=== PATIENT | male | born 1940 | race Caucasian/White ===

== ENCOUNTER 2017-02-07 10:46 | Inpatient (IN) | payer MEDICARE, OTHER ==
[~2017-02-07] VITALS: Ht 177.8 cm; Wt 100.9 kg
[2017-02-07] VITALS (9 sets, daily range): BP systolic 112–153; BP diastolic 51–72; PULSE 60–80; RESP 15–24; O2SAT 91–95
[~2017-02-07 10:46] MED LIST: AMLO10TA3 PO; ASCO-294 PO; ASPI-973 PO; ATOR20TA PO; CHOL200025 PO; COLC0.6T55 PO; CYAN10008 PO; DABI150C PO; DOCU-41 PO; FEBU40TA PO; FERR325C PO; FRSM80T PO; GABA-502 PO; HYDR-3939 PO; OMEP40CA36 PO; SODI650T PO; SPIR25TA3 PO
[2017-02-07] MEDS ORDERED: 0.9% Sodium Chloride 1,000 ML IV ONE ×2 (11:34→13:07)
[2017-02-07] MEDS ORDERED: HYDROcodone-APAP 5-325 mg Tablet PO ONE (11:35)
--- NOTE | 2017-02-07 11:41 | ED.REPORT ---
HPI-Extremity Problem Lower Date of Service February 07, 2017 ED Provider: Thomas Corbin PA-C Cody is a 76-year-old male with a history of DM type II, Charcot foot, coronary artery disease, CHF, A. fib, anemia, kidney disease presents to the ED via EMS with chief complaint of right foot pain. Patient reports worsening pain in his right foot secondary to a sore initially caused by the brace he wears for Charcot foot. Admits a brief episode of lightheaded dizziness about 2 days ago. Denies fevers, chills, malaise, abdominal pain, vomiting. Nursing Notes Stated Complaint: RIGHT LEG PAIN Chief Complaint: Extremity Trauma Nursing Notes Reviewed: Yes Allergies: Coded Allergies: Penicillins (Verified Adverse Reaction, Intermediate, Hallucinations, 02/07) Scheduled Amlodipine (Amlodipine) 10 Mg Tablet 10 MG PO DAILY Ascorbate Calcium (Vitamin C) 500 Mg Tablet 500 MG PO DAILY Aspirin (Aspirin) 81 Mg Tablet 81 MG PO DAILY Atorvastatin (Lipitor) 20 Mg Tablet 20 MG PO HS Cholecalciferol (Vitamin D3) (Vitamin D3) 3,000 Unit Tablet 3,000 UNIT PO DAILY Colchicine (Colchicine) 0.6 Mg Tablet 0.6 MG PO BID Cyanocobalamin (Vitamin B-12) (Vitamin B-12) 1,000 Mcg Tablet 1,000 MCG PO DAILY Dabigatran Etexilate Mesylate (Pradaxa) 150 Mg Capsule 150 MG PO BID Febuxostat (Uloric) 40 Mg Tablet 120 MG PO DAILY Ferrous Sulfate (Iron) 325 Mg Capsule.er 325 MG PO BID Furosemide (Furosemide) 80 Mg Tab 80 MG PO BID Gabapentin (Gabapentin) 300 Mg Capsule 300 MG PO TID Hydralazine (Hydralazine) 25 Mg Tablet 25 MG PO BIDWM Sodium Bicarbonate (Sodium Bicarbonate) 650 Mg Tablet 650 MG PO BID Spironolactone (Spironolactone) 50 Mg Tablet 50 MG PO BID Scheduled PRN Docusate Sodium (Colace) 100 Mg Capsule 100 MG PO DAILY PRN PRN For Constipation General Time Seen by MD: 11:29 Chief Complaint Foot injury right Hx Obtained From: Patient Arrived By: Ambulance Onset Occurred: Yesterday Symptom Duration: Since onset Location: : Foot right Quality: Painful Severity: Current: Mild Recent Healthcare: No recent doctor visit, No recent hospitalization Similar Sx Previous: No Past Medical History Past Medical History Notes: Recent L foot cellulits - finished abx 2 weeks ago Recent Admit July 17 through July 25 sepsis and left lower extremity ileitis, suspected osteomyelitis-with multiorgan dys function and is really elevated lactic acid, the culture at that time group beta strep group G, treated with ertapenem - treated through 07/30/2015 Past Medical History Diabetes mellitus type 2 CAD w/ CABGx4 1998 Hyperlipidemia Atrial fibrillation on Pradaxa. Chronic right bundle branch block Recent Left foot cellulitis - admitted July 17-2014, recent outpatient antibiotic finished 2 weeks Sleep apnea on CPAP Sepsis Chronic diastolic heart failure Chronic anemia Chronic kidney disease Reports: Hypertension Past Surgical History 4 way CABG. Smoking History Former Smoker Social History No tobacco use for 40 years. Alcohol Use: Denies alcohol use Drug Use: Denies drug use Ambulatory Status Independent Review of Systems Review of Systems Note: systolic blood pressure typically in 140s and yesterday in 110s Constitutional: Denies: Chills, Fever Musculoskeletal: Reports: Extremity pain (right foot), Extremity swelling ( right foot) Skin: Reports Bruising, Reports Swelling Neurologic: Reports: Lightheaded Complete sys rev & neg: except as marked. GI: Denies: Abdominal pain, Nausea, Vomiting Physical Exam Physical Exam Notes: Initial Vital Signs Vital Signs (First) Date Time Temp Pulse Resp B/P Pulse Ox O2 Delivery O2 Flow Rate FiO2 02/07/17 10:52 37.2 68 15 153/72 94 Room Air Initial VS: Reviewed Respiratory: Breath sounds normal, Clear to auscultation, No respiratory distress Cardiovascular: Regular rate & rhythm, Heart sounds normal, Intact distal pulses Abdomen / GI: Soft, Non-tender Upper Extremities: Vascular intact, Neuro intact Right Leg / Calf: Positive: Swelling present... Left Leg / Calf: Positive: Swelling present... right leg swelling greater then left Right Foot: Positive: Erythema present, Swelling present... chronic venous stasis changes medial ankle deformity from charcot foot overlying deformity is a developing ulcer that is 3 by 4 cm w/ debris no obvious drainage or fluctuance surrounding erythema Heart Rate / Rhythm: Positive: Irreg irregular rhythm Heart Sounds / Murmur: Positive: Murmur quality... (Blowing), Murmur timing... (Early systolic), Systolic murmur present.. (III/) Trauma / Burn / Environmental: Positive: Hematoma bruising from anticoagulant Neurologic: Oriented X3, Speech NL, No motor deficits, No sensory deficits, Reflexes equal bilat Interpretation & Diagnostics Lab Results Interpretation Result Diagram: 02/07/17 1205 02/07/17 1205 Test 02/07/17 12:05 02/07/17 12:10 02/07/17 12:48 White Blood Count 32.4th/mm3 (3.8-10.1) Red Blood Count 3.92mil/mm3 (4.40-5.80) Hemoglobin 11.2g/dL (13.8-17.2) Hematocrit 34.5% (41.0-50.0) Mean Corpuscular Volume 88.0fL (81-100) Mean Corpuscular Hemoglobin 28.6pg (27.0-35.0) Mean Corpuscular Hemoglobin Concent 32.5% (32.0-37.0) Red Cell Distribution Width 15.4% (12.3-15.4) Platelet Count 350bil/L (150-400) Neutrophils (%) (Auto) 90.6% (40-74) Lymphocytes (%) (Auto) 1.8% (14-46) Monocytes (%) (Auto) 6.9% (4-12) Eosinophils (%) (Auto) 0% (0-5) Basophils (%) (Auto) 0.1% (0-3) Sodium Level 131mEq/L (134-144) Potassium Level 4.0mEq/L (3.5-5.2) Chloride Level 92mEq/L (97-108) Carbon Dioxide Level 17mmol/L (18-29) Blood Urea Nitrogen 82mg/dL (8-27) Creatinine 2.26mg/dL (0.76-1.27) Estimat Glomerular Filtration Rate 30mL/min (>59) Glucose Level 205mg/dL (60-99) Calcium Level 9.2mg/dL (8.5-10.1) Total Bilirubin 1.0mg/dL (0.0-1.2) Aspartate Amino Transf (AST/SGOT) 40U/L (0-50) Alanine Aminotransferase (ALT/SGPT) 29U/L (0-44) Alkaline Phosphatase 105U/L (25-160) Total Protein 7.3g/dL (6.4-8.4) Albumin 3.4g/dL (3.4-5.0) Hold Griffith Top Tube Received (Received) Lactic Acid Level 2.0mmol/L (0.4-2.0) Urine Color Straw (YELLOW) Urine Appearance Clear (CLEAR,HAZY) Urine pH 5.5 (5.0-8.0) Urine Specific [place] 1.010 (1.003-1.035) Urine Protein Tracemg/dL (NEG,TRACE) Urine Glucose (UA) Negativemg/dL (NEGATIVE) Urine Ketones Tracemg/dL (NEGATIVE) Urine Occult Blood Trace (NEGATIVE) Urine Nitrite Negative (NEGATIVE) Urine Bilirubin Negative (NEGATIVE) Urine Urobilinogen Normalmg/dL (NORMAL) Urine Leukocyte Esterase Negative (NEGATIVE) Urine RBC 0-2/hpf (0-2) Urine WBC 0-5/hpf (0-5) Urine Epithelial Cells Occasional/hpf (NONE-MOD) Urine Crystals None seen (NONE SEEN) Urine Bacteria None/hpf (NONE-FEW) Urine Hyaline Casts None/lpf (NONE) Urine Granular Casts None seen (NONE SEEN) Urine Waxy Casts None seen (NONE SEEN) Urine Red Blood Cell Casts None seen (NONE SEEN) Urine White Blood Cell Casts None seen (NONE SEEN) Urine Mucus None seen (None Seen) Urine Trichomonas None seen (NONE SEEN) Urine Yeast None (NONE SEEN) Urinalysis Comment None Urine Culture Reflexed Not indicated Urine Random Creatinine 63mg/dL (22-328) Urine Random Total Protein 24mg/dL (0-15) Urine Random Sodium 21mEq/L Hold Urine Received (Received) X-Ray Interpretation Xray Interpretation: ANKLE X-RAY IMPRESSION: 1. Prominent mid foot and hindfoot Charcot arthropathy results in difficulty evaluating for subtle fractures. 2. Apparent dislocation of the talonavicular joint. The need for better evaluation utilizing CT may be determined clinically. Dictated by: Cm Parks M.D. on 02/07/2017 at 11:00 Approved by: Cm Parks M.D. on 02/07/2017 at 11:05 Interpretation / Wet Read by: Interpret - Radiologist Re-Eval/Medical Decision Re-Evaluation/Progress : Time of Eval: 12:55 Re-Evaluation/Progress Note: Care of pt is taken over by Dr. Mcgee. His white blood cell count is elevated. Plan for fluids, antibiotics, and admission. Consultation #1: Referral / Consult Name: Mecca Lua DO Consulted With: Hospitalist Call Returned at: 13:28 Examining Officer: Agrees with nuria, Agrees with plan Note: Case discussed. Consultation #2: Referral / Consult Name: Patricia Simental MD Consulted With: Hospitalist Call Returned at: 13:45 Examining Officer: Agrees with nuria, Agrees with plan Note: Case discussed. Requests that he remain MBO and will likely need surgery. Counseled Regarding: Diagnosis, Lab results, Need for admission Discharge & Departure Impression: Primary Impression: Cellulitis Site of cellulitis: extremity Site of cellulitis of extremity: lower extremity Laterality: right Qualified Code: L03.115 - Cellulitis of right lower limb Additional Impression: Sepsis Sepsis type: sepsis due to unspecified organism Qualified Code: A41.9 - Sepsis, unspecified organism Disposition: ADMITTED TO HOSPITAL Discharge Condition All VS Reviewed: Yes Condition: Stable Referrals: Maribel Gallego DO (PCP) EDSupervising Provider for APC: Christine Mcgee MD Scribe Attestation Portion of this note were transcribed by Jocelyn Prescott. I, Dr. Christine Mcgee, personally performed the history, physical exam, and medical decision-making: I reviewed and confirmed the accuracy for the information in the transcribed note. Signed by: angelique Saldana, 02/07/17 1500 copies to: Maribel Gallego Seth PA-C February 07, 2017 11:41 Jocelyn Prescott February 07, 2017 12:54
--- NOTE | 2017-02-07 12:06 | DRSVH ---
PROCEDURE: X-RAY RIGHT ANKLE, MINIMUM THREE VIEWS ([id number]) INDICATIONS: CHARCOT FOOT TECHNIQUE: 4 views of the ankle were acquired. COMPARISON: [facility], CR, XR ANKLE MIN 3VW WT [place] RT, 12/16/2016, 9:32. FINDINGS: Bones: Severe degenerative changes of the mid foot and hindfoot joints result in difficulty evaluatin g for subtle fractures. No displaced fractures are evident. There appears to be a talonavicular swapnil nt dislocation. Offset of the tibiotalar joint is also noted. Prominent plantar and Achilles spurs are present. Soft tissues: Extensive edema about the ankle is noted. No unexpected radiopaque foreign bodies are evident. Scattered soft tissue calcifications are present. IMPRESSION: 1. Prominent mid foot and hindfoot Charcot arthropathy results in difficulty evaluating for subtle f ractures. 2. Apparent dislocation of the talonavicular joint. The need for better evaluation utilizing CT may be determined clinically. Dictated by: Cm Parks M.D. on 02/07/2017 at 11:00 Approved by: Cm Parks M.D. on 02/07/2017 at 11:05
[2017-02-07 12:15] LABS: BASOPHILS % (AUTO) 0.1 % (0-3); EOSINOPHILS % (AUTO) 0 % (0-5); MONOCYTES % (AUTO) 6.9 % (4-12); Mean Corpuscular Hemoglobin 28.6 pg (27.0-35.0); NEUTROPHILS % (AUTO) 90.6 % (40-74); Platelet Count 350 bil/L (150-400)
[2017-02-07] MEDS ORDERED: levoFLOXacin Inj 750 MG in IV Premix 1 EACH IV ONE (13:10)
[2017-02-07] MEDS ORDERED: Vancomycin Dose per Pharmacist XX ONE (13:10)
[2017-02-07] MEDS ORDERED: Piperacillin-Tazo 3.375 Gm Inj 3.375 GM in Dextrose 5% Minibag Plus 50 ML IV ONE (13:10)
--- NOTE | 2017-02-07 14:46 | PCM.CONPHA ---
Subjective Reason for Pharmacy Consult: Vancomycin Dosing Assessment/Plan Assessment/Plan Vancomycin dosing for a patient with cellulitis/sepsis (goal trough 15-20): Ht 70.5 inches Wt 101K Serum Cr=2.26 Creatinine Clearance = 30ml/min WBC= 32.4 Lactate=2 Vancomycin 2 Grams (20mg/kg) IV x 1 in the ED. Pharmacy will follow if vancomycin is reordered after the patient is admitted. Mabel Mulligan [facility] February 07, 2017 14:46
[2017-02-07 14:55] LABS: APPEARANCE,URINE CLEAR (CLEAR,HAZY); COLOR,URINE STRAW (YELLOW); OCCULT BLOOD,URINE TRACE (NEGATIVE); PH,URINE 5.5 (5.0-8.0); UROBILINOGEN,URINE NORMAL (NORMAL)
[2017-02-07] MEDS ORDERED: SPIR50TA2 PO (16:01)
[2017-02-07] MEDS ORDERED: CHOL3000 PO (16:01)
--- NOTE | 2017-02-07 16:06 | DRSVH ---
PROCEDURE: US RENAL SONOGRAM INDICATIONS: CLAIRE TECHNIQUE: Real-time scanning was performed of the kidneys and bladder, with image documentation. COMPARISON: [facility], CT, CT CHEST ABD PELVIS W CON, 07/21/2015, 12:13. FINDINGS: Kidneys: Kidneys are normal in size. Right kidney measures 11.0 cm long; left kidney measures 11.7 cm long. Right renal cortical thickness is 0.9 cm; left renal cortical thickness is 1.3 cm. Renal c ortical echotexture is normal. No hydronephrosis or nephrolithiasis. No suspicious solid mass lesio ns. Bladder: Pre-void bladder volume is 300 mL. Post-void residual is 200 mL. Pre-void images demonstr ate no intraluminal masses or stones. On pre-void images, either ureteral jets are noted with color Doppler interrogation. (Of note, ureteral jets may not be detectable in up to 25% of cases due to in sufficient differences in specific gravity between ureteral and bladder urine). Miscellaneous: No free pelvic fluid. IMPRESSION: 1. Mild right renal cortical thinning, otherwise normal kidneys. 2. Approximately 200 cc of postvoid residual. Dictated by: Dajuan Broussard [facility] Interpreted: Ricky Verdin MD on 02/07/2017 at 16:05 Transcribed by: ZULMA on 02/07/2017 at 16:06 Approved by: Ricky Verdin M.D. on 02/07/2017 at 16:33
[2017-02-07] MEDS: 0.9% Sodium Chloride 1,000 ML IV SCH (17:39)
--- NOTE | 2017-02-07 17:49 | NUR ---
Admit from ED Pt. was brought to room 3013 MPC from ED at about 1415. Pt. arrived in no apparent distress, VS stable and with ABX infusing IV. Pt. denies CP, SOB and states he gets pain in his right leg from his knee down to his right foot. Right foot dressing C/D/I, no drainage noted. Pt. is NPO as of now and his blood sugar at about 1740 is 164. No orders for insulin are in EMR at this time. Will continue to monitor.
--- NOTE | 2017-02-07 18:46 | PCM.HPMED ---
Subjective Date of Service February 07, 2017 Primary Provider: Admitting Physician: Mecca Lua DO Primary Care Physician: Maribel Gallego DO Attending Physician: Mecca Lua DO Allergies Coded Allergies: Penicillins (Verified Adverse Reaction, Intermediate, Hallucinations, 02/07) PMH Social History Hx Alcohol Use: No Hx Substance Use: No Hx Tobacco Use: Yes (smoked only for 5 years) Smoking Status: Former Smoker Exam Vital Signs Vital Sign - Last Date Time Temp Pulse Resp B/P Pulse Ox O2 Delivery O2 Flow Rate FiO2 02/07/17 16:21 36.7 60 16 119/63 93 Room Air Lab and Diagnostics Result Diagram: 02/07/17 1205 02/07/17 1205 Assessment & Plan HPI: Patient is a 76-year-old male who presents with the complaint of lethargy and dizziness. The patient states that he has been compliant with his boot on his right foot however he noticed that he was getting some ulcers and started using Neosporin and bandaging it and the patient stated that it felt like it was improving. However today the patient was noticing increased dizziness and lethargy and then decided to come to the emergency room and was found to have an infection/cellulitis in the lower extremity. He was also noted to have an increase in his creatinine more so than his usual baseline. I talked with the patient's PCP (Dr. Gallego) who is aware that the patient is admitted. Nephrology and podiatry were both consulted from the ED. Home medications: Amlodipine 10 mg daily Vitamin C 500 mg daily Aspirin 81 mg daily Lipitor 20 mg by mouth daily at bedtime Vitamin D3 3000 units by mouth daily Colchicine 0.6 mg by mouth twice a day Vitamin B12 1000 g by mouth daily Protonix 150 mg by mouth twice a day Colace 100 mg by mouth daily when necessary constipation Uloric 120 mg by mouth daily Lasix 80 mg by mouth twice a day Gabapentin 300 mg by mouth 3 times a day Hydralazine by mouth twice a day 25 mg Sodium bicarbonate 650 mg by mouth twice a day Spironolactone 50 mg by mouth twice a day Allergies: Penicillin-hallucinations PMHx: HTN DM HLD DM neuropathy CKD previous DVT Gout Charcot foot SHx: Tonsillectomy Adenoidectomy [address] way cardiac bypass in 1998 FHx: No family history of cardiac disease Unsure of what parents from but both parents in their 80s SocHx: 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 Please see HPI for pertinent positives, all other systems are negatives. Physical Exam: GEN: Patient was awake, alert, responding appropriately to questions HEENT: Pupils equal round and reactive to light, extraocular eye muscles intact , Neck soft supple, trachea midline, nomocephalic/atraumatic CV: +S1/S2, regular rate and rhythm, systolic murmur auscultated Respiratory: CTAB, no wheezes, rales, rhonchi GI: +bowel sounds x4, soft, compressible, nontender to palpation EXT: Right lower extremity ankle currently wrapped bandage is clean dry and intact, positive cyanosis secondary to venous stasis Skin: Multiple bruises secondary to port access, multiple patches of skin discoloration Neuro: Cranial nerves II-XII grossly intact Psych: mood and affect were appropriate Assessment and Plan 76-year-old male presents to the emergency room with cellulitis and Charcot foot on the right Cellulitis -Podiatry following -Blood cultures pending -Right ankle cultures gram-positive cocci in -Continue Zosyn -Continue vancomycin -Continue levofloxacin - Follow-up labs in the morning Acute kidney injury -Continue fluids -Follow up labs in the morning -Nephrology following (Dr. Chávez) Diabetes -Hemoglobin A1c -Insulin sliding scale -Accu-Cheks before meals and at bedtime Hypertension -Hydralazine 25 mg by mouth twice a day -Amlodipine 10 mg daily -Spironolactone 50 mg by mouth twice a day -Continue to monitor CHF -Spironolactone 50 mg by mouth twice a day -Lasix 80 mg by mouth twice a day -EF 65-70% from an echo done on 04/03/2016 Hyperlipidemia -Continue Lipitor 20 mg by mouth daily at bedtime Gout (currently stable) -Continue colchicine 0.6 mg twice a day Diabetic neuropathy -Continue gabapentin 300 mg by mouth 3 times a day Code Status: Full code Disposition: Due to the nature of the patient's current diagnosis anticipated stay is greater than 2 midnight Mecca Lua DO February 07, 2017 18:46
[2017-02-07] MEDS ORDERED: Alum-Mag Hydrox-Simeth 30 mL Suspension PO PRN (19:15)
[2017-02-07] MEDS ORDERED: Polyethylene Glycol (PEG) 17 Gm Powder PO PRN (19:15)
[2017-02-07] MEDS ORDERED: Ondansetron 2 mg/mL 2 mL Inj IVPUSH PRN (19:15)
[2017-02-07] MEDS ORDERED: Glucose 40% Oral Gel 15 Gm Tube PO PRN (19:45)
--- NOTE | 2017-02-07 20:13 | PCM.CHPPOD ---
Subjective Date of service February 07, 2017 History of Present Illness 76 year old male evaluated at bedside in [facility]. Patient has a history of right foot charcot and has been managed by Dr. George Nowak. Patient states that he was recently fitted for a right foot [place] walker which subsequently began to rub on the inside of his foot. Patient states that he began to notice a wound over the medial aspect of his foot last week. No recent history of ulceration of his right foot. Xrays taken today reveal complete dislocation of the talonavicular joint with lateral translation of the fooot. possible fracture of the lateral aspect of the navicular. severe degenerative arthritis of the midfoot no obvious signs of osteomyelitis. Allergy Allergies: Coded Allergies: Penicillins (Verified Adverse Reaction, Intermediate, Hallucinations, 02/07) Medications Blood Thinners: Aspirin Amlodipine (Amlodipine) 10 Mg Tablet 10 MG PO DAILY Ascorbate Calcium (Vitamin C) 500 Mg Tablet 500 MG PO DAILY Aspirin (Aspirin) 81 Mg Tablet 81 MG PO DAILY Atorvastatin (Lipitor) 20 Mg Tablet 20 MG PO HS Cholecalciferol (Vitamin D3) (Vitamin D3) 3,000 Unit Tablet 3,000 UNIT PO DAILY Colchicine (Colchicine) 0.6 Mg Tablet 0.6 MG PO BID Cyanocobalamin (Vitamin B-12) (Vitamin B-12) 1,000 Mcg Tablet 1,000 MCG PO DAILY Dabigatran Etexilate Mesylate (Pradaxa) 150 Mg Capsule 150 MG PO BID Docusate Sodium (Colace) 100 Mg Capsule 100 MG PO DAILY PRN PRN For Constipation Febuxostat (Uloric) 40 Mg Tablet 120 MG PO DAILY Ferrous Sulfate (Iron) 325 Mg Capsule.er 325 MG PO BID Furosemide (Furosemide) 80 Mg Tab 80 MG PO BID Gabapentin (Gabapentin) 300 Mg Capsule 300 MG PO TID Hydralazine (Hydralazine) 25 Mg Tablet 25 MG PO BIDWM Sodium Bicarbonate (Sodium Bicarbonate) 650 Mg Tablet 650 MG PO BID Spironolactone (Spironolactone) 50 Mg Tablet 50 MG PO BID Past Medical History Surgeries: Yes Medical History: Surgical History: Social History Hx Alcohol Use: No Hx Substance Use: No Hx Tobacco Use: Yes (smoked only for 5 years) Smoking Status: Former Smoker Podiatry Consult Exam Vital Signs Vital Sign - Last Date Time Temp Pulse Resp B/P Pulse Ox O2 Delivery O2 Flow Rate FiO2 02/07/17 16:21 36.7 60 16 119/63 93 Room Air Result Diagram: 02/07/17 1205 02/07/17 1205 Lab Test 02/07/17 12:05 02/07/17 12:10 02/07/17 12:48 White Blood Count 32.4th/mm3 (3.8-10.1) Red Blood Count 3.92mil/mm3 (4.40-5.80) Hemoglobin 11.2g/dL (13.8-17.2) Hematocrit 34.5% (41.0-50.0) Mean Corpuscular Volume 88.0fL (81-100) Mean Corpuscular Hemoglobin 28.6pg (27.0-35.0) Mean Corpuscular Hemoglobin Concent 32.5% (32.0-37.0) Red Cell Distribution Width 15.4% (12.3-15.4) Platelet Count 350bil/L (150-400) Neutrophils (%) (Auto) 90.6% (40-74) Lymphocytes (%) (Auto) 1.8% (14-46) Monocytes (%) (Auto) 6.9% (4-12) Eosinophils (%) (Auto) 0% (0-5) Basophils (%) (Auto) 0.1% (0-3) Sodium Level 131mEq/L (134-144) Potassium Level 4.0mEq/L (3.5-5.2) Chloride Level 92mEq/L (97-108) Carbon Dioxide Level 17mmol/L (18-29) Blood Urea Nitrogen 82mg/dL (8-27) Creatinine 2.26mg/dL (0.76-1.27) Estimat Glomerular Filtration Rate 30mL/min (>59) Glucose Level 205mg/dL (60-99) Calcium Level 9.2mg/dL (8.5-10.1) Total Bilirubin 1.0mg/dL (0.0-1.2) Aspartate Amino Transf (AST/SGOT) 40U/L (0-50) Alanine Aminotransferase (ALT/SGPT) 29U/L (0-44) Alkaline Phosphatase 105U/L (25-160) Total Protein 7.3g/dL (6.4-8.4) Albumin 3.4g/dL (3.4-5.0) Hold Griffith Top Tube Received (Received) Lactic Acid Level 2.0mmol/L (0.4-2.0) Urine Color Straw (YELLOW) Urine Appearance Clear (CLEAR,HAZY) Urine pH 5.5 (5.0-8.0) Urine Specific [place] 1.010 (1.003-1.035) Urine Protein Tracemg/dL (NEG,TRACE) Urine Glucose (UA) Negativemg/dL (NEGATIVE) Urine Ketones Tracemg/dL (NEGATIVE) Urine Occult Blood Trace (NEGATIVE) Urine Nitrite Negative (NEGATIVE) Urine Bilirubin Negative (NEGATIVE) Urine Urobilinogen Normalmg/dL (NORMAL) Urine Leukocyte Esterase Negative (NEGATIVE) Urine RBC 0-2/hpf (0-2) Urine WBC 0-5/hpf (0-5) Urine Epithelial Cells Occasional/hpf (NONE-MOD) Urine Crystals None seen (NONE SEEN) Urine Bacteria None/hpf (NONE-FEW) Urine Hyaline Casts None/lpf (NONE) Urine Granular Casts None seen (NONE SEEN) Urine Waxy Casts None seen (NONE SEEN) Urine Red Blood Cell Casts None seen (NONE SEEN) Urine White Blood Cell Casts None seen (NONE SEEN) Urine Mucus None seen (None Seen) Urine Trichomonas None seen (NONE SEEN) Urine Yeast None (NONE SEEN) Urinalysis Comment None Urine Culture Reflexed Not indicated Urine Random Creatinine 63mg/dL (22-328) Urine Random Total Protein 24mg/dL (0-15) Urine Random Sodium 21mEq/L Hold Urine Received (Received) Exam General: Alert, Oriented X3, Cooperative, No Acute Distress Lower Extremities: Right: Extremity warm Lower Extremity Pulses: Palpable: Left Dorsalis Pedis Left Posterior Tibal Doppler: Right Dorsalis Pedis Right Posterior Tibal Podiatry WOUND : Wound Location/Description superficial partial thickness eschar overlying the medial talar head without full thickness ulceration. local edema is present, no fluctuance noted. Chronic erythematous changes of the distal leg associated with venous stasis dermatitis. no signs of abscess formation. the talus is tenting the medial foot with severe abduction and dislocation of the foot distal to the navicular laterally. complete collapse of the medial longitudinal arch. Assessment & Plan Assessment Charcot foot vs trauma involving the right midfoot with complete dislocation of the talonavicular joint. Problems: Plan This is a complicated case of a patient with acute leukocytosis and a history of DM neuropathy and charcot of the right foot. Clinical evaluation of the right foot does not demonstrate any obvious signs of abscess or cellulitis consistent with a 32,000 white count. The right foot is currently severely lateral dislocated at the talonavicular joint with tenting of the talus on the medial skin of the midfoot causing a dry eschar. I do not find it likely that this foot is the sole cause of this patients acutely elevated white count and suggest extensive medial workup to rule out alternative source of potential infection. A CT scan of the right ankle would be helpful to fully visualize the hindfoot and likely navicular fracture/Charcot changes. This patient would likely benefit from ORIF of the right foot/ankle however will require medical stabilization and possible vascular workup prior to attempted surgical reduction. A dry sterile dressing was placed today. please keep NPO after 9 am tomorrow for possible surgery after 5pm if needed. Jeramie Quintana DPM February 07, 2017 20:13
[2017-02-07] MEDS ORDERED: SODIUM BICARBONATE 650 MG PO SCH (20:30)
[2017-02-07] MEDS: Piperacillin-Tazo 3.375 Gm Inj 3.375 GM in Dextrose 5% Minibag Plus 50 ML IV SCH (20:38)
[2017-02-07] MEDS: Dabigatran 150 mg Capsule PO SCH (20:38)
[2017-02-07] MEDS: Insulin LISPRO 300 Unit/3 mL Inj SUBQ SCH (20:42)
--- NOTE | 2017-02-07 21:04 | CONS ---
[address] [address] CONSULTATION REPORT PATIENT: JACKIE BRAVO : 1940 MR#: [id number] ADMIT: 02/07/2017 JOB ID: [id number] DATE OF SERVICE: REQUESTING PHYSICIAN: Dr. Lua REASON FOR CONSULTATION: Management of abnormal kidney function. CHIEF COMPLAINT: Right foot pain. PRESENT ILLNESS: This is a 76-year-old, male with significant past medical history of type 2 diabetes, hypertension, atrial fibrillation, stage 3 chronic kidney disease, coronary artery disease, status post CABG, dyslipidemia, who presented to the hospital with a complaint of right foot pain. The patient has been diagnosed with Charcot foot with neuropathy on the right foot. The patient has been evaluated by a squad leader, Dr. Nowak. According to the record he was evaluated by Dr. Nowak last time on December 23, 2016. He was advised to minimize ambulation and continue using the ankle brace. However, patient has not returned back for re-evaluation. The patient reported worsening pain on his right foot due to the sore on the foot. He believes that it is likely caused by the ankle brace he wears for the Charcot foot. The patient denies history of fever, chills, chest pain, shortness of breath, nausea, vomiting, or diarrhea. His initial blood work showed WBC of 32.4, hemoglobin 11.2. Sodium of 131, BUN of 82, creatinine of 2.26. The patient has been evaluated by a seasoning mixer, Dr. Peterson. The last visit with Dr. Peterson was on December 27, 2016. His BUN and creatinine on December 23 were 60 and 1.77 respectively. The patient is known to have hypertensive nephrosclerosis and diabetic nephropathy. He has history of lower extremity swelling in which he has been on Lasix 80 mg twice a day, as well as Aldactone 50 mg b.i.d. The patient denies history of NSAID use. No dysuria, no hematuria. Kidney sonogram done at bedside today showed right kidney 11 cm, left kidney 11.7 cm. Postvoid residual was 200 mL. PAST MEDICAL HISTORY: 1. 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 2. Charcot foot. 3. Stage 3 chronic kidney disease. 4. Hypertension with hypertensive nephrosclerosis. 5. Atrial fibrillation. 6. Sleep apnea. 7. Gout. 8. CAD, status post CABG. 9. Dyslipidemia. 10. Recent history of left foot cellulitis. PAST SURGICAL HISTORY: Status post CABG in 1998. SOCIAL HISTORY: Patient is a former smoker. Denies current use of alcohol, tobacco, or illicit drugs. ALLERGIES: PENICILLIN. REVIEW OF SYSTEMS: Constitutional: No fever, no chills. HEENT: No headaches. No blurred vision. Cardiovascular: No chest pain. No shortness of breath. Pulmonary: No cough. No hemoptysis. GI: No nausea, vomiting. : No dysuria. No hematuria. Skin: No rashes. No excoriation. Hematology: Positive for multiple bruises on the upper extremity. No active bleeding. Neuro: Positive for history of peripheral neuropathy. No confusion, no headaches. PHYSICAL EXAMINATION: Vitals: Temperature 36.7, pulse 60, respiratory 16, blood pressure 119/63, O2 sat 93% on room air. General appearance: Awake, alert, oriented x3. No acute distress. HEENT: No pallor. No jaundice. No JVD. No lymphadenopathy. No thyroid enlargement. Heart: Irregular rhythm. Variable S1, normal S2. Systolic murmur noted. Lungs: Clear to auscultation bilaterally. Abdomen soft, active bowel sounds. Nontender. Nondistended. No hepatosplenomegaly. Extremity: Trace edema on the lower extremity. Chronic skin changes and discoloration noted. Dressing on the right foot. LABORATORY: WBC 32.4, hemoglobin 11.2, platelets 135. Sodium 131, potassium 4.1, chloride 92, bicarb 17. BUN 82, creatinine 2.26, glucose 205. UA: pH 5.5, specific gravity 1.010, trace protein, 0-2 RBCs, 0-5 WBCs. No casts seen. Urine sodium 21, urine creatinine 36, urine protein 24. Kidney sonogram: Right kidney measures 11.0 cm. Left kidney measures 11.7 cm. Postvoid residual 200 mL. ASSESSMENT: 1. Acute kidney injury, on stage 3 chronic kidney disease. His serum creatinine in November was 1.7. His initial serum creatinine was 2.26. Of note, the patient was taking Lasix and Aldactone. There is evidence of bladder outlet obstruction. Sonogram showed postvoid residual of 200 mL. At this point, I would like to hold his diuretics and give him IV fluid hydration. Will start with normal saline at 80 cc/hour. I would like to repeat his postvoid residual. If he retains more than 200, will recommend for the Nur catheter placement. Will start patient on Flomax 0.4 mg at bedtime. 2. Leukocytosis, suspected cellulitis of the right foot. 3. History off Charcot foot. 4. Type 2 diabetes with neuropathy and nephropathy. 5. Hypertension with hypertensive nephrosclerosis. 6. Dyslipidemia. 7. Obstructive sleep apnea. 8. Chronic atrial fibrillation. PLAN: 1. Start normal saline 80 cc/hour. 2. Repeat postvoid residual. 3. Repeat BMP in the morning. 4. Start Flomax 0.4 mg at bedtime. Thank you for allowing me to participate in the care of your patient. We will monitor along with you.
[2017-02-08] VITALS (9 sets, daily range): BP systolic 117–142; BP diastolic 56–68; PULSE 59–72; RESP 18–22; O2SAT 90–93
--- NOTE | 2017-02-08 01:26 | NUR ---
PVR 85
[2017-02-08] MEDS: 0.9% Sodium Chloride 1,000 ML IV SCH ×2 (06:02→18:23)
--- NOTE | 2017-02-08 06:38 | NUR ---
Pain Pt having intermittent spasming 9/10 pain in leg. Tramadol and Tylenol given but not very effective. Pt slept pretty well through the night using urinal to urinate. Doctor note states pt to be NPO after 9am for possible surgery after 5pm-pt informed of change and states he will order breakfast.
[2017-02-08 07:02] LABS: BASOPHILS % (AUTO) 0 % (0-3); EOSINOPHILS % (AUTO) 0 % (0-5); MONOCYTES % (AUTO) 6.2 % (4-12); Mean Corpuscular Hemoglobin 28.7 pg (27.0-35.0); Mean Corpuscular Volume 89.2 fL (81-100); NEUTROPHILS % (AUTO) 91.4 % (40-74); Platelet Count 300 bil/L (150-400)
[2017-02-08 07:17] LABS: Magnesium 2.3 mg/dL (1.6-2.6)
[2017-02-08] MEDS ORDERED: levoFLOXacin 750 mg Tablet PO SCH (07:30)
[2017-02-08] MEDS: Ascorbic Acid 500 mg Tablet PO SCH (08:09)
[2017-02-08] MEDS: Dabigatran 150 mg Capsule PO SCH ×2 (08:10→20:31)
[2017-02-08] MEDS: FEBUXOSTAT 120 MG PO SCH (08:12)
[2017-02-08] MEDS: Piperacillin-Tazo 3.375 Gm Inj 3.375 GM in Dextrose 5% Minibag Plus 50 ML IV SCH (08:12)
[2017-02-08] MEDS: Insulin LISPRO 300 Unit/3 mL Inj SUBQ SCH ×4 (08:24→20:50)
[2017-02-08] MEDS ORDERED: Non-Formulary Medication (Amlodipine 10 MG) PO SCH (08:30)
[2017-02-08] MEDS ORDERED: Vancomycin Dose per Pharmacist XX SCH (08:30)
[2017-02-08] MEDS ORDERED: FEBUXOSTAT 120 MG PO SCH (08:30)
[2017-02-08] MEDS ORDERED: CHOLECALCIFEROL 3000 UNIT PO SCH (08:30)
--- NOTE | 2017-02-08 09:14 | NUR ---
Social Work-initial assessment: Data:See initial assessment. Pt is a 76 y/o male who was admitted on 02/07/17 for right foot cellulitis per H&P. Pt's insurance is 5 CUPS and some sugar and PCP is Maribel Gallego MD. EMR reviewed. ILDA met with pt at bedside to discuss discharge planning, SW role explained. Pt is alert and oriented x3. Pt resides at home alone where he remains independent with ADLS. Pt uses a cane to ambulate and does occasionally drive. Pt has history with [facility] and has no SNF history. 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 SW discussed DPOA/ advanced directive, pt confirms that he has not completed this, SW provided pt with a copy of the paperwork. Podiatry is involved and pt may need surgery. SW discussed services, choice list provided. Pt would like a referral to [facility], ILDA called Vickey and provided him with referral for RN and PT, access given. Pt also currently on IV abx. ILDA provided phone number and plan on white board in room. F2F in folder. SW will continue to follow. Assessment:Pt who would benefit from . Plan:Pt to discharge back home when medically stable. Referral made to [facility] For RN and PT. Podiatry is following pt. Pt also on IV abx. F2F in folder. ILDA will continue to follow. BRENDA Stubbs Addendum: 02/08/17 at 0918 by KRISTEN ROBERSON Amended: Links added.
--- NOTE | 2017-02-08 11:15 | PCM.PNNEPH ---
Subjective Date of Service February 08, 2017 Subjective C/o pain on right foot. Denies F/C/N/V/CP/SOB. Serum creatinine trends. Repeat PVR 85 ml. Exam Vital Signs Vital Sign - Last Date Time Temp Pulse Resp B/P Pulse Ox O2 Delivery O2 Flow Rate FiO2 02/08/17 10:27 72 02/08/17 10:18 92 Nasal Cannula 4.00 02/08/17 09:50 37.0 22 142/62 Intake and Output 02/07/17 02/07/17 02/08/17 Cumulative From/Thru 15:00 23:00 07:00 02/07/17 10:52 - 02/08/17 06:18 Intake Total 1798 ml 200 ml 1998 ml Output Total 575 ml 975 ml 1550 ml Balance 1223 ml -775 ml 448 ml Intake Oral 0 ml 200 ml 200 ml IV Total 1798 ml 1798 ml Output Urine Total 575 ml 975 ml 1550 ml # Bowel Movements 0 0 Exam General appearance: Awake, alert, oriented x3. No acute distress. HEENT: No pallor. No jaundice. No JVD. No lymphadenopathy. No thyroid enlargement. Heart: Irregular rhythm. Variable S1, normal S2. Systolic murmur noted. Lungs: Clear to auscultation bilaterally. Abdomen soft, active bowel sounds. Nontender. Nondistended. No hepatosplenomegaly. Extremity: Trace edema on the lower extremity. Chronic skin changes and discoloration noted. Dressing on the right foot. Lab and Diagnostics Result Diagram: 02/08/17 0602/08/17 0607 Plan Impression ASSESSMENT: 1. Acute kidney injury, on stage 3 chronic kidney disease. Improving. Likely due to overdiuresis and possibly component of ATN in the setting of ongoing infection. 2. Right foot cellulitis 3. GPC bacteremia. 4. History of Charcot foot. 5. Type 2 diabetes with neuropathy and nephropathy. 6. Hypertension with hypertensive nephrosclerosis. 7. Dyslipidemia. 8. Obstructive sleep apnea. 9. Chronic atrial fibrillation. Plan: Hold aldactone and lasix for now. Continue IVF NS 60 ml/hr x 24 hr. Miguel Moses MD February 08, 2017 11:15
[2017-02-08] MEDS ORDERED: Vancomycin Serum Trough XX ONE (12:00)
[2017-02-08] MEDS ORDERED: Vancomycin Inj 1,250 MG in 0.9% Sodium Chloride 250 ML IV SCH (14:35)
--- NOTE | 2017-02-08 14:39 | PCM.PHAPRO ---
Progress Date of Service: February 08, 2017 Vancomycin dosing A/ Vancomycin random level was drawn 24 hours after the first dose of 2000mg, it came back at 14.1. This is not yet at steady state and was for a safety check due to renal function. P/ Scheduled 1250mg dose q24h with the next trough will be drawn on 02/10 @ 1400 after the 4th dose. Pharmacy will follow daily and adjust the dosing as the SCr improves. Navarro Stanley February 08, 2017 14:39
--- NOTE | 2017-02-08 17:16 | DRSVH ---
PROCEDURE: CT ANKLE RIGHT W/O CONTRAST (84117) INDICATIONS: charcot foot right foot/ankle TECHNIQUE: Noncontrast 1-1.5 mm axial sections acquired from above the tibiotalar joint to the bottom of the hodan caneus, with coronal and sagittal reformats. COMPARISON: [facility], CR, XR ANKLE 3VW RT, 02/07/2017, 11:52. FINDINGS: Image quality: Diagnostic. Bones: The bone mineralization is diffusely decreased. Severe degenerative changes and numerous scat tered small ossific/calcific densities about the osseous structures of the imaged right hindfoot and midfoot results in difficulty evaluating for subtle fractures. No definite large acute fracture is e vident. There is complete dislocation of the talonavicular joint with medial positioning of the shailesh r head with respect to the navicular. The navicular remains appropriately aligned with respect to th e remainder of the foot. No definite additional dislocations are appreciated. Extensive osseous ero sions are noted throughout all of the midfoot and hindfoot bones. The ankle mortise is relatively we ll maintained. Soft tissues: Extensive subcutaneous edema about the midfoot and hindfoot is identified with prominen t ankle, subtalar, and talonavicular fusions. Multiple joint bodies are present within the joint eff usions. Please note that evaluation of the ligamentous and tendinous structures of the midfoot and h indfoot is limited on CT. However, there is thickening and diffuse edema noted involving the medial and lateral flexor tendons as well as the Achilles tendon. Partial-thickness tearing probably is pre sent. No soft tissue air or soft tissue foreign bodies are evident. IMPRESSION: 1. Advanced degenerative changes of the right midfoot and hindfoot are compatible with Charcot arthr opathy. 2. Medial dislocation of the talus with respect to the navicular is of uncertain chronicity. 3. Evaluation for subtle acute fractures is limited. No large displaced fracture. 4. Numerous bony erosions of the midfoot and forefoot are probably related to Charcot arthropathy. However, the possibility of superimposed osteomyelitis or inflammatory arthropathy cannot be excluded and clinical correlation is recommended. 5. Extensive soft tissue edema without a definite loculated fluid collection. 6. Moderate tendinopathy of the peroneus brevis, peroneus longus, and Achilles tendons is present. Additional areas of flexor tendinopathy along the medial aspect of the ankle probably are present. Dictated by: Cm Parks M.D. on 02/08/2017 at 15:49 Approved by: Cm Parks M.D. on 02/08/2017 at 16:14
--- NOTE | 2017-02-08 18:55 | PCM.PNMED ---
Subjective Date of Service February 08, 2017 Subjective Patient was seen and examined at bedside today. Patient denies any chest pain, shortness of breath, nausea, vomiting, diarrhea. Patient currently only complains of right lower extremity pain Overnight events: None Exam Vital Signs Vital Sign - Last Date Time Temp Pulse Resp B/P Pulse Ox O2 Delivery O2 Flow Rate FiO2 02/08/17 18:35 36.7 61 18 134/64 93 Nasal Cannula 4.00 Intake and Output 02/07/17 02/07/17 02/08/17 Cumulative From/Thru 15:00 23:00 07:00 02/07/17 10:52 - 02/08/17 06:18 Intake Total 1798 ml 200 ml 1998 ml Output Total 575 ml 975 ml 1550 ml Balance 1223 ml -775 ml 448 ml Intake Oral 0 ml 200 ml 200 ml IV Total 1798 ml 1798 ml Output Urine Total 575 ml 975 ml 1550 ml # Bowel Movements 0 0 Exam Physical Exam: GEN: Patient was awake, alert, responding appropriately to questions HEENT: Pupils equal round and reactive to light, extraocular eye muscles intact , Neck soft supple, trachea midline, nomocephalic/atraumatic CV: +S1/S2, regular rate and rhythm, systolic murmur auscultated Respiratory: CTAB, no wheezes, rales, rhonchi GI: +bowel sounds x4, soft, compressible, nontender to palpation EXT: no clubbing, cyanosis, trace edema, right lower extremity knee pain, right ankle malformation dressing is clean dry and intact Neuro: Cranial nerves II-XII grossly intact Psych: mood and affect were appropriate IVs and Medications Medications Reviewed: Medications were reviewed in detail Lab and Diagnostics Result Diagram: 02/08/1760602/08/1707 Assessment & Plan 76-year-old male presents to the emergency room with cellulitis and Charcot foot on the right Leukocytosis secondary to gram-positive bacteremia -Podiatry following -Blood cultures positive for gram-positive cocci in -Right ankle cultures gram-positive cocci in -Antibiotics to be managed by infectious disease -Dr. Gordon consulted (infectious disease) - Follow-up labs in the morning Acute kidney injury -Continue fluids IV saline 60 mL an hour -Follow up labs in the morning -Nephrology following (Dr. Chávez) Diabetes -Hemoglobin A1c -Insulin sliding scale -Accu-Cheks before meals and at bedtime Hypertension -Hydralazine 25 mg by mouth twice a day -Amlodipine 10 mg daily -Hold Spironolactone 50 mg by mouth twice a day -Continue to monitor CHF -Hold Spironolactone 50 mg by mouth twice a day -Lasix 80 mg by mouth twice a day -EF 65-70% from an echo done on 04/03/2016 Hyperlipidemia -Continue Lipitor 20 mg by mouth daily at bedtime Gout (currently stable) -Continue colchicine 0.6 mg twice a day Diabetic neuropathy -Continue gabapentin 300 mg by mouth 3 times a day Code Status: Full code Disposition: This patient was discussed with Dr. Quintana today who will follow-up with a right ankle CT. Once he is more familiar with the patient's current anatomy that he will make a decision as to whether or not to take the patient to surgery. At this time infectious disease has been consulted to help with the management of the patient's bacteremia. Mecca Lua DO February 08, 2017 18:55
--- NOTE | 2017-02-08 19:51 | NUR ---
O2 Pt's SPO2 sat 88% on RA with am vitals, Pt denied SOB, Pt placed on 3L O2 via nasal cannula, Pt's SPO2 sats increased to 90% with good pleth. Pt instructed to perform deep breathing/coughing exercises which did not seem to increase SPO2 sat. Pt repositioned and O2 increased to 4L, Pt instructed to perform further deep breathing/coughing exercises, and SPO2 sats increased to 92/93% on 4L via nasal cannula, updated.
--- NOTE | 2017-02-08 21:50 | CONS ---
[address] [address] CONSULTATION REPORT PATIENT: JACKIE BRAVO : 1940 MR#: [id number] ADMIT: 02/07/2017 JOB ID: [id number] DATE OF SERVICE: 02/08/2017 REASON FOR CONSULTATION: High-grade gram-positive bacteremia in a patient with Charcot joint and probable osteomyelitis. HISTORY OF PRESENT ILLNESS: The patient is an unfortunate, 76-year-old gentleman with longstanding multiple medical problems, including coronary artery disease, bradycardia requiring pacemaker, sleep apnea, hypertension, renal insufficiency, diabetes, Charcot joint of the right ankle, peripheral neuropathy and a history of gout. The patient is known to me from an admission in 2014 when he had severe group G streptococcal infection of his left 4th toe. He has also previously had a diabetic foot infection in the right 4th toe which required amputation of that digit. The patient reports he was in his usual state of compensated health until about a week or two ago when he obtained a new [employer] boot designed to better protect his Charcot right ankle. As a consequence of this new boot, however, the patient developed an ulcer over the medial malleolus which he tried to treat with topical therapy. Unfortunately, this failed and the patient then developed lightheadedness, malaise and increasing pain around the right foot and ankle which led him to evaluation and admission on February 07. In association with the right ankle, he was noticing pain and tenderness spreading up from the ankle all the way to the knee which completely stopped his ambulation and activities. Oddly, the patient had no fevers, chills, or sweats with this. He denied any other constitutional symptoms other than just lightheadedness and malaise. He specifically denied new pulmonary symptoms. new GI symptoms and no symptoms. He was admitted and already it has been established that the patient is bacteremic with multiple blood cultures turned positive within 24 hours. ID is consulted requesting management of this bacteremic infection which seems to have originated in his left medial malleolus area and now seems to be involving much of his right lower extremity below the knee. PAST MEDICAL HISTORY: 1. Organic heart disease; a. Coronary artery disease; b. Bradycardia requiring pacemaker, left upper chest. 2. Obstructive sleep apnea treated with CPAP. 3. Hypertension. 4. Chronic renal insufficiency. 5. Peripheral neuropathy secondary to diabetes mellitus. 6. Diabetes mellitus. 7. Charcot joint, right foot, with dislocation of the talonavicular joint. 8. History of DVT. 9. History of gout. SOCIAL HISTORY: The patient quit smoking and drinking 40 years ago. He is a as his three or four years ago and he now lives alone in this neighborhood though he does have some good friends who help him out. He is a retired employee of the [employer]. FAMILY HISTORY: Negative for TB in first or second-degree relatives. REVIEW OF SYSTEMS: Patient has no significant headache. No visual changes. No sore throat. No significant cough, chest pain, problems with the pacer, nausea, vomiting, diarrhea or dysuria. He has not had any new or focal symptoms in his left lower extremity and all of his current symptomatology is basically confined to the right lower extremity. Remainder of the review of systems negative. PHYSICAL EXAMINATION: Reveals a chronically ill gentleman, looks older than his stated age of 76. He has been afebrile during his 24 hour admission. Temp 36.7, pulse 70, respiratory rate 20, blood pressure 117/61, saturating well on 4 L. He is in no acute distress. His head without trauma. His eyes without conjunctivitis or conjunctival hemorrhages. His oral cavity without thrush or palatal petechia. Neck without adenopathy and supple. Lungs relatively clear bilaterally. Cardiac tones: Distant regular rate and rhythm. No murmurs are appreciated. Abdomen: Soft and nontender without organomegaly. He does not have a Nur catheter. No suprapubic fullness. He is wearing a brief. His legs above the knees are essentially normal. His right knee has a clear-cut effusion and some tenderness with palpation of the effusion. The left knee does not have an effusion. The entire right lower leg below the knee is quite tender to palpation with some warmth though not a lot of erythema. There are venous stasis changes on both legs below the knee. The right medial malleolus has about a 3 cm in diameter shallow erosion which is pointing out some degree from the medial malleolus suggesting that there may be fluid underneath this shallow ulcer. The forefeet of both feet are uninvolved with this infectious process. Capillary refill is slow when he has fungal infection of the nails bilaterally. Neurologically, the patient has peripheral neuropathy. He can move his extremities well beyond that though it is notable that his right ankle foot seems to be attached to the very peculiar angle to his right leg which is the result of the above-mentioned dislocation and the obvious Charcot ankle on the right. LABORATORIES: Include white count 32,000 when he came in, now 18535% polys, creatinine 1.85. LFTs basically normal. Pro calcitonin 4.05. Urinalysis without white cells. The 1st Vanco level was 14. Micro is impressive, four positive blood cultures for bacteria more than one of which resembles Staph. Final identification to come. The swab of the ankle is growing Staph aureus with heavy growth. IMAGING: Includes a CT of the ankle which was just completed which shows advanced degenerative changes consistent with Charcot arthropathy. There is a dislocation of the talus with respect to the navicular bone which is chronic. There is no fracture seen. There are bony erosions of the midfoot and forefoot which are likely Charcot arthropathy but ostial could not be distinguished from Charcot arthropathy by CT scan or MRI. There is also a great deal of edema without a definite abscess. IMPRESSION: It appears this unfortunate gentleman suffered an ulcer of his medial malleolus as result of a new special boot designed to help the function of his Charcot ankle on the right. As a result of this, he has now developed what seems to be a fairly extensive infection around the ankle which may or may not involve osteo but, more importantly, seems to be spreading up the right lower extremity towards the knee, and there is now even a knee effusion. In association with all of this, the patient has a very high-grade gram-positive bacteremia which likely represents high-grade staphylococcal bacteremia. RECOMMENDATIONS: 1. Will check the nose for MRSA. 2. We await the identification of the organisms in the blood as well as in the ankle swab. 3. I will DC the vancomycin, Zosyn levo the patient has been started on in favor of daptomycin will be efficacious for the bugs in the blood whether they are staph or strep and will not serve to worsen his chronic renal insufficiency. 4. The patient will require additional blood cultures tomorrow. 5. The patient will require a transthoracic echo and eventually a transesophageal echo. 6. The patient's pacer is a risk. Literature would suggest there is a 20% to 40% chance that any Staph bacteremia in a patient even with a pacer which has been there for years will cause the infection of that pacer and require removal of the entire pacer and all wires associated with it. 7. Will continue to follow this patient very closely with you. 8. I note that there has been discussion about doing a bone biopsy of the ankle to see if he has osteo. I think at this point, it is a moot point. When one has osteomyelitis but positive blood cultures you can make the assumption that what is in the blood, and we do not need a bone biopsy for diagnosis. This patient's course of therapy will be at least six weeks long in all likelihood it would therefore treat any osteo that might be present in his Charcot foot. 9. I would consider asking ortho to tap that right knee as he does have a considerable effusion and the possibility of a septic joint exhibits. DATE OF SERVICE:
[2017-02-09] VITALS (7 sets, daily range): BP systolic 117–176; BP diastolic 48–78; PULSE 60–80; RESP 18–22; O2SAT 89–98
[2017-02-09] MEDS ORDERED: levoFLOXacin 750 mg Tablet PO SCH (07:30)
[2017-02-09] MEDS: Ascorbic Acid 500 mg Tablet PO SCH (07:50)
[2017-02-09] MEDS: Dabigatran 150 mg Capsule PO SCH ×2 (07:52→20:01)
[2017-02-09] MEDS: FEBUXOSTAT 120 MG PO SCH (07:53)
[2017-02-09] MEDS: Insulin LISPRO 300 Unit/3 mL Inj SUBQ SCH ×4 (07:55→22:00)
[2017-02-09 08:12] LABS: BASOPHILS % (AUTO) 0 % (0-3); EOSINOPHILS % (AUTO) 0 % (0-5); MONOCYTES % (AUTO) 6.4 % (4-12); Mean Corpuscular Hemoglobin 28.5 pg (27.0-35.0); Mean Corpuscular Volume 88.8 fL (81-100); NEUTROPHILS % (AUTO) 89.9 % (40-74); Platelet Count 309 bil/L (150-400)
[2017-02-09] MEDS: DAPTOmycin Inj 500 MG in 0.9% Sodium Chloride 50 ML IV SCH (09:17)
--- NOTE | 2017-02-09 09:19 | PCM.PNPOD ---
Subjective Date of Service: February 09, 2017 Date of Service: February 09, 2017 Visit Information: Reason for Visit Right Foot Cellulitis,Renal Failure Surgery/Surgery Date Post-Op Day # Date of Admission: February 07, 2017 at 13:56 Hospital Day # Subjective: 76-year-old neuropathic diabetic male with history of Charcot of the right lower extremity is evaluated at bedside in no acute distress. Patient denies any new issues or complaints today he has diffuse pain associated with his right lower extremity most notably at the knee extending to the medial ankle. Patient denies any new events since last evaluation. Postop General: No Complaints Gastrointestinal: Good Appetite Objective Vital Sign - Last Date Time Temp Pulse Resp B/P Pulse Ox O2 Delivery O2 Flow Rate FiO2 02/09/17 05:46 37.1 60 20 120/65 94 Nasal Cannula 4.00 Intake and Output 02/08/17 02/08/17 02/09/17 Cumulative From/Thru 15:00 23:00 07:00 02/07/17 10:52 - 02/09/17 06:24 Intake Total 3153 ml 500 ml 5651 ml Output Total 1725 ml 575 ml 3850 ml Balance 1428 ml -75 ml 1801 ml Intake Oral 1287 ml 500 ml 1987 ml IV Total 1866 ml 3664 ml Output Urine Total 1725 ml 575 ml 3850 ml # Voids 2 2 # Bowel Movements 1 1 Result Diagram: 02/09/17 0627 02/09/17 0627 Lab Test 02/07/17 12:05 02/07/17 12:10 02/07/17 12:48 02/08/17 06:07 Hold Griffith Top Tube Received (Received) Lactic Acid Level 2.0mmol/L (0.4-2.0) Urine Color Straw (YELLOW) Urine Appearance Clear (CLEAR,HAZY) Urine pH 5.5 (5.0-8.0) Urine Specific [place] 1.010 (1.003-1.035) Urine Protein Tracemg/dL (NEG,TRACE) Urine Glucose (UA) Negativemg/dL (NEGATIVE) Urine Ketones Tracemg/dL (NEGATIVE) Urine Occult Blood Trace (NEGATIVE) Urine Nitrite Negative (NEGATIVE) Urine Bilirubin Negative (NEGATIVE) Urine Urobilinogen Normalmg/dL (NORMAL) Urine Leukocyte Esterase Negative (NEGATIVE) Urine RBC 0-2/hpf (0-2) Urine WBC 0-5/hpf (0-5) Urine Epithelial Cells Occasional/hpf (NONE-MOD) Urine Crystals None seen (NONE SEEN) Urine Bacteria None/hpf (NONE-FEW) Urine Hyaline Casts None/lpf (NONE) Urine Granular Casts None seen (NONE SEEN) Urine Waxy Casts None seen (NONE SEEN) Urine Red Blood Cell Casts None seen (NONE SEEN) Urine White Blood Cell Casts None seen (NONE SEEN) Urine Mucus None seen (None Seen) Urine Trichomonas None seen (NONE SEEN) Urine Yeast None (NONE SEEN) Urinalysis Comment None Urine Culture Reflexed Not indicated Urine Random Creatinine 63mg/dL (22-328) Urine Random Total Protein 24mg/dL (0-15) Urine Random Sodium 21mEq/L Hold Urine Received (Received) Sodium Level 136mEq/L (134-144) Potassium Level 4.4mEq/L (3.5-5.2) Chloride Level 100mEq/L (97-108) Carbon Dioxide Level 15mmol/L (18-29) Blood Urea Nitrogen 70mg/dL (8-27) Estimat Glomerular Filtration Rate 38mL/min (>59) Glucose Level 164mg/dL (60-99) Hemoglobin A1c 6.6% (4.8-5.6) Calcium Level 8.6mg/dL (8.5-10.1) Magnesium Level 2.3mg/dL (1.6-2.6) Total Bilirubin 0.9mg/dL (0.0-1.2) Aspartate Amino Transf (AST/SGOT) 33U/L (0-50) Alanine Aminotransferase (ALT/SGPT) 22U/L (0-44) Alkaline Phosphatase 90U/L (25-160) Total Protein 5.8g/dL (6.4-8.4) Albumin 2.9g/dL (3.4-5.0) Triglycerides Level 118mg/dL (0-149) Cholesterol Level 93mg/dL (100-199) LDL Cholesterol, Calculated 47.400mg/dL (0-99) VLDL Cholesterol 23.600mg/dL HDL Cholesterol 22mg/dL (>39) Cholesterol/HDL Ratio 4.23 (0.0-4.4) Test 02/08/17 12:50 02/09/17 06:27 Vancomycin Level Trough 14.1mcg/mL White Blood Count 20.6th/mm3 (3.8-10.1) Red Blood Count 3.30mil/mm3 (4.40-5.80) Hemoglobin 9.4g/dL (13.8-17.2) Hematocrit 29.3% (41.0-50.0) Mean Corpuscular Volume 88.8fL (81-100) Mean Corpuscular Hemoglobin 28.5pg (27.0-35.0) Mean Corpuscular Hemoglobin Concent 32.1% (32.0-37.0) Red Cell Distribution Width 15.5% (12.3-15.4) Platelet Count 309bil/L (150-400) Neutrophils (%) (Auto) 89.9% (40-74) Lymphocytes (%) (Auto) 3.2% (14-46) Monocytes (%) (Auto) 6.4% (4-12) Eosinophils (%) (Auto) 0% (0-5) Basophils (%) (Auto) 0% (0-3) Creatinine 1.68mg/dL (0.76-1.27) Total Creatine Kinase 134U/L (21-232) Procalcitonin 4.88ng/mL (0.00-0.08) Exam General: Alert, Oriented X3, Cooperative, No Acute Distress Lower Extremities: Right: Extremity warm Lower Extremity Pulses: Palpable: Left Dorsalis Pedis Left Posterior Tibal Doppler: Right Dorsalis Pedis Right Posterior Tibal Podiatry WOUND : Wound Location/Description Right medial foot eschar overlying the talar head which is significantly tenting the medial skin without full-thickness ulceration present. There is minimal local erythema no noted fluctuance of the right medial foot. The right forefoot is notably translated laterally and severely abducted about the talonavicular joint. There is mild pain to palpation of the medial foot and ankle. Chronic erythematous change consistent with venous stasis dermatitis bilateral lower extremity. Nonpalpable pulses and significantly diminished sensation bilateral foot and ankle Surgical Cast or Splint: None Assessment & Plan Impression Charcot foot of the right lower extremity without obvious signs of abscess formation with possible underlying osteomyelitis Problems: Plan This is a very complicated case of a patient with a severe Charcot foot deformity of the right lower extremity which has had recent changes including complete dislocation of the talonavicular joint. It appears that with his recent dislocation his talus became very prominent medially causing irritation within his newly prescribed [place] walker. CT scan reveals severe degenerative changes with lateral translation of the forefoot and complete dislocation of the talonavicular joint there is complete destruction of the calcaneocuboid joint with an apparent fracture of the anterior calcaneal process which has displaced superior laterally. There are no obvious clinical signs of abscess formation however with this patient's significant discomfort to palpation of his medial ankle I am considering tapping his ankle joint to ensure that we do not have an underlying septic ankle. At some point this patient would benefit potentially from open reduction of his foot and ankle with stabilization of his Charcot foot however this requires major rear foot and ankle reconstructive surgery, this patient's severe peripheral neuropathy uncontrolled diabetes and peripheral arterial disease make him high risk for any such procedure with a significant likelihood of failure and necessity of below-knee amputation. If osteomyelitis is confirmed within the foot the best option for this patient is likely below-knee amputation. Please follow Dr. Gordon recommendations for antibiotic therapy. I will attempted tap the ankle joint today and send for culture. He is to remain strictly nonweightbearing I will order noninvasive vascular exams today and he will likely require evaluation from interventional cardiology showed abnormalities being noted within his vascular studies Jeramie Quintana DPM February 09, 2017 09:19
--- NOTE | 2017-02-09 10:58 | PCM.PNNEPH ---
Subjective Date of Service February 09, 2017 Subjective Patient has been evaluated by table cover folder and infectious disease physician. Currently on daptomycin. Kidney function has returned back to his baseline. Exam Vital Signs Vital Sign - Last Date Time Temp Pulse Resp B/P Pulse Ox O2 Delivery O2 Flow Rate FiO2 02/09/17 10:50 36.7 62 19 122/66 94 Nasal Cannula 4.00 Intake and Output 02/08/17 02/08/17 02/09/17 Cumulative From/Thru 15:00 23:00 07:00 02/07/17 10:52 - 02/09/17 06:24 Intake Total 3153 ml 500 ml 5651 ml Output Total 1725 ml 575 ml 3850 ml Balance 1428 ml -75 ml 1801 ml Intake Oral 1287 ml 500 ml 1987 ml IV Total 1866 ml 3664 ml Output Urine Total 1725 ml 575 ml 3850 ml # Voids 2 2 # Bowel Movements 1 1 Exam General appearance: Awake, alert, oriented x3. No acute distress. HEENT: No pallor. No jaundice. No JVD. No lymphadenopathy. No thyroid enlargement. Heart: Irregular rhythm. Variable S1, normal S2. Systolic murmur noted. Lungs: Clear to auscultation bilaterally. Abdomen soft, active bowel sounds. Nontender. Nondistended. No hepatosplenomegaly. Extremity: Trace edema on the lower extremity. Chronic skin changes and discoloration noted. Dressing on the right foot. Lab and Diagnostics Result Diagram: 02/09/1762602/09/17626 Plan Impression ASSESSMENT: 1. Acute kidney injury, on stage 3 chronic kidney disease. resolved. 2. Right foot skin and soft tissue infection, suspected osteomyelitis. Wound culture positive for MRSA 3. GPC bacteremia. 4. History of Charcot foot. 5. Type 2 diabetes with neuropathy and nephropathy. 6. Hypertension with hypertensive nephrosclerosis. 7. Dyslipidemia. 8. Obstructive sleep apnea. 9. Chronic atrial fibrillation. 10. Status post pacemaker placement Plan: Discontinue IV fluid. Recently Lasix 80 mg twice a day morning. Avoid nephrotoxin, renally dose medications. We will follow peripherally. Thank you for the consultation. Miguel Moses MD February 09, 2017 10:58
--- NOTE | 2017-02-09 14:37 | PROG NOTE ---
[address] [address] PROGRESS NOTE PATIENT: JACKIE BRAVO : 1940 MR#: [id number] ADMIT: 02/07/2017 JOB ID: [id number] DATE: 02/09/2017 INFECTIOUS DISEASE FOLLOW UP NOTE: REASON FOR FOLLOW UP: Staphylococcal bacteremia arising from an infected right foot ankle Charcot joint. INTERVAL HISTORY: Overnight, the patient reports very little change in his overall condition. He has not been having significant fevers, chills or rigors. No significant cough or shortness of breath. No nausea, vomiting, diarrhea, some pain in the right lower extremity especially around the right knee and extending down to the right foot where he has the ulceration over the medial malleolus. PHYSICAL EXAMINATION: Reveals an afebrile gentleman, temperature 36.6, pulse 60, respiratory rate 19, blood pressure 122/66. She is saturating well on 4 L and in no acute distress. Mental status is clear. Lungs are clear as well. Abdomen soft and nontender. The right lower extremity medial malleolus ulceration is without change. He still has a small knee effusion with some tenderness about that right knee and diffuse tenderness in his right lower extremity below the knee and the ankle. This may be slightly better than yesterday. LABORATORIES: Include a white count which has dropped to 20,000 down from 32,000 on admission. Still with left shift. Creatinine today is 1.68, improved from 2.26 on admission. Procalcitonin 4.88 which has not really changed from 4.05 on admission. Micro studies include numerous positive blood cultures 4/4 bottles growing Staph aureus from February 07. Repeat blood cultures are pending at this time. MRSA screen was negative but interestingly the culture of the right ankle actually grew MRSA. That MRSA isolate is sensitive to clinda and vanc. We will need to ask for daptomycin susceptibility on the isolate. IMPRESSION: This is an unfortunate and confusing case of a gentleman with a Charcot joint, which is now clearly infected from a special boot he was attempting to wear to improve the function of his Charcot joint. This is a bacteremic infection and we believe this will be a bacteremic MRSA infection. The peculiar aspects of this case is the fact that his nasal MRSA swab is negative, which has a 90% negative predictive value for other MRSA infection in the body, and the fact that he has a pacer in place. His pacer is nontender but nonetheless, worrisome development. RECOMMENDATIONS: 1. I will ask the micro lab to do daptomycin susceptibilities on the Staph aureus in the blood. 2. Serial blood cultures will be required until they are definitively negative. 3. No PICC or central line until we have multiple days of negative blood cultures. 4. Transthoracic echo will be done today or tomorrow and if that is negative will need to proceed with LUISA specifically to look at his valves as well as his pacer wires. 5. Will continue to closely follow this very complicated patient with you. 6. It may still be worthwhile to do an x-ray of the right knee and perhaps even ask ortho if it is worth tapping to see if he has a septic knee. 7. I note that podiatry plans to tap his ankle to make sure it is not a septic joint there.
--- NOTE | 2017-02-09 15:31 | NUR ---
SW - Continued Discharge Planning Data: Pt is on day 2 of hospitalization for right foot cellulitis, renal failure. EMR reviewed. Per morning rounds the pt is likely to be here at least 2 more days and will likely have surgery. ID is following and pt will need 6 weeks IVABX at discharge. SW met with the pt at bedside to choice for home infusion provider. Pt had no preference. SW will send referral to [facility] per rotating calendar following pt's surgery . Pt likely to discharge home via family when medically ready. SW will continue to follow. Assessment: Pt who is independent at baseline Plan: Pt likely to discharge home via POV when medically ready with home infusion through [facility]. SW will continue to follow. BRENDA Sierra
--- NOTE | 2017-02-09 17:08 | DRSVH ---
[facility] [address] [place] [address] Echocardiogram Report Name: JACKIE BRAVO TStudy Crispin e: 02/09/2017 Height: 70 in Hospital Exam Location: [facility] Weight: 219 lb Gender: Male BSA: 2.2 m2 : 1940 Age: 76 yrs BP: 120/65 mmHg Reason For Study: Endocarditis Ordering Physician: Performed By: Sandrine LarsenH[facility] HospitalIST [facility] Interpretation Summary The left ventricle is normal in size, wall thickness, and systolic function without any focal wall motion abnormalities. The ejection fraction is estimated to be 60-65%. LVEF has not changed significantly since prior study. The right ventricle is normal in size, thickness and function. The right ventricular systolic pressure is estimated at 54 mmHg assuming a right atrial pressure of 8 mm Hg. The left atrium is severely dilated. Right atrial size is normal. The aortic valve is moderately calcified. The calculated aortic valve area is 1.2 cm2. The peak aortic velocity is 2.6 m/sec. The peak aortic velocity on the previous exam was 3.0 m/sec. There is no other significant valvular heart disease. No overt evidence for endocarditis but cannot exclude MV endocarditis due to significant mitral annular calcification. The aortic root is normal size. Procedure: A two-dimensional transthoracic echocardiogram with color flow and Doppler was performed. The study quality was technically adequate. Comparison is made with the echocardiogram of 04-03-16. The patient was in atrial fibrillation with controlled ventricular rate during the exam. Left Ventricle: The left ventricle is normal in size, wall thickness, and systolic function without any focal wall motion abnormalities. The ejection fraction is estimated to be 60-65%. Right Ventricle: The right ventricle is normal in size, thickness and function. Atria: The left atrium is severely dilated. Right atrial size is normal. The interatrial septum is intact with no evidence for an atrial septal defect. Mitral Valve: The mitral valve leaflets appear mildly thickened, but open well. There is moderate to severe mitral annular calcification. There is no mitral regurgitation noted. Aortic Valve: The aortic valve is trileaflet. The aortic valve is moderately calcified. The calculated aortic valve area is 1.2 cm2. The aortic valve area indexed to the BSA is 0.56 . The peak aortic velocity is 2.6 m/sec. The peak aortic velocity on the previous exam was 3.0 m/sec. No aortic regurgitation is present. Tricuspid Valve: The tricuspid valve is normal in structure and function. There is a trace or physiologic amount of tricuspid regurgitation. The right ventricular systolic pressure is estimated at 54 mmHg assuming a right atrial pressure of 8 mm Hg. Pulmonic Valve: The pulmonic valve is normal in structure and function. There is trace pulmonic regurgitation. There is no other significant valvular heart disease. Great Vessels: The aortic root is normal size. The dimensions of the ascending aorta are normal. The IVC is dilated (diameter is greater than 2.1 cm) yet it collapses greater than 50% with a sniff. This suggests a right atrial pressure of 8 mm Hg. Pericardium/ Pleura There is no pericardial effusion. There is no pleural effusion. MMode/2D Measurements & Calculations LVIDd LA dimension: 4.7 cm RA long axis: 5.0 cm LVOT diam: 2.0 cm : 5.6 cm AoV Openin.6 cm LVIDs LA A2 area: 31.6 cm RA area: 17.3 cm Ao root diam : 3.7 cm LA A4 area: 31.2 cm RA vol: 50.5 ml FS: 33.6 % LA length (vol) RA : 23.3 ml/m2 Aortic Jxn: 2.3 cm IVSd: 1.1 cm asc Aorta Diam LVPWd LA vol: 131.6 ml : 1.1 cm LA vol index Ao Arch Diam (Prox Trans): 2.7 cm IVC diam: 2.4 cm LINK (plan) LV laws. diameter/BSA LV sys. diameter/BSA : 1.5 cm2 (cm/m^2): 2.6 (cm/m^2): 1.7 Doppler Measurements & Calculations Ao V2 max MV P1/2t: 99.8 msec Med Peak E' Darrell TR max darrell : 261.9 cm/sec MVA(VTI): 1.5 cm2 : 339.5 cm/sec Ao max PG Lat Peak E' Darrell TR max PG : 27.4 mmHg : 46.1 mmHg Ao mean PG PA V2 max : 15.9 mmHg : 144.6 cm/sec LVOT Max Darrell PA mean PG : 100.2 cm/sec LINK(I,D): 1.2 cm PA Accel Time sev ratio : 0.10 sec MV V2 mean MV P1/2t max darrell Ao V2 mean LV V1 max PG : 86.8 cm/sec : 188.2 cm/sec MV mean PG MVA(P1/2t): 2.2 cm2 Ao V2 VTI: 55.4 cmLV V1 VTI LINK(V,D): 1.2 cm2 : 21.2 cm MV V2 VTI: 45.1 cm PA V2 mean LINK indexed to BSA : 86.3 cm/sec (cm^2/m^2): 0.56 Reading Physician:TAYLA
--- NOTE | 2017-02-09 17:42 | PCM.PNMED ---
Subjective Date of Service February 09, 2017 Subjective Patient was seen and examined at bedside today. Patient denies any chest pain, shortness of breath, nausea, vomiting, diarrhea. Patient still complains of right knee and ankle pain. Overnight events: None Exam Vital Signs Vital Sign - Last Date Time Temp Pulse Resp B/P Pulse Ox O2 Delivery O2 Flow Rate FiO2 02/09/17 14:25 36.9 80 19 176/78 90 Nasal Cannula 4.00 Intake and Output 02/08/17 02/08/17 02/09/17 Cumulative From/Thru 15:00 23:00 07:00 02/07/17 10:52 - 02/09/17 06:24 Intake Total 3153 ml 500 ml 5651 ml Output Total 1725 ml 575 ml 3850 ml Balance 1428 ml -75 ml 1801 ml Intake Oral 1287 ml 500 ml 1987 ml IV Total 1866 ml 3664 ml Output Urine Total 1725 ml 575 ml 3850 ml # Voids 2 2 # Bowel Movements 1 1 Exam Physical Exam: GEN: Patient was awake, alert, responding appropriately to questions HEENT: Pupils equal round and reactive to light, extraocular eye muscles intact , Neck soft supple, trachea midline, nomocephalic/atraumatic CV: systolic murmur auscultated Respiratory: CTAB, no wheezes, rales, rhonchi GI: +bowel sounds x4, soft, compressible, nontender to palpation EXT: no clubbing, cyanosis, edema, right ankle eschar over skin from tibia dislocation from a Charcot foot, right knee warm to touch no current signs of gout Neuro: Cranial nerves II-XII grossly intact Psych: mood and affect were appropriate IVs and Medications Medications Reviewed: Medications were reviewed in detail Lab and Diagnostics Result Diagram: 02/09/1762602/09/17626 Assessment & Plan 76-year-old male presents to the emergency room with cellulitis and Charcot foot on the right Leukocytosis secondary to gram-positive bacteremia - Leukocytosis trending down - Podiatry following -Blood cultures positive for gram-positive cocci -Right ankle cultures gram-positive cocci positive MRSA -Antibiotics to be managed by infectious disease -Dr. Gordon consulted (infectious disease) - Follow-up labs in the morning Acute kidney injury -Discontinue fluids IV saline 60 mL an hour -Start Lasix 80 mg twice a day as per recommendation from nephrology -Nephrology following (Dr. Chávez) Diabetes -Hemoglobin A1c 6.6 (controlled) -Insulin sliding scale -Accu-Cheks before meals and at bedtime Hypertension -Hydralazine 25 mg by mouth twice a day -Amlodipine 10 mg daily -Hold Spironolactone 50 mg by mouth twice a day -Continue to monitor CHF -Hold Spironolactone 50 mg by mouth twice a day -Lasix 80 mg by mouth twice a day -EF 65-70% from an echo done on 04/03/2016 Hyperlipidemia -Continue Lipitor 20 mg by mouth daily at bedtime Gout (currently stable) -Continue colchicine 0.6 mg twice a day Diabetic neuropathy -Continue gabapentin 300 mg by mouth 3 times a day Code Status: Full code Disposition: This patient was discussed with Dr. Quintana who will follow-up with a right ankle CT. Once he is more familiar with the patient's current anatomy that he will make a decision as to whether or not to take the patient to surgery. The patient has been diagnosed with MRSA and infectious disease is currently following. The patient had positive blood cultures gram-positive cocci and this is the cause of his bacteremia. Patient will most likely need another 1-2 days of IV antibiotics and then will also follow-up with podiatry to see their plan of action as well. Mecca Lua DO February 09, 2017 17:42
--- NOTE | 2017-02-09 19:50 | PCM.ADCARE ---
Advance Care Planning Note CODE STATUS: Purpose of encounter: Goals of care Parties in attendance: The patient Decisional capacity: Good Plan: The patient is aware of the current diagnosis and would like to continue to be full code. The patient understands that this means for chest compressions , intubation, pressors, and all measures involved with CPR. CODE STATUS: Full code Time spent with advanced care planning: Greater than 16 minutes Mecca Lua DO February 09, 2017 19:50
[2017-02-09] MEDS: FEBUXOSTAT 40 MG PO SCH (20:01)
[2017-02-10] VITALS (8 sets, daily range): BP systolic 121–168; BP diastolic 54–74; PULSE 16–65; RESP 16–18; O2SAT 91–97
[2017-02-10 06:29] LABS: Mean Corpuscular Hemoglobin 27.9 pg (27.0-35.0); Mean Corpuscular Volume 87.9 fL (81-100)
[2017-02-10 06:58] LABS: Magnesium 2.4 mg/dL (1.6-2.6); Phosphorus 3.6 mg/dL (2.5-4.9)
[2017-02-10] MEDS: Insulin LISPRO 300 Unit/3 mL Inj SUBQ SCH ×5 (08:00→21:22)
--- NOTE | 2017-02-10 09:01 | NUR ---
Spoke with Lora Boateng R.N. and informed her to keep patient NPO after midnight tonight (per Dr Wells) for LUISA scheduled tomorrow at 10:00, Tuesday02/11/17.
[2017-02-10] MEDS: Dabigatran 150 mg Capsule PO SCH ×2 (09:46→21:22)
[2017-02-10] MEDS: FEBUXOSTAT 40 MG PO SCH (09:47)
[2017-02-10] MEDS: Ascorbic Acid 500 mg Tablet PO SCH (09:51)
--- NOTE | 2017-02-10 10:14 | DRSVH ---
PROCEDURE: X-RAY RIGHT KNEE, ONE OR TWO VIEWS ([id number]) INDICATIONS: knee pain TECHNIQUE: 2 views of the knee were acquired. COMPARISON: None. FINDINGS: Bones: No fractures or dislocations. No suspicious bony lesions. Severe narrowing of the lateral f emoral tibial joint and to lesser degree the patellofemoral knee joint. Tricompartmental osteophyte f ormation. Soft tissues: Moderate joint effusion. No suspicious soft tissue calcifications. Vascular calcifica tions indicate atherosclerosis. IMPRESSION: Knee joint degeneration and moderate joint effusion. Dictated by: Dajuan BOWERS Interpreted: Libertad Nieves MD on 02/10/2017 at 10:12 Transcribed by: BHAVANA on 02/10/2017 at 10:13 Approved by: Libertad Nieves M.D. on 02/11/2017 at 9:10
[2017-02-10] MEDS: DAPTOmycin Inj 500 MG in 0.9% Sodium Chloride 50 ML IV SCH (12:48)
[2017-02-10] MEDS ORDERED: Vancomycin Serum Trough XX ONE (14:00)
[2017-02-10] MEDS ORDERED: DAPTOmycin Inj 750 MG in 0.9% Sodium Chloride 50 ML IV SCH (15:00)
--- NOTE | 2017-02-10 17:10 | PCM.PNPOD ---
Subjective Date of Service: February 10, 2017 Date of Service: February 10, 2017 Visit Information: Reason for Visit Right Foot Cellulitis,Renal Failure Surgery/Surgery Date Post-Op Day # Date of Admission: February 07, 2017 at 13:56 Hospital Day # Subjective: 76-year-old male admitted for sepsis with Charcot deformity of the right foot and ankle and medial foot ulceration. Patient is evaluated at bedside in no acute distress today he continues to have discomfort extending from his knee to his foot. He states that he does feel better today than he has since his admission. Postop General: No Complaints Gastrointestinal: Good Appetite Pain Management: PO Objective Vital Sign - Last Date Time Temp Pulse Resp B/P Pulse Ox O2 Delivery O2 Flow Rate FiO2 02/10/17 13:38 37.2 60 18 135/54 91 Nasal Cannula 4.00 Intake and Output 02/09/17 02/09/17 02/10/17 Cumulative From/Thru 15:00 23:00 07:00 02/07/17 10:52 - 02/10/17 05:24 Intake Total 1200 ml 1100 ml 7951 ml Output Total 1050 ml 465 ml 5365 ml Balance 150 ml 635 ml 2586 ml Intake Oral 1200 ml 1100 ml 4287 ml IV Total 3664 ml Output Urine Total 1050 ml 465 ml 5365 ml # Voids 2 # Bowel Movements 1 Result Diagram: 02/10/17 0607 02/10/17 0607 Lab Test 02/07/17 12:05 02/07/17 12:10 02/07/17 12:48 02/08/17 06:07 Hold Griffith Top Tube Received (Received) Lactic Acid Level 2.0mmol/L (0.4-2.0) Urine Color Straw (YELLOW) Urine Appearance Clear (CLEAR,HAZY) Urine pH 5.5 (5.0-8.0) Urine Specific [place] 1.010 (1.003-1.035) Urine Protein Tracemg/dL (NEG,TRACE) Urine Glucose (UA) Negativemg/dL (NEGATIVE) Urine Ketones Tracemg/dL (NEGATIVE) Urine Occult Blood Trace (NEGATIVE) Urine Nitrite Negative (NEGATIVE) Urine Bilirubin Negative (NEGATIVE) Urine Urobilinogen Normalmg/dL (NORMAL) Urine Leukocyte Esterase Negative (NEGATIVE) Urine RBC 0-2/hpf (0-2) Urine WBC 0-5/hpf (0-5) Urine Epithelial Cells Occasional/hpf (NONE-MOD) Urine Crystals None seen (NONE SEEN) Urine Bacteria None/hpf (NONE-FEW) Urine Hyaline Casts None/lpf (NONE) Urine Granular Casts None seen (NONE SEEN) Urine Waxy Casts None seen (NONE SEEN) Urine Red Blood Cell Casts None seen (NONE SEEN) Urine White Blood Cell Casts None seen (NONE SEEN) Urine Mucus None seen (None Seen) Urine Trichomonas None seen (NONE SEEN) Urine Yeast None (NONE SEEN) Urinalysis Comment None Urine Culture Reflexed Not indicated Urine Random Creatinine 63mg/dL (22-328) Urine Random Total Protein 24mg/dL (0-15) Urine Random Sodium 21mEq/L Hold Urine Received (Received) Estimat Glomerular Filtration Rate 38mL/min (>59) Hemoglobin A1c 6.6% (4.8-5.6) Total Bilirubin 0.9mg/dL (0.0-1.2) Aspartate Amino Transf (AST/SGOT) 33U/L (0-50) Alanine Aminotransferase (ALT/SGPT) 22U/L (0-44) Alkaline Phosphatase 90U/L (25-160) Total Protein 5.8g/dL (6.4-8.4) Triglycerides Level 118mg/dL (0-149) Cholesterol Level 93mg/dL (100-199) LDL Cholesterol, Calculated 47.400mg/dL (0-99) VLDL Cholesterol 23.600mg/dL HDL Cholesterol 22mg/dL (>39) Cholesterol/HDL Ratio 4.23 (0.0-4.4) Test 02/08/17 12:50 02/09/17 06:27 02/10/17 06:07 Vancomycin Level Trough 14.1mcg/mL Neutrophils (%) (Auto) 89.9% (40-74) Lymphocytes (%) (Auto) 3.2% (14-46) Monocytes (%) (Auto) 6.4% (4-12) Eosinophils (%) (Auto) 0% (0-5) Basophils (%) (Auto) 0% (0-3) Uric Acid 2.9mg/dL (2.6-7.2) Total Creatine Kinase 134U/L (21-232) Procalcitonin 4.88ng/mL (0.00-0.08) White Blood Count 17.9th/mm3 (3.8-10.1) Red Blood Count 3.30mil/mm3 (4.40-5.80) Hemoglobin 9.2g/dL (13.8-17.2) Hematocrit 29.0% (41.0-50.0) Mean Corpuscular Volume 87.9fL (81-100) Mean Corpuscular Hemoglobin 27.9pg (27.0-35.0) Mean Corpuscular Hemoglobin Concent 31.7% (32.0-37.0) Red Cell Distribution Width 15.5% (12.3-15.4) Platelet Count 315bil/L (150-400) Sodium Level 131mEq/L (134-144) Potassium Level 4.0mEq/L (3.5-5.2) Chloride Level 97mEq/L (97-108) Carbon Dioxide Level 17mmol/L (18-29) Blood Urea Nitrogen 77mg/dL (8-27) Creatinine 1.61mg/dL (0.76-1.27) Glucose Level 169mg/dL (60-99) Calcium Level 8.4mg/dL (8.5-10.1) Phosphorus Level 3.6mg/dL (2.5-4.9) Magnesium Level 2.4mg/dL (1.6-2.6) Albumin 2.4g/dL (3.4-5.0) Exam General: Alert, Oriented X3, Cooperative, No Acute Distress Lower Extremities: Right: Extremity warm Lower Extremity Pulses: Palpable: Left Dorsalis Pedis Left Posterior Tibal Doppler: Right Dorsalis Pedis Right Posterior Tibal Podiatry WOUND : Wound Location/Description Right medial talonavicular joint eschar with superficial wound, local erythema is present no fluctuance is noted minimal sanguinous drainage from the superficial wound. Severe abduction of the right forefoot about the talonavicular joint. No erythema overlying the right ankle Surgical Cast or Splint: None Assessment & Plan Impression Charcot deformity of the right foot with severely dislocated right talonavicular joint Problems: Plan Wound was inspected today. No signs of abscess formation. The wound was dressed with Betadine soaked gauze dry sterile gauze Kerlix and an Dion bandage. Consent was obtained today to attempt to tap the right ankle joint and the right ankle was prepped with ChloraPrep 2 mL of 1% lidocaine plain were injected over the right medial ankle slightly medial to the tibialis anterior tendon. A #18-gauge needle was inserted into the ankle joint medially and vacuum pressure was applied with a 12 mL syringe. A minimal amount of synovial fluid was evacuated from the joint space into the needle which appeared clear. No excessive synovium was noted several attempts were made to withdraw more fluid which were not successful. Following inspection of the synovium which was withdrawn from the right ankle joint it appeared of normal color and integrity and was not sent for culture due to the minimal amount withdrawn. Typically in the case of a septic ankle there is a significant amount of pressure about the ankle which is productive for large volumes of synovium which is not noted in this case. It is unlikely that this patient possesses a septic ankle joint. The patient at this time appears to be improving from a medical standpoint. Once he has been completely stabilized I will be able to have vascular studies performed and determine his candidacy for a potential surgical correction of his right foot. Surgical correction of his right foot deformity is not an emergent issue however continued tenting of his medial ankle from his talus is likely to lead to an open large ulceration and would eventually necessitate a below-knee amputation as his foot is unlikely to be functional in its current position Podiatry will continue to follow. Jeramie Quintana DPM February 10, 2017 17:10
--- NOTE | 2017-02-10 18:15 | NUR ---
Vital Sign Was able to reduce o2 to 2LPM. Patient sustaining with NC anywhere 91-95%. See VS flow sheet. Denies feeling SOB. Is febrile. MD notified. See flowsheet.
--- NOTE | 2017-02-10 23:31 | PCM.PNMED ---
Subjective Date of Service February 10, 2017 Subjective Patient states he is beginning to feel a little bit better. He has no new complaints. He states the pain in his right foot is beginning to feel better. Exam Vital Signs Vital Sign - Last Date Time Temp Pulse Resp B/P Pulse Ox O2 Delivery O2 Flow Rate FiO2 02/10/17 20:34 36.6 60 18 121/67 95 Nasal Cannula 4.00 Intake and Output 02/09/17 02/09/17 02/10/17 Cumulative From/Thru 15:00 23:00 07:00 02/07/17 10:52 - 02/10/17 05:24 Intake Total 1200 ml 1100 ml 7951 ml Output Total 1050 ml 465 ml 5365 ml Balance 150 ml 635 ml 2586 ml Intake Oral 1200 ml 1100 ml 4287 ml IV Total 3664 ml Output Urine Total 1050 ml 465 ml 5365 ml # Voids 2 # Bowel Movements 1 Exam General: Patient is lying supine in no apparent distress. HEENT: Head is atraumatic and normocephalic. Eyes: Pupils are equally round and reactive to light and accommodation. Extraocular muscles are intact. Sclera are white, anicteric. Subconjunctival mucosa is pink. Ears and nose are unremarkable. Oropharynx: There is no mucosal lesions, there is no thrush, there is no pharyngitis. Neck: Is supple, there are no nodes, or masses or tenderness. Chest: Is clear to auscultation and percussion. There are no rales, rhonchi, wheezes or rubs. Heart: Rate, rhythm is regular. There is a grade 2/6 systolic ejection murmur heard best at the left sternal border. There is no rub or gallop. Abdomen: Good bowel sounds are present. Abdomen is soft, nontender, no organomegaly or masses were appreciated. Extremities: The right foot is covered and ezequiel wrap which Dr. Kee just placed on the patient. This wrap is clean dry and intact. Neurologic: There are no focal neurological deficits. Cranial nerves II through XII are intact. There are no sensory or motor deficits. Psychiatric: Patients mood is calm and shows no sign of agitation. Genital: Deferred Rectal: Deferred Lab and Diagnostics Result Diagram: 02/10/17 0607 02/10/17 0607 Microbiology 5 sets of blood cultures are positive for MRSA Nasal screen for MRSA is negative Ankle culture for MRSA is positive X-Rays, CTs and MRIs PROCEDURE: X-RAY RIGHT ANKLE, MINIMUM THREE VIEWS ([id number]) INDICATIONS: CHARCOT FOOT TECHNIQUE: 4 views of the ankle were acquired. COMPARISON: [facility], CR, XR ANKLE MIN 3VW WT BEARING RT, 2016, 9:32. FINDINGS: Bones: Severe degenerative changes of the mid foot and hindfoot joints result in difficulty evaluating for subtle fractures. No displaced fractures are evident. There appears to be a talonavicular joint dislocation. Offset of the tibiotalar joint is also noted. Prominent plantar and Achilles spurs are present. Soft tissues: Extensive edema about the ankle is noted. No unexpected radiopaque foreign bodies are evident. Scattered soft tissue calcifications are present. IMPRESSION: 1. Prominent mid foot and hindfoot Charcot arthropathy results in difficulty evaluating for subtle fractures. 2. Apparent dislocation of the talonavicular joint. The need for better evaluation utilizing CT may be determined clinically. Dictated by: Cm Parks M.D. on 02/07/2017 at 11:00 Approved by: Cm Parks M.D. on 02/07/2017 at 11:05 PROCEDURE: CT ANKLE RIGHT W/O CONTRAST ([id number]) INDICATIONS: charcot foot right foot/ankle TECHNIQUE: Noncontrast 1-1.5 mm axial sections acquired from above the tibiotalar joint to the bottom of the calcaneus, with coronal and sagittal reformats. COMPARISON: [facility], CR, XR ANKLE 3VW RT, 02/07/2017, 11:52. FINDINGS: Image quality: Diagnostic. Bones: The bone mineralization is diffusely decreased. Severe degenerative changes and numerous scattered small ossific/calcific densities about the osseous structures of the imaged right hindfoot and midfoot results in difficulty evaluating for subtle fractures. No definite large acute fracture is evident. There is complete dislocation of the talonavicular joint with medial positioning of the talar head with respect to the navicular. The navicular remains appropriately aligned with respect to the remainder of the foot. No definite additional dislocations are appreciated. Extensive osseous erosions are noted throughout all of the midfoot and hindfoot bones. The ankle mortise is relatively well maintained. Soft tissues: Extensive subcutaneous edema about the midfoot and hindfoot is identified with prominent ankle, subtalar, and talonavicular fusions. Multiple joint bodies are present within the joint effusions. Please note that evaluation of the ligamentous and tendinous structures of the midfoot and hindfoot is limited on CT. However, there is thickening and diffuse edema noted involving the medial and lateral flexor tendons as well as the Achilles tendon. Partial-thickness tearing probably is present. No soft tissue air or soft tissue foreign bodies are evident. IMPRESSION: 1. Advanced degenerative changes of the right midfoot and hindfoot are compatible with Charcot arthropathy. 2. Medial dislocation of the talus with respect to the navicular is of uncertain chronicity. 3. Evaluation for subtle acute fractures is limited. No large displaced fracture. 4. Numerous bony erosions of the midfoot and forefoot are probably related to Charcot arthropathy. However, the possibility of superimposed osteomyelitis or inflammatory arthropathy cannot be excluded and clinical correlation is recommended. 5. Extensive soft tissue edema without a definite loculated fluid collection. 6. Moderate tendinopathy of the peroneus brevis, peroneus longus, and Achilles tendons is present. Additional areas of flexor tendinopathy along the medial aspect of the ankle probably are present. Dictated by: Cm Parks M.D. on 02/08/2017 at 15:49 Approved by: Cm Parks M.D. on 02/08/2017 at 16:14 PROCEDURE: US RENAL SONOGRAM INDICATIONS: CLAIRE TECHNIQUE: Real-time scanning was performed of the kidneys and bladder, with image documentation. COMPARISON: [facility], CT, CT CHEST ABD PELVIS W CON, 07/21/2015, 12:13. FINDINGS: Kidneys: Kidneys are normal in size. Right kidney measures 11.0 cm long; left kidney measures 11.7 cm long. Right renal cortical thickness is 0.9 cm; left renal cortical thickness is 1.3 cm. Renal cortical echotexture is normal. No hydronephrosis or nephrolithiasis. No suspicious solid mass lesions. Bladder: Pre-void bladder volume is 300 mL. Post-void residual is 200 mL. Pre -void images demonstrate no intraluminal masses or stones. On pre-void images, either ureteral jets are noted with color Doppler interrogation. (Of note, ureteral jets may not be detectable in up to 25% of cases due to insufficient differences in specific gravity between ureteral and bladder urine). Miscellaneous: No free pelvic fluid. IMPRESSION: 1. Mild right renal cortical thinning, otherwise normal kidneys. 2. Approximately 200 cc of postvoid residual. Dictated by: Dajuan BOWERS Interpreted: Ricky Verdin MD on 02/07/2017 at 16:05 Transcribed by: ZULMA on 02/07/2017 at 16:06 Approved by: Ricky Verdin M.D. on 02/07/2017 at 16:33 PROCEDURE: X-RAY RIGHT KNEE, ONE OR TWO VIEWS ([id number]) INDICATIONS: knee pain TECHNIQUE: 2 views of the knee were acquired. COMPARISON: None. FINDINGS: Bones: No fractures or dislocations. No suspicious bony lesions. Severe narrowing of the lateral femoral tibial joint and to lesser degree the patellofemoral knee joint. Tricompartmental osteophyte formation. Soft tissues: Moderate joint effusion. No suspicious soft tissue calcifications. Vascular calcifications indicate atherosclerosis. IMPRESSION: Knee joint degeneration and moderate joint effusion. Dictated by: Dajuan BOWERS Interpreted: Libertad Nieves MD on 02/10/2017 at 10: 12 Transcribed by: BHAVANA on 02/10/2017 at 10:13 Cardiac Echo Impressions Echocardiogram Report Name: JACKIE BRAVO TStudy Crispin e: 02/09/2017 Height: 70 in Hospital Exam Location: [facility] Weight: 219 lb Gender: Male BSA: 2.2 m2 : 1940 Age: 76 yrs BP: 120/65 mmHg Reason For Study: Endocarditis Ordering Physician: Performed By: Sand[facility] Interpretation Summary The left ventricle is normal in size, wall thickness, and systolic function without any focal wall motion abnormalities. The ejection fraction is estimated to be 60-65%. LVEF has not changed significantly since prior study. The right ventricle is normal in size, thickness and function. The right ventricular systolic pressure is estimated at 54 mmHg assuming a right atrial pressure of 8 mm Hg. The left atrium is severely dilated. Right atrial size is normal. The aortic valve is moderately calcified. The calculated aortic valve area is 1.2 cm2. The peak aortic velocity is 2.6 m/sec. The peak aortic velocity on the previous exam was 3.0 m/sec. There is no other significant valvular heart disease. No overt evidence for endocarditis but cannot exclude MV endocarditis due to significant mitral annular calcification. The aortic root is normal size. Assessment & Plan Patient is a 76-year-old male presents to the emergency room with cellulitis and Charcot foot on the right Leukocytosis secondary to MRSA bacteremia - Leukocytosis trending down - Podiatry following -Blood cultures positive for MRSA -Right ankle cultures gram-positive cocci positive MRSA -Antibiotics to be managed by infectious disease. Daptomycin is being continued. -Dr. Gordon consulted (infectious disease) appreciate his time and expertise. - Follow-up labs in the morning Acute kidney injury -Discontinue fluids IV saline 60 mL an hour -Start Lasix 80 mg twice a day as per recommendation from nephrology -Nephrology following (Dr. Chávez) Diabetes -Hemoglobin A1c 6.6 (controlled) -Insulin sliding scale -Accu-Cheks before meals and at bedtime Hypertension -Hydralazine 25 mg by mouth twice a day -Amlodipine 10 mg daily -Hold Spironolactone 50 mg by mouth twice a day -Continue to monitor CHF -Hold Spironolactone 50 mg by mouth twice a day -Lasix 80 mg by mouth twice a day -EF 65-70% from an echo done on 04/03/2016 Hyperlipidemia -Continue Lipitor 20 mg by mouth daily at bedtime Gout (currently stable) -Continue colchicine 0.6 mg twice a day Diabetic neuropathy -Continue gabapentin 300 mg by mouth 3 times a day Code Status: Full code Disposition: This patient was discussed with Dr. Quintana who will follow-up with a right ankle CT. Once he is more familiar with the patient's current anatomy that he will make a decision as to whether or not to take the patient to surgery. The patient has been diagnosed with MRSA and infectious disease is currently following. The patient has persistent positive blood cultures with MRSA and this is the cause of his bacteremia. Patient will most likely need a prolonged course of IV antibiotics and then will also follow-up with podiatry to see their plan of action as well. Pain Evaluation: Adequate Pain Control VTE Prophylaxis: Other (The patient is on Pradaxa.) Resuscitation Status: CPR: Attempt Resuscitation Isaias Jack MD February 10, 2017 23:31
[2017-02-11] VITALS (14 sets, daily range): BP systolic 123–149; BP diastolic 53–72; PULSE 60–70; RESP 18–24; O2SAT 85–97
--- NOTE | 2017-02-11 00:03 | PROG NOTE ---
[address] [address] PROGRESS NOTE PATIENT: JACKIE BRAVO : 1940 MR#: [id number] ADMIT: 02/07/2017 JOB ID: [id number] DATE: 02/10/2017 REASON FOR FOLLOWUP: High-grade and sustained MRSA bacteremia in a patient with right ankle foot Charcot joint, and possible septic joint with indwelling pacer. INTERVAL HISTORY: The patient reports he is gradually feeling better. Today, he denies fevers, chills, or sweats. He states he has no significant shortness of breath, nausea, vomiting or diarrhea. The patient notes that Dr. Harris performed an aspiration of his ankle earlier today and has sent the fluid for testing. In any event, the patient reports that his ankle feels about the same as it has chronically. PHYSICAL EXAMINATION: Reveals an afebrile gentleman, temp 37.2, pulse 60, respiratory rate 18, blood pressure 135/54, saturating 91% on 4 L. Examination of the mental status reveals it to be completely clear. The patient is calm and conversational oral cavity negative. Lungs fairly clear anteriorly. Cardiac tones with a harsh systolic ejection murmur as before. The abdomen is soft and nontender. The right foot with a Charcot joint is wrapped in a dressing following the aspiration and I did not remove. LABORATORIES: Include white count down to 18,000 from 32 on admission. Creatinine 1.61, albumin 2.4, pro calcitonin was 4.88 yesterday, not yet repeated. The blood cultures from the and are now positive and cultures from the are pending. Notable that the isolate has a vancomycin DANIELLE of 1 and an excellent dapto DANIELLE of 0.25. It is also susceptible to clindamycin. IMAGING: Of the knee shows a knee effusion and recall that there is a palpable effusion around the knee though it is not especially tender. Imaging of the ankle was already reviewed. IMPRESSION: This is a complex and unfortunate patient with a Charcot joint who started wearing a new boot and then developed an ulcer which apparently led to a methicillin-resistant Staphylococcus aureus bacteremia. MRSA bacteremia is now quite sustained and this led to concerns that he may have a septic joint or osteo in that right ankle area or worse yet that he may have methicillin-resistant Staphylococcus aureus endocarditis and/or pacer infection. His pacer remains nontender, but that in no way exonerates the pacer as an ongoing nidus of infection. RECOMMENDATIONS: 1. We will continue with daily blood cultures until they are consistently negative. 2. No PICC or central line until we have had negative blood cultures for many days. 3. Will continue with high-dose daptomycin. It appears that the dose of daptomycin was lowered to meet our current guidelines of 6 mg/kg per ideal body weight but for a high-grade bacteremia such as this, I think a significantly higher doses is indicated such as 750 once a day. 4. I have discussed this case with Cardiology and they are planning to do a LUISA in the next 24 hours. See if the pacer wires can be well seen and if he has evidence of endocarditis. 5. It may be worthwhile having Ortho tap the right knee if they believe it could be septic. 6. I plan to discuss this case with Dr. Peace to see if he believes the right ankle is septic and if he was able to obtain any fluid for studies. 7. This case discussed in detail with the pharmacy as well as with Dr. Erasmo Jack who is the oncoming hospitalist on this team.
[2017-02-11 06:14] LABS: BASOPHILS % (AUTO) 0.2 % (0-3); EOSINOPHILS % (AUTO) 0.6 % (0-5); MONOCYTES % (AUTO) 8.3 % (4-12); Mean Corpuscular Hemoglobin 28.7 pg (27.0-35.0); NEUTROPHILS % (AUTO) 82.5 % (40-74); Platelet Count 315 bil/L (150-400)
[2017-02-11 06:39] LABS: Magnesium 2.4 mg/dL (1.6-2.6)
[2017-02-11 07:01] LABS: ERYTHROCYTE SEDIMENTATION RATE > 140 mm/hr (0-30)
--- NOTE | 2017-02-11 07:11 | NUR ---
Critical Lab Night nurse received a critical lab value BUN 88. Priya MIJARES at to notify MD of lab value.
[2017-02-11] MEDS ORDERED: DAPTOmycin Inj 500 MG in 0.9% Sodium Chloride 50 ML IV SCH (08:30)
[2017-02-11] MEDS: Dabigatran 150 mg Capsule PO SCH ×2 (08:38→20:55)
[2017-02-11] MEDS: Insulin LISPRO 300 Unit/3 mL Inj SUBQ SCH ×4 (08:38→22:00)
[2017-02-11] MEDS: DAPTOmycin Inj 750 MG in 0.9% Sodium Chloride 50 ML IV SCH (08:52)
--- NOTE | 2017-02-11 09:21 | NUR ---
Off Unit Patient off floor to [facility] via bed.
--- NOTE | 2017-02-11 09:41 | PCM.PNORTH ---
Subjective Date of Service: February 11, 2017 Visit Information: Reason for Visit Right Foot Cellulitis,Renal Failure Surgery/Surgery Date Post-Op Day # Date of Admission: February 07, 2017 at 13:56 Hospital Day # Subjective Found patient awake and alert and sitting up in bed. No complaints of pain. Discussed patient's condition and perform brief exam on the knee. Patient indicated Dr. Pedersen had been in this morning to examine his knee and performed tap but did not get any fluid out. Postop General: No Complaints Pain Management: PO Objective Exam Objective Patient right knee was examined today and found to have bandage in place and this was removed and it is noted that it was covering the Site that was used to small morning and attempt to remove fluid from the knee. There is very minor bleeding at this site. Patient's right knee is not frankly red and has only very minor swelling. The knee is warm to the touch compared to the contralateral side. Patient has reduced sensation and function at the right foot and does have an ulcer at the ankle. He is diagnosed with diabetes and osteomyelitis Patient has great difficulty moving his legs in bed. Vital Signs and I/O Vital Sign - Last Date Time Temp Pulse Resp B/P Pulse Ox O2 Delivery O2 Flow Rate FiO2 02/11/17 08:44 Supplement Oxygen CPAP/BIPAP 02/11/17 08:43 63 138/68 02/11/17 06:04 36.8 18 95 2.00 Intake and Output 02/10/17 02/10/17 02/11/17 Cumulative From/Thru 15:00 23:00 07:00 02/07/17 10:52 - 02/11/17 06:35 Intake Total 1412 ml 400 ml 9763 ml Output Total 1250 ml 750 ml 7365 ml Balance 162 ml -350 ml 2398 ml Intake Oral 1412 ml 400 ml 6099 ml IV Total 3664 ml Output Urine Total 1250 ml 750 ml 7365 ml # Voids 1 3 # Bowel Movements 1 Lab & Micro Results Laboratory Tests Test 02/11/17 05:32 White Blood Count 15.9th/mm3 (3.8-10.1) Red Blood Count 3.49mil/mm3 (4.40-5.80) Hemoglobin 10.0g/dL (13.8-17.2) Hematocrit 30.7% (41.0-50.0) Mean Corpuscular Volume 88.0fL (81-100) Mean Corpuscular Hemoglobin 28.7pg (27.0-35.0) Mean Corpuscular Hemoglobin Concent 32.6% (32.0-37.0) Red Cell Distribution Width 15.8% (12.3-15.4) Platelet Count 315bil/L (150-400) Neutrophils (%) (Auto) 82.5% (40-74) Lymphocytes (%) (Auto) 2.6% (14-46) Monocytes (%) (Auto) 8.3% (4-12) Eosinophils (%) (Auto) 0.6% (0-5) Basophils (%) (Auto) 0.2% (0-3) Erythrocyte Sedimentation Rate > 140mm/hr (0-30) Sodium Level 133mEq/L (134-144) Potassium Level 4.2mEq/L (3.5-5.2) Chloride Level 95mEq/L (97-108) Carbon Dioxide Level 19mmol/L (18-29) Blood Urea Nitrogen 88mg/dL (8-27) Creatinine 1.79mg/dL (0.76-1.27) Estimat Glomerular Filtration Rate 40mL/min (>59) Glucose Level 147mg/dL (60-99) Calcium Level 8.7mg/dL (8.5-10.1) Magnesium Level 2.4mg/dL (1.6-2.6) Total Bilirubin 1.7mg/dL (0.0-1.2) Aspartate Amino Transf (AST/SGOT) 113U/L (0-50) Alanine Aminotransferase (ALT/SGPT) 79U/L (0-44) Alkaline Phosphatase 182U/L (25-160) C-Reactive Protein 34.7mg/dL (0.0-0.5) Total Protein 5.5g/dL (6.4-8.4) Albumin 2.4g/dL (3.4-5.0) Procalcitonin 4.74ng/mL (0.00-0.08) Microbiology 02/10/17 Blood Culture - Preliminary, Resulted Positive Blood Culture 02/08/17 MRSA (PCR) - Final, Complete 02/07/17 Gram Stain - Final, Complete 02/07/17 Culture & Sensitivity - Final, Complete Methicillin Resistant S Aureus Result Diagram: 02/11/17 0532 02/11/17 0532 General Appearance: Alert, Oriented X3, Cooperative Extremities: No Compartment Syndrom Noted Postop Sensory Motor: Movement in Toes Assessment & Plan Impression Patient is a 76-year-old gentleman who has a number of serious diagnoses including diabetes, osteomyelitis and renal issues. He is in the hospital at this time for a recent involvement of his right knee with pain and swelling. Problems: Plan Postadmission day #4 from right foot cellulitis and renal failure. Continue current orders per hospitalist service for patient's general care. Patient's right knee was examined today and found to be very mildly swollen with essentially no erythema but there is warmth noted at the knee as compared to the contralateral side. A right knee tap was attempted this morning by Dr. Pedersen which was unsuccessful in yielding any fluid. Patient will remain under the medical care of hospitalist service. Dr. Greg Gordon has consulted this patient and as always has a detailed plan for his care in his note. Anticipate discharge by hospitalist service when patient's medical issues are stabilized. VTE Prophylaxis: Other (The patient is on Pradaxa.) Resuscitation Status: CPR: Attempt Resuscitation Wyatt Manrique PA-C February 11, 2017 09:41
[2017-02-11] MEDS ORDERED: Phenylephrine 10,000 mCg/mL Inj IVPUSH PRN (09:55)
--- NOTE | 2017-02-11 10:25 | NUR ---
Social Work: Continued d/c planning Data: Pt is on day 4 of hospitalization. EMR reviewed. Pt discussed in rounds, anticipated pt needing at least 2-3 more days of hospitalization. MANAGER ROOFING continues to follow regarding possible IVABX need at discharge and will set up once medication is known. MANAGER ROOFING will continue to follow. Assessment: Pt who is independent at baseline. Plan: Pt will d/c home via POV with Elif SHAW RN/PT possibly with IVABX. MANAGER ROOFING will continue to follow. BRENDA Guillen
--- NOTE | 2017-02-11 11:55 | NUR ---
LUISA Pt recovered in [place] post procedure. Pt tolerated LUISA well and awoke immediately after procedure. VSS, denied any pain. Report given to WILMA Murray RN on [facility] [place]. Pt transferred back to his room in stable condition.
[2017-02-11] MEDS: FEBUXOSTAT 40 MG PO SCH (12:13)
[2017-02-11] MEDS: Ascorbic Acid 500 mg Tablet PO SCH (12:14)
--- NOTE | 2017-02-11 12:18 | NUR ---
Back on Unit Patient back on floor from LUISA in stable condition. Denies nausea or pain at this time. Patient tolerating clear liquids. Patient requires assistance in repositioning. Call light and tray table within reach. Will continue to monitor patient hourly.
[2017-02-11] MEDS: 0.9% Sodium Chloride 1,000 ML IV ONE ×2 (12:23→13:10)
--- NOTE | 2017-02-11 13:32 | NUR ---
NUTRITION ASSESSMENT: ASSESS: Pt is a 76yo M admitted for rt foot cellulitis and CLAIRE. Nephrology is following for CLAIRE. He was on a Heart Healthy/ Diabetic diet and tolerating well at 50-100% of meals. Diet was downgraded to CL today post LUISA. ID is following for MRSA bacteremia and possible septic joint with indwelling pacer. PMHX: HTN, DM, HLD, CKD stg 3, Gout, DVT LABS: Reviewed. Na 133, Cl 95, Bun 88, Del[employer] Developer 1.79, Glu 147, T.bili 1.7, AST 113, ALT 79, alk phos 182, Alb 2.4 MEDS: Reviewed. lasix GI: BMx1 02/08 SKIN: Giorgio 14, rt foot cellulitis- podiatry is following CURRENT WTS: 104.2kg, BMI 33kg/m2, admit wt 99.3kg, IBW 75.4kg DIET: CL, PO avg prior to diet downgrade was ~65% EST. NEEDS: BMI, CLAIRE Kcals: 2080-2285kcal/day (20-22kcal/kg) Pro: 75-90g/day (1.0-1.2g/kg IBW) NUTRITION DIAGNOSIS: 1.) Altered nutrition related labs values related to CLAIRE as evidence by elevated BUN and seat covers trimmer NUTRITION INTERVENTION: 1.) Recommend advance diet when medically appropriate. PO at this time has been adequate for needs. MONITOR / EVAL: diet advc, PO, wt, labs, GI, POC, nutrition status, Will continue to monitor per moderate nutrition related guidelines
[2017-02-11] MEDS ORDERED: Propofol 10,000 mCg/mL 20 mL Inj ONE (14:30)
--- NOTE | 2017-02-11 17:17 | PCM.HPANE ---
Patient Data Surgeon Admitting Provider:Mecca Lua DO Attending Provider:Mecca Lua DO Primary Care Physician:Maribel Gallego DO Other Provider: Reason for Visit Right Foot Cellulitis,Renal Failure Ht/WT & BMI Height (Feet): 5 Height (Inches): 10.00 Weight (Kilograms): 104.300 Body Mass Index 31.34 Allergies Coded Allergies: Penicillins (Verified Adverse Reaction, Intermediate, Hallucinations, 02/07) Past Anesthesia History Anesthesia History: Denies:: Abnormal Airway, Anesthesia Reactions, Difficult Intubation, Fam Anesthesia Reaction, Fam Malignant Hypertherm, Malignant Hyperthermia Diabetes History Hx Diabetes?: Yes Current Bedside Blood Glucose: 146 MRSA MRSA: No Medications Blood Thinner: Aspirin, Pradaxa Reported Medications Spironolactone 50 Mg Ybjacq54 Mg PO BID #60 02/07/17 Cholecalciferol (Vitamin D3) (Vitamin D3)3,000 Unit Tablet3,000 Unit PO DAILY 02/07/17 Ascorbate Calcium (Vitamin C)500 Mg Qtxued851 Mg PO DAILY 07/21/16 Hydralazine 25 Mg Gfvihu55 Mg PO BIDWM 04/02/16 Colchicine 0.6 Mg Tablet0.6 Mg PO BID #60 04/02/16 Febuxostat (Uloric)40 Mg Gzfszi612 Mg PO DAILY #30 04/02/16 Gabapentin 300 Mg Ahfkqto517 Mg PO TID #90 04/02/16 Docusate Sodium (Colace)100 Mg Svmiafj632 Mg PO DAILY PRN For Constipation Ref 0 04/02/16 Ferrous Sulfate (Iron)325 Mg Capsule.er325 Mg PO BID 08/22/15 Sodium Bicarbonate 650 Mg Zxhukg117 Mg PO BID 07/17/15 Furosemide 80 Mg Tab80 Mg PO BID Ref 0 07/17/15 Cyanocobalamin (Vitamin B-12) (Vitamin B-12)1,000 Mcg Tablet1,000 Mcg PO DAILY 07/17/15 Dabigatran Etexilate Mesylate (Pradaxa)150 Mg Pajuwyw504 Mg PO BID 30 Days 07/17/15 Atorvastatin (Lipitor)20 Mg Toietv64 Mg PO HS Ref 0 07/17/15 Aspirin 81 Mg Cvtvaa96 Mg PO DAILY Ref 0 07/17/15 Amlodipine 10 Mg Fbylcr45 Mg PO DAILY Ref 0 07/17/15 Discontinued Reported Medications Spironolactone 25 Mg Uvwtze45 Mg PO DAILY #30 TABLET Ref 0 07/21/16 Cholecalciferol (Vitamin D3) (Vitamin D3)2,000 Unit Tablet2,000 Unit PO QPM 07/21/16 Discontinued Scripts Omeprazole 40 Mg Capsule.dr40 Mg PO BID #60 CAPSULE Ref 0 Prov:Krishan Ashraf MD 04/06/16 History History of ENT Problems?: No HEENT History: Denies:: Abnormal Airway Cataracts Difficult Intubation Dysphagia Glaucoma Hearing Problem Sinus Problem TMJ Denture Type: None Teeth Condition: Within Normal Limits Hx of Heart Problems?: Yes Cardiovascular History: Positive for:: Atrial Fibrillation Cardiac Surgery (4 way bypass, 1998, heart catheterization ) Chest Pain (CABG 4 vessel 1998) Congestive Heart Failure Hypertension Irregular Heartbeat (afib ) Pacemaker Denies:: AICD Abdominal Aortic Aneurism Coronary Artery Disease Edema Heart Murmur Peripheral Vascular Rheumatic Fever Thrombophlebitis Valvular Heart Disease Hx of Respiratory Problem?: Yes Respiratory History: Positive for:: Chest Surgery (1998) Denies:: Asthma COPD Cough Dyspnea Emphysema Hemoptysis Oxygen Administration Pneumonia Pulmonary Embolism Tuberculosis Use of C-PAP Machine Use of Inhalers / NEBS Hx Neurologic Problems?: No Neurological History: Denies:: Alzheimer's Disease CVA Dementia Dizziness Headaches Multiple Sclerosis Parkinson's Disease Peripheral Neuropathy Seizures TIA Hx of GI Problems?: Yes Gastrointestinal History: Denies:: Cirrhosis Diverticulitis Gall Bladder Disease Gastroesphageal Reflux Gastrointestinal Bleeding Heartburn Hepatitis Hiatal Hernia Liver Disease Rectal Bleeding Hx of Problems?: Yes Genitourinary History: Positive for:: Kidney Stones Denies:: HX of Hemodialysis Urinary Tract Infection HX of Peritoneal Dialysis: No Male Hx: Denies:: Prostate Problems Scrotal Mass Testicular Surgery Skin History: Denies:: History Skin Disorders? Pressure Ulcers Hx Musculoskeletal Problems?: Yes Musculoskeletal History: Denies:: Back Injury Degenerative Joint Fibromyalgia Joint Replacement Musculoskeletal Trauma Myasthenia Gravis Osteoarthritis Rheumatoid Arthritis Systemic Lupus Hx of Psycho/Social Problems?: No Psycho Social History: Denies:: Anxiety Bipolar Disorder Hx Depression Suicide Attempt Hx Surgeries?: Yes Hx Any Other Health Problems?: Yes Other History: Positive for:: Hospitalization (2015) Denies:: Cancer Endocrine Disease Thyroid Disease History Blood Transfusions: Positive for:: Accept Blood Products? Blood Transfusions Denies:: Blood Transfuse Reaction Hx Diabetes: YesBedside Blood Glucose: 146 Hx Alcohol Use: NoHx Substance Use: No Smoking Status: Former Smoker Have You Smoked inLast 12 mo: No Stop/Bang Treated for Sleep Apnea?: Yes Do You Have a CPAP Machine?: Yes S-Snoring: Do You Snore Loudly: Yes T-Tired: feel tired, fatigued: Yes O-Obsered: Observed not breath: Yes P-Blood Pressure: treated: No B- Body Mass Index > 35 kg/m2: No A- Age over 50: Yes N- Neck Large Circumference: Yes G- Gender Male: Yes MOLINA Total Score: 5 MOLINA Category 2: Yes Risk Assessment Category Category 1A: Patient has history of documented sleep apnea, and HAS NOT received any narcotic, sedative or anesthesia administration during this stay. Category 1B: Patient has history of documented sleep apnea, and HAS received any narcotic , sedative or anesthesia administration during this stay Category 2: Patient has SUSPECTED Obstructive Sleep Apnea, and HAS received any narcotic , sedative or anesthesia administration during this stay. Category 3: Patient has SUSPECTED Obstructive Sleep Apnea and HAS NOT received narcotic, sedative or anesthesia administration during this stay. Category 4: Outpatient in Procedural Areas with known sleep apnea or who screen positive for High Risk via the STOP/BANG questionnaire. Exam Exam Vital Signs Vital Signs Date Time Temp Pulse Resp B/P Pulse Ox O2 Delivery O2 Flow Rate FiO2 02/11/17 09:51 65 22 137/60 95 Room Air 02/11/17 08:44 Supplement Oxygen CPAP/BIPAP 02/11/17 08:43 63 138/68 02/11/17 08:00 60 02/11/17 06:22 60 02/11/17 06:04 36.8 60 18 124/69 95 Nasal Cannula 2.00 General Appearance: Alert, Oriented X3, Cooperative HEENT/AIRWAY: MP 2, Neck Movement (FROM), Mouth Opening (3 FBMO) Lungs: Normal Air Movement Heart: Regular Rate/Rhythm Meds/Labs/Diagnostics Admission Meds Current Medications Lidocaine HCl 20 ml 20 ml STK-MED ONCE .ROUTE Last administered on 02/10/17 12 :50; Start 02/10/17 at 12:30; Stop 02/10/17 at 12:33; Status DC Daptomycin/Sodium Chloride (Cubicin Inj/ Normal Saline) 50 ml @ 100 mls/hr Q24 IV Last administered on 5/19/17at 08:52; Start 02/11/17 at 08:30 Bedside Blood Glucose: 146 Labs Test 02/07/17 12:05 02/07/17 12:10 02/07/17 12:48 02/08/17 06:07 Hold Griffith Top Tube Received (Received) Lactic Acid Level 2.0mmol/L (0.4-2.0) Urine Color Straw (YELLOW) Urine Appearance Clear (CLEAR,HAZY) Urine pH 5.5 (5.0-8.0) Urine Specific [place] 1.010 (1.003-1.035) Urine Protein Tracemg/dL (NEG,TRACE) Urine Glucose (UA) Negativemg/dL (NEGATIVE) Urine Ketones Tracemg/dL (NEGATIVE) Urine Occult Blood Trace (NEGATIVE) Urine Nitrite Negative (NEGATIVE) Urine Bilirubin Negative (NEGATIVE) Urine Urobilinogen Normalmg/dL (NORMAL) Urine Leukocyte Esterase Negative (NEGATIVE) Urine RBC 0-2/hpf (0-2) Urine WBC 0-5/hpf (0-5) Urine Epithelial Cells Occasional/hpf (NONE-MOD) Urine Crystals None seen (NONE SEEN) Urine Bacteria None/hpf (NONE-FEW) Urine Hyaline Casts None/lpf (NONE) Urine Granular Casts None seen (NONE SEEN) Urine Waxy Casts None seen (NONE SEEN) Urine Red Blood Cell Casts None seen (NONE SEEN) Urine White Blood Cell Casts None seen (NONE SEEN) Urine Mucus None seen (None Seen) Urine Trichomonas None seen (NONE SEEN) Urine Yeast None (NONE SEEN) Urinalysis Comment None Urine Culture Reflexed Not indicated Urine Random Creatinine 63mg/dL (22-328) Urine Random Total Protein 24mg/dL (0-15) Urine Random Sodium 21mEq/L Hold Urine Received (Received) Hemoglobin A1c 6.6% (4.8-5.6) Triglycerides Level 118mg/dL (0-149) Cholesterol Level 93mg/dL (100-199) LDL Cholesterol, Calculated 47.400mg/dL (0-99) VLDL Cholesterol 23.600mg/dL HDL Cholesterol 22mg/dL (>39) Cholesterol/HDL Ratio 4.23 (0.0-4.4) Test 02/08/17 12:50 02/09/17 06:27 02/10/17 06:07 02/11/17 05:32 Vancomycin Level Trough 14.1mcg/mL Uric Acid 2.9mg/dL (2.6-7.2) Total Creatine Kinase 134U/L (21-232) Phosphorus Level 3.6mg/dL (2.5-4.9) White Blood Count 15.9th/mm3 (3.8-10.1) Red Blood Count 3.49mil/mm3 (4.40-5.80) Hemoglobin 10.0g/dL (13.8-17.2) Hematocrit 30.7% (41.0-50.0) Mean Corpuscular Volume 88.0fL (81-100) Mean Corpuscular Hemoglobin 28.7pg (27.0-35.0) Mean Corpuscular Hemoglobin Concent 32.6% (32.0-37.0) Red Cell Distribution Width 15.8% (12.3-15.4) Platelet Count 315bil/L (150-400) Neutrophils (%) (Auto) 82.5% (40-74) Lymphocytes (%) (Auto) 2.6% (14-46) Monocytes (%) (Auto) 8.3% (4-12) Eosinophils (%) (Auto) 0.6% (0-5) Basophils (%) (Auto) 0.2% (0-3) Erythrocyte Sedimentation Rate > 140mm/hr (0-30) Sodium Level 133mEq/L (134-144) Potassium Level 4.2mEq/L (3.5-5.2) Chloride Level 95mEq/L (97-108) Carbon Dioxide Level 19mmol/L (18-29) Blood Urea Nitrogen 88mg/dL (8-27) Creatinine 1.79mg/dL (0.76-1.27) Estimat Glomerular Filtration Rate 40mL/min (>59) Glucose Level 147mg/dL (60-99) Calcium Level 8.7mg/dL (8.5-10.1) Magnesium Level 2.4mg/dL (1.6-2.6) Total Bilirubin 1.7mg/dL (0.0-1.2) Aspartate Amino Transf (AST/SGOT) 113U/L (0-50) Alanine Aminotransferase (ALT/SGPT) 79U/L (0-44) Alkaline Phosphatase 182U/L (25-160) C-Reactive Protein 34.7mg/dL (0.0-0.5) Total Protein 5.5g/dL (6.4-8.4) Albumin 2.4g/dL (3.4-5.0) Procalcitonin 4.74ng/mL (0.00-0.08) Plan Impression Patient chart reviewed, patient interviewed and anesthestic plan with risks, benefits, and alternatives discussed, and informed consent obtained. NPO per Anesth. Guidelines: Yes ASA Physical Status: ASA3 Severe Disease Anesthetic Plan: GA, MAC Bene/Risks/Altern/Consents: Yes HP Complete Prior to Induction: Yes Miguel Montes MD February 11, 2017 09:53
--- NOTE | 2017-02-11 17:17 | PCM.ANEP1 ---
Post Anesthesia PACU Phase 1 Assessment Vital Signs Vital Signs Date Time Temp Pulse Resp B/P Pulse Ox O2 Delivery O2 Flow Rate FiO2 02/11/17 13:45 37.8 70 18 149/68 88 Nasal Cannula 2.00 02/11/17 11:52 66 21 144/60 97 Nasal Cannula 2.00 02/11/17 11:37 69 20 137/59 96 Nasal Cannula 2.00 02/11/17 11:22 65 24 135/53 95 Nasal Cannula 2.00 02/11/17 11:07 63 22 133/54 96 Nasal Cannula 2.00 02/11/17 10:52 68 23 127/61 95 Nasal Cannula 2.00 02/11/17 09:51 65 22 137/60 95 Room Air Anesthetic Administered: GA, MAC Level of Alertness: Awake, talking SABILLON's with Equal Strength: Yes Pain: No Pain Scale Score: 7 Nausea or Vomiting: No CV Function and Hydration: Yes Airway Device: Oxygen Delivery: Room Air Lungs: Normal Air Movement Dermatome Level: Full Sensation PACU Phase 2 Assessment Complications: No Follow up Care: N/A Patient Instructions Provided: N/A Miguel Montes MD February 11, 2017 17:17
--- NOTE | 2017-02-11 17:55 | DRSVH ---
[facility] [address] [place] [address] Echocardiogram Report Name: JACKIE BRAVO TStudy Crispin e: 02/11/2017 Height: 70 in Hospital Exam Location: [facility] Weight: 219 lb Gender: Male BSA: 2.2 m2 : 1940 Age: 76 yrs BP: 147/56 mmHg Reason For Study: Endocarditis Ordering Physician: Performed By: Wally Whitt Interpretation Summary No obvious valvular vegetation seen. No obvious vegetation seen attached to the intracardiac visulaized portion of pacemaker lead. The left ventricle is normal in size. The ejection fraction is estimated to be 60-65%. No left atrial mass or thrombus visualized. No thrombus is detected in the left atrial appendage. There is moderate mitral regurgitation. There is mild aortic stenosis. There is moderate to severe tricuspid regurgitation (Eccentric). Procedure: Informed consent for Transesophageal Echocardiogram, and use of a contrast agent as needed, was obtained prior to the procedure. Sedation was managed by anesthesiologist; see anesthesiology notes for details. The transesophageal probe was passed without difficulty. Comparison is made with the echocardiogram of 02/09/17. An intravenous line was placed. A topical anesthetic agent was used for oropharangeal anesthesia. A bite block was inserted. The usual views were obtained; basal, mid-esophageal, transgastric and aortic views. The patient's vital signs, including blood pressure, heart rate, pulse oximetry and cardiac rhythm were monitored throughout the procedure and remained stable. The patient tolerated the procedure well without evidence of orophangeal or esophageal trauma. A 2D transesophageal echocardiogram with spectral and color flow Doppler was performed. The patient was in normal sinus rhythm during the exam. There were no complications. Left Ventricle: The left ventricle is normal in size. There is no thrombus. The ejection fraction is estimated to be 60-65%. There are no focal wall motion abnormalities. Right Ventricle: The right ventricle is normal size. The right ventricular systolic function is normal. Atria: The left atrium is severely dilated. No left atrial mass or thrombus visualized. No thrombus is detected in the left atrial appendage. Right atrial size is normal. There is a catheter/pacemaker lead seen in the right atrium. Mitral Valve: There is moderate to severe mitral annular calcification. The mitral valve leaflets are mildly calcified. The mitral valve chordae are thickened and/or calcified. There is no vegetation seen on the mitral valve. There is moderate mitral regurgitation. There are multiple regurgitant jets present. Aortic Valve: The aortic valve is trileaflet. The aortic valve is moderately calcified. Left coronary cusp is restricted. There is mild aortic stenosis. No aortic regurgitation is present. Tricuspid Valve: Tricuspid leaflets are thickened. There is moderate to severe tricuspid regurgitation. Pulmonic Valve: The pulmonic valve is normal in structure and function. There is a trace or physiologic amount of pulmonic regurgitation. Great Vessels: There is aortic root sclerosis/calcification. Mild atherosclerotic plaque(s) in the descending aorta. Reading Physician:TAYLA
[2017-02-11] MEDS: HYDROcodone-APAP 5-325 mg Tablet PO PRN (21:04)
--- NOTE | 2017-02-11 23:28 | PCM.PNMED ---
Subjective Date of Service February 11, 2017 Subjective The patient is feeling a little bit better with decreased pain in his right foot. He appears to be more alert and aware of his current situation. He has no new complaints and is and is in no apparent distress at present time. Exam Vital Signs Vital Sign - Last Date Time Temp Pulse Resp B/P Pulse Ox O2 Delivery O2 Flow Rate FiO2 02/11/17 21:18 37.1 60 18 134/62 93 CPAP 02/11/17 17:34 2.00 Intake and Output 02/10/17 02/10/17 02/11/17 Cumulative From/Thru 15:00 23:00 07:00 02/07/17 10:52 - 02/11/17 06:35 Intake Total 1412 ml 400 ml 9763 ml Output Total 1250 ml 750 ml 7365 ml Balance 162 ml -350 ml 2398 ml Intake Oral 1412 ml 400 ml 6099 ml IV Total 3664 ml Output Urine Total 1250 ml 750 ml 7365 ml # Voids 1 3 # Bowel Movements 1 Exam General: Patient is lying supine in no apparent distress. HEENT: Head is atraumatic and normocephalic. Eyes: Pupils are equally round and reactive to light and accommodation. Extraocular muscles are intact. Sclera are white, anicteric. Subconjunctival mucosa is pink. Ears and nose are unremarkable. Oropharynx: There is no mucosal lesions, there is no thrush, there is no pharyngitis. Neck: Is supple, there are no nodes, or masses or tenderness. Chest: Is clear to auscultation and percussion. There are no rales, rhonchi, wheezes or rubs. Heart: Rate, rhythm is regular. There is a grade 2/6 systolic ejection murmur heard best at the left sternal border. There is no rub or gallop. Abdomen: Good bowel sounds are present. Abdomen is soft, nontender, no organomegaly or masses were appreciated. Extremities: The right foot is covered in ezequiel wrap which Dr. Kee just placed on the patient. This wrap is clean dry and intact. There is some wrinkling of skin on the extremities indicating decrease edema. Neurologic: There are no focal neurological deficits. Cranial nerves II through XII are intact. There are no sensory or motor deficits. Psychiatric: Patients mood is calm and shows no sign of agitation. He appears to be more keenly aware of his current medical condition. Genital: Deferred Rectal: Deferred Lab and Diagnostics Result Diagram: 02/11/17 0532 02/11/17 0532 Microbiology 5 sets of blood cultures are positive for MRSA Nasal screen for MRSA is negative Ankle culture for MRSA is positive X-Rays, CTs and MRIs PROCEDURE: X-RAY RIGHT ANKLE, MINIMUM THREE VIEWS ([id number]) INDICATIONS: CHARCOT FOOT TECHNIQUE: 4 views of the ankle were acquired. COMPARISON: [facility], CR, XR ANKLE MIN 3VW WT [place] RT, 2016, 9:32. FINDINGS: Bones: Severe degenerative changes of the mid foot and hindfoot joints result in difficulty evaluating for subtle fractures. No displaced fractures are evident. There appears to be a talonavicular joint dislocation. Offset of the tibiotalar joint is also noted. Prominent plantar and Achilles spurs are present. Soft tissues: Extensive edema about the ankle is noted. No unexpected radiopaque foreign bodies are evident. Scattered soft tissue calcifications are present. IMPRESSION: 1. Prominent mid foot and hindfoot Charcot arthropathy results in difficulty evaluating for subtle fractures. 2. Apparent dislocation of the talonavicular joint. The need for better evaluation utilizing CT may be determined clinically. Dictated by: Cm Parks M.D. on 02/07/2017 at 11:00 Approved by: Cm Parks M.D. on 02/07/2017 at 11:05 PROCEDURE: CT ANKLE RIGHT W/O CONTRAST ([id number]) INDICATIONS: charcot foot right foot/ankle TECHNIQUE: Noncontrast 1-1.5 mm axial sections acquired from above the tibiotalar joint to the bottom of the calcaneus, with coronal and sagittal reformats. COMPARISON: [facility], CR, XR ANKLE 3VW RT, 02/07/2017, 11:52. FINDINGS: Image quality: Diagnostic. Bones: The bone mineralization is diffusely decreased. Severe degenerative changes and numerous scattered small ossific/calcific densities about the osseous structures of the imaged right hindfoot and midfoot results in difficulty evaluating for subtle fractures. No definite large acute fracture is evident. There is complete dislocation of the talonavicular joint with medial positioning of the talar head with respect to the navicular. The navicular remains appropriately aligned with respect to the remainder of the foot. No definite additional dislocations are appreciated. Extensive osseous erosions are noted throughout all of the midfoot and hindfoot bones. The ankle mortise is relatively well maintained. Soft tissues: Extensive subcutaneous edema about the midfoot and hindfoot is identified with prominent ankle, subtalar, and talonavicular fusions. Multiple joint bodies are present within the joint effusions. Please note that evaluation of the ligamentous and tendinous structures of the midfoot and hindfoot is limited on CT. However, there is thickening and diffuse edema noted involving the medial and lateral flexor tendons as well as the Achilles tendon. Partial-thickness tearing probably is present. No soft tissue air or soft tissue foreign bodies are evident. IMPRESSION: 1. Advanced degenerative changes of the right midfoot and hindfoot are compatible with Charcot arthropathy. 2. Medial dislocation of the talus with respect to the navicular is of uncertain chronicity. 3. Evaluation for subtle acute fractures is limited. No large displaced fracture. 4. Numerous bony erosions of the midfoot and forefoot are probably related to Charcot arthropathy. However, the possibility of superimposed osteomyelitis or inflammatory arthropathy cannot be excluded and clinical correlation is recommended. 5. Extensive soft tissue edema without a definite loculated fluid collection. 6. Moderate tendinopathy of the peroneus brevis, peroneus longus, and Achilles tendons is present. Additional areas of flexor tendinopathy along the medial aspect of the ankle probably are present. Dictated by: Cm Parks M.D. on 02/08/2017 at 15:49 Approved by: Cm Parks M.D. on 02/08/2017 at 16:14 PROCEDURE: US RENAL SONOGRAM INDICATIONS: CLAIRE TECHNIQUE: Real-time scanning was performed of the kidneys and bladder, with image documentation. COMPARISON: [facility], CT, CT CHEST ABD PELVIS W CON, 07/21/2015, 12:13. FINDINGS: Kidneys: Kidneys are normal in size. Right kidney measures 11.0 cm long; left kidney measures 11.7 cm long. Right renal cortical thickness is 0.9 cm; left renal cortical thickness is 1.3 cm. Renal cortical echotexture is normal. No hydronephrosis or nephrolithiasis. No suspicious solid mass lesions. Bladder: Pre-void bladder volume is 300 mL. Post-void residual is 200 mL. Pre -void images demonstrate no intraluminal masses or stones. On pre-void images, either ureteral jets are noted with color Doppler interrogation. (Of note, ureteral jets may not be detectable in up to 25% of cases due to insufficient differences in specific gravity between ureteral and bladder urine). Miscellaneous: No free pelvic fluid. IMPRESSION: 1. Mild right renal cortical thinning, otherwise normal kidneys. 2. Approximately 200 cc of postvoid residual. Dictated by: Dajuan BOWERS Interpreted: Ricky Verdin MD on 02/07/2017 at 16:05 Transcribed by: ZULMA on 02/07/2017 at 16:06 Approved by: Ricky Verdin M.D. on 02/07/2017 at 16:33 PROCEDURE: X-RAY RIGHT KNEE, ONE OR TWO VIEWS ([id number]) INDICATIONS: knee pain TECHNIQUE: 2 views of the knee were acquired. COMPARISON: None. FINDINGS: Bones: No fractures or dislocations. No suspicious bony lesions. Severe narrowing of the lateral femoral tibial joint and to lesser degree the patellofemoral knee joint. Tricompartmental osteophyte formation. Soft tissues: Moderate joint effusion. No suspicious soft tissue calcifications. Vascular calcifications indicate atherosclerosis. IMPRESSION: Knee joint degeneration and moderate joint effusion. Dictated by: Dajuan BOWERS Interpreted: Libertad Nieves MD on 02/10/2017 at 10: 12 Transcribed by: BHAVANA on 02/10/2017 at 10:13 Cardiac Echo Impressions Echocardiogram Report Name: JACKIE BRAVO TStudy Crispin e: 02/09/2017 Height: 70 in Hospital Exam Location: [facility] Weight: 219 lb Gender: Male BSA: 2.2 m2 : 1940 Age: 76 yrs BP: 120/65 mmHg Reason For Study: Endocarditis Ordering Physician: Performed By: Sandrine Tobar [facility] Interpretation Summary The left ventricle is normal in size, wall thickness, and systolic function without any focal wall motion abnormalities. The ejection fraction is estimated to be 60-65%. LVEF has not changed significantly since prior study. The right ventricle is normal in size, thickness and function. The right ventricular systolic pressure is estimated at 54 mmHg assuming a right atrial pressure of 8 mm Hg. The left atrium is severely dilated. Right atrial size is normal. The aortic valve is moderately calcified. The calculated aortic valve area is 1.2 cm2. The peak aortic velocity is 2.6 m/sec. The peak aortic velocity on the previous exam was 3.0 m/sec. There is no other significant valvular heart disease. No overt evidence for endocarditis but cannot exclude MV endocarditis due to significant mitral annular calcification. The aortic root is normal size. Assessment & Plan Patient is a 76-year-old male presents to the emergency room with cellulitis and Charcot foot on the right Leukocytosis secondary to MRSA bacteremia - Leukocytosis trending down - Podiatry following -Blood cultures positive for MRSA -Right ankle cultures are positive for MRSA -Antibiotics to be managed by infectious disease. Daptomycin is being continued. -Dr. Gordon consulted (infectious disease) appreciate his time and expertise. - Follow-up labs in the morning Acute kidney injury -Discontinue fluids IV saline 60 mL an hour -Lasix 80 mg twice a day as per recommendation from nephrology was recently discontinued -Nephrology following peripherally (Dr. Chávez). If renal function worsens will likely reconsult Dr. Chávez Diabetes -Hemoglobin A1c 6.6 (controlled) -Insulin sliding scale -Accu-Cheks before meals and at bedtime Hypertension -We will continue Hydralazine 25 mg by mouth twice a day -We will continue Amlodipine 10 mg daily -Hold Spironolactone 50 mg by mouth twice a day -Continue to monitor CHF -Hold Spironolactone 50 mg by mouth twice a day -Lasix 80 mg by mouth twice a day discontinued. -EF 65-70% from an echo done on 04/03/2016 Hyperlipidemia -Continue Lipitor 20 mg by mouth daily at bedtime Gout (currently stable) -Continue colchicine 0.6 mg twice a day Diabetic neuropathy -Continue gabapentin 300 mg by mouth 3 times a day Code Status: Full code Disposition: The patient continues to have positive blood cultures for MRSA. I discussed the possibility of having a more definitive surgical procedure done on his right lower extremity such as a below the knee amputation. The patient states he will think about this. Pain Evaluation: Adequate Pain Control VTE Prophylaxis: Other (The patient is on Pradaxa.) Resuscitation Status: CPR: Attempt Resuscitation Isaias Jack MD February 11, 2017 23:28 Resuscitation Status: CPR: Attempt Resuscitation Isaias Jack MD February 11, 2017 23:28
[2017-02-12] VITALS (8 sets, daily range): BP systolic 121–158; BP diastolic 66–81; PULSE 60–65; RESP 16–18; O2SAT 96–99
--- NOTE | 2017-02-12 05:27 | PROG NOTE ---
[address] [address] PROGRESS NOTE PATIENT: JACKIE BRAVO : 1940 MR#: [id number] ADMIT: 02/07/2017 JOB ID: [id number] DATE: 02/11/2017 INFECTIOUS DISEASE FOLLOWUP NOTE: REASON FOR FOLLOWUP: Persistent MRSA bacteremia in a patient with possible right foot-ankle osteo and possible pacer infection. INTERVAL HISTORY: The patient continues to feel relatively well despite his ongoing high-grade MRSA bacteremia. He has little in the way of fevers, chills, or shortness of breath. His pacer does not bother him in the least, and he has no nausea, vomiting, or diarrhea. He does have a swollen right knee and attempts were made to tap that today for fluid for possible culture to rule out a septic knee. In addition, Dr. Quintana of podiatry has been evaluating his foot and ankle for possible evidence of osteo or septic joint within the Charcot foot-ankle. PHYSICAL EXAMINATION: Reveals temperature 36.8. That is the highest temperature he has had throughout this hospital stay. Pulse 70, respiratory rate 18, blood pressure 149/68. He has desaturated a bit to 88% on 2 L but most of the time he is in the upper 90s on that setting. The patient is awake, alert, conversational and pleasant. Eyes without conjunctival hemorrhage. Oral cavity negative. Lungs relatively clear with a few crackles at the bases. Cardiac tones without new murmur. Abdomen is soft and nontender. The patient's right knee is bandaged at the site where Ortho attempted to obtain fluid but they were unable to find anything to culture. The right foot and ankle are also bandaged and appears little changed from prior. LABORATORIES: Include white count now down to 15.9. Sed rate over 140. CRP an amazing 35, or 70 times normal. Creatinine is slightly worse at 1.79. AST 113, ALT 79, alk phos 182. Procalcitonin stable at 4.75. It is not changing and is not of much value in this circumstance, honestly. Micro studies include the continued positive blood cultures. Blood cultures from the are all now positive. We will wait on those from today. Prior cultures MRSA, which was very sensitive to daptomycin and clindamycin, and had an DANIELLE of 1 for vancomycin. Notes were reviewed. Podiatry attempted to tap the right ankle joint and a very small amount of synovial fluid was withdrawn. It was of normal color and integrity and was not sent for culture, as there was very little fluid and it was not thought to be infected. Orthopedics likewise also attempted to tap the right knee and did not find any fluid. A transesophageal echo was also done today, and I spoke to Dr. Wells of cardiology in detail about this. It was found at that time that the patient had normal appearing valves without evidence of endocarditis and what portion of the pacer wires he could see appeared normal as well. IMPRESSION: This is an extremely complex case of a gentleman with ongoing high-grade methicillin-resistant Staphylococcus aureus bacteremia. Possible sources here would include osteomyelitis involving the right foot and ankle or infection of the pacer. The negative transesophageal echo in no way exonerates the pacer, though it did fail to implicate it as the cause of this persistent methicillin-resistant Staphylococcus aureus bacteremia, and I continue be very worried. Adding rifampin would makes some sense if we thought the pacer was infected but the patient already has elevated LFT and other issues, and I think probably hold off until we have some more definitive direction. Note that we have reinstated the high-dose daptomycin 750 mg once a day. Usually methicillin-resistant Staphylococcus aureus clears from blood cultures in 3-5 days and I am not going to panic about the persistently positive blood cultures quite yet but then will consider adding a synergistic drug such as ceftaroline if we are unable to clear the blood cultures by Tuesday the . RECOMMENDATIONS: 1. Continue with high-dose daptomycin. 2. Daily blood cultures until negative. 3. If the blood cultures stay positive the next couple days, will add ceftaroline in maximal doses. 4. The longer than MRSA blood cultures stay positive the more likely the pacer is infected and the more problematic this case becomes. 5. As was discussed with Dr. Jack, the patient's right foot and ankle seem dysfunctional at best and are possibly providing a persistent nidus of infection. It seems unlikely that his foot and ankle will be restored to a functionally status and another consideration besides eventual removal of the pacer if we cannot control his bacteremia would be a BKA type operation to resolve this possible source of infection.
[2017-02-12 06:16] LABS: BASOPHILS % (AUTO) 0.2 % (0-3); EOSINOPHILS % (AUTO) 0.4 % (0-5); MONOCYTES % (AUTO) 7.9 % (4-12); Mean Corpuscular Hemoglobin 28.1 pg (27.0-35.0); Mean Corpuscular Volume 87.3 fL (81-100); NEUTROPHILS % (AUTO) 80.7 % (40-74); Platelet Count 306 bil/L (150-400)
--- NOTE | 2017-02-12 06:32 | CONS ---
[address] [address] CONSULTATION REPORT PATIENT: JACKIE BRAVO : 1940 MR#: [id number] ADMIT: 02/07/2017 JOB ID: [id number] DATE OF SERVICE: 02/11/2017 ORTHOPEDIC CONSULT: CHIEF COMPLAINT: Right knee pain. HISTORY PRESENT ILLNESS: This is a pleasant 76-year-old male that presented to the hospital two days prior with right foot pain and swelling, as well as lethargy and dizziness. The patient has a history of Charcot arthropathy. He was consulted by Dr. Quintana, and it was noted that he continued to have ankle pain and eventually, knee pain. Orthopedics was consulted, as there was swelling to the knee to evaluate for possibility of a septic knee. The patient is comfortable, resting in bed. He states that he has had a several week history of knee pain. He has always had some knee discomfort secondary to arthritis but over the last month, as he has been in a walking boot and having foot and knee pain, he has really not been ambulating. Prior to his hospitalization he denies any constitutional symptoms including any fever, sweats, chills, nausea or vomiting, or any change in bowel or bladder function or appetite. The patient states that since he has been on the antibiotics he has felt a little bit better to the knee and the foot but he still has pain when he tries to move the knee and foot. PAST MEDICAL HISTORY: Diabetes with peripheral neuropathy, hyperlipidemia, hypertension, kidney disease, Charcot arthropathy. PAST SURGICAL HISTORY: Tonsillectomy, adenoidectomy, pacemaker placement and CABG. FAMILY HISTORY: Noncontributory. SOCIAL HISTORY: The patient is a past smoker. He quit about 35 years ago. Denies any current alcohol or illicit drug use. MEDICATIONS: Please see electronic medical record for full list of patient's medications. ALLERGIES: PENICILLIN. REVIEW OF SYSTEMS: The patient denies any fevers, sweats, chills, chest pain, short of breath nausea, vomiting, or diarrhea. Complains mainly of right lower extremity pain including the knee and ankle as described in history of present illness. PHYSICAL EXAMINATION: General: The patient is alert, oriented, in no apparent distress. HEENT: Normocephalic, atraumatic. Extraocular movements intact. Nares patent. Lungs: No audible wheezes. No overt signs of respiratory distress. Neuro: Cranial nerves 2-12 are intact. Extremities: Gross observation of the patient's right lower extremity. There is a dressing to the foot. The knee demonstrates some swelling with mild palpable effusion. There is tenderness along the medial joint line but no tenderness along the lateral joint line. He holds the knee flexed to about 30 degrees. There is limited range of motion of the knee either actively or passively. This reproduces significant pain mainly to the medial aspect of the knee. Range of motion passively is from an arc of 20-60 degrees. There is mild warmth but no palpable fluctuance. No erythema to the knee. DIAGNOSTIC STUDIES: Labs obtained at admission demonstrated elevated white count of 32.4 but has trended down to 15.9 currently. X-rays of the right knee consisting of two views was obtained on February 10, 2017, that demonstrate a small joint effusion with significant arthritic changes mainly along the medial joint line. IMPRESSION: 1. Right knee osteoarthritis. 2. Right knee swelling and pain. PLAN: Discussed with the patient that there is some fluid within the knee and in order to rule out any underlying septic arthritis, an aspiration attempt would be necessary. The patient is agreeable with the plan. He understood the risks, benefits and indications. The knee was prepped in a sterile fashion and under aseptic technique, an 18-gauge needle was inserted in the anterior medial compartment. No fluid was able to be aspirated. A second attempt was performed from a superior lateral suprapatellar aspiration site and again, no fluid was able to be aspirated. Discussed with the patient that this is unlikely septic arthritis, as the needle was placed into two separate places within the joint and no fluid was able to be aspirated. This is likely an exacerbation of his underlying chronic arthritis. I would like him to work with Physical Therapy for range of motion of the knee, as he has really not placed any weight onto the lower extremity and has been nonweightbearing for the last month. We will continue to follow the patient along.
[2017-02-12 06:35] LABS: Magnesium 2.4 mg/dL (1.6-2.6)
--- NOTE | 2017-02-12 07:38 | NUR ---
Noc activity Pt denies chest pain. Reports of having mild sob but is tolerable. CPox in place for o2 monitoring. CPAP set up at HS. HS meds administered as scheduled. VSS and has been afebrile. Hourly rounding done and pt has slept most of the night.
[2017-02-12] MEDS: Insulin LISPRO 300 Unit/3 mL Inj SUBQ SCH ×5 (08:00→21:26)
[2017-02-12] MEDS: Ascorbic Acid 500 mg Tablet PO SCH (09:35)
[2017-02-12] MEDS: Dabigatran 150 mg Capsule PO SCH ×2 (09:35→20:00)
[2017-02-12] MEDS: FEBUXOSTAT 40 MG PO SCH (09:39)
[2017-02-12] MEDS: DAPTOmycin Inj 750 MG in 0.9% Sodium Chloride 50 ML IV SCH (10:35)
--- NOTE | 2017-02-12 10:50 | PCM.PNORTH ---
Subjective Date of Service: February 12, 2017 Visit Information: Reason for Visit Right Foot Cellulitis,Renal Failure Surgery/Surgery Date Post-Op Day # Date of Admission: February 07, 2017 at 13:56 Hospital Day # Subjective Palpation awake and alert and sitting up in bed. No complaints of pain at this time. Patient's right knee dressing is removed today and not reapplied. The right knee appears in good condition with no erythema and very mild swelling. It is mildly warmer than left knee but this may be secondary to bandaging. The patient is more alert today and interactive and acts like he feels better. Postop General: No Complaints Pain Management: PO Objective Exam Objective Alert and oriented and pleasant Right knee dressing is removed today and aspiration wounds are clean and dry. Knee is very mildly swollen and has no erythema present. His right knee is very slightly warmer than the left and this may be a candidate for secondary to bandaging. Patient has reduced sensation and function at the right foot and does have an ulcer at the ankle. He is diagnosed with diabetes and osteomyelitis Patient has great difficulty moving his legs in bed. Vital Signs and I/O Vital Sign - Last Date Time Temp Pulse Resp B/P Pulse Ox O2 Delivery O2 Flow Rate FiO2 02/12/17 09:51 35.7 60 18 125/68 99 Nasal Cannula 2.00 Intake and Output 02/11/17 02/11/17 02/12/17 Cumulative From/Thru 15:00 23:00 07:00 02/07/17 10:52 - 02/12/17 06:41 Intake Total 536 ml 750 ml 800 ml 50877 ml Output Total 625 ml 850 ml 950 ml 9790 ml Balance -89 ml -100 ml -150 ml 2059 ml Intake Oral 750 ml 800 ml 7649 ml IV Total 536 ml 4200 ml Output Urine Total 625 ml 850 ml 950 ml 9790 ml # Voids 2 5 # Bowel Movements 0 1 Lab & Micro Results Laboratory Tests Test 02/12/17 05:40 White Blood Count 17.3th/mm3 (3.8-10.1) Red Blood Count 3.38mil/mm3 (4.40-5.80) Hemoglobin 9.5g/dL (13.8-17.2) Hematocrit 29.5% (41.0-50.0) Mean Corpuscular Volume 87.3fL (81-100) Mean Corpuscular Hemoglobin 28.1pg (27.0-35.0) Mean Corpuscular Hemoglobin Concent 32.2% (32.0-37.0) Red Cell Distribution Width 15.9% (12.3-15.4) Platelet Count 306bil/L (150-400) Neutrophils (%) (Auto) 80.7% (40-74) Lymphocytes (%) (Auto) 3.6% (14-46) Monocytes (%) (Auto) 7.9% (4-12) Eosinophils (%) (Auto) 0.4% (0-5) Basophils (%) (Auto) 0.2% (0-3) Sodium Level 132mEq/L (134-144) Potassium Level 3.8mEq/L (3.5-5.2) Chloride Level 95mEq/L (97-108) Carbon Dioxide Level 19mmol/L (18-29) Blood Urea Nitrogen 85mg/dL (8-27) Creatinine 1.59mg/dL (0.76-1.27) Estimat Glomerular Filtration Rate 45mL/min (>59) Glucose Level 144mg/dL (60-99) Calcium Level 8.0mg/dL (8.5-10.1) Magnesium Level 2.4mg/dL (1.6-2.6) Total Bilirubin 2.0mg/dL (0.0-1.2) Aspartate Amino Transf (AST/SGOT) 109U/L (0-50) Alanine Aminotransferase (ALT/SGPT) 81U/L (0-44) Alkaline Phosphatase 206U/L (25-160) Total Protein 5.2g/dL (6.4-8.4) Albumin 2.4g/dL (3.4-5.0) Microbiology 02/11/17 Blood Culture - Preliminary, Resulted Positive Blood Culture 02/08/17 MRSA (PCR) - Final, Complete 02/07/17 Gram Stain - Final, Complete 02/07/17 Culture & Sensitivity - Final, Complete Methicillin Resistant S Aureus Result Diagram: 02/12/17 0540 02/12/17 0540 General Appearance: Alert, Oriented X3, Cooperative, No Acute Distress Extremities: No Compartment Syndrom Noted, Thigh & Calf Soft/Nontender Postop Sensory Motor: Distal Sensation Intact Assessment & Plan Plan Postadmission day #5 from right foot cellulitis and renal failure. Continue current orders per hospitalist service for patient's general care. Patient's right knee was examined today and found to be very mildly swollen with no erythema. Patient will remain under the medical care of hospitalist service. Dr. Greg Gordon has consulted this patient and as always has a detailed plan for his care in his note. Anticipate discharge by hospitalist service when patient's medical issues are stabilized. VTE Prophylaxis: Other (The patient is on Pradaxa.) Resuscitation Status: CPR: Attempt Resuscitation Wyatt Manrique PA-C February 12, 2017 10:50
--- NOTE | 2017-02-12 12:01 | NUR ---
Evaluation completed. Please go to "Notes" then click on "Assessments and Notes" (bottom left corner of screen). Then select appropriate discipline tab on top of screen.
--- NOTE | 2017-02-12 13:33 | CONS ---
[address] [address] CONSULTATION REPORT PATIENT: JACKIE BRAVO : 1940 MR#: [id number] ADMIT: 02/07/2017 JOB ID: [id number] DATE OF SERVICE: REASON FOR CONSULTATION: Consultation has been requested by our hospitalist team on this complicated gentleman with Charcot neuroarthropathy and a recent wound that developed on the medial aspect of his talus. HISTORY: The patient is seen at bedside this morning after extensive review of his inpatient record and the ongoing obrien to treat his septicemia. The patient is now on five days of IV antibiotics. His recent lab work is showing concerning trend up of white blood cells and neutrophil percentage, and an ESR of greater than 140. Sources of infection such as pacemaker and septic knee have basically been ruled out at this point. Unfortunately what brought him to the hospital was this new ulceration that then caused him to become sick and it is really only logical that it started out in his right medial foot ulceration. The patient stated that the shape of his foot changed after he received his [place] walker that seemed to be comfortable to walk in, but rubbed on the area of bony prominence. He stated that he noticed that the foot was changing directions and was abducting more after he obtained this boot. He has only had it for three days prior to the ulceration opening up. He was ulcer free prior to that. During this hospitalization, it was also found that he was experiencing acute kidney injury. He had never had a vascular workup before. It was thought that Charcot process was a process of good circulation; however he denies having had any tests to confirm peripheral vascular disease. His CT scan showed significant atherosclerosis in the posterior tibial and anterior tibial artery and distal branches. In addition, there was complete dislocation of the talonavicular joint with lateral abduction of the forefoot through the talonavicular area and significant joint degeneration on the CT scan in the midfoot. At that point, there was no obvious indication of osteomyelitis, but as we know radiographic studies can lag in the diagnosis. Unfortunately, he has continued to have positive blood cultures for five consecutive days which indicates that the IV antibiotic is not getting to the source. Given the fact that I cannot palpate his pulses in his right foot, it is most likely that the source is staying relatively preserved from IV antibiotics which would only make sense that it is coming from the foot. A cultured area of his ulceration did yield MRSA; the same organism that is being cultured out. The patient is complaining of knee pain and stiffness and the two aspirates from the right knee did not yield any fluid that could have been tested for sepsis. If the swelling had been due to a septic knee, a sample would have been more readily available. OBJECTIVE FINDINGS: Today upon arrival, the patient's temperature 35.7 degrees Celsius, pulse 60, respirations 18, blood pressure 125/68, pulse ox 99% at 2 L nasal cannula. Microbiology yesterday was positive for MRSA in a blood culture. Labs show a white blood cell count trending up to 17,300, hematocrit is somewhat stable at 29.5, neutrophil percentage 80.7%, ESR greater than 140. Chemistries are showing an increase in procalcitonin at 4.74. His BUN has risen to 85. His creatinine is at 1.59. All LFTs are elevated. His albumin is at 2.4 next. C-reactive protein 34.7. The high levels of C-reactive protein and ESR indicate that there is likely osteomyelitis involved. Examination of the right lower extremity shows no readily available pulses to palpation; PT or DP. A necrotic medial talar head ulceration with no sign of granulation tissue at the distal margin where the eschar is lifting. Hyperpigmentation consistent with venous stasis distal to the mid calf. A swollen and tender right knee. Forefoot and midfoot are abducted with full subluxation of the talonavicular joint and the talar head readily palpable through the skin that is tenting. Edema is present in the entire forefoot, midfoot and ankle. ASSESSMENT: 1. Charcot foot and ankle osteomyelitis, presumed in the foot and ankle. 2. Type 2 diabetes with peripheral vascular disease and septicemia. PLAN: The patient was first seen [id number] by myself today and later joined in by Dr. Jack. I discussed with him the possibility of any further sources of infection and unfortunately everything points toward the dysvascular foot being the problem. Any attempt at reconstruction of this very difficult dislocation would involve hardware which he cannot have at this time due to his infection. He also does not have good blood supply and it is too risky to perform a vascular procedure which would likely not be adequate enough to improve his blood flow due to significant atherosclerosis shown on x-rays and CT scans. Also his white blood cell count continues to rise and his blood cultures continue to be positive; it is only prudent to protect the patient from life-threatening situation by performing a [id number] amputation at this point. His pacemaker is at high risk for infection if it has not been already and it is very important to act rather quickly and involve General Surgery to perform this amputation. The patient has been informed. All of his questions were answered. Dr. Jack and I agreed that given his kidney function, his septicemia, the very difficult foot deformity and the presence of poor blood flow, that he would most likely not have favorable outcome even if any of the individual factors were not present and a limb salvage were to be attempted. The patient is on board to proceeding with a below-knee amputation so that he can hopefully survive this situation, and would like to inform his family himself. He declined an offer for us to speak to family members ourselves without him. I have called Dr. Ivey from General Surgery as well as Dr. Hui from Orthopedics to arrange a consultation. They will talk to each other and one of them will see the patient for continued care and contact Dr. Jack should there be any delay. TIME SPENT: Total time spent today with patient and further coordination of care was approximately 40 minutes.
--- NOTE | 2017-02-12 14:22 | PCM.PNNEPH ---
Subjective Date of Service February 12, 2017 Subjective Persist MRSA bacteremia noted. Pt was told that right foot amputation is likely required. He reports no F/C/N/V/CP/SOB. Pain is controlled. Exam Vital Signs Vital Sign - Last Date Time Temp Pulse Resp B/P Pulse Ox O2 Delivery O2 Flow Rate FiO2 02/12/17 13:30 36.1 60 18 150/73 99 Nasal Cannula 2.00 Intake and Output 02/11/17 02/11/17 02/12/17 Cumulative From/Thru 15:00 23:00 07:00 02/07/17 10:52 - 02/12/17 06:41 Intake Total 536 ml 750 ml 800 ml 04077 ml Output Total 625 ml 850 ml 950 ml 9790 ml Balance -89 ml -100 ml -150 ml 2059 ml Intake Oral 750 ml 800 ml 7649 ml IV Total 536 ml 4200 ml Output Urine Total 625 ml 850 ml 950 ml 9790 ml # Voids 2 5 # Bowel Movements 0 1 Exam General appearance: Awake, alert, oriented x3. No acute distress. HEENT: No pallor. No jaundice. No JVD. No lymphadenopathy. No thyroid enlargement. Heart: Irregular rhythm. Variable S1, normal S2. Systolic murmur noted. Lungs: Clear to auscultation bilaterally. Abdomen soft, active bowel sounds. Nontender. Nondistended. No hepatosplenomegaly. Extremity: Trace edema on the lower extremity. Chronic skin changes and discoloration noted. Dressing on the right foot. Lab and Diagnostics Result Diagram: 02/12/17 0540 02/12/17 0540 Microbiology 5 sets of blood cultures are positive for MRSA Nasal screen for MRSA is negative Ankle culture for MRSA is positive X-Rays, CTs and MRIs PROCEDURE: X-RAY RIGHT ANKLE, MINIMUM THREE VIEWS ([id number]) INDICATIONS: CHARCOT FOOT TECHNIQUE: 4 views of the ankle were acquired. COMPARISON: [facility], CR, XR ANKLE MIN 3VW WT BEARING RT, 2016, 9:32. FINDINGS: Bones: Severe degenerative changes of the mid foot and hindfoot joints result in difficulty evaluating for subtle fractures. No displaced fractures are evident. There appears to be a talonavicular joint dislocation. Offset of the tibiotalar joint is also noted. Prominent plantar and Achilles spurs are present. Soft tissues: Extensive edema about the ankle is noted. No unexpected radiopaque foreign bodies are evident. Scattered soft tissue calcifications are present. IMPRESSION: 1. Prominent mid foot and hindfoot Charcot arthropathy results in difficulty evaluating for subtle fractures. 2. Apparent dislocation of the talonavicular joint. The need for better evaluation utilizing CT may be determined clinically. Dictated by: Cm Parks M.D. on 02/07/2017 at 11:00 Approved by: Cm Parks M.D. on 02/07/2017 at 11:05 PROCEDURE: CT ANKLE RIGHT W/O CONTRAST ([id number]) INDICATIONS: charcot foot right foot/ankle TECHNIQUE: Noncontrast 1-1.5 mm axial sections acquired from above the tibiotalar joint to the bottom of the calcaneus, with coronal and sagittal reformats. COMPARISON: [facility], CR, XR ANKLE 3VW RT, 02/07/2017, 11:52. FINDINGS: Image quality: Diagnostic. Bones: The bone mineralization is diffusely decreased. Severe degenerative changes and numerous scattered small ossific/calcific densities about the osseous structures of the imaged right hindfoot and midfoot results in difficulty evaluating for subtle fractures. No definite large acute fracture is evident. There is complete dislocation of the talonavicular joint with medial positioning of the talar head with respect to the navicular. The navicular remains appropriately aligned with respect to the remainder of the foot. No definite additional dislocations are appreciated. Extensive osseous erosions are noted throughout all of the midfoot and hindfoot bones. The ankle mortise is relatively well maintained. Soft tissues: Extensive subcutaneous edema about the midfoot and hindfoot is identified with prominent ankle, subtalar, and talonavicular fusions. Multiple joint bodies are present within the joint effusions. Please note that evaluation of the ligamentous and tendinous structures of the midfoot and hindfoot is limited on CT. However, there is thickening and diffuse edema noted involving the medial and lateral flexor tendons as well as the Achilles tendon. Partial-thickness tearing probably is present. No soft tissue air or soft tissue foreign bodies are evident. IMPRESSION: 1. Advanced degenerative changes of the right midfoot and hindfoot are compatible with Charcot arthropathy. 2. Medial dislocation of the talus with respect to the navicular is of uncertain chronicity. 3. Evaluation for subtle acute fractures is limited. No large displaced fracture. 4. Numerous bony erosions of the midfoot and forefoot are probably related to Charcot arthropathy. However, the possibility of superimposed osteomyelitis or inflammatory arthropathy cannot be excluded and clinical correlation is recommended. 5. Extensive soft tissue edema without a definite loculated fluid collection. 6. Moderate tendinopathy of the peroneus brevis, peroneus longus, and Achilles tendons is present. Additional areas of flexor tendinopathy along the medial aspect of the ankle probably are present. Dictated by: Cm Parks M.D. on 02/08/2017 at 15:49 Approved by: Cm Parks M.D. on 02/08/2017 at 16:14 PROCEDURE: US RENAL SONOGRAM INDICATIONS: CLAIRE TECHNIQUE: Real-time scanning was performed of the kidneys and bladder, with image documentation. COMPARISON: [facility], CT, CT CHEST ABD PELVIS W CON, 07/21/2015, 12:13. FINDINGS: Kidneys: Kidneys are normal in size. Right kidney measures 11.0 cm long; left kidney measures 11.7 cm long. Right renal cortical thickness is 0.9 cm; left renal cortical thickness is 1.3 cm. Renal cortical echotexture is normal. No hydronephrosis or nephrolithiasis. No suspicious solid mass lesions. Bladder: Pre-void bladder volume is 300 mL. Post-void residual is 200 mL. Pre -void images demonstrate no intraluminal masses or stones. On pre-void images, either ureteral jets are noted with color Doppler interrogation. (Of note, ureteral jets may not be detectable in up to 25% of cases due to insufficient differences in specific gravity between ureteral and bladder urine). Miscellaneous: No free pelvic fluid. IMPRESSION: 1. Mild right renal cortical thinning, otherwise normal kidneys. 2. Approximately 200 cc of postvoid residual. Dictated by: Dajuan Broussard [facility] Interpreted: Ricky Verdin MD on 02/07/2017 at 16:05 Transcribed by: ZULMA on 02/07/2017 at 16:06 Approved by: Ricky Verdin M.D. on 02/07/2017 at 16:33 PROCEDURE: X-RAY RIGHT KNEE, ONE OR TWO VIEWS ([id number]) INDICATIONS: knee pain TECHNIQUE: 2 views of the knee were acquired. COMPARISON: None. FINDINGS: Bones: No fractures or dislocations. No suspicious bony lesions. Severe narrowing of the lateral femoral tibial joint and to lesser degree the patellofemoral knee joint. Tricompartmental osteophyte formation. Soft tissues: Moderate joint effusion. No suspicious soft tissue calcifications. Vascular calcifications indicate atherosclerosis. IMPRESSION: Knee joint degeneration and moderate joint effusion. Dictated by: Dajuan Broussard RRA Interpreted: Libertad Nieves MD on 02/10/2017 at 10: 12 Transcribed by: BHAVANA on 02/10/2017 at 10:13 Cardiac Echo Impressions Echocardiogram Report Name: JACKIE BRAVO TStudy Crispin e: 02/09/2017 Height: 70 in Hospital Exam Location: [facility] Weight: 219 lb Gender: Male BSA: 2.2 m2 : 1940 Age: 76 yrs BP: 120/65 mmHg Reason For Study: Endocarditis Ordering Physician: Performed By: [facility] Interpretation Summary The left ventricle is normal in size, wall thickness, and systolic function without any focal wall motion abnormalities. The ejection fraction is estimated to be 60-65%. LVEF has not changed significantly since prior study. The right ventricle is normal in size, thickness and function. The right ventricular systolic pressure is estimated at 54 mmHg assuming a right atrial pressure of 8 mm Hg. The left atrium is severely dilated. Right atrial size is normal. The aortic valve is moderately calcified. The calculated aortic valve area is 1.2 cm2. The peak aortic velocity is 2.6 m/sec. The peak aortic velocity on the previous exam was 3.0 m/sec. There is no other significant valvular heart disease. No overt evidence for endocarditis but cannot exclude MV endocarditis due to significant mitral annular calcification. The aortic root is normal size. Plan Impression ASSESSMENT: 1. Acute kidney injury, on stage 3 chronic kidney disease. resolved. 2. Right foot osteomyelitis. 3. MRSA bacteremia. 4. History of Charcot foot. 5. Type 2 diabetes with neuropathy and nephropathy. 6. Hypertension with hypertensive nephrosclerosis. 7. Dyslipidemia. 8. Obstructive sleep apnea. 9. Chronic atrial fibrillation. 10. Status post pacemaker placement Plan: Restart low dose diuretic, lasix 40 mg daily. IV abx per . Pending right BKA. Check serum osm. Ananthapanyasut,Wanwarat MD February 12, 2017 14:22
--- NOTE | 2017-02-12 15:03 | NUR ---
Social Work: Continued Discharge Planning D: EMR reviewed. Pt is on day 5 of hospitalization. SW learned that pt will be receiving BKA and hospitalist recommends SNF after surgery. SW met with pt to discuss BKA and SNF. Choice list provided. Pt reviewed choice list and requested [facility]. SW will place referral to [facility] after pt's surgery. SW spoke with hospitalist and requested order be placed for SNF as per new policy. Hospitalist stated he would place order for SNF after BKA surgery. SW to follow-up to ensure order has been placed before placing referral to [facility]. A: Pt for whom BKA and SNF have been deemed medically necessary. P: Hospitalist will place order for SNF after BKA surgery. Pt provided choice list and chose [facility]. SW to make referral to [facility] only after order for SNF has been placed by hospitalist. Pt is agreeable to BKA, SNF and [facility]. BRENDA Elmore Addendum: 02/13/17 at 1031 by CATHRYN GROVE PASSR completed and in folder. Please fax to [facility] and make referral only after MD has placed order for SW - SNF (per new policy). MD will not order SW - SNF until pt is out of BKA surgery. ILDA unable to make referral until MD has placed order. BRENDA Elmore
--- NOTE | 2017-02-12 15:03 | NUR ---
FINA signed by pt
--- NOTE | 2017-02-12 18:36 | NUR ---
Activity: Patient continues to be on contact precautions for positive MRSA cultures. His Blood cultures grew G+ Cocci resembling Staff (MD Tamayo). Patient continues to be on IV Daptomycin for the infection in his right ankle. The ankle is wrapped with kerlix and elevated on pillows . Patient has been on bed rest and is assisted to turn side to side in bed, he uses his urinal to urinate and the bed sol to have a BM.
--- NOTE | 2017-02-12 22:21 | PCM.PNMED ---
Subjective Date of Service February 12, 2017 Subjective Patient is feeling a little bit better. However, he is still concerned about his ankle and foot. He has no new complaints. Exam Vital Signs Vital Sign - Last Date Time Temp Pulse Resp B/P Pulse Ox O2 Delivery O2 Flow Rate FiO2 02/12/17 21:15 37.0 60 18 139/66 97 Nasal Cannula 2.00 Intake and Output 02/11/17 02/11/17 02/12/17 Cumulative From/Thru 15:00 23:00 07:00 02/07/17 10:52 - 02/12/17 06:41 Intake Total 536 ml 750 ml 800 ml 01282 ml Output Total 625 ml 850 ml 950 ml 9790 ml Balance -89 ml -100 ml -150 ml 2059 ml Intake Oral 750 ml 800 ml 7649 ml IV Total 536 ml 4200 ml Output Urine Total 625 ml 850 ml 950 ml 9790 ml # Voids 2 5 # Bowel Movements 0 1 Exam General: Patient is lying supine in no apparent distress. HEENT: Head is atraumatic and normocephalic. Eyes: Pupils are equally round and reactive to light and accommodation. Extraocular muscles are intact. Sclera are white, anicteric. Subconjunctival mucosa is pink. Ears and nose are unremarkable. Oropharynx: There is no mucosal lesions, there is no thrush, there is no pharyngitis. Neck: Is supple, there are no nodes, or masses or tenderness. Chest: Is clear to auscultation and percussion. There are no rales, rhonchi, wheezes or rubs. Heart: Rate, rhythm is regular. There is a grade 2/6 systolic ejection murmur heard best at the left sternal border. There is no rub or gallop. Abdomen: Good bowel sounds are present. Abdomen is soft, nontender, no organomegaly or masses were appreciated. Extremities: The right foot and ankle is examined with Dr. Kahn. The right medial malleoli are aerated still inflamed and erythematous with superficial eschar. There are no palpable pulses of the right foot. The right foot is still warm however. Neurologic: There are no focal neurological deficits. Patient is alert and oriented. Cranial nerves II through XII are intact. There are no sensory or motor deficits. Psychiatric: Patients mood is calm and shows no sign of agitation. He appears to be more keenly aware of his current medical condition. Genital: Deferred Rectal: Deferred Lab and Diagnostics Result Diagram: 02/12/1753902/12/1740 Microbiology 5 sets of blood cultures are positive for MRSA Nasal screen for MRSA is negative Ankle culture for MRSA is positive X-Rays, CTs and MRIs PROCEDURE: X-RAY RIGHT ANKLE, MINIMUM THREE VIEWS ([id number]) INDICATIONS: CHARCOT FOOT TECHNIQUE: 4 views of the ankle were acquired. COMPARISON: [facility], CR, XR ANKLE MIN 3VW WT BEARING RT, 2016, 9:32. FINDINGS: Bones: Severe degenerative changes of the mid foot and hindfoot joints result in difficulty evaluating for subtle fractures. No displaced fractures are evident. There appears to be a talonavicular joint dislocation. Offset of the tibiotalar joint is also noted. Prominent plantar and Achilles spurs are present. Soft tissues: Extensive edema about the ankle is noted. No unexpected radiopaque foreign bodies are evident. Scattered soft tissue calcifications are present. IMPRESSION: 1. Prominent mid foot and hindfoot Charcot arthropathy results in difficulty evaluating for subtle fractures. 2. Apparent dislocation of the talonavicular joint. The need for better evaluation utilizing CT may be determined clinically. Dictated by: Cm Parks M.D. on 02/07/2017 at 11:00 Approved by: Cm Parks M.D. on 02/07/2017 at 11:05 PROCEDURE: CT ANKLE RIGHT W/O CONTRAST ([id number]) INDICATIONS: charcot foot right foot/ankle TECHNIQUE: Noncontrast 1-1.5 mm axial sections acquired from above the tibiotalar joint to the bottom of the calcaneus, with coronal and sagittal reformats. COMPARISON: [facility], CR, XR ANKLE 3VW RT, 02/07/2017, 11:52. FINDINGS: Image quality: Diagnostic. Bones: The bone mineralization is diffusely decreased. Severe degenerative changes and numerous scattered small ossific/calcific densities about the osseous structures of the imaged right hindfoot and midfoot results in difficulty evaluating for subtle fractures. No definite large acute fracture is evident. There is complete dislocation of the talonavicular joint with medial positioning of the talar head with respect to the navicular. The navicular remains appropriately aligned with respect to the remainder of the foot. No definite additional dislocations are appreciated. Extensive osseous erosions are noted throughout all of the midfoot and hindfoot bones. The ankle mortise is relatively well maintained. Soft tissues: Extensive subcutaneous edema about the midfoot and hindfoot is identified with prominent ankle, subtalar, and talonavicular fusions. Multiple joint bodies are present within the joint effusions. Please note that evaluation of the ligamentous and tendinous structures of the midfoot and hindfoot is limited on CT. However, there is thickening and diffuse edema noted involving the medial and lateral flexor tendons as well as the Achilles tendon. Partial-thickness tearing probably is present. No soft tissue air or soft tissue foreign bodies are evident. IMPRESSION: 1. Advanced degenerative changes of the right midfoot and hindfoot are compatible with Charcot arthropathy. 2. Medial dislocation of the talus with respect to the navicular is of uncertain chronicity. 3. Evaluation for subtle acute fractures is limited. No large displaced fracture. 4. Numerous bony erosions of the midfoot and forefoot are probably related to Charcot arthropathy. However, the possibility of superimposed osteomyelitis or inflammatory arthropathy cannot be excluded and clinical correlation is recommended. 5. Extensive soft tissue edema without a definite loculated fluid collection. 6. Moderate tendinopathy of the peroneus brevis, peroneus longus, and Achilles tendons is present. Additional areas of flexor tendinopathy along the medial aspect of the ankle probably are present. Dictated by: Cm Parks M.D. on 02/08/2017 at 15:49 Approved by: Cm Parks M.D. on 02/08/2017 at 16:14 PROCEDURE: US RENAL SONOGRAM INDICATIONS: CLAIRE TECHNIQUE: Real-time scanning was performed of the kidneys and bladder, with image documentation. COMPARISON: [facility], CT, CT CHEST ABD PELVIS W CON, 07/21/2015, 12:13. FINDINGS: Kidneys: Kidneys are normal in size. Right kidney measures 11.0 cm long; left kidney measures 11.7 cm long. Right renal cortical thickness is 0.9 cm; left renal cortical thickness is 1.3 cm. Renal cortical echotexture is normal. No hydronephrosis or nephrolithiasis. No suspicious solid mass lesions. Bladder: Pre-void bladder volume is 300 mL. Post-void residual is 200 mL. Pre -void images demonstrate no intraluminal masses or stones. On pre-void images, either ureteral jets are noted with color Doppler interrogation. (Of note, ureteral jets may not be detectable in up to 25% of cases due to insufficient differences in specific gravity between ureteral and bladder urine). Miscellaneous: No free pelvic fluid. IMPRESSION: 1. Mild right renal cortical thinning, otherwise normal kidneys. 2. Approximately 200 cc of postvoid residual. Dictated by: Dajuan BOWERS Interpreted: Ricky Verdin MD on 02/07/2017 at 16:05 Transcribed by: ZULMA on 02/07/2017 at 16:06 Approved by: Ricky Verdin M.D. on 02/07/2017 at 16:33 PROCEDURE: X-RAY RIGHT KNEE, ONE OR TWO VIEWS ([id number]) INDICATIONS: knee pain TECHNIQUE: 2 views of the knee were acquired. COMPARISON: None. FINDINGS: Bones: No fractures or dislocations. No suspicious bony lesions. Severe narrowing of the lateral femoral tibial joint and to lesser degree the patellofemoral knee joint. Tricompartmental osteophyte formation. Soft tissues: Moderate joint effusion. No suspicious soft tissue calcifications. Vascular calcifications indicate atherosclerosis. IMPRESSION: Knee joint degeneration and moderate joint effusion. Dictated by: Dajuan BOWERS Interpreted: Libertad Nieves MD on 02/10/2017 at 10: 12 Transcribed by: BHAVANA on 02/10/2017 at 10:13 Cardiac Echo Impressions Echocardiogram Report Name: JACKIE BRAVO TStudy Crispin e: 02/09/2017 Height: 70 in Hospital Exam Location: [facility] Weight: 219 lb Gender: Male BSA: 2.2 m2 : 1940 Age: 76 yrs BP: 120/65 mmHg Reason For Study: Endocarditis Ordering Physician: Performed By: [facility] Interpretation Summary The left ventricle is normal in size, wall thickness, and systolic function without any focal wall motion abnormalities. The ejection fraction is estimated to be 60-65%. LVEF has not changed significantly since prior study. The right ventricle is normal in size, thickness and function. The right ventricular systolic pressure is estimated at 54 mmHg assuming a right atrial pressure of 8 mm Hg. The left atrium is severely dilated. Right atrial size is normal. The aortic valve is moderately calcified. The calculated aortic valve area is 1.2 cm2. The peak aortic velocity is 2.6 m/sec. The peak aortic velocity on the previous exam was 3.0 m/sec. There is no other significant valvular heart disease. No overt evidence for endocarditis but cannot exclude MV endocarditis due to significant mitral annular calcification. The aortic root is normal size. Assessment & Plan Patient is a 76-year-old male presents to the emergency room with cellulitis and Charcot foot on the right Leukocytosis secondary to MRSA bacteremia - Leukocytosis is now worse today after trending down since admission. This is worrisome. - Podiatry following patient seen today with Dr. Kahn. -Blood cultures continue to be positive for MRSA -Right ankle cultures are positive for MRSA -Antibiotics to be managed by infectious disease. Daptomycin is being continued. -Dr. Gordon consulted (infectious disease) appreciate his time and expertise. - Follow-up labs in the morning Acute kidney injury -Discontinue fluids IV saline 60 mL an hour -Lasix 80 mg twice a day as per recommendation from nephrology was recently discontinued -Nephrology following peripherally (Dr. Chávez). If renal function worsens will likely reconsult Dr. Chávez and appreciate Dr. Nesbitt's continued follow-up. We appreciate her time and expertise. Diabetes -Hemoglobin A1c 6.6 (controlled) -Insulin sliding scale -Accu-Cheks before meals and at bedtime Hypertension -We will continue Hydralazine 25 mg by mouth twice a day -We will continue Amlodipine 10 mg daily -Hold Spironolactone 50 mg by mouth twice a day -Continue to monitor CHF -Hold Spironolactone 50 mg by mouth twice a day -Lasix 80 mg by mouth twice a day discontinued. -EF 65-70% from an echo done on 04/03/2016 Hyperlipidemia -Continue Lipitor 20 mg by mouth daily at bedtime Gout (currently stable) -Continue colchicine 0.6 mg twice a day Diabetic neuropathy -Continue gabapentin 300 mg by mouth 3 times a day Code Status: Full code Disposition: The patient continues to have positive blood cultures for MRSA. Dr. Kahn and I discussed the need for a below the knee amputation with the patient. Reconstruction of the foot and ankle with hardware is contraindicated at this time. Bone debridement would likely result further destruction and distortion of the area with no guarantee of clearing the infection. Patient has poor circulation to the area kinking it extremely difficult to clear the infection and make any viable reconstructive efforts. Without removal of the nidus of infection in this patient patient may continue to have persistent bacteremia and potentially seed his pacemaker if it has not already been seeded with infection. Patient agrees to the plan for below-knee amputation. Dr. Kahn be contacting general surgery for further arrangements. Patient will then need placement in a care home facility for rehabilitation. I have asked physical therapy to do range of motion exercises on the right knee. Pain Evaluation: Adequate Pain Control VTE Prophylaxis: Other (The patient is on Pradaxa.) Resuscitation Status: CPR: Attempt Resuscitation Guero,Isaias Eden MD February 12, 2017 22:21
--- NOTE | 2017-02-12 22:28 | PCM.ADCARE ---
Advance Care Planning Note Purpose of Encounter: To establish goals of care. Parties in Attendance: The patient and Dr. Kahn and Dr. Jack Decisional Capacity: Patient is fully capable of making his own medical decisions. Subjective: Patient is feeling better versus concerned about the persistent infection in his bloodstream and right ankle and foot. Objective: The patient continues to have positive blood cultures for MRSA despite IV antibiotics since admission. He has no palpable pulses in his right foot. He has severe deformity of his right ankle and foot due to a Charcot joint. The corrective boot made for him caused skin irritation which led to infection with MRSA. 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 Goals of Care Determinations: Patient would like to get out of his life and due to concerns about persistent bacteremia potential pacemaker infection and even patient would like to proceed with below the knee amputation of the right lower extremity Plan: Plan to arrange for this general surgical consultation for possible below the knee indication otherwise patient will likely face considerable morbidity and possible mortality. CODE STATUS: Patient wishes to be a DO NOT RESUSCITATE/DO NOT INTUBATE. He states he has a POLST form on his refrigerator door Time Spent Adv.Care Planning: Approximately 25 minutes were spent on advance care planning with the patient Adv. Care Plan Documenation: See above. Isaias Jack MD February 12, 2017 22:28
[2017-02-13] VITALS (9 sets, daily range): BP systolic 114–134; BP diastolic 64–71; PULSE 56–61; RESP 16–20; O2SAT 96–100
--- NOTE | 2017-02-13 07:06 | NUR ---
Un-eventful Night Pt had no complaints of pain over shift. Erythema from cellulitis has not extended beyond dressing and dressing remains C/D/I and in place. No increase in temperature noted over night.
[2017-02-13 07:58] LABS: Magnesium 2.3 mg/dL (1.6-2.6)
[2017-02-13] MEDS: Insulin LISPRO 300 Unit/3 mL Inj SUBQ SCH ×4 (08:00→22:00)
[2017-02-13 08:59] LABS: MONOCYTES % (AUTO) 4.8 % (4-12); Mean Corpuscular Hemoglobin 28.3 pg (27.0-35.0); Mean Corpuscular Volume 88.2 fL (81-100); NEUTROPHILS % (AUTO) 87.3 % (40-74); Platelet Count 292 bil/L (150-400)
[2017-02-13 09:00] LABS: BASOPHILS % (AUTO) 0.3 % (0-3); EOSINOPHILS % (AUTO) 0.3 % (0-5)
[2017-02-13] MEDS: FEBUXOSTAT 40 MG PO SCH (09:04)
[2017-02-13] MEDS: Dabigatran 150 mg Capsule PO SCH ×2 (09:05→20:36)
[2017-02-13] MEDS: Ascorbic Acid 500 mg Tablet PO SCH (09:06)
[2017-02-13] MEDS ORDERED: 0.9% Sodium Chloride 100 ML ONE (09:14)
[2017-02-13] MEDS: DAPTOmycin Inj 750 MG in 0.9% Sodium Chloride 50 ML IV SCH (09:24)
--- NOTE | 2017-02-13 12:21 | PCM.PNORTH ---
Subjective Date of Service: February 13, 2017 Visit Information: Reason for Visit Right Foot Cellulitis,Renal Failure Surgery/Surgery Date Post-Op Day # Date of Admission: February 07, 2017 at 13:56 Hospital Day # Subjective Patient undergoing visit from Dr. Gordon and Dr. Guero orellana and room. Quickly looked that knee and deferred to the physicians. Postop General: No Complaints Pain Management: PO Objective Exam Objective Alert and oriented 3 and pleasant. Right knee essentially is same as yesterday with no erythema, very very mild edema and very mildly warmer than contralateral side. Sensation and range of motion reduced at the right foot secondary to Charcot foot with open ulcer and diabetic condition. Vital Signs and I/O Vital Sign - Last Date Time Temp Pulse Resp B/P Pulse Ox O2 Delivery O2 Flow Rate FiO2 02/13/17 11:36 Supplement Oxygen 02/13/17 10:06 36.4 61 18 114/65 98 2.00 Intake and Output 02/12/17 02/12/17 02/13/17 Cumulative From/Thru 15:00 23:00 07:00 02/07/17 10:52 - 02/13/17 06:02 Intake Total 1940 ml 1200 ml 50916 ml Output Total 1452 ml 950 ml 96489 ml Balance 488 ml 250 ml 2797 ml Intake Oral 1940 ml 1200 ml 58220 ml IV Total 4200 ml Output Urine Total 1450 ml 950 ml 83874 ml Stool Total 2 ml 2 ml # Voids 5 # Bowel Movements 1 Lab & Micro Results Laboratory Tests Test 02/13/17 06:15 White Blood Count 21.5th/mm3 (3.8-10.1) Red Blood Count 3.22mil/mm3 (4.40-5.80) Hemoglobin 9.1g/dL (13.8-17.2) Hematocrit 28.4% (41.0-50.0) Mean Corpuscular Volume 88.2fL (81-100) Mean Corpuscular Hemoglobin 28.3pg (27.0-35.0) Mean Corpuscular Hemoglobin Concent 32.0% (32.0-37.0) Red Cell Distribution Width 16.0% (12.3-15.4) Platelet Count 292bil/L (150-400) Neutrophils (%) (Auto) 87.3% (40-74) Lymphocytes (%) (Auto) 4.7% (14-46) Monocytes (%) (Auto) 4.8% (4-12) Eosinophils (%) (Auto) 0.3% (0-5) Basophils (%) (Auto) 0.3% (0-3) Sodium Level 135mEq/L (134-144) Potassium Level 3.8mEq/L (3.5-5.2) Chloride Level 99mEq/L (97-108) Carbon Dioxide Level 20mmol/L (18-29) Blood Urea Nitrogen 67mg/dL (8-27) Creatinine 1.16mg/dL (0.76-1.27) Estimat Glomerular Filtration Rate 65mL/min (>59) Glucose Level 96mg/dL (60-99) Calcium Level 8.3mg/dL (8.5-10.1) Magnesium Level 2.3mg/dL (1.6-2.6) Total Bilirubin 1.7mg/dL (0.0-1.2) Aspartate Amino Transf (AST/SGOT) 63U/L (0-50) Alanine Aminotransferase (ALT/SGPT) 59U/L (0-44) Alkaline Phosphatase 208U/L (25-160) Total Protein 4.9g/dL (6.4-8.4) Albumin 2.2g/dL (3.4-5.0) Microbiology 02/13/17 Blood Culture, Received Pending 02/08/17 MRSA (PCR) - Final, Complete 02/07/17 Gram Stain - Final, Complete 02/07/17 Culture & Sensitivity - Final, Complete Methicillin Resistant S Aureus Result Diagram: 02/13/17 0615 02/13/17 0615 General Appearance: Alert, Oriented X3, Cooperative, No Acute Distress Extremities: No Compartment Syndrom Noted, Thigh & Calf Soft/Nontender Postop Sensory Motor: Distal Motor Intact, Movement in Toes, Distal Sensation Intact Catheters: None Assessment & Plan Plan Postadmission day #6 from right foot cellulitis, Charcot foot, open ulceration and renal failure. Continue current orders per hospitalist service for patient's general care. Patient's right knee was examined today and found to be very mildly swollen with no erythema and mildly warmer than contralateral side. Patient will remain under the medical care of hospitalist service. Dr. Greg Gordon and Dr. Jack were in patient's room this morning when I arrived and I looked at patient briefly and deferred to the physicians who are in the process of an exam. Dr. Jack hospitalist service and Dr. Kahn from podiatry had seen patient yesterday on 02/12/2017 and discussed with him the option of a below-knee amputation due to poor treatment options for his condition at the right foot. Patient agreed to undergo this procedure. I believe general surgery was contacted and subsequently Dr. Hui in orthopedics. Dr. Woo has recommended a vascular study to determine the most advantageous level for amputation. Anticipate patient will be seen by Gen. surgery next week for workup and consideration of amputation. . VTE Prophylaxis: Other (The patient is on Pradaxa.) Resuscitation Status: CPR: Attempt Resuscitation Wyatt Manrique PA-C February 13, 2017 12:21
--- NOTE | 2017-02-13 12:26 | PCM.CONORT ---
H&P Preop Plan Impression Ortho consultation: right DFU, charcot arthropathy, consult for amputation HISTORY PRESENT ILLNESS: This is a pleasant 76-year-old male that presented to the hospital with right foot pain and swelling, as well as lethargy and dizziness. The patient has a history of Charcot arthropathy. He was consulted by Dr. Quintana, and it was noted that he continued to have ankle pain and eventually, knee pain. Orthopedics was consulted, as there was swelling to the knee to evaluate for possibility of a septic knee, which Dr. Pedersen tapped and no fluid was aspirated. The patient is comfortable, resting in bed. He states that he has had a several week history of knee pain. He has always had some knee discomfort secondary to arthritis but over the last month, as he has been in a walking boot and having foot and knee pain, he has really not been ambulating. Today, he reports that his knee is feeling better and over the course of the last few days, he is doing better. Prior to his hospitalization he denies any constitutional symptoms including any fever, sweats, chills, nausea or vomiting , or any change in bowel or bladder function or appetite. The patient states that since he has been on the antibiotics he has felt a much improved to the knee and the foot but he still has considerable pain when moves his foot. PAST MEDICAL HISTORY: Diabetes with peripheral neuropathy, hyperlipidemia, hypertension, kidney disease, Charcot arthropathy. PAST SURGICAL HISTORY: Tonsillectomy, adenoidectomy, pacemaker placement and CABG. FAMILY HISTORY: Noncontributory. SOCIAL HISTORY: The patient is a past smoker. He quit about 35 years ago. Denies any current alcohol or illicit drug use. MEDICATIONS: Please see electronic medical record for full list of patient's medications. ALLERGIES: PENICILLIN. REVIEW OF SYSTEMS: The patient denies any fevers, sweats, chills, chest pain, short of breath nausea, vomiting, or diarrhea. Complains mainly of right lower extremity pain including the knee and ankle as described in history of present illness. PHYSICAL EXAMINATION: General: The patient is alert, oriented, in no apparent distress. HEENT: Normocephalic, atraumatic. Extraocular movements intact. Nares patent. Lungs: No audible wheezes. No overt signs of respiratory distress. Neuro: Cranial nerves 2-12 are intact. Extremities: right lower extremity: 3cm diameter eschar over the medial malleolus with lateral deviation of the foot. minimal erythema, no signs of superficial infection, SILT dpn/spn/tn distributions, no palpable pulses, but foot is warm, cap refill >2 secs. The knee demonstrates minimal swelling with mild palpable effusion. There is tenderness along the medial joint line but no tenderness along the lateral joint line. He holds the knee flexed to about 30 degrees. There is limited range of motion of the knee either actively or passively 2/2 pain. This reproduces significant pain mainly to the medial aspect of the knee. Range of motion passively is from an arc of 10-70 degrees. There is mild warmth but no palpable fluctuance. No erythema to the knee. DIAGNOSTIC STUDIES: Labs obtained at admission demonstrated elevated white count of 32.4 but has trended down to 15.9 and has been trending up the last 2 days. X-rays of the right knee consisting of two views was obtained on February 10, 2017, that demonstrate a small joint effusion with significant arthritic changes mainly along the medial joint line. ankle xray: Prominent mid foot and hindfoot Charcot arthropathy results in difficulty evaluating for subtle fractures, Apparent dislocation of the talonavicular joint. CT right ankle: 1. Advanced degenerative changes of the right midfoot and hindfoot are compatible with Charcot arthropathy. 2. Medial dislocation of the talus with respect to the navicular is of uncertain chronicity. 3. Evaluation for subtle acute fractures is limited. No large displaced fracture. 4. Numerous bony erosions of the midfoot and forefoot are probably related to Charcot arthropathy. However, the possibility of superimposed osteomyelitis or inflammatory arthropathy cannot be excluded and clinical correlation is recommended. 5. Extensive soft tissue edema without a definite loculated fluid collection. 6. Moderate tendinopathy of the peroneus brevis, peroneus longus, and Achilles tendons is present. Additional areas of flexor tendinopathy along the medial aspect of the ankle probably are present. IMPRESSION: 1. Right knee osteoarthritis. 2. Right knee swelling and pain. 3. Charcot arthropathy 4. gram + bacteremia. PLAN: I've discussed with the patient his diagnosis. He is unsure whether or not he would like an amputation at this time. General surgery was consulted for an amputation, orthopedics was consulted as Dr. Ivey would like to defer to orthopaedics if the patient requires an amputation over the weekend. Orthopedics is available to perform amputation if needed over the weekend. Patient is afebrile with gram-positive bacteremia as noted in the positive blood cultures. His leukocytosis was down trending but is still elevated with a left shift. Clinically, he reports daily improvement on IV antibiotics, his ankle does not appear to be actively infected superficially as his eschar remains stable, no superficial erythema or signs of superficial abscess, loculation, or infection. His x-rays and CT scan indicate possible osteomyelitis and severe Charcot arthropathy. At this time, there is no confirmed source of his bacteremia, although he does have a pacemaker which has a 30% rate of seeding. At this time, recommend current management per primary team, IV abx, appreciate infectious disease recommendations, consider exploration and I&D of right ankle as per podiatry if suspect ankle/foot as source of bacteremia. Orthopedics recommendation is transcutaneous oxygen monitoring prior to considering amputation if needed. The patient is agreeable with the plan. He understood the risks, benefits and indications. We will continue to follow the patient along. Please feel free to call any questions or concerns. Problems: Isaias Hui MD February 13, 2017 12:24 counseling note to that effect. The patient has provided informed consent. * I have counseled the patient regarding the deleterious effects that smoking during the perioperative period can have upon wound healing, infection rates, and the overall rate of complications. Isaias Hui MD February 13, 2017 12:24
--- NOTE | 2017-02-13 14:49 | PROG NOTE ---
[address] [address] PROGRESS NOTE PATIENT: JACKIE BRAVO : 1940 MR#: [id number] ADMIT: 02/07/2017 JOB ID: [id number] DATE: 02/13/2017 REASON FOR FOLLOWUP: Persistent MRSA bacteremia in a patient with an indwelling pacer, as well as possible infected right Charcot foot and ankle. INTERVAL HISTORY: Over the weekend, the patient has continued to have positive blood cultures even as he has slowly felt better. He now denies any fevers, chills, cough, shortness of breath, nausea, vomiting, or diarrhea. His pacer on the left upper chest does not hurt. He has minimal but still some pain in his right knee, right ankle, and the leg in between but diminished over admission. PHYSICAL EXAMINATION: Reveals an afebrile gentleman, temperature 36.4, pulse 61, respiratory rate 18, blood pressure 114/65, saturating well on room air. Examination of the mental status reveals it to be completely clear. Oral cavity negative. Lungs fairly clear. Pacer is nontender and present in the left upper chest. No new murmurs are heard on auscultation. The abdomen is soft and nontender. The right knee has a small effusion but smaller than before and less tender than before. The right leg between the knee and the ankle is also less tender. The right ankle itself is heavily wrapped. LABORATORIES: Include a white count which is actually going up, now 21,500. Platelet count 292. Creatinine 1.16, which has dramatically improved. ALT and AST continue to be moderately elevated but actually improving slowly. AST 63, ALT 59, alk phos 208, all slightly better than before. Procalcitonin has not changed really over several measurements, all between 4 and 5. Blood cultures between February 07 and were essentially all positive for MRSA. No repeats were done on February 12, but they have been drawn today and are pending. IMPRESSION: This is a most challenging case of a gentleman with a right Charcot foot and ankle, who may have osteo or septic joint present at that location. In addition, he has a pacemaker. He has had a very prolonged and high-grade methicillin-resistant Staphylococcus aureus bacteremia with blood cultures turning quickly positive between February 07 with repeats pending from today. This high-level and sustained methicillin-resistant Staphylococcus aureus bacteremia could be arising from his foot and ankle, though I am more and more concerned that it is actually coming from an infected pacemaker or pacemaker leads. Our transesophageal echo did not show evidence of pacer infection but is by no means exculpatory. RECOMMENDATIONS: 1. Will continue with high-dose daptomycin today. 2. If the methicillin-resistant Staphylococcus aureus bacteremia is found once again on the blood cultures that were done today, will add a second antibiotic, likely either ceftaroline or rifampin, to our regimen. 3. Discussions are under way regarding possible BKA. I discussed this case in person today with Dr. Hui, as well as Dr. Jack. Most of the involved surgeons, orthopedist, recreational assistant and internal medicine doctors favor the idea of an amputation as his right foot and ankle apparatus is really not terribly useful due to the Charcot deformity and may be the source of his persistent bacteremia. If we were to do a right BKA, however, and his blood cultures stay positive even after that procedure, then I think we would need to consider removal of the pacer and wires. Thank you very much.
--- NOTE | 2017-02-13 16:33 | NUR ---
Activity/Pain Patient remains on bedrest. Patient unable to tolerate weight on Rt foot/knee.Patient continues to deny pain in Rt foot, however, calls out in pain whenever leg or foot is moved or repositioned. Addendum: 02/13/17 at 1839 by BEVERLEY JOYA RN Clarification-when asked about pain, patient denies he has any, when questioned more thoroughly, patient reports pain 8-1010 "with movement", but it's ok if I don't move". Patient teaching given. Pain medication administered.
--- NOTE | 2017-02-13 17:28 | PCM.PNPOD ---
Subjective Date of Service: February 13, 2017 Visit Information: Reason for Visit Right Foot Cellulitis,Renal Failure Date of Admission: February 07, 2017 at 13:56 Subjective: Patient seen at bedside, enjoying a cup of tea. He would like us to make a decision on his treatment tomorrow, but does state that he is feeling better overall despite labs showing no improvement. Objective Vital Sign - Last Date Time Temp Pulse Resp B/P Pulse Ox O2 Delivery O2 Flow Rate FiO2 02/13/17 13:41 36.3 60 18 128/70 100 Nasal Cannula 2.00 Intake and Output 02/12/17 02/12/17 02/13/17 Cumulative From/Thru 15:00 23:00 07:00 02/07/17 10:52 - 02/13/17 06:02 Intake Total 1940 ml 1200 ml 97906 ml Output Total 1452 ml 950 ml 54646 ml Balance 488 ml 250 ml 2797 ml Intake Oral 1940 ml 1200 ml 19082 ml IV Total 4200 ml Output Urine Total 1450 ml 950 ml 79243 ml Stool Total 2 ml 2 ml # Voids 5 # Bowel Movements 1 Result Diagram: 02/13/17 0615 02/13/17 0615 Lab Test 02/07/17 12:05 02/07/17 12:10 02/07/17 12:48 02/08/17 06:07 Hold Griffith Top Tube Received (Received) Lactic Acid Level 2.0mmol/L (0.4-2.0) Urine Color Straw (YELLOW) Urine Appearance Clear (CLEAR,HAZY) Urine pH 5.5 (5.0-8.0) Urine Specific Gilbert 1.010 (1.003-1.035) Urine Protein Tracemg/dL (NEG,TRACE) Urine Glucose (UA) Negativemg/dL (NEGATIVE) Urine Ketones Tracemg/dL (NEGATIVE) Urine Occult Blood Trace (NEGATIVE) Urine Nitrite Negative (NEGATIVE) Urine Bilirubin Negative (NEGATIVE) Urine Urobilinogen Normalmg/dL (NORMAL) Urine Leukocyte Esterase Negative (NEGATIVE) Urine RBC 0-2/hpf (0-2) Urine WBC 0-5/hpf (0-5) Urine Epithelial Cells Occasional/hpf (NONE-MOD) Urine Crystals None seen (NONE SEEN) Urine Bacteria None/hpf (NONE-FEW) Urine Hyaline Casts None/lpf (NONE) Urine Granular Casts None seen (NONE SEEN) Urine Waxy Casts None seen (NONE SEEN) Urine Red Blood Cell Casts None seen (NONE SEEN) Urine White Blood Cell Casts None seen (NONE SEEN) Urine Mucus None seen (None Seen) Urine Trichomonas None seen (NONE SEEN) Urine Yeast None (NONE SEEN) Urinalysis Comment None Urine Culture Reflexed Not indicated Urine Random Creatinine 63mg/dL (22-328) Urine Random Total Protein 24mg/dL (0-15) Urine Random Sodium 21mEq/L Hold Urine Received (Received) Hemoglobin A1c 6.6% (4.8-5.6) Triglycerides Level 118mg/dL (0-149) Cholesterol Level 93mg/dL (100-199) LDL Cholesterol, Calculated 47.400mg/dL (0-99) VLDL Cholesterol 23.600mg/dL HDL Cholesterol 22mg/dL (>39) Cholesterol/HDL Ratio 4.23 (0.0-4.4) Test 02/08/17 12:50 02/09/17 06:27 02/10/17 06:07 02/11/17 05:32 Vancomycin Level Trough 14.1mcg/mL Uric Acid 2.9mg/dL (2.6-7.2) Total Creatine Kinase 134U/L (21-232) Phosphorus Level 3.6mg/dL (2.5-4.9) Erythrocyte Sedimentation Rate > 140mm/hr (0-30) C-Reactive Protein 34.7mg/dL (0.0-0.5) Procalcitonin 4.74ng/mL (0.00-0.08) Test 02/12/17 05:40 02/13/17 06:15 Osmolality 317 (275-300) White Blood Count 21.5th/mm3 (3.8-10.1) Red Blood Count 3.22mil/mm3 (4.40-5.80) Hemoglobin 9.1g/dL (13.8-17.2) Hematocrit 28.4% (41.0-50.0) Mean Corpuscular Volume 88.2fL (81-100) Mean Corpuscular Hemoglobin 28.3pg (27.0-35.0) Mean Corpuscular Hemoglobin Concent 32.0% (32.0-37.0) Red Cell Distribution Width 16.0% (12.3-15.4) Platelet Count 292bil/L (150-400) Neutrophils (%) (Auto) 87.3% (40-74) Lymphocytes (%) (Auto) 4.7% (14-46) Monocytes (%) (Auto) 4.8% (4-12) Eosinophils (%) (Auto) 0.3% (0-5) Basophils (%) (Auto) 0.3% (0-3) Sodium Level 135mEq/L (134-144) Potassium Level 3.8mEq/L (3.5-5.2) Chloride Level 99mEq/L (97-108) Carbon Dioxide Level 20mmol/L (18-29) Blood Urea Nitrogen 67mg/dL (8-27) Creatinine 1.16mg/dL (0.76-1.27) Estimat Glomerular Filtration Rate 65mL/min (>59) Glucose Level 96mg/dL (60-99) Calcium Level 8.3mg/dL (8.5-10.1) Magnesium Level 2.3mg/dL (1.6-2.6) Total Bilirubin 1.7mg/dL (0.0-1.2) Aspartate Amino Transf (AST/SGOT) 63U/L (0-50) Alanine Aminotransferase (ALT/SGPT) 59U/L (0-44) Alkaline Phosphatase 208U/L (25-160) Total Protein 4.9g/dL (6.4-8.4) Albumin 2.2g/dL (3.4-5.0) Exam General: Alert, Oriented X3, Cooperative, No Acute Distress Lungs: Normal Air Movement Lower Extremities: Right: Extremity warm Lower Extremity Pulses: Palpable: Left Dorsalis Pedis Left Posterior Tibal Doppler: Right Dorsalis Pedis Right Posterior Tibal Postop Sensory Motor: Distal Motor Intact, Movement in Toes, Distal Sensation Intact Podiatry WOUND : Dressing & Drainage Status: Intact Surgical Cast or Splint: None Assessment & Plan Problems: (1) Charcot's joint of foot due to diabetes Plan: Below-knee amputation is recommended due to poor vascular status and necrotic ulcer overlying bone, given ongoing septicemia. Thorough conversation with patient yesterday and again reviewed today that I think this is the only way to get him better. We will reassess after today's blood culture results. Limb salvage even without septicemia is a long stretch and will not be successful. Status: Acute ICD Code: E11.610 (2) Septicemia Plan: Continue antibiotic regimen by Dr. Gordon. If further tests are necessary to pinpoint the source, WBC-labeled bone scan may help pinpoint highest concentrations in the body. Status: Acute ICD Code: A41.9 VTE Prophylaxis: Other (The patient is on Pradaxa.) Tiera Kahn DPM February 13, 2017 17:28
[2017-02-13] MEDS: HYDROcodone-APAP 5-325 mg Tablet PO PRN (18:10)
[2017-02-14] VITALS (8 sets, daily range): BP systolic 125–150; BP diastolic 67–74; PULSE 60–69; RESP 19–20; O2SAT 96–98
--- NOTE | 2017-02-14 00:26 | PCM.PNMED ---
Subjective Date of Service February 13, 2017 Subjective The patient is even more talkative today. He is in fairly good spirits considering his current condition Exam Vital Signs Vital Sign - Last Date Time Temp Pulse Resp B/P Pulse Ox O2 Delivery O2 Flow Rate FiO2 02/13/17 20:35 36.7 56 20 120/66 99 Nasal Cannula 2.00 Intake and Output 02/13/17 02/13/17 02/14/17 Cumulative From/Thru 15:00 23:00 07:00 02/07/17 10:52 - 02/13/17 18:35 Intake Total 2045 ml 13858 ml Output Total 1201 ml 80373 ml Balance 844 ml 3641 ml Intake Oral 1880 ml 74288 ml IV Total 165 ml 4365 ml Output Urine Total 1200 ml 23495 ml Stool Total 1 ml 3 ml # Voids 5 # Bowel Movements 1 Exam General: Patient is lying supine in no apparent distress. He remains in good spirits despite his condition. HEENT: Head is atraumatic and normocephalic. Eyes: Pupils are equally round and reactive to light and accommodation. Extraocular muscles are intact. Sclera are white, anicteric. Subconjunctival mucosa is pink. Ears and nose are unremarkable. Oropharynx: There is no mucosal lesions, there is no thrush, there is no pharyngitis. Neck: Is supple, there are no nodes, or masses or tenderness. Chest: Is clear to auscultation and percussion. There are no rales, rhonchi, wheezes or rubs. Heart: Rate, rhythm is regular. There is a grade 2/6 systolic ejection murmur heard best at the left sternal border. There is no rub or gallop. Abdomen: Good bowel sounds are present. Abdomen is soft, nontender, no organomegaly or masses were appreciated. Extremities: The right foot and ankle is examined with Dr. Kahn. The right medial malleoli are aerated still inflamed and erythematous with superficial eschar. There are no palpable pulses of the right foot. The right foot is still warm however. Neurologic: There are no focal neurological deficits. Patient is alert and oriented. Cranial nerves II through XII are intact. There are no sensory or motor deficits. Psychiatric: Patients mood is calm and shows no sign of agitation. He appears to be more keenly aware of his current medical condition. He remains in good spirits despite his condition. He appears to be in the in the acceptance mode. Genital: Deferred Rectal: Deferred Lab and Diagnostics Result Diagram: 02/13/1761402/13/1715 Microbiology 5 sets of blood cultures are positive for MRSA Nasal screen for MRSA is negative Ankle culture for MRSA is positive X-Rays, CTs and MRIs PROCEDURE: X-RAY RIGHT ANKLE, MINIMUM THREE VIEWS ([id number]) INDICATIONS: CHARCOT FOOT TECHNIQUE: 4 views of the ankle were acquired. COMPARISON: [facility], CR, XR ANKLE MIN 3VW WT BEARING RT, 2016, 9:32. FINDINGS: Bones: Severe degenerative changes of the mid foot and hindfoot joints result in difficulty evaluating for subtle fractures. No displaced fractures are evident. There appears to be a talonavicular joint dislocation. Offset of the tibiotalar joint is also noted. Prominent plantar and Achilles spurs are present. Soft tissues: Extensive edema about the ankle is noted. No unexpected radiopaque foreign bodies are evident. Scattered soft tissue calcifications are present. IMPRESSION: 1. Prominent mid foot and hindfoot Charcot arthropathy results in difficulty evaluating for subtle fractures. 2. Apparent dislocation of the talonavicular joint. The need for better evaluation utilizing CT may be determined clinically. Dictated by: Cm Parks M.D. on 02/07/2017 at 11:00 Approved by: Cm Parks M.D. on 02/07/2017 at 11:05 PROCEDURE: CT ANKLE RIGHT W/O CONTRAST ([id number]) INDICATIONS: charcot foot right foot/ankle TECHNIQUE: Noncontrast 1-1.5 mm axial sections acquired from above the tibiotalar joint to the bottom of the calcaneus, with coronal and sagittal reformats. COMPARISON: [facility], CR, XR ANKLE 3VW RT, 02/07/2017, 11:52. FINDINGS: Image quality: Diagnostic. Bones: The bone mineralization is diffusely decreased. Severe degenerative changes and numerous scattered small ossific/calcific densities about the osseous structures of the imaged right hindfoot and midfoot results in difficulty evaluating for subtle fractures. No definite large acute fracture is evident. There is complete dislocation of the talonavicular joint with medial positioning of the talar head with respect to the navicular. The navicular remains appropriately aligned with respect to the remainder of the foot. No definite additional dislocations are appreciated. Extensive osseous erosions are noted throughout all of the midfoot and hindfoot bones. The ankle mortise is relatively well maintained. Soft tissues: Extensive subcutaneous edema about the midfoot and hindfoot is identified with prominent ankle, subtalar, and talonavicular fusions. Multiple joint bodies are present within the joint effusions. Please note that evaluation of the ligamentous and tendinous structures of the midfoot and hindfoot is limited on CT. However, there is thickening and diffuse edema noted involving the medial and lateral flexor tendons as well as the Achilles tendon. Partial-thickness tearing probably is present. No soft tissue air or soft tissue foreign bodies are evident. IMPRESSION: 1. Advanced degenerative changes of the right midfoot and hindfoot are compatible with Charcot arthropathy. 2. Medial dislocation of the talus with respect to the navicular is of uncertain chronicity. 3. Evaluation for subtle acute fractures is limited. No large displaced fracture. 4. Numerous bony erosions of the midfoot and forefoot are probably related to Charcot arthropathy. However, the possibility of superimposed osteomyelitis or inflammatory arthropathy cannot be excluded and clinical correlation is recommended. 5. Extensive soft tissue edema without a definite loculated fluid collection. 6. Moderate tendinopathy of the peroneus brevis, peroneus longus, and Achilles tendons is present. Additional areas of flexor tendinopathy along the medial aspect of the ankle probably are present. Dictated by: Cm Parks M.D. on 02/08/2017 at 15:49 Approved by: Cm Parks M.D. on 02/08/2017 at 16:14 PROCEDURE: US RENAL SONOGRAM INDICATIONS: CLAIRE TECHNIQUE: Real-time scanning was performed of the kidneys and bladder, with image documentation. COMPARISON: [facility], CT, CT CHEST ABD PELVIS W CON, 07/21/2015, 12:13. FINDINGS: Kidneys: Kidneys are normal in size. Right kidney measures 11.0 cm long; left kidney measures 11.7 cm long. Right renal cortical thickness is 0.9 cm; left renal cortical thickness is 1.3 cm. Renal cortical echotexture is normal. No hydronephrosis or nephrolithiasis. No suspicious solid mass lesions. Bladder: Pre-void bladder volume is 300 mL. Post-void residual is 200 mL. Pre -void images demonstrate no intraluminal masses or stones. On pre-void images, either ureteral jets are noted with color Doppler interrogation. (Of note, ureteral jets may not be detectable in up to 25% of cases due to insufficient differences in specific gravity between ureteral and bladder urine). Miscellaneous: No free pelvic fluid. IMPRESSION: 1. Mild right renal cortical thinning, otherwise normal kidneys. 2. Approximately 200 cc of postvoid residual. Dictated by: Dajuan BOWERS Interpreted: Ricky Verdin MD on 02/07/2017 at 16:05 Transcribed by: ZULMA on 02/07/2017 at 16:06 Approved by: Ricky Verdin M.D. on 02/07/2017 at 16:33 PROCEDURE: X-RAY RIGHT KNEE, ONE OR TWO VIEWS ([id number]) INDICATIONS: knee pain TECHNIQUE: 2 views of the knee were acquired. COMPARISON: None. FINDINGS: Bones: No fractures or dislocations. No suspicious bony lesions. Severe narrowing of the lateral femoral tibial joint and to lesser degree the patellofemoral knee joint. Tricompartmental osteophyte formation. Soft tissues: Moderate joint effusion. No suspicious soft tissue calcifications. Vascular calcifications indicate atherosclerosis. IMPRESSION: Knee joint degeneration and moderate joint effusion. Dictated by: Dajuan BOWERS Interpreted: Libertad Nieves MD on 02/10/2017 at 10: 12 Transcribed by: BHAVANA on 02/10/2017 at 10:13 Cardiac Echo Impressions Echocardiogram Report Name: JACKIE BRAVO TStudy Crispin e: 02/09/2017 Height: 70 in Hospital Exam Location: [facility] Weight: 219 lb Gender: Male BSA: 2.2 m2 : 1940 Age: 76 yrs BP: 120/65 mmHg Reason For Study: Endocarditis Ordering Physician: Performed By: [facility]rine [facility] Interpretation Summary The left ventricle is normal in size, wall thickness, and systolic function without any focal wall motion abnormalities. The ejection fraction is estimated to be 60-65%. LVEF has not changed significantly since prior study. The right ventricle is normal in size, thickness and function. The right ventricular systolic pressure is estimated at 54 mmHg assuming a right atrial pressure of 8 mm Hg. The left atrium is severely dilated. Right atrial size is normal. The aortic valve is moderately calcified. The calculated aortic valve area is 1.2 cm2. The peak aortic velocity is 2.6 m/sec. The peak aortic velocity on the previous exam was 3.0 m/sec. There is no other significant valvular heart disease. No overt evidence for endocarditis but cannot exclude MV endocarditis due to significant mitral annular calcification. The aortic root is normal size. Assessment & Plan Patient is a 76-year-old male presents to the emergency room with cellulitis and Charcot foot on the right Leukocytosis secondary to MRSA bacteremia - Leukocytosis continues to worsen today after trending down since admission. This is very worrisome. - Podiatry following patient seen today with Dr. Kahn. -Blood cultures continue to be positive for MRSA -Right ankle cultures are positive for MRSA. The right ankle appears to be the source of infection. It is possible that the right ankle was seeded from a bacteremia from an endovascular source however this is less likely. In any event I believe that it is most prudent to have the patient undergo a below the knee amputation as soon as possible given patient's persistently positive blood cultures and rising white blood cell count. -Antibiotics to be managed by infectious disease. Daptomycin is being continued. -Dr. Gordon consulted (infectious disease) appreciate his time and expertise. - Follow-up labs in the morning Acute kidney injury -Discontinue fluids IV saline 60 mL an hour -Lasix 80 mg twice a day as per recommendation from nephrology was recently discontinued -Nephrology following peripherally (Dr. Chávez). If renal function worsens will likely reconsult Dr. Chávez and appreciate Dr. Nesbitt's continued follow-up. We appreciate her time and expertise. Diabetes -Hemoglobin A1c 6.6 (controlled) -Insulin sliding scale -Accu-Cheks before meals and at bedtime Hypertension -We will continue Hydralazine 25 mg by mouth twice a day -We will continue Amlodipine 10 mg daily -Hold Spironolactone 50 mg by mouth twice a day -Continue to monitor CHF -Hold Spironolactone 50 mg by mouth twice a day -Lasix 80 mg by mouth twice a day discontinued. -EF 65-70% from an echo done on 04/03/2016 Hyperlipidemia -Continue Lipitor 20 mg by mouth daily at bedtime Gout (currently stable) -Continue colchicine 0.6 mg twice a day Diabetic neuropathy -Continue gabapentin 300 mg by mouth 3 times a day Code Status: Full code Disposition: The patient continues to have positive blood cultures for MRSA. Dr. Kahn and I discussed the need for a below the knee amputation with the patient. Reconstruction of the foot and ankle with hardware is contraindicated at this time. Bone debridement would likely result further destruction and distortion of the area with no guarantee of clearing the infection. Patient has poor circulation to the area kinking it extremely difficult to clear the infection and make any viable reconstructive efforts. Without removal of the nidus of infection in this patient patient may continue to have persistent bacteremia and potentially seed his pacemaker if it has not already been seeded with infection. Patient agrees to the plan for below-knee amputation. Dr. Kahn will be contacting general surgery for further arrangements. Patient will then need [facility] in a [facility]iary facility for rehabilitation. I have asked physical therapy to do range of motion exercises on the right knee. Pain Evaluation: Adequate Pain Control VTE Prophylaxis: Other (The patient is on Pradaxa.) Resuscitation Status: CPR: Attempt Resuscitation WheelerIsaias MD February 14, 2017 00:26
[2017-02-14] MEDS: HYDROcodone-APAP 5-325 mg Tablet PO PRN (04:46)
--- NOTE | 2017-02-14 05:40 | NUR ---
Noc activity Pt has been more active. Overall pt denies chest pain, sob, n/v or abd discomfort. Reports of pain on his right lower leg. PRN Vicodin administered. Pt's VSS and has been afebrile overnight. Q2 turning provided and call light within reach. Hourly rounding.
[2017-02-14 07:29] LABS: EOSINOPHILS % (AUTO) 0.7 % (0-5); Mean Corpuscular Hemoglobin 28.1 pg (27.0-35.0); Mean Corpuscular Volume 87.8 fL (81-100); NEUTROPHILS % (AUTO) 87.3 % (40-74); Platelet Count 295 bil/L (150-400)
[2017-02-14 07:30] LABS: BASOPHILS % (AUTO) 0.1 % (0-3)
[2017-02-14 07:46] LABS: Magnesium 2.1 mg/dL (1.6-2.6)
[2017-02-14] MEDS: Insulin LISPRO 300 Unit/3 mL Inj SUBQ SCH ×4 (08:00→22:00)
[2017-02-14 08:37] LABS: ERYTHROCYTE SEDIMENTATION RATE > 140 mm/hr (0-30)
[2017-02-14] MEDS: DAPTOmycin Inj 750 MG in 0.9% Sodium Chloride 50 ML IV SCH (08:57)
[2017-02-14] MEDS: FEBUXOSTAT 40 MG PO SCH (09:00)
[2017-02-14] MEDS: Dabigatran 150 mg Capsule PO SCH ×2 (09:01→21:49)
[2017-02-14] MEDS: Ascorbic Acid 500 mg Tablet PO SCH (09:01)
--- NOTE | 2017-02-14 10:17 | PCM.PNNEPH ---
Subjective Date of Service February 14, 2017 Subjective Patient's renal function continues to improve. Ears that he is back to his baseline. Otherwise he denies any headache, chest pain, shortness of breath, nausea, vomiting, diarrhea, fever or chills. His intake and output were 30-45 in and 2151 out. His systolic blood pressures have ranged 114 and 135. His hemoglobin today is 9.0. His sodium is 132, potassium 3.6, chloride 97, bicarbonate 21, BUN/creatinine were 48 and 0.9 respectively. Exam Vital Signs Vital Sign - Last Date Time Temp Pulse Resp B/P Pulse Ox O2 Delivery O2 Flow Rate FiO2 02/14/17 09:53 61 02/14/17 04:38 36.7 20 135/74 96 Room Air 02/14/17 01:43 1.00 Intake and Output 02/13/17 02/13/17 02/14/17 Cumulative From/Thru 15:00 23:00 07:00 02/07/17 10:52 - 02/14/17 06:52 Intake Total 2045 ml 520 ml 04339 ml Output Total 1201 ml 650 ml 43862 ml Balance 844 ml -130 ml 3511 ml Intake Oral 1880 ml 500 ml 26440 ml IV Total 165 ml 20 ml 4385 ml Output Urine Total 1200 ml 650 ml 05925 ml Stool Total 1 ml 3 ml # Voids 5 # Bowel Movements 1 2 Exam HEENT examination is remarkable for pale sclera and sallow complexion. Neck is supple without adenopathy, thyromegaly, N jugular venous distention. Heart was regular and rhythmical with a soft systolic murmur abdomen is soft without any tenderness, rebound, guarding, masses, or hepatosplenomegaly. Extremities do not show any evidence of any clubbing, cyanosis, or edema. He does have extensive circumferential brawny induration in the area of the diabetic ulcer on his right distal lower extremity is bandaged and this was not removed. Lab and Diagnostics Result Diagram: 02/14/1761902/14/17619 Microbiology 5 sets of blood cultures are positive for MRSA Nasal screen for MRSA is negative Ankle culture for MRSA is positive X-Rays, CTs and MRIs PROCEDURE: X-RAY RIGHT ANKLE, MINIMUM THREE VIEWS ([id number]) INDICATIONS: CHARCOT FOOT TECHNIQUE: 4 views of the ankle were acquired. COMPARISON: [facility], CR, XR ANKLE MIN 3VW WT BEARING RT, 2016, 9:32. FINDINGS: Bones: Severe degenerative changes of the mid foot and hindfoot joints result in difficulty evaluating for subtle fractures. No displaced fractures are evident. There appears to be a talonavicular joint dislocation. Offset of the tibiotalar joint is also noted. Prominent plantar and Achilles spurs are present. Soft tissues: Extensive edema about the ankle is noted. No unexpected radiopaque foreign bodies are evident. Scattered soft tissue calcifications are present. IMPRESSION: 1. Prominent mid foot and hindfoot Charcot arthropathy results in difficulty evaluating for subtle fractures. 2. Apparent dislocation of the talonavicular joint. The need for better evaluation utilizing CT may be determined clinically. Dictated by: Cm Parks M.D. on 02/07/2017 at 11:00 Approved by: Cm Parks M.D. on 02/07/2017 at 11:05 PROCEDURE: CT ANKLE RIGHT W/O CONTRAST ([id number]) INDICATIONS: charcot foot right foot/ankle TECHNIQUE: Noncontrast 1-1.5 mm axial sections acquired from above the tibiotalar joint to the bottom of the calcaneus, with coronal and sagittal reformats. COMPARISON: [facility], CR, XR ANKLE 3VW RT, 02/07/2017, 11:52. FINDINGS: Image quality: Diagnostic. Bones: The bone mineralization is diffusely decreased. Severe degenerative changes and numerous scattered small ossific/calcific densities about the osseous structures of the imaged right hindfoot and midfoot results in difficulty evaluating for subtle fractures. No definite large acute fracture is evident. There is complete dislocation of the talonavicular joint with medial positioning of the talar head with respect to the navicular. The navicular remains appropriately aligned with respect to the remainder of the foot. No definite additional dislocations are appreciated. Extensive osseous erosions are noted throughout all of the midfoot and hindfoot bones. The ankle mortise is relatively well maintained. Soft tissues: Extensive subcutaneous edema about the midfoot and hindfoot is identified with prominent ankle, subtalar, and talonavicular fusions. Multiple joint bodies are present within the joint effusions. Please note that evaluation of the ligamentous and tendinous structures of the midfoot and hindfoot is limited on CT. However, there is thickening and diffuse edema noted involving the medial and lateral flexor tendons as well as the Achilles tendon. Partial-thickness tearing probably is present. No soft tissue air or soft tissue foreign bodies are evident. IMPRESSION: 1. Advanced degenerative changes of the right midfoot and hindfoot are compatible with Charcot arthropathy. 2. Medial dislocation of the talus with respect to the navicular is of uncertain chronicity. 3. Evaluation for subtle acute fractures is limited. No large displaced fracture. 4. Numerous bony erosions of the midfoot and forefoot are probably related to Charcot arthropathy. However, the possibility of superimposed osteomyelitis or inflammatory arthropathy cannot be excluded and clinical correlation is recommended. 5. Extensive soft tissue edema without a definite loculated fluid collection. 6. Moderate tendinopathy of the peroneus brevis, peroneus longus, and Achilles tendons is present. Additional areas of flexor tendinopathy along the medial aspect of the ankle probably are present. Dictated by: Cm Parks M.D. on 02/08/2017 at 15:49 Approved by: Cm Parks M.D. on 02/08/2017 at 16:14 PROCEDURE: US RENAL SONOGRAM INDICATIONS: CLAIRE TECHNIQUE: Real-time scanning was performed of the kidneys and bladder, with image documentation. COMPARISON: [facility], CT, CT CHEST ABD PELVIS W CON, 07/21/2015, 12:13. FINDINGS: Kidneys: Kidneys are normal in size. Right kidney measures 11.0 cm long; left kidney measures 11.7 cm long. Right renal cortical thickness is 0.9 cm; left renal cortical thickness is 1.3 cm. Renal cortical echotexture is normal. No hydronephrosis or nephrolithiasis. No suspicious solid mass lesions. Bladder: Pre-void bladder volume is 300 mL. Post-void residual is 200 mL. Pre -void images demonstrate no intraluminal masses or stones. On pre-void images, either ureteral jets are noted with color Doppler interrogation. (Of note, ureteral jets may not be detectable in up to 25% of cases due to insufficient differences in specific gravity between ureteral and bladder urine). Miscellaneous: No free pelvic fluid. IMPRESSION: 1. Mild right renal cortical thinning, otherwise normal kidneys. 2. Approximately 200 cc of postvoid residual. Dictated by: Dajuan BOWERS Interpreted: Ricky Verdin MD on 02/07/2017 at 16:05 Transcribed by: ZULMA on 02/07/2017 at 16:06 Approved by: Ricky Verdin M.D. on 02/07/2017 at 16:33 PROCEDURE: X-RAY RIGHT KNEE, ONE OR TWO VIEWS ([id number]) INDICATIONS: knee pain TECHNIQUE: 2 views of the knee were acquired. COMPARISON: None. FINDINGS: Bones: No fractures or dislocations. No suspicious bony lesions. Severe narrowing of the lateral femoral tibial joint and to lesser degree the patellofemoral knee joint. Tricompartmental osteophyte formation. Soft tissues: Moderate joint effusion. No suspicious soft tissue calcifications. Vascular calcifications indicate atherosclerosis. IMPRESSION: Knee joint degeneration and moderate joint effusion. Dictated by: Dajuan BOWERS Interpreted: Libertad Nieves MD on 02/10/2017 at 10: 12 Transcribed by: BHAVANA on 02/10/2017 at 10:13 Cardiac Echo Impressions Echocardiogram Report Name: JACKIE BRAVO TStudy Crispin e: 02/09/2017 Height: 70 in Hospital Exam Location: [facility] Weight: 219 lb Gender: Male BSA: 2.2 m2 : 1940 Age: 76 yrs BP: 120/65 mmHg Reason For Study: Endocarditis Ordering Physician: Performed By: Sandrine [facility] Interpretation Summary The left ventricle is normal in size, wall thickness, and systolic function without any focal wall motion abnormalities. The ejection fraction is estimated to be 60-65%. LVEF has not changed significantly since prior study. The right ventricle is normal in size, thickness and function. The right ventricular systolic pressure is estimated at 54 mmHg assuming a right atrial pressure of 8 mm Hg. The left atrium is severely dilated. Right atrial size is normal. The aortic valve is moderately calcified. The calculated aortic valve area is 1.2 cm2. The peak aortic velocity is 2.6 m/sec. The peak aortic velocity on the previous exam was 3.0 m/sec. There is no other significant valvular heart disease. No overt evidence for endocarditis but cannot exclude MV endocarditis due to significant mitral annular calcification. The aortic root is normal size. Plan Impression Impression #1 acute kidney injury which is resolved number to diabetic nephropathy #3 chronic kidney disease stage II #4 hypertension with hypertensive heart disease hypertensive nephrosclerosis Recommendations #1 the patient appears to be at his baseline creatinine at this point I will sign off. Should you have any questions or any change in the patient's condition please not hesitate to contact us. Greg Santos DO February 14, 2017 10:17
--- NOTE | 2017-02-14 11:11 | DRSVH ---
PROCEDURE: US DUPLEX DOPPLER UNILATERAL LEG ARTERIES, RIGHT INDICATIONS: Nonhealing ulcer, limb threatened. TECHNIQUE: Color and pulse Doppler interrogation was performed of the right lower extremity arterial system, wit h image documentation. COMPARISON: None. FINDINGS: Vascular Ultrasound Procedure Report Findings(Artery of Lower Extremity)(Right) Common Femoral Artery(Distal) Velocity: 82.80 cm/s Profunda Femoris Artery(Proximal) Velocity: 39.90 cm/s Superficial Femoral Artery(Proximal) Velocity: 81 cm/s Superficial Femoral Artery(Mid-longitudinal) Velocity: 129.20 cm/s Superficial Femoral Artery(Distal) Velocity: 131.60 cm/s Popliteal Artery(Mid-longitudinal) Velocity: 82.70 cm/s Posterior Tibial Artery(Distal) Velocity: 125.30 cm/s Dorsalis Pedis Artery(Distal) Velocity: 34.30 cm/s Greyscale findings: Diffuse atherosclerotic plaques in the distal popliteal artery, and anterior and posterior arteries. IMPRESSION: 1. No hemodynamic significance stenosis. 2. Diffuse atherosclerotic plaques in the distal popliteal artery and anterior and posterior tibial a rteries. Dictated by: Breezy Arana M.D. on 02/14/2017 at 11:08 Approved by: Breezy Arana M.D. on 02/14/2017 at 11:10
--- NOTE | 2017-02-14 13:20 | NUR ---
[place] [facility] [place] [facility] A&OX4 01/03 pain. Glasses on. FRANK wrapped right foot dressing C/D/I. Neuropathy baseline bilateral feet per pt. bilateral LE discoloration of skin and some pitting edema noted. MAEE. Denies CP, SOB, Nausea. Telemetry in place. Bilateral arms bruising. Care continues
--- NOTE | 2017-02-14 13:32 | NUR ---
Transfer to [facility]: Patient transferred to [facility] room 1028 @ approx 1315 via bed accompanied by CASHIER MANAGER. Report called to ALBARO Botello. Belongings sent with patient, auto body repair technician notified of transfer. No apparent distress at time of transfer.
--- NOTE | 2017-02-14 13:46 | PCM.PNORTH ---
Subjective Date of Service: February 14, 2017 Visit Information: Reason for Visit Right Foot Cellulitis,Renal Failure Surgery/Surgery Date Post-Op Day # Date of Admission: February 07, 2017 at 13:56 Hospital Day # Subjective Found patient awake and alert sitting up in bed. No complaints of pain at this time. Discussed with patient the fact that we would likely sign off regarding his needed a considering we do not see any sepsis at the right knee joint. Patient is in agreement with this. Patient also discusses that he has been told he will likely have below-knee amputation at the right lower extremity tomorrow on 02/15/2017. Postop General: No Complaints Pain Management: PO Objective Exam Objective Alert and oriented 3 and pleasant. Right knee essentially is same as yesterday with no erythema, very very mild edema and very mildly warmer than contralateral side. Sensation and range of motion reduced at the right foot secondary to Charcot foot with open ulcer and diabetic condition. Vital Signs and I/O Vital Sign - Last Date Time Temp Pulse Resp B/P Pulse Ox O2 Delivery O2 Flow Rate FiO2 02/14/17 13:30 36.6 60 19 150/68 96 Room Air 02/14/17 01:43 1.00 Intake and Output 02/13/17 02/13/17 02/14/17 Cumulative From/Thru 15:00 23:00 07:00 02/07/17 10:52 - 02/14/17 06:52 Intake Total 2045 ml 520 ml 21564 ml Output Total 1201 ml 650 ml 16419 ml Balance 844 ml -130 ml 3511 ml Intake Oral 1880 ml 500 ml 09611 ml IV Total 165 ml 20 ml 4385 ml Output Urine Total 1200 ml 650 ml 03357 ml Stool Total 1 ml 3 ml # Voids 5 # Bowel Movements 1 2 Lab & Micro Results Laboratory Tests Test 02/14/17 06:20 White Blood Count 18.9th/mm3 (3.8-10.1) Red Blood Count 3.20mil/mm3 (4.40-5.80) Hemoglobin 9.0g/dL (13.8-17.2) Hematocrit 28.1% (41.0-50.0) Mean Corpuscular Volume 87.8fL (81-100) Mean Corpuscular Hemoglobin 28.1pg (27.0-35.0) Mean Corpuscular Hemoglobin Concent 32.0% (32.0-37.0) Red Cell Distribution Width 15.7% (12.3-15.4) Platelet Count 295bil/L (150-400) Neutrophils (%) (Auto) 87.3% (40-74) Lymphocytes (%) (Auto) 4.1% (14-46) Monocytes (%) (Auto) 6.0% (4-12) Eosinophils (%) (Auto) 0.7% (0-5) Basophils (%) (Auto) 0.1% (0-3) Erythrocyte Sedimentation Rate > 140mm/hr (0-30) Sodium Level 132mEq/L (134-144) Potassium Level 3.6mEq/L (3.5-5.2) Chloride Level 97mEq/L (97-108) Carbon Dioxide Level 21mmol/L (18-29) Blood Urea Nitrogen 48mg/dL (8-27) Creatinine 0.90mg/dL (0.76-1.27) Estimat Glomerular Filtration Rate 87mL/min (>59) Glucose Level 99mg/dL (60-99) Calcium Level 8.2mg/dL (8.5-10.1) Magnesium Level 2.1mg/dL (1.6-2.6) Total Bilirubin 1.4mg/dL (0.0-1.2) Aspartate Amino Transf (AST/SGOT) 42U/L (0-50) Alanine Aminotransferase (ALT/SGPT) 45U/L (0-44) Alkaline Phosphatase 188U/L (25-160) C-Reactive Protein 15.6mg/dL (0.0-0.5) Total Protein 4.9g/dL (6.4-8.4) Albumin 2.1g/dL (3.4-5.0) Procalcitonin 1.12ng/mL (0.00-0.08) Microbiology 02/14/17 Blood Culture, Received Pending 02/08/17 MRSA (PCR) - Final, Complete 02/07/17 Gram Stain - Final, Complete 02/07/17 Culture & Sensitivity - Final, Complete Methicillin Resistant S Aureus Result Diagram: 02/14/1720 02/14/17619 General Appearance: Alert, Oriented X3, Cooperative, No Acute Distress Catheters: None Assessment & Plan Problems: (1) Charcot's joint of foot due to diabetes Status: Acute ICD Code: E11.610 (2) Septicemia Status: Acute ICD Code: A41.9 Plan Postadmission day #7 from right foot cellulitis, Charcot foot, open ulceration and renal failure. Continue current orders per hospitalist service for patient's general care. Patient's right knee was examined today and found to be very mildly swollen with no erythema and mildly warmer than contralateral side. Patient will remain under the medical care of hospitalist service. Dr. Greg Gordon and Dr. Jack were in patient's room this morning when I arrived and I looked at patient briefly and deferred to the physicians who are in the process of an exam. Dr. Jack hospitalist service and Dr. Kahn from podiatry had seen patient yesterday on 02/12/2017 and discussed with him the option of a below-knee amputation due to poor treatment options for his condition at the right foot. Patient agreed to undergo this procedure. I believe general surgery was contacted and subsequently Dr. Hui in orthopedics. Dr. Hui has recommended a vascular study to determine the most advantageous level for amputation. Per patient's contact this morning he indicates he will have surgery tomorrow on for amputation at the right lower extremity. Orthopedics thanks hospitalist service for their help in the medical management of this patient. Orthopedics will sign off at this point regarding patient's right knee joint but as always we will remain available for consultation or treatment as needed. Anticipate right lower extremity treatment including possible amputation by general surgery and orthopedics will defer to general surgery on this. VTE Prophylaxis: Other (The patient is on Pradaxa.) Resuscitation Status: CPR: Attempt Resuscitation Wyatt Manrique PA-C February 14, 2017 13:46
--- NOTE | 2017-02-14 15:10 | PROG NOTE ---
[address] [address] PROGRESS NOTE PATIENT: JACKIE BRAVO : 1940 MR#: [id number] ADMIT: 02/07/2017 JOB ID: [id number] DATE: 02/14/2017 REASON FOR FOLLOWUP: High-grade persistent MRSA bacteremia in a patient with probable osteomyelitis of his right Charcot foot/ankle, as well as possible indwelling pacer infection. INTERVAL HISTORY: Over the past 24 hours, since I last saw the patient, he has been relatively stable. No significant fevers, chills or sweats. He is not having cough, shortness of breath, or pain around his pacer. No nausea or vomiting. No diarrhea. He does have some pain in his right knee and his right ankle which has been baseline since admission. PHYSICAL EXAM: Afebrile gentleman. Temp 36.7, blood pressure 135/74, pulse 61, respiratory rate 20, pulse ox good, 98% on 1 L. He is in no acute distress. Examination of the oral cavity is unremarkable. The pacer is nontender. Lungs relatively clear. Cardiac tones without murmur. Abdomen benign. Right ankle remains wrapped. LABORATORIES: Include white count 19,000, which is not changing. Note that we reviewed back several years and his white count is always 15 or 20,000, however, so I do not think his white count is interpretable in terms of anything to do with infection. Sed rate is, however, greater than 140 which is pretty impressive. CRP is likewise 15.6, still 30 times normal but somewhat improved. Creatinine 0.9. Procalcitonin is 1.12, which is trending down. Micro studies include positive blood cultures now from the for MRSA, which is susceptible to ceftaroline as well as daptomycin. Blood cultures on the are pending and we just ordered additional blood cultures on February 14. Arterial studies of the right lower extremity shows no significant stenosis. IMPRESSION: This is a complex patient who has a persistent high-grade methicillin-resistant Staphylococcus aureus bacteremia with an indwelling pacer in her right Charcot foot/ankle. The question is whether or not his MRSA bacteremia is proceeding from the infected right lower extremity or an infected pacer or both. Our transesophageal echocardiogram is negative, which is somewhat reassuring but not completely, with respect to possible pacer infection. Tomorrow, the patient is scheduled for a BKA on the right, and if his bacteremia persists after that, more than a day or two, I think we will have to be more concerned that his pacer is infected. RECOMMENDATIONS: 1. Will continue with high-dose daptomycin. 2. Repeat blood cultures done today. 3. If blood cultures stay positive for another day or two will add ceftaroline in maximal doses because of the known Synergy between daptomycin and ceftaroline. 4. Will continue to closely follow this patient with you, following his BKA tomorrow. Thank you very much.
--- NOTE | 2017-02-14 16:50 | CONS ---
[address] [address] CONSULTATION REPORT PATIENT: JACKIE BRAVO : 1940 MR#: [id number] ADMIT: 02/07/2017 JOB ID: [id number] DATE OF SERVICE: 02/14/2017 CHIEF COMPLAINT/IDENTIFICATION: I have been asked by Dr. Jack and Dr. Kahn to see this gentleman to facilitate a right below-knee amputation. HISTORY OF PRESENT ILLNESS: The patient is a 76-year-old man with a longstanding history of a right Charcot foot who is now in the hospital with nonhealing ulcer, exposed bone, transient acute kidney injury that is improving and bacteremia that has been attributed to his open ulcer. I am asked to see him regarding performing a right below-knee amputation. PAST MEDICAL HISTORY: Hypertension, diabetes, hyperlipidemia, history of DVT, Charcot foot, diabetic neuropathy status post cardiac bypass in 1998, history of pacemaker placement. MEDICATIONS: See medication list from admission which has been reviewed. ALLERGIES: PENICILLIN reportedly leads to hallucinations. 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 He tells me that his baseline activity prior to this hospitalization has been to ambulate though he has not walked further than a few blocks in some time. FAMILY HISTORY: Noncontributory. REVIEW OF SYSTEMS: Full review of systems from admission history and physical on admission through the emergency department is as noted. PHYSICAL EXAMINATION: The patient is awake and alert, in the 3rd floor. Temperature is recorded at 36.3, pulse is recorded at 60, blood pressure is 125/67. Direct examination shows palpable femoral pulses, warm calves bilaterally. His right foot dressing is intact. I have not taken it down. LABORATORY DATA: His white count is 18.9, hematocrit is 28. The chemistries are within normal limits except for slightly low sodium of 132 and a mildly elevated BUN of 48 which is coming down. LFTs are a bit abnormal with a bilirubin of 1.4, and alk phos and ALT mildly elevated. His albumin is 2.1. Procalcitonin is 1.12. IMAGING: Knee x-ray shows a moderate joint effusion. This was tapped with the question of septic arthritis by Orthopedics and their feeling is that his knee joint is not infected. Arterial duplex demonstrates plaquing in the distal popliteal and runoff vessels, but no hemodynamically significant stenosis proximally. IMPRESSION/PLAN: A 76-year-old man whom I believe is a reasonable candidate for right below-knee amputation. This has been recommended to him by his resource manager and Infectious Disease, and I think this is a reasonable recommendation. We did talk about the risks to him of ongoing attempts at limb salvage. I do not believe that he has any reconstructible arterial disease that would help heal his wound any better, and on this basis I think it is reasonable to proceed with a below-knee amputation on the right, and the patient accepts that plan. We talked about the possibility of doing this in two stages with leaving the wound open and then returning for a delayed primary closure several days later versus primary wound closure with some risk of stump infection. He would like to proceed. He has been drinking liquids this morning. We will put him on the OR schedule for first thing tomorrow morning.
--- NOTE | 2017-02-14 23:45 | PCM.PNMED ---
Subjective Date of Service February 14, 2017 Subjective Patient states that when he ate lunch today he felt a little bit nauseous. He has no other new complaints. His right lower extremity pain has improved. Exam Vital Signs Vital Sign - Last Date Time Temp Pulse Resp B/P Pulse Ox O2 Delivery O2 Flow Rate FiO2 02/14/17 20:00 62 02/14/17 19:56 36.8 20 145/69 96 Room Air 02/14/17 01:43 1.00 Intake and Output 02/13/17 02/13/17 02/14/17 Cumulative From/Thru 15:00 23:00 07:00 02/07/17 10:52 - 02/14/17 06:52 Intake Total 2045 ml 520 ml 36376 ml Output Total 1201 ml 650 ml 30131 ml Balance 844 ml -130 ml 3511 ml Intake Oral 1880 ml 500 ml 67122 ml IV Total 165 ml 20 ml 4385 ml Output Urine Total 1200 ml 650 ml 28877 ml Stool Total 1 ml 3 ml # Voids 5 # Bowel Movements 1 2 Exam General: Patient is lying supine in no apparent distress. He remains in good spirits despite his condition. HEENT: Head is atraumatic and normocephalic. Eyes: Pupils are equally round and reactive to light and accommodation. Extraocular muscles are intact. Sclera are white, anicteric. Subconjunctival mucosa is pink. Ears and nose are unremarkable. Oropharynx: There is no mucosal lesions, there is no thrush, there is no pharyngitis. Neck: Is supple, there are no nodes, or masses or tenderness. Chest: Is clear to auscultation and percussion. There are no rales, rhonchi, wheezes or rubs. Heart: Rate, rhythm is regular. There is a grade 2/6 systolic ejection murmur heard best at the left sternal border. There is no rub or gallop. Abdomen: Good bowel sounds are present. Abdomen is soft, nontender, no organomegaly or masses were appreciated. Extremities: The right foot and ankle is examined with Dr. Kahn. The right medial malleoli are aerated still inflamed and erythematous with superficial eschar. There are no palpable pulses of the right foot. The right foot is still warm however. Neurologic: There are no focal neurological deficits. Patient is alert and oriented. Cranial nerves II through XII are intact. There are no sensory or motor deficits. Psychiatric: Patients mood is calm and shows no sign of agitation. He appears to be more keenly aware of his current medical condition. He remains in good spirits despite his condition. He appears to be in the in the acceptance mode. Genital: Deferred Rectal: Deferred Lab and Diagnostics Result Diagram: 02/14/1761902/14/17619 Microbiology 5 sets of blood cultures are positive for MRSA Nasal screen for MRSA is negative Ankle culture for MRSA is positive X-Rays, CTs and MRIs PROCEDURE: X-RAY RIGHT ANKLE, MINIMUM THREE VIEWS ([id number]) INDICATIONS: CHARCOT FOOT TECHNIQUE: 4 views of the ankle were acquired. COMPARISON: [facility], CR, XR ANKLE MIN 3VW WT BEARING RT, 2016, 9:32. FINDINGS: Bones: Severe degenerative changes of the mid foot and hindfoot joints result in difficulty evaluating for subtle fractures. No displaced fractures are evident. There appears to be a talonavicular joint dislocation. Offset of the tibiotalar joint is also noted. Prominent plantar and Achilles spurs are present. Soft tissues: Extensive edema about the ankle is noted. No unexpected radiopaque foreign bodies are evident. Scattered soft tissue calcifications are present. IMPRESSION: 1. Prominent mid foot and hindfoot Charcot arthropathy results in difficulty evaluating for subtle fractures. 2. Apparent dislocation of the talonavicular joint. The need for better evaluation utilizing CT may be determined clinically. Dictated by: Cm Parks M.D. on 02/07/2017 at 11:00 Approved by: Cm Parks M.D. on 02/07/2017 at 11:05 PROCEDURE: CT ANKLE RIGHT W/O CONTRAST ([id number]) INDICATIONS: charcot foot right foot/ankle TECHNIQUE: Noncontrast 1-1.5 mm axial sections acquired from above the tibiotalar joint to the bottom of the calcaneus, with coronal and sagittal reformats. COMPARISON: [facility], CR, XR ANKLE 3VW RT, 02/07/2017, 11:52. FINDINGS: Image quality: Diagnostic. Bones: The bone mineralization is diffusely decreased. Severe degenerative changes and numerous scattered small ossific/calcific densities about the osseous structures of the imaged right hindfoot and midfoot results in difficulty evaluating for subtle fractures. No definite large acute fracture is evident. There is complete dislocation of the talonavicular joint with medial positioning of the talar head with respect to the navicular. The navicular remains appropriately aligned with respect to the remainder of the foot. No definite additional dislocations are appreciated. Extensive osseous erosions are noted throughout all of the midfoot and hindfoot bones. The ankle mortise is relatively well maintained. Soft tissues: Extensive subcutaneous edema about the midfoot and hindfoot is identified with prominent ankle, subtalar, and talonavicular fusions. Multiple joint bodies are present within the joint effusions. Please note that evaluation of the ligamentous and tendinous structures of the midfoot and hindfoot is limited on CT. However, there is thickening and diffuse edema noted involving the medial and lateral flexor tendons as well as the Achilles tendon. Partial-thickness tearing probably is present. No soft tissue air or soft tissue foreign bodies are evident. IMPRESSION: 1. Advanced degenerative changes of the right midfoot and hindfoot are compatible with Charcot arthropathy. 2. Medial dislocation of the talus with respect to the navicular is of uncertain chronicity. 3. Evaluation for subtle acute fractures is limited. No large displaced fracture. 4. Numerous bony erosions of the midfoot and forefoot are probably related to Charcot arthropathy. However, the possibility of superimposed osteomyelitis or inflammatory arthropathy cannot be excluded and clinical correlation is recommended. 5. Extensive soft tissue edema without a definite loculated fluid collection. 6. Moderate tendinopathy of the peroneus brevis, peroneus longus, and Achilles tendons is present. Additional areas of flexor tendinopathy along the medial aspect of the ankle probably are present. Dictated by: Cm Parks M.D. on 02/08/2017 at 15:49 Approved by: Cm Parks M.D. on 02/08/2017 at 16:14 PROCEDURE: US RENAL SONOGRAM INDICATIONS: CLAIRE TECHNIQUE: Real-time scanning was performed of the kidneys and bladder, with image documentation. COMPARISON: [facility], CT, CT CHEST ABD PELVIS W CON, 07/21/2015, 12:13. FINDINGS: Kidneys: Kidneys are normal in size. Right kidney measures 11.0 cm long; left kidney measures 11.7 cm long. Right renal cortical thickness is 0.9 cm; left renal cortical thickness is 1.3 cm. Renal cortical echotexture is normal. No hydronephrosis or nephrolithiasis. No suspicious solid mass lesions. Bladder: Pre-void bladder volume is 300 mL. Post-void residual is 200 mL. Pre -void images demonstrate no intraluminal masses or stones. On pre-void images, either ureteral jets are noted with color Doppler interrogation. (Of note, ureteral jets may not be detectable in up to 25% of cases due to insufficient differences in specific gravity between ureteral and bladder urine). Miscellaneous: No free pelvic fluid. IMPRESSION: 1. Mild right renal cortical thinning, otherwise normal kidneys. 2. Approximately 200 cc of postvoid residual. Dictated by: Dajuan BOWERS Interpreted: Ricky Verdin MD on 02/07/2017 at 16:05 Transcribed by: ZULMA on 02/07/2017 at 16:06 Approved by: Ricky Verdin M.D. on 02/07/2017 at 16:33 PROCEDURE: X-RAY RIGHT KNEE, ONE OR TWO VIEWS ([id number]) INDICATIONS: knee pain TECHNIQUE: 2 views of the knee were acquired. COMPARISON: None. FINDINGS: Bones: No fractures or dislocations. No suspicious bony lesions. Severe narrowing of the lateral femoral tibial joint and to lesser degree the patellofemoral knee joint. Tricompartmental osteophyte formation. Soft tissues: Moderate joint effusion. No suspicious soft tissue calcifications. Vascular calcifications indicate atherosclerosis. IMPRESSION: Knee joint degeneration and moderate joint effusion. Dictated by: Dajuan BOWERS Interpreted: Libertad Nieves MD on 02/10/2017 at 10: 12 Transcribed by: BHAVANA on 02/10/2017 at 10:13 Cardiac Echo Impressions Echocardiogram Report Name: JACKIE BRAVO TStudy Crispin e: 02/09/2017 Height: 70 in Hospital Exam Location: [facility] Weight: 219 lb Gender: Male BSA: 2.2 m2 : 1940 Age: 76 yrs BP: 120/65 mmHg Reason For Study: Endocarditis Ordering Physician: Performed By: Sandrine [facility] Interpretation Summary The left ventricle is normal in size, wall thickness, and systolic function without any focal wall motion abnormalities. The ejection fraction is estimated to be 60-65%. LVEF has not changed significantly since prior study. The right ventricle is normal in size, thickness and function. The right ventricular systolic pressure is estimated at 54 mmHg assuming a right atrial pressure of 8 mm Hg. The left atrium is severely dilated. Right atrial size is normal. The aortic valve is moderately calcified. The calculated aortic valve area is 1.2 cm2. The peak aortic velocity is 2.6 m/sec. The peak aortic velocity on the previous exam was 3.0 m/sec. There is no other significant valvular heart disease. No overt evidence for endocarditis but cannot exclude MV endocarditis due to significant mitral annular calcification. The aortic root is normal size. Assessment & Plan Patient is a 76-year-old male presents to the emergency room with cellulitis and Charcot foot on the right Leukocytosis secondary to MRSA bacteremia - Leukocytosis -white blood cell count remains elevated This is very worrisome. - Podiatry following patient seen today with Dr. Kahn. -Blood cultures continue to be positive for MRSA -Right ankle cultures are positive for MRSA. The right ankle appears to be the source of infection. It is possible that the right ankle was seeded from a bacteremia from an endovascular source however this is less likely. In any event I believe that it is most prudent to have the patient undergo a below the knee amputation as soon as possible given patient's persistently positive blood cultures and persistently elevated white blood cell count despite appropriate antibiotic therapy. Have discussed case with Dr. Coombs today and he or Dr. Navas will perform a right below the knee amputation tomorrow. Patient is agreeable with this plan and would like to proceed. -Antibiotics to be managed by infectious disease. Daptomycin is being continued. -Dr. Gordon consulted (infectious disease) appreciate his time and expertise. - Follow-up labs in the morning Acute kidney injury. Presently the time of admission, ongoing and slightly improved today. -Discontinue fluids IV saline 60 mL an hour -Lasix 80 mg twice a day as per recommendation from nephrology was recently discontinued -Nephrology following peripherally (Dr. Chávez). If renal function worsens will likely reconsult Dr. Chávez and appreciate Dr. Nesbitt's continued follow-up. We appreciate her time and expertise. Diabetes -Hemoglobin A1c 6.6 (controlled) -Insulin sliding scale -Accu-Cheks before meals and at bedtime Hypertension -We will continue Hydralazine 25 mg by mouth twice a day -We will continue Amlodipine 10 mg daily -Hold Spironolactone 50 mg by mouth twice a day -Continue to monitor CHF -Hold Spironolactone 50 mg by mouth twice a day -Lasix 80 mg by mouth twice a day discontinued. -EF 65-70% from an echo done on 04/03/2016 Hyperlipidemia -Continue Lipitor 20 mg by mouth daily at bedtime Gout (currently stable) -Continue colchicine 0.6 mg twice a day Diabetic neuropathy -Continue gabapentin 300 mg by mouth 3 times a day Code Status: Full code Disposition: The patient continues to have positive blood cultures for MRSA. Dr. Kahn and I discussed the need for a below the knee amputation with the patient. Reconstruction of the foot and ankle with hardware is contraindicated at this time. Bone debridement would likely result further destruction and distortion of the area with no guarantee of clearing the infection. Patient has poor circulation to the area making it extremely difficult to clear the infection and make any viable reconstructive efforts. Without removal of the nidus of infection in this patient patient may continue to have persistent bacteremia and potentially seed his pacemaker if it has not already been seeded with infection. Patient agrees to the plan for below-knee amputation. Dr. Kahn will be contacting general surgery for further arrangements. Patient will then need placement in a snf facility for rehabilitation. I have asked physical therapy to do range of motion exercises on the right knee. Pain Evaluation: Adequate Pain Control VTE Prophylaxis: Other (The patient is on Pradaxa.) VTE Mechanical Devices: Intermittant Pneumatic CD Resuscitation Status: CPR: Attempt Resuscitation [place] MD February 14, 2017 23:45
[2017-02-15] VITALS (16 sets, daily range): BP systolic 110–141; BP diastolic 52–72; PULSE 60–74; RESP 16–24; O2SAT 94–99
[2017-02-15] MEDS ORDERED: Lactated Ringer's 1,000 ML IV SCH ×3 (05:00→10:14)
--- NOTE | 2017-02-15 06:00 | NUR ---
NOC PT heart rate is paced and WNL. VS stable. Afebrile. Pt did decide to use cpap after he initially refused. PT denies any pain. R foot dressing intact. BLE swollen. R>L. Popliteal pulse weak to palpation. Pt voids with assist per urinal and urine is shital. PT NPO since MN and fluids started at 0515 per order for OR. Planning for OR this am. Pt needs encouraged to turn. Incontienent of stool this am. BLE discolored from what appears to be PVD. BG at 2200 did not require any coverage. WIll CTM.
[2017-02-15 06:23] LABS: BASOPHILS % (AUTO) 0.1 % (0-3); EOSINOPHILS % (AUTO) 0 % (0-5); MONOCYTES % (AUTO) 6.6 % (4-12); Mean Corpuscular Hemoglobin 28.1 pg (27.0-35.0); Mean Corpuscular Volume 87.9 fL (81-100); NEUTROPHILS % (AUTO) 87.5 % (40-74); Platelet Count 383 bil/L (150-400)
[2017-02-15 07:04] LABS: Magnesium 2.3 mg/dL (1.6-2.6)
--- NOTE | 2017-02-15 07:28 | NUR ---
Transfer To OR via bed at 07:25. Saline locked. Report given by previous RN per report.
--- NOTE | 2017-02-15 07:37 | PCM.HPANE ---
Patient Data Date of Service: February 15, 2017 (0732) Surgeon Admitting Provider:Mecca Lua DO Attending Provider:Mecca Lua DO Primary Care Physician:Maribel Gallego DO Other Provider: Reason for Visit Right Foot Cellulitis,Renal Failure RIGHT FOOT CELLULITIS,RENAL FAILURE Ht/WT & BMI Height (Feet): 5 Height (Inches): 10.00 Weight (Kilograms): 105.100 Body Mass Index 31.34 Allergies Coded Allergies: Penicillins (Verified Adverse Reaction, Intermediate, Hallucinations, 02/07) Past Anesthesia History Anesthesia History: Denies:: Abnormal Airway, Anesthesia Reactions, Difficult Intubation, Fam Anesthesia Reaction, Fam Malignant Hypertherm, Malignant Hyperthermia Diabetes History Hx Diabetes?: Yes Current Bedside Blood Glucose: 144 MRSA MRSA: No Medications Blood Thinner: Aspirin, Pradaxa Reported Medications Spironolactone 50 Mg Ihfees08 Mg PO BID #60 02/07/17 Cholecalciferol (Vitamin D3) (Vitamin D3)3,000 Unit Tablet3,000 Unit PO DAILY 02/07/17 Ascorbate Calcium (Vitamin C)500 Mg Jhhujx312 Mg PO DAILY 07/21/16 Hydralazine 25 Mg Lldrzp31 Mg PO BIDWM 04/02/16 Colchicine 0.6 Mg Tablet0.6 Mg PO BID #60 04/02/16 Febuxostat (Uloric)40 Mg Braqec548 Mg PO DAILY #30 04/02/16 Gabapentin 300 Mg Dkqubfu487 Mg PO TID #90 04/02/16 Docusate Sodium (Colace)100 Mg Poqfxim353 Mg PO DAILY PRN For Constipation Ref 0 04/02/16 Ferrous Sulfate (Iron)325 Mg Capsule.er325 Mg PO BID 08/22/15 Sodium Bicarbonate 650 Mg Umvlcp722 Mg PO BID 07/17/15 Furosemide 80 Mg Tab80 Mg PO BID Ref 0 07/17/15 Cyanocobalamin (Vitamin B-12) (Vitamin B-12)1,000 Mcg Tablet1,000 Mcg PO DAILY 07/17/15 Dabigatran Etexilate Mesylate (Pradaxa)150 Mg Idjteuz740 Mg PO BID 30 Days 07/17/15 Atorvastatin (Lipitor)20 Mg Unqnzs05 Mg PO HS Ref 0 07/17/15 Aspirin 81 Mg Eeicwy68 Mg PO DAILY Ref 0 07/17/15 Amlodipine 10 Mg Ubsmfi02 Mg PO DAILY Ref 0 07/17/15 History History of ENT Problems?: No HEENT History: Denies:: Abnormal Airway Cataracts Difficult Intubation Dysphagia Glaucoma Hearing Problem Sinus Problem TMJ Denture Type: None Teeth Condition: Within Normal Limits Hx of Heart Problems?: Yes Cardiovascular History: Positive for:: Atrial Fibrillation Cardiac Surgery (4 way bypass, 1998, heart catheterization ) Chest Pain (CABG 4 vessel 1998) Congestive Heart Failure Hypertension Irregular Heartbeat (afib ) Pacemaker Denies:: AICD Abdominal Aortic Aneurism Coronary Artery Disease Edema Heart Murmur Peripheral Vascular Rheumatic Fever Thrombophlebitis Valvular Heart Disease Hx of Respiratory Problem?: Yes Respiratory History: Positive for:: Chest Surgery (1998) Denies:: Asthma COPD Cough Dyspnea Emphysema Hemoptysis Oxygen Administration Pneumonia Pulmonary Embolism Tuberculosis Use of C-PAP Machine Use of Inhalers / NEBS Hx Neurologic Problems?: No Neurological History: Denies:: Alzheimer's Disease CVA Dementia Dizziness Headaches Multiple Sclerosis Parkinson's Disease Peripheral Neuropathy Seizures TIA Hx of GI Problems?: Yes Hx of Problems?: Yes Genitourinary History: Positive for:: Kidney Stones Denies:: HX of Hemodialysis Urinary Tract Infection HX of Peritoneal Dialysis: No Male Hx: Denies:: Prostate Problems Scrotal Mass Testicular Surgery Skin History: Denies:: History Skin Disorders? Pressure Ulcers Hx Musculoskeletal Problems?: Yes Musculoskeletal History: Denies:: Back Injury Degenerative Joint Fibromyalgia Joint Replacement Musculoskeletal Trauma Myasthenia Gravis Osteoarthritis Rheumatoid Arthritis Systemic Lupus Hx of Psycho/Social Problems?: No Psycho Social History: Denies:: Anxiety Bipolar Disorder Hx Depression Suicide Attempt Hx Surgeries?: Yes Hx Any Other Health Problems?: Yes Other History: Positive for:: Hospitalization (2015) Denies:: Cancer Endocrine Disease Thyroid Disease History Blood Transfusions: Positive for:: Accept Blood Products? Blood Transfusions Denies:: Blood Transfuse Reaction Hx Diabetes: YesBedside Blood Glucose: 144 Hx Alcohol Use: NoHx Substance Use: No Smoking Status: Former Smoker Have You Smoked inLast 12 mo: No Stop/Bang Treated for Sleep Apnea?: Yes Do You Have a CPAP Machine?: Yes S-Snoring: Do You Snore Loudly: Yes T-Tired: feel tired, fatigued: Yes O-Obsered: Observed not breath: Yes P-Blood Pressure: treated: No B- Body Mass Index > 35 kg/m2: No A- Age over 50: Yes N- Neck Large Circumference: Yes G- Gender Male: Yes MOLINA Total Score: 5 MOLINA Risk Assessment: High Risk, =/>3 Yes MOLINA Category 2: Yes Risk Assessment Category Category 1A: Patient has history of documented sleep apnea, and HAS NOT received any narcotic, sedative or anesthesia administration during this stay. Category 1B: Patient has history of documented sleep apnea, and HAS received any narcotic , sedative or anesthesia administration during this stay Category 2: Patient has SUSPECTED Obstructive Sleep Apnea, and HAS received any narcotic , sedative or anesthesia administration during this stay. Category 3: Patient has SUSPECTED Obstructive Sleep Apnea and HAS NOT received narcotic, sedative or anesthesia administration during this stay. Category 4: Outpatient in Procedural Areas with known sleep apnea or who screen positive for High Risk via the STOP/BANG questionnaire. Exam Exam Vital Signs Vital Signs Date Time Temp Pulse Resp B/P Pulse Ox O2 Delivery O2 Flow Rate FiO2 02/15/17 05:58 36.6 74 20 141/67 96 Room Air 02/15/17 01:39 63 02/15/17 00:43 37.1 63 18 137/64 94 Room Air General Appearance: Alert, Oriented X3, Cooperative, No Acute Distress HEENT/AIRWAY: MP 2, Neck Movement (FROM), Mouth Opening (3 FBMO) Lungs: Normal Air Movement Heart: Regular Rate/Rhythm Meds/Labs/Diagnostics Admission Meds Current Medications Lactated Ringer's (Lr) 1,000 ml @ 120 mls/hr Q8H20M IV Last administered on t 05:35; Start 02/15/17 at 05:00; Stop 02/15/17 at 13:19 Bedside Blood Glucose: 144 Labs Test 02/07/17 12:05 02/07/17 12:10 02/07/17 12:48 02/08/17 06:07 Hold Griffith Top Tube Received (Received) Lactic Acid Level 2.0mmol/L (0.4-2.0) Urine Color Straw (YELLOW) Urine Appearance Clear (CLEAR,HAZY) Urine pH 5.5 (5.0-8.0) Urine Specific [place] 1.010 (1.003-1.035) Urine Protein Tracemg/dL (NEG,TRACE) Urine Glucose (UA) Negativemg/dL (NEGATIVE) Urine Ketones Tracemg/dL (NEGATIVE) Urine Occult Blood Trace (NEGATIVE) Urine Nitrite Negative (NEGATIVE) Urine Bilirubin Negative (NEGATIVE) Urine Urobilinogen Normalmg/dL (NORMAL) Urine Leukocyte Esterase Negative (NEGATIVE) Urine RBC 0-2/hpf (0-2) Urine WBC 0-5/hpf (0-5) Urine Epithelial Cells Occasional/hpf (NONE-MOD) Urine Crystals None seen (NONE SEEN) Urine Bacteria None/hpf (NONE-FEW) Urine Hyaline Casts None/lpf (NONE) Urine Granular Casts None seen (NONE SEEN) Urine Waxy Casts None seen (NONE SEEN) Urine Red Blood Cell Casts None seen (NONE SEEN) Urine White Blood Cell Casts None seen (NONE SEEN) Urine Mucus None seen (None Seen) Urine Trichomonas None seen (NONE SEEN) Urine Yeast None (NONE SEEN) Urinalysis Comment None Urine Culture Reflexed Not indicated Urine Random Creatinine 63mg/dL (22-328) Urine Random Total Protein 24mg/dL (0-15) Urine Random Sodium 21mEq/L Hold Urine Received (Received) Hemoglobin A1c 6.6% (4.8-5.6) Triglycerides Level 118mg/dL (0-149) Cholesterol Level 93mg/dL (100-199) LDL Cholesterol, Calculated 47.400mg/dL (0-99) VLDL Cholesterol 23.600mg/dL HDL Cholesterol 22mg/dL (>39) Cholesterol/HDL Ratio 4.23 (0.0-4.4) Test 02/08/17 12:50 02/09/17 06:27 02/10/17 06:07 02/12/17 05:40 Vancomycin Level Trough 14.1mcg/mL Uric Acid 2.9mg/dL (2.6-7.2) Phosphorus Level 3.6mg/dL (2.5-4.9) Osmolality 317 (275-300) Test 02/14/17 06:20 02/15/17 06:00 Erythrocyte Sedimentation Rate > 140mm/hr (0-30) C-Reactive Protein 15.6mg/dL (0.0-0.5) Procalcitonin 1.12ng/mL (0.00-0.08) White Blood Count 21.1th/mm3 (3.8-10.1) Red Blood Count 3.31mil/mm3 (4.40-5.80) Hemoglobin 9.3g/dL (13.8-17.2) Hematocrit 29.1% (41.0-50.0) Mean Corpuscular Volume 87.9fL (81-100) Mean Corpuscular Hemoglobin 28.1pg (27.0-35.0) Mean Corpuscular Hemoglobin Concent 32.0% (32.0-37.0) Red Cell Distribution Width 16.1% (12.3-15.4) Platelet Count 383bil/L (150-400) Neutrophils (%) (Auto) 87.5% (40-74) Lymphocytes (%) (Auto) 4.1% (14-46) Monocytes (%) (Auto) 6.6% (4-12) Eosinophils (%) (Auto) 0% (0-5) Basophils (%) (Auto) 0.1% (0-3) Sodium Level 134mEq/L (134-144) Potassium Level 3.9mEq/L (3.5-5.2) Chloride Level 99mEq/L (97-108) Carbon Dioxide Level 19mmol/L (18-29) Blood Urea Nitrogen 38mg/dL (8-27) Creatinine 1.14mg/dL (0.76-1.27) Estimat Glomerular Filtration Rate 67mL/min (>59) Glucose Level 145mg/dL (60-99) Calcium Level 8.8mg/dL (8.5-10.1) Magnesium Level 2.3mg/dL (1.6-2.6) Total Bilirubin 1.5mg/dL (0.0-1.2) Aspartate Amino Transf (AST/SGOT) 44U/L (0-50) Alanine Aminotransferase (ALT/SGPT) 39U/L (0-44) Alkaline Phosphatase 235U/L (25-160) Total Creatine Kinase 40U/L (21-232) Total Protein 5.2g/dL (6.4-8.4) Albumin 2.1g/dL (3.4-5.0) Plan Impression Patient chart reviewed, patient interviewed and anesthestic plan with risks, benefits, and alternatives discussed, and informed consent obtained. NPO per Anesth. Guidelines: Yes ASA Physical Status: ASA3 Severe Disease Anesthetic Plan: GA Bene/Risks/Altern/Consents: Yes HP Complete Prior to Induction: Yes Ryan Moya MD February 15, 2017 07:36
[2017-02-15] MEDS ORDERED: Lactated Ringer's 1,000 ML IV ONE (07:45)
[2017-02-15] MEDS: Dabigatran 150 mg Capsule PO SCH (08:30)
[2017-02-15] MEDS: Ascorbic Acid 500 mg Tablet PO SCH (08:30)
[2017-02-15] MEDS: DAPTOmycin Inj 750 MG in 0.9% Sodium Chloride 50 ML IV SCH ×2 (08:52→11:02)
[2017-02-15] MEDS: Insulin LISPRO 300 Unit/3 mL Inj SUBQ SCH ×4 (09:10→22:00)
--- NOTE | 2017-02-15 09:39 | NUR ---
pt is in OR Addendum: 02/15/17 at 0939 by RACHEL STAHL CNA Amended: Links added.
[2017-02-15] MEDS ORDERED: MetoCLOpramide 5 mg/mL 2 mL Inj IVPUSH PRN ×2 (10:10→10:15)
[2017-02-15] MEDS ORDERED: HYDROmorphone PCA 0.2 mg/mL 30 mL Inj IV PRN (10:10)
[2017-02-15] MEDS: Dextrose 5% 500 ML IV SCH (10:10)
[2017-02-15] MEDS ORDERED: Ondansetron 2 mg/mL 2 mL Inj IVPUSH PRN ×2 (10:10→10:15)
[2017-02-15] MEDS ORDERED: Lactated Ringer's 500 ML IV PRN (10:14)
[2017-02-15] MEDS ORDERED: EPHEDrine Sulfate 50 mg/mL Inj IVPUSH PRN (10:15)
[2017-02-15] MEDS ORDERED: fentaNYL-PF 50 mCg/mL 2 mL Inj IVPUSH PRN (10:15)
[2017-02-15] MEDS ORDERED: Dexamethasone 4 mg/mL Inj IVPUSH PRN (10:15)
[2017-02-15] MEDS ORDERED: HYDROmorphone 1 mg/mL Inj IVPUSH PRN (10:15)
[2017-02-15] MEDS ORDERED: Phenylephrine 10,000 mCg/mL Inj IVPUSH PRN (10:15)
--- NOTE | 2017-02-15 10:39 | OP ---
[address] [address] OPERATIVE REPORT PATIENT: JACKIE BRAVO : 1940 MR#: [id number] ADMIT: 02/07/2017 JOB ID: [id number] DATE OF SURGERY: 02/15/2017 PREOPERATIVE DIAGNOSIS(ES): Diabetic ulcer of Charcot foot, right side. POSTOPERATIVE DIAGNOSIS(ES): Diabetic ulcer of Charcot foot, right side. PROCEDURE: Right below-knee amputation. SURGEON: George Hart MD CYLINDER FILLER: Bhaskar Raygoza PA-C. INDICATIONS: A 76-year-old man with a right foot ulcer. He has been recommended to have a right below-knee amputation. Informed consent was obtained. FINDINGS: Right below-knee amputation performed without complications. DESCRIPTION OF PROCEDURE: The patient was brought to the operating room with MRSA precautions. Pacemaker had been appropriately interrogated. SCOAP protocol was followed. He was on therapeutic antibiotics and received his scheduled dose of daptomycin in the operating room. Surgical time-out was performed after prepping and draping, the right leg in a sterile fashion. INCOMPLETE DICTATION: Dictation ends here.
[2017-02-15] MEDS ORDERED: Ondansetron 2 mg/mL 2 mL Inj ONE (11:00)
[2017-02-15] MEDS ORDERED: Propofol 10,000 mCg/mL 20 mL Inj ONE (11:00)
[2017-02-15] MEDS ORDERED: fentaNYL-PF 50 mCg/mL 2 mL Inj ONE (11:00)
--- NOTE | 2017-02-15 11:06 | PCM.ANEP1 ---
Post Anesthesia PACU Phase 1 Assessment Vital Signs Vital Signs Date Time Temp Pulse Resp B/P Pulse Ox O2 Delivery O2 Flow Rate FiO2 02/15/17 10:57 36.4 61 18 131/68 95 Room Air 02/15/17 10:52 61 02/15/17 10:40 36.9 61 16 123/54 98 Nasal Cannula 4 02/15/17 10:30 64 23 121/54 96 Nasal Cannula 4 02/15/17 10:25 65 24 121/54 95 Nasal Cannula 4 02/15/17 10:20 65 21 126/54 94 Nasal Cannula 4 02/15/17 10:15 65 21 130/52 99 Simple Mask 10 02/15/17 10:11 65 21 130/53 98 Simple Mask 10 02/15/17 10:04 37.8 63 21 122/57 96 Simple Mask 10 02/15/17 05:58 36.6 74 20 141/67 96 Room Air Anesthetic Administered: GA, MAC Level of Alertness: Awake, talking SABILLON's with Equal Strength: Yes Pain: No Pain Scale Score: 6 Nausea or Vomiting: No CV Function and Hydration: Yes Airway Device: Oxygen Delivery: Room Air Lungs: Normal Air Movement Dermatome Level: Full Sensation Summary uneventful GA PACU Phase 2 Assessment Complications: No Follow up Care: No Patient Instructions Provided: N/A Ryan Moya MD February 15, 2017 11:06
--- NOTE | 2017-02-15 11:25 | NUR ---
Post op Transfer from PACU via bed at 11:55. Drowsy, wakes to voice, oriented. Sats 97% on CPAP. R Stump elevated on pillows, sock intact, no bleeding at this time. Denies nausea, reports "a little bit" of pain, more evident with movement. MILK POWDER GRINDER set up, pt admin one dose then button removed. Will re-assess and reinforce teaching when pt more alert.
[2017-02-15] MEDS ORDERED: Ceftaroline 600 mg/250 mL D5W IV ONE ×2 (11:55)
[2017-02-15] MEDS: FEBUXOSTAT 40 MG PO SCH (12:51)
--- NOTE | 2017-02-15 13:14 | PROG NOTE ---
[address] [address] PROGRESS NOTE PATIENT: JACKIE BRAVO : 1940 MR#: [id number] ADMIT: 02/07/2017 JOB ID: [id number] INFECTIOUS DISEASE FOLLOWUP: DATE: 02/15/2017 REASON FOR FOLLOWUP: High-grade and persistent MRSA bacteremia, now in its 9th day. HISTORY OF PRESENT ILLNESS: Earlier this morning, the patient underwent a right BKA for his chronic Charcot joint with dislocations and possible underlying osteomyelitis. He has tolerated the procedure well and is back in his room postoperatively complaining only of some moderate postop pain which the nurse is attending to with a STUDIO TECHNICIAN pump. Otherwise he has had no fevers, no chills. No sweats. No significant pulmonary complaints. No chest pain. No nausea, vomiting, diarrhea. PHYSICAL EXAMINATION: Reveals a gentleman who is a bit lethargic as he is just recovering from general anesthesia for his amputation. He is able to answer questions though and tell us about his pain in his leg postop. He remains afebrile as he has been throughout the hospital stay. Temp 36.4, pulse 61, respiratory rate 18, blood pressure 131/68, saturating well on room air. Examination of the oral cavity unremarkable. Lungs clear. Cardiac tones regular. No new murmur. The pacer remains nontender in the left upper chest. Abdomen benign. His amputation site of right BKA is wrapped in a large postop dressing. LABORATORY DATA: Labs include a white count which is 21,000 but is constantly elevated and this goes back many years. His creatinine is 1.14; up a little bit from yesterday. Liver function tests continue to improve. AST and ALT are now normal though the alk phos is 235. Procalcitonin 1.12 which is much improved over a few days ago when it was in the 4-5 range. MICROBIOLOGY DATA: We have positive blood cultures dating from the all the way to the . Also of note, we now have a positive culture from the right ankle which fulfills the criteria for septic joint. The most recent positive culture was from yesterday, February 14, and we already have one of four bottles growing what appears to be Staph and this will almost assuredly be MRSA. IMAGING: In terms of x-rays, we have nothing new. IMPRESSION: This is an extremely worrisome case of a gentleman with multiple medical problems, including organic heart disease, diabetes, renal insufficiency, and a right Charcot joint. He presented with high-grade methicillin-resistant Staphylococcus aureus bacteremia which we have been unable to eradicate after eight days going and now going on nine days. He has been on high-dose daptomycin as we have attempted to avoid the use of vancomycin in this patient with chronic renal insufficiency. Note that the organism is exquisitely sensitive to daptomycin. The persistence of these blood cultures is becoming worrisome and leads me more and more to be concerned about the possibility of a pacer infection. We know from prior work that even when the pacer does not to be appear to be infected, and the patient has positive blood cultures for Staphylococcus aureus, that the possibility of infection is about 35% and that risk increases with the duration of Staphylococcus aureus bacteremia which is now up to about nine days. The lower extremity has now been amputated and the infectious septic arthritis and osteomyelitis are presumably gone at this point, so will see if his blood cultures now turn negative. If they do not, I think we will have to consider removal of the pacer or altering his antibiotics so as to treat what may be an indwelling pacer infection. RECOMMENDATIONS: 1. Additional blood cultures every day until they turn negative. 2. I will add ceftaroline 600 mg IV q.8 h. which is a maximal dose to the daptomycin. 3. Will continue to closely observe the patient with the possibility of referring him for pacer removal or perhaps another transesophageal echo to look at his leads if his blood cultures fail to clear.
--- NOTE | 2017-02-15 14:33 | NUR ---
Social Work- Continued D/C Planning Data: EMR reviewed. Pt is on day 8 of hospitalization for right foot cellulitis, renal failure per H&P. Pt is not medically stable, anticipate 2-3 more days. SW received order for SNF placement, SW followed up with family (son, sister, and daughter in law) at bedside regarding discharge plan, SW role explained. Pt and family had already chosen [facility] as the SNF choice if SNF was medically necessary. After receiving order, UR Specialist faxed referral for pt to [facility]. SW put phone number and plan on whiteboard, family updated and agreeable to plan. SW will continue to follow for discharge needs. Assessment: Pt for whom SNF is medically necessary. Plan: Referral made to [facility]. Paperwork in chart, PASRR in folder. All updated and agreeable to plan. SW will continue to follow. BRENDA Kellogg Addendum: 02/16/17 at 0925 by MANSI MOSQUEDA T/C from [facility] 02/16/17 regarding pt's referral. Thi has not accepted patient, she continues to review pt's medical needs and IV requirements. BRENDA Kellogg
--- NOTE | 2017-02-15 14:37 | NUR ---
SNF CHOICE LIST PROVIDED.
--- NOTE | 2017-02-15 14:43 | NUR ---
FINA signed by pt and family Tayla Mike CLINICAL DENTAL TECHNICIAN
--- NOTE | 2017-02-15 15:33 | PCM.PNMED ---
Subjective Date of Service February 15, 2017 Subjective Underwent right BKA Exam Vital Signs Vital Sign - Last Date Time Temp Pulse Resp B/P Pulse Ox O2 Delivery O2 Flow Rate FiO2 02/15/17 15:04 36.6 60 18 127/72 95 CPAP 02/15/17 10:40 4 Intake and Output 02/14/17 02/14/17 02/15/17 Cumulative From/Thru 15:00 23:00 07:00 02/07/17 10:52 - 02/15/17 05:58 Intake Total 1340 ml 850 ml 09621 ml Output Total 1275 ml 700 ml 41403 ml Balance 65 ml 150 ml 3726 ml Intake Oral 1340 ml 850 ml 74548 ml IV Total 4385 ml Output Urine Total 1275 ml 700 ml 78433 ml Stool Total 3 ml # Voids 5 # Bowel Movements 1 3 6 Exam General: Patient is lying supine in no apparent distress. HEENT: Head is atraumatic and normocephalic. Eyes: Pupils are equally round and reactive to light and accommodation. Extraocular muscles are intact. Sclera are white, anicteric. Subconjunctival mucosa is pink. Ears and nose are unremarkable. Oropharynx: There is no mucosal lesions, there is no thrush, there is no pharyngitis. Neck: Is supple, there are no nodes, or masses or tenderness. Chest: Is clear to auscultation and percussion. There are no rales, rhonchi, wheezes or rubs. Heart: Rate, rhythm is regular. There is a grade 2/6 systolic ejection murmur heard best at the left sternal border. There is no rub or gallop. Abdomen: Good bowel sounds are present. Abdomen is soft, nontender, no organomegaly or masses were appreciated. Extremities: Cleanly dressed right BKA stump Neurologic: There are no focal neurological deficits. Patient is alert and oriented. Cranial nerves II through XII are intact. There are no sensory or motor deficits. Psychiatric: Patients mood is calm and shows no sign of agitation. H IVs and Medications Medications Reviewed: Medications were reviewed in detail Lab and Diagnostics Result Diagram: 02/15/17 0600 02/15/17 0600 Microbiology 5 sets of blood cultures are positive for MRSA Nasal screen for MRSA is negative Ankle culture for MRSA is positive X-Rays, CTs and MRIs PROCEDURE: X-RAY RIGHT ANKLE, MINIMUM THREE VIEWS ([id number]) INDICATIONS: CHARCOT FOOT TECHNIQUE: 4 views of the ankle were acquired. COMPARISON: [facility], CR, XR ANKLE MIN 3VW WT BEARING RT, 2016, 9:32. FINDINGS: Bones: Severe degenerative changes of the mid foot and hindfoot joints result in difficulty evaluating for subtle fractures. No displaced fractures are evident. There appears to be a talonavicular joint dislocation. Offset of the tibiotalar joint is also noted. Prominent plantar and Achilles spurs are present. Soft tissues: Extensive edema about the ankle is noted. No unexpected radiopaque foreign bodies are evident. Scattered soft tissue calcifications are present. IMPRESSION: 1. Prominent mid foot and hindfoot Charcot arthropathy results in difficulty evaluating for subtle fractures. 2. Apparent dislocation of the talonavicular joint. The need for better evaluation utilizing CT may be determined clinically. Dictated by: Cm Parks M.D. on 02/07/2017 at 11:00 Approved by: Cm Parks M.D. on 02/07/2017 at 11:05 PROCEDURE: CT ANKLE RIGHT W/O CONTRAST ([id number]) INDICATIONS: charcot foot right foot/ankle TECHNIQUE: Noncontrast 1-1.5 mm axial sections acquired from above the tibiotalar joint to the bottom of the calcaneus, with coronal and sagittal reformats. COMPARISON: [facility], CR, XR ANKLE 3VW RT, 02/07/2017, 11:52. FINDINGS: Image quality: Diagnostic. Bones: The bone mineralization is diffusely decreased. Severe degenerative changes and numerous scattered small ossific/calcific densities about the osseous structures of the imaged right hindfoot and midfoot results in difficulty evaluating for subtle fractures. No definite large acute fracture is evident. There is complete dislocation of the talonavicular joint with medial positioning of the talar head with respect to the navicular. The navicular remains appropriately aligned with respect to the remainder of the foot. No definite additional dislocations are appreciated. Extensive osseous erosions are noted throughout all of the midfoot and hindfoot bones. The ankle mortise is relatively well maintained. Soft tissues: Extensive subcutaneous edema about the midfoot and hindfoot is identified with prominent ankle, subtalar, and talonavicular fusions. Multiple joint bodies are present within the joint effusions. Please note that evaluation of the ligamentous and tendinous structures of the midfoot and hindfoot is limited on CT. However, there is thickening and diffuse edema noted involving the medial and lateral flexor tendons as well as the Achilles tendon. Partial-thickness tearing probably is present. No soft tissue air or soft tissue foreign bodies are evident. IMPRESSION: 1. Advanced degenerative changes of the right midfoot and hindfoot are compatible with Charcot arthropathy. 2. Medial dislocation of the talus with respect to the navicular is of uncertain chronicity. 3. Evaluation for subtle acute fractures is limited. No large displaced fracture. 4. Numerous bony erosions of the midfoot and forefoot are probably related to Charcot arthropathy. However, the possibility of superimposed osteomyelitis or inflammatory arthropathy cannot be excluded and clinical correlation is recommended. 5. Extensive soft tissue edema without a definite loculated fluid collection. 6. Moderate tendinopathy of the peroneus brevis, peroneus longus, and Achilles tendons is present. Additional areas of flexor tendinopathy along the medial aspect of the ankle probably are present. Dictated by: Cm Parks M.D. on 02/08/2017 at 15:49 Approved by: Cm Parks M.D. on 02/08/2017 at 16:14 PROCEDURE: US RENAL SONOGRAM INDICATIONS: CLAIRE TECHNIQUE: Real-time scanning was performed of the kidneys and bladder, with image documentation. COMPARISON: [facility], CT, CT CHEST ABD PELVIS W CON, 07/21/2015, 12:13. FINDINGS: Kidneys: Kidneys are normal in size. Right kidney measures 11.0 cm long; left kidney measures 11.7 cm long. Right renal cortical thickness is 0.9 cm; left renal cortical thickness is 1.3 cm. Renal cortical echotexture is normal. No hydronephrosis or nephrolithiasis. No suspicious solid mass lesions. Bladder: Pre-void bladder volume is 300 mL. Post-void residual is 200 mL. Pre -void images demonstrate no intraluminal masses or stones. On pre-void images, either ureteral jets are noted with color Doppler interrogation. (Of note, ureteral jets may not be detectable in up to 25% of cases due to insufficient differences in specific gravity between ureteral and bladder urine). Miscellaneous: No free pelvic fluid. IMPRESSION: 1. Mild right renal cortical thinning, otherwise normal kidneys. 2. Approximately 200 cc of postvoid residual. Dictated by: Dajuan BOWERS Interpreted: Ricky Verdin MD on 02/07/2017 at 16:05 Transcribed by: ZULMA on 02/07/2017 at 16:06 Approved by: Ricky Verdin M.D. on 02/07/2017 at 16:33 PROCEDURE: X-RAY RIGHT KNEE, ONE OR TWO VIEWS ([id number]) INDICATIONS: knee pain TECHNIQUE: 2 views of the knee were acquired. COMPARISON: None. FINDINGS: Bones: No fractures or dislocations. No suspicious bony lesions. Severe narrowing of the lateral femoral tibial joint and to lesser degree the patellofemoral knee joint. Tricompartmental osteophyte formation. Soft tissues: Moderate joint effusion. No suspicious soft tissue calcifications. Vascular calcifications indicate atherosclerosis. IMPRESSION: Knee joint degeneration and moderate joint effusion. Dictated by: Dajuan BOWERS Interpreted: Libertad Nieves MD on 02/10/2017 at 10: 12 Transcribed by: BHAVANA on 02/10/2017 at 10:13 Cardiac Echo Impressions Echocardiogram Report Name: JACKIE BRAVO TStudy Crispin e: 02/09/2017 Height: 70 in Hospital Exam Location: [facility] Weight: 219 lb Gender: Male BSA: 2.2 m2 : 1940 Age: 76 yrs BP: 120/65 mmHg Reason For Study: Endocarditis Ordering Physician: Performed By: [facility] Interpretation Summary The left ventricle is normal in size, wall thickness, and systolic function without any focal wall motion abnormalities. The ejection fraction is estimated to be 60-65%. LVEF has not changed significantly since prior study. The right ventricle is normal in size, thickness and function. The right ventricular systolic pressure is estimated at 54 mmHg assuming a right atrial pressure of 8 mm Hg. The left atrium is severely dilated. Right atrial size is normal. The aortic valve is moderately calcified. The calculated aortic valve area is 1.2 cm2. The peak aortic velocity is 2.6 m/sec. The peak aortic velocity on the previous exam was 3.0 m/sec. There is no other significant valvular heart disease. No overt evidence for endocarditis but cannot exclude MV endocarditis due to significant mitral annular calcification. The aortic root is normal size. Additional Diagnostics DATE OF SURGERY: 02/15/2017 PREOPERATIVE DIAGNOSIS(ES): Diabetic ulcer of Charcot foot, right side. POSTOPERATIVE DIAGNOSIS(ES): Diabetic ulcer of Charcot foot, right side. PROCEDURE: Right below-knee amputation. SURGEON: George Hart MD RETAIL SALES DIRECTOR: Bhaskar Raygoza PA-C. Assessment & Plan Patient is a 76-year-old male presents to the emergency room with cellulitis and Charcot foot on the right # MRSA bacteremia - Leukocytosis -white blood cell count continues to WORSEN -Blood cultures continue to be positive for MRSA -Right ankle cultures are positive for MRSA. The right ankle appears to be the source of infection. It is possible that the right ankle was seeded from a bacteremia from an endovascular source however this is less likely. Underwent a below the knee amputation today 02/15 given patient's persistently positive blood cultures and persistently elevated white blood cell count despite appropriate antibiotic therapy. -Antibiotics being managed by infectious disease. Daptomycin is being continued. added ceftaroline #Acute kidney injury. Presently the time of admission, ongoing and slightly improved today. -Discontinue fluids IV saline 60 mL an hour -Lasix 80 mg twice a day as per recommendation from nephrology was recently discontinued -Nephrology following peripherally (Dr. Chávez). #Diabetes -Hemoglobin A1c 6.6 (controlled) -Insulin sliding scale -Accu-Cheks before meals and at bedtime #Hypertension -We will continue Hydralazine 25 mg by mouth twice a day -We will continue Amlodipine 10 mg daily -Hold Spironolactone 50 mg by mouth twice a day -Continue to monitor #CHF -Hold Spironolactone 50 mg by mouth twice a day -Lasix 80 mg by mouth twice a day discontinued. -EF 65-70% from an echo done on 04/03/2016 #Hyperlipidemia -Continue Lipitor 20 mg by mouth daily at bedtime #Gout (currently stable) -Continue colchicine 0.6 mg twice a day #Diabetic neuropathy -Continue gabapentin 300 mg by mouth 3 times a day Code Status: Full code Disposition: Pending hospital course Patient will then need placement in a detention facility for rehabilitation. VTE Prophylaxis: Other (The patient is on Pradaxa.) VTE Mechanical Devices: Intermittant Pneumatic CD Resuscitation Status: CPR: Attempt Resuscitation John Mcgregor MD February 15, 2017 15:33 at this time. Bone debridement would likely result further destruction and distortion of the area with no guarantee of clearing the infection. Patient has poor circulation to the area making it extremely difficult to clear the infection and make any viable reconstructive efforts. Without removal of the nidus of infection in this patient patient may continue to have persistent bacteremia and potentially seed his pacemaker if it has not already been seeded with infection. Patient agrees to the plan for below-knee amputation. Dr. Kahn will be contacting general surgery for further arrangements. Patient will then need placement in a detention facility for rehabilitation. I have asked physical therapy to do range of motion exercises on the right knee. VTE Prophylaxis: Other (The patient is on Pradaxa.) VTE Mechanical Devices: Intermittant Pneumatic CD Resuscitation Status: CPR: Attempt Resuscitation John Mcgregor MD February 15, 2017 15:33
--- NOTE | 2017-02-15 16:14 | NUR ---
Gave access and faxed facesheet [facility] per TREE AND SHRUB TECHNICIAN
[2017-02-15] MEDS: Ceftaroline Inj 600 MG in Dextrose 5% 250 ML IV SCH (20:05)
[2017-02-15] MEDS: HYDROcodone-APAP 5-325 mg Tablet PO PRN (20:10)
[2017-02-16] VITALS (12 sets, daily range): BP systolic 113–135; BP diastolic 60–69; PULSE 60–65; RESP 16–20; O2SAT 94–99
[2017-02-16] MEDS: HYDROcodone-APAP 5-325 mg Tablet PO PRN ×4 (00:38→19:23)
--- NOTE | 2017-02-16 01:25 | NUR ---
Pain Pt. forgetting to use APPEALS ANALYST and po analgesia started at 1999 with much improved pain control.APPEALS ANALYST d/c/d.VSS.Dressing with mod. drainage noted.Very sleepy but arouses easily and moving well with assist.Champ. some po fluids w/o nausea yet states he has no appetite and ref. jessica. meal.Sleeping soundly at this time and resting comfortably.Will cont. to monitor.
[2017-02-16] MEDS: Ceftaroline Inj 600 MG in Dextrose 5% 250 ML IV SCH ×3 (03:42→19:55)
[2017-02-16 06:46] LABS: BASOPHILS % (AUTO) 0.2 % (0-3); EOSINOPHILS % (AUTO) 0.1 % (0-5); MONOCYTES % (AUTO) 8.3 % (4-12); Mean Corpuscular Hemoglobin 28.5 pg (27.0-35.0); Mean Corpuscular Volume 87.8 fL (81-100); Platelet Count 395 bil/L (150-400)
[2017-02-16] MEDS: FEBUXOSTAT 40 MG PO SCH (08:57)
[2017-02-16] MEDS: Ascorbic Acid 500 mg Tablet PO SCH (08:57)
[2017-02-16] MEDS: Dabigatran 150 mg Capsule PO SCH ×2 (08:58→19:54)
[2017-02-16] MEDS: Insulin LISPRO 300 Unit/3 mL Inj SUBQ SCH ×4 (08:59→22:00)
[2017-02-16] MEDS: DAPTOmycin Inj 750 MG in 0.9% Sodium Chloride 50 ML IV SCH (09:11)
[2017-02-16] MEDS: Dextrose 5% 500 ML IV SCH (10:10)
--- NOTE | 2017-02-16 10:16 | PROG NOTE ---
[address] [address] PROGRESS NOTE PATIENT: JACKIE BRAVO : 1940 MR#: [id number] ADMIT: 02/07/2017 JOB ID: [id number] DATE: 02/16/2017 INFECTIOUS DISEASE FOLLOW UP NOTE: REASON FOR FOLLOWUP: Persistent MRSA bacteremia in a patient with an indwelling pacer and who underwent amputation of his right lower extremity yesterday for MRSA septic arthritis and probable osteomyelitis in a Charcot joint. INTERVAL HISTORY: Overnight, the patient has felt relatively well. He is having some pain at the amputation site as well as some drainage. The original postop draining has not yet been changed by the surgeon. He has not had significant fevers or chills. He denies any pain at his pacer pocket site. No significant cough, shortness of breath or chest pain. PHYSICAL EXAMINATION: Reveals an afebrile gentleman, temperature 36.7, pulse 60, respiratory rate 16, blood pressure 129/55, saturating well on room air. Mental status is clear. Pacer is nontender on the left chest. Lungs with a few wheezes but relatively clear. Cardiac tones without new murmur. Abdomen is soft and nontender. The right BKA stump site has original dressing in place. There is some serosanguineous drainage coming through and it is being reinforced. LABORATORIES: Include a white count of 17,000 but remember this is the patient who for several years has had a white count of 15 or 20,000, so we can follow that. Platelets good at 395. Creatinine 1.13, stable. LFTs basically normal except a slightly increased AST and alk phos. Procalcitonin down to 1.12 two days ago. It has not yet been repeated. Micro: The main problem with this case is the persistently positive blood cultures. He has now had positive blood cultures continuously from February 07 through which is a nine day stretch. New cultures were just drawn this morning. IMPRESSION: This is an extremely unfortunate 76-year-old gentleman with a right Charcot foot and persistent MRSA bacteremia. Because of inability to control his MRSA bacteremia and the finding that he had a septic right ankle with Charcot physiology and basically right foot and ankle that were nonfunctional, he underwent BKA yesterday. Our hope is that his MRSA bacteremia will now end given that the septic arthritis and probable osteomyelitis in the right lower extremity have been removed. The concern is that his pacer is also infected though we are unable to prove that by LUISA. If his blood cultures stay positive more than a couple more days, I think we must strongly consider the possibility of a pacer infection and contemplate removal of the pacer. RECOMMENDATIONS: 1. Will continue with ceftaroline plus dapto for synergistic coverage. 2. Daily blood cultures will continue for the next several days. 3. Dr. Solis will be notified that the patient has been admitted and that his pacer may be infected or certainly is at risk of being infected.
[2017-02-16] MEDS ORDERED: 0.9% Sodium Chloride 250 ML IV ONE (10:30)
--- NOTE | 2017-02-16 10:37 | PCM.PNMED ---
Subjective Date of Service February 16, 2017 Subjective Pain controlled. Afebrile. Blood culture persists to be positive. Hemoglobin 7.5, will transfuse 2 PRBCs. Exam Vital Signs Vital Sign - Last Date Time Temp Pulse Resp B/P Pulse Ox O2 Delivery O2 Flow Rate FiO2 02/16/17 08:51 36.7 60 16 129/65 96 Room Air 02/15/17 10:40 4 Intake and Output 02/15/17 02/15/17 02/16/17 Cumulative From/Thru 15:00 23:00 07:00 02/07/17 10:52 - 02/16/17 06:00 Intake Total 750 ml 800 ml 2478 ml 13367 ml Output Total 100 ml 150 ml 76722 ml Balance 650 ml 650 ml 2478 ml 7504 ml Intake Oral 800 ml 05240 ml IV Total 750 ml 2478 ml 7613 ml Output Urine Total 150 ml 32195 ml Stool Total 3 ml Estimated Blood Loss 100 ml 100 ml # Voids 5 # Bowel Movements 0 6 Exam General: Patient is lying supine in no apparent distress. HEENT: Head is atraumatic and normocephalic. Eyes: Pupils are equally round and reactive to light and accommodation. Extraocular muscles are intact. Sclera are white, anicteric. Subconjunctival mucosa is pink. Ears and nose are unremarkable. Oropharynx: There is no mucosal lesions, there is no thrush, there is no pharyngitis. Neck: Is supple, there are no nodes, or masses or tenderness. Chest: Is clear to auscultation and percussion. There are no rales, rhonchi, wheezes or rubs. Heart: Rate, rhythm is regular. There is a grade 2/6 systolic ejection murmur heard best at the left sternal border. There is no rub or gallop. Abdomen: Good bowel sounds are present. Abdomen is soft, nontender, no organomegaly or masses were appreciated. Extremities: Cleanly dressed right BKA stump Neurologic: There are no focal neurological deficits. Patient is alert and oriented. Cranial nerves II through XII are intact. There are no sensory or motor deficits. Psychiatric: Patients mood is calm IVs and Medications Medications Reviewed: Medications were reviewed in detail Lab and Diagnostics Result Diagram: 02/16/1760402/16/17604 Microbiology 5 sets of blood cultures are positive for MRSA Nasal screen for MRSA is negative Ankle culture for MRSA is positive X-Rays, CTs and MRIs PROCEDURE: X-RAY RIGHT ANKLE, MINIMUM THREE VIEWS ([id number]) INDICATIONS: CHARCOT FOOT TECHNIQUE: 4 views of the ankle were acquired. COMPARISON: [facility], CR, XR ANKLE MIN 3VW WT BEARING RT, 2016, 9:32. FINDINGS: Bones: Severe degenerative changes of the mid foot and hindfoot joints result in difficulty evaluating for subtle fractures. No displaced fractures are evident. There appears to be a talonavicular joint dislocation. Offset of the tibiotalar joint is also noted. Prominent plantar and Achilles spurs are present. Soft tissues: Extensive edema about the ankle is noted. No unexpected radiopaque foreign bodies are evident. Scattered soft tissue calcifications are present. IMPRESSION: 1. Prominent mid foot and hindfoot Charcot arthropathy results in difficulty evaluating for subtle fractures. 2. Apparent dislocation of the talonavicular joint. The need for better evaluation utilizing CT may be determined clinically. Dictated by: Cm Parks M.D. on 02/07/2017 at 11:00 Approved by: Cm Parks M.D. on 02/07/2017 at 11:05 PROCEDURE: CT ANKLE RIGHT W/O CONTRAST ([id number]) INDICATIONS: charcot foot right foot/ankle TECHNIQUE: Noncontrast 1-1.5 mm axial sections acquired from above the tibiotalar joint to the bottom of the calcaneus, with coronal and sagittal reformats. COMPARISON: [facility], CR, XR ANKLE 3VW RT, 02/07/2017, 11:52. FINDINGS: Image quality: Diagnostic. Bones: The bone mineralization is diffusely decreased. Severe degenerative changes and numerous scattered small ossific/calcific densities about the osseous structures of the imaged right hindfoot and midfoot results in difficulty evaluating for subtle fractures. No definite large acute fracture is evident. There is complete dislocation of the talonavicular joint with medial positioning of the talar head with respect to the navicular. The navicular remains appropriately aligned with respect to the remainder of the foot. No definite additional dislocations are appreciated. Extensive osseous erosions are noted throughout all of the midfoot and hindfoot bones. The ankle mortise is relatively well maintained. Soft tissues: Extensive subcutaneous edema about the midfoot and hindfoot is identified with prominent ankle, subtalar, and talonavicular fusions. Multiple joint bodies are present within the joint effusions. Please note that evaluation of the ligamentous and tendinous structures of the midfoot and hindfoot is limited on CT. However, there is thickening and diffuse edema noted involving the medial and lateral flexor tendons as well as the Achilles tendon. Partial-thickness tearing probably is present. No soft tissue air or soft tissue foreign bodies are evident. IMPRESSION: 1. Advanced degenerative changes of the right midfoot and hindfoot are compatible with Charcot arthropathy. 2. Medial dislocation of the talus with respect to the navicular is of uncertain chronicity. 3. Evaluation for subtle acute fractures is limited. No large displaced fracture. 4. Numerous bony erosions of the midfoot and forefoot are probably related to Charcot arthropathy. However, the possibility of superimposed osteomyelitis or inflammatory arthropathy cannot be excluded and clinical correlation is recommended. 5. Extensive soft tissue edema without a definite loculated fluid collection. 6. Moderate tendinopathy of the peroneus brevis, peroneus longus, and Achilles tendons is present. Additional areas of flexor tendinopathy along the medial aspect of the ankle probably are present. Dictated by: Cm Parks M.D. on 02/08/2017 at 15:49 Approved by: Cm Parks M.D. on 02/08/2017 at 16:14 PROCEDURE: US RENAL SONOGRAM INDICATIONS: CLAIRE TECHNIQUE: Real-time scanning was performed of the kidneys and bladder, with image documentation. COMPARISON: [facility], CT, CT CHEST ABD PELVIS W CON, 07/21/2015, 12:13. FINDINGS: Kidneys: Kidneys are normal in size. Right kidney measures 11.0 cm long; left kidney measures 11.7 cm long. Right renal cortical thickness is 0.9 cm; left renal cortical thickness is 1.3 cm. Renal cortical echotexture is normal. No hydronephrosis or nephrolithiasis. No suspicious solid mass lesions. Bladder: Pre-void bladder volume is 300 mL. Post-void residual is 200 mL. Pre -void images demonstrate no intraluminal masses or stones. On pre-void images, either ureteral jets are noted with color Doppler interrogation. (Of note, ureteral jets may not be detectable in up to 25% of cases due to insufficient differences in specific gravity between ureteral and bladder urine). Miscellaneous: No free pelvic fluid. IMPRESSION: 1. Mild right renal cortical thinning, otherwise normal kidneys. 2. Approximately 200 cc of postvoid residual. Dictated by: Dajuan BOWERS Interpreted: Ricky Verdin MD on 02/07/2017 at 16:05 Transcribed by: ZULMA on 02/07/2017 at 16:06 Approved by: Ricky Verdin M.D. on 02/07/2017 at 16:33 PROCEDURE: X-RAY RIGHT KNEE, ONE OR TWO VIEWS ([id number]) INDICATIONS: knee pain TECHNIQUE: 2 views of the knee were acquired. COMPARISON: None. FINDINGS: Bones: No fractures or dislocations. No suspicious bony lesions. Severe narrowing of the lateral femoral tibial joint and to lesser degree the patellofemoral knee joint. Tricompartmental osteophyte formation. Soft tissues: Moderate joint effusion. No suspicious soft tissue calcifications. Vascular calcifications indicate atherosclerosis. IMPRESSION: Knee joint degeneration and moderate joint effusion. Dictated by: Dajuan BOWERS Interpreted: Libertad Nieves MD on 02/10/2017 at 10: 12 Transcribed by: BHAVANA on 02/10/2017 at 10:13 Cardiac Echo Impressions Echocardiogram Report Name: JACKIE BRAVO TStudy Crispin e: 02/09/2017 Height: 70 in Hospital Exam Location: [facility] Weight: 219 lb Gender: Male BSA: 2.2 m2 : 1940 Age: 76 yrs BP: 120/65 mmHg Reason For Study: Endocarditis Ordering Physician: Performed By: Sandrine [facility]enLog[facility] Interpretation Summary The left ventricle is normal in size, wall thickness, and systolic function without any focal wall motion abnormalities. The ejection fraction is estimated to be 60-65%. LVEF has not changed significantly since prior study. The right ventricle is normal in size, thickness and function. The right ventricular systolic pressure is estimated at 54 mmHg assuming a right atrial pressure of 8 mm Hg. The left atrium is severely dilated. Right atrial size is normal. The aortic valve is moderately calcified. The calculated aortic valve area is 1.2 cm2. The peak aortic velocity is 2.6 m/sec. The peak aortic velocity on the previous exam was 3.0 m/sec. There is no other significant valvular heart disease. No overt evidence for endocarditis but cannot exclude MV endocarditis due to significant mitral annular calcification. The aortic root is normal size. Additional Diagnostics DATE OF SURGERY: 02/15/2017 PREOPERATIVE DIAGNOSIS(ES): Diabetic ulcer of Charcot foot, right side. POSTOPERATIVE DIAGNOSIS(ES): Diabetic ulcer of Charcot foot, right side. PROCEDURE: Right below-knee amputation. SURGEON: George Hart MD MANUFACTURING SUPPORT ENGINEER: Bhaskar Raygoza PA-C. Assessment & Plan Patient is a 76-year-old male presents to the emergency room with cellulitis and Charcot foot on the right # MRSA bacteremia - Leukocytosis -white blood cell count continues to WORSEN -Blood cultures continue to be positive for MRSA -Right ankle cultures are positive for MRSA. The right ankle appears to be the source of infection. It is possible that the right ankle was seeded from a bacteremia from an endovascular source however this is less likely. Underwent a below the knee amputation today 02/15 given patient's persistently positive blood cultures and persistently elevated white blood cell count despite appropriate antibiotic therapy. -Continues to have positive blood culture after amputation, may need to consider repeat LUISA and removing pacemaker if continues to be positive -Antibiotics being managed by infectious disease. Daptomycin is being continued. added ceftaroline 02/15 #Blood loss anemia -Postop hemoglobin 7.5, preop 9.3 -Transfuse 2 PRBCs 02/16 #Diabetes -Hemoglobin A1c 6.6 (controlled) -Insulin sliding scale -Accu-Cheks before meals and at bedtime #Hypertension -We will continue Hydralazine 25 mg by mouth twice a day -We will continue Amlodipine 10 mg daily -Hold Spironolactone 50 mg by mouth twice a day -Continue to monitor #Acute kidney injury. Presently the time of admission,resolved -Nephrology following peripherally (Dr. Chávez). #History of CHF -mention of CHF on admission. Echocardiogram did not show any systolic or diastolic dysfunction. No clinical evidence of CHF. We will continue to hold diuretics -Hold Spironolactone 50 mg by mouth twice a day -Lasix 80 mg by mouth twice a day discontinued. -EF 65-70% from an echo done on 04/03/2016 #Hyperlipidemia -Continue Lipitor 20 mg by mouth daily at bedtime #Gout (currently stable) -Continue colchicine 0.6 mg twice a day #Diabetic neuropathy -Continue gabapentin 300 mg by mouth 3 times a day Code Status: Full code Disposition: Pending hospital course Patient will then need placement in a nursing home facility for rehabilitation. VTE Prophylaxis: Other (The patient is on Pradaxa.) VTE Mechanical Devices: Intermittant Pneumatic CD Resuscitation Status: CPR: Attempt Resuscitation John Mcgregor MD February 16, 2017 10:37
--- NOTE | 2017-02-16 11:30 | PCM.PNSURG ---
Subjective Date of Service: February 16, 2017 Visit Information: Reason for Visit Right Foot Cellulitis,Renal Failure Surgery/Surgery Date RIGHT BKA 02/15/17 Post-Op Day #1 Date of Admission: February 07, 2017 at 13:56 Hospital Day # Subjective: Pain well controlled with oral Vicodin. Has not mobilized with PT. Postop General: No Complaints Pain Management: PO Postop Activity: Other (bed rest) Objective Vital Sign- Last 8 Hours Date Time Temp Pulse Resp B/P Pulse Ox O2 Delivery O2 Flow Rate FiO2 02/16/17 10:56 60 02/16/17 08:51 36.7 60 16 129/65 96 Room Air 02/16/17 05:25 36.9 60 18 114/62 95 Room Air Intake and Output- Last 8 Hour 02/16/17 Cumulative From/Thru 07:00 02/07/17 10:52 - 02/16/17 06:00 Intake Total 2478 ml 24605 ml Output Total 87318 ml Balance 2478 ml 7504 ml Intake Oral 40556 ml IV Total 2478 ml 7613 ml Output Urine Total 57071 ml Stool Total 3 ml Estimated Blood Loss 100 ml # Voids 5 # Bowel Movements 6 General: Alert, Cooperative (good spirits), No Acute Distress Lungs: Clear to Auscultation Heart: Regular Rate/Rhythm, Murmur (grade 2/6 systolic murmur) SURGICAL WOUND : Wound General Appearence: Wound under dressing Dressing & Drainage Status: Serosanguineous Drainage (moderate amount on the stump sock) Neuro: Normal Speech Catheters: None Result Diagram: 02/16/17 0605 02/16/17 0605 Assessment & Plan Impression Primary diagnoses: 1.Diabetic ulcer of Charcot right foot. POD #1 following right BKA, no active bleeding identified. 2. Anemia of chronic disease Other chronic conditions: 1. HTN 2. CAD with four-way coronary artery bypass in 1998 3. DM 4. HLD 5. DM neuropathy 6. CKD 7. previous DVT 8. Gout 9. Former cigarette smoker Problems: (1) Charcot's joint of foot due to diabetes Status: Acute ICD Code: E11.610 (2) Septicemia Status: Acute ICD Code: A41.9 Plan 1. Dressing change tomorrow 2. PT will begin with teaching and transverse tomorrow Pain Management: Vicodin VTE Prophylaxis: Other (The patient is on Pradaxa.) Resuscitation Status: CPR: Attempt Resuscitation Bhaskar Raygoza PA-C February 16, 2017 11:30
[2017-02-16] MEDS ORDERED: Furosemide 10 mg/mL 2 mL Inj IVPUSH ONE (12:50)
--- NOTE | 2017-02-16 14:53 | NUR ---
NUTRITION FOLLOW-UP: ASSESS:76 yo M admitted for rt foot cellulitis and CLAIRE. Nephrology is following for CLAIRE. Pt POD #1 for R BKA due to advanced degenerative changes of R mid and hind foot due to MRSA septic arthritis and probable osteomyelitis in a Charcot joint. PMHX: HTN, DM type 2, HLD, CKD stg 3, Gout, DVT, R BKA. LABS: Reviewed. Na 133, BUN 37, Glu 182, Alb 1.8. MEDS: Reviewed. GI: BM x 3 (02/15) SKIN: R BKA on 02/15. CURRENT WTS: 1051 kg. admit wt 99.3 kg (prior to BKA), IBW 75.4kg DIET: Heart healthy, Diabetic. PO 75-100% of most meals. EST. NEEDS: BMI, CLAIRE, R BKA (-6%) Kcals: 9712-1702 kcal/day (20-22 kcal/kg BW) Pro: 70-85 g/day (1.0-1.2 g/kg IBW) NUTRITION DIAGNOSIS: 1.) Altered nutrition related labs values related to CLAIRE as evidence by elevated BUN and screw machine adjuster automatic--IMPROVED. NUTRITION INTERVENTION: 1.) Continue current diet at this time. MONITOR / EVAL: PO intake, labs, GI/nutrition status. Will continue to monitor per moderate nutrition related guidelines
--- NOTE | 2017-02-16 18:08 | NUR ---
Blood Transfusion Pt. ordered 2 units of blood per MD and he received his first blood transfusion at 1300 and finished at 1605, Pt. was asymptomatic and had no complaints. Pt. started his 2nd unit of blood this afternoon and is still asymptomatic. Pt. still has no complaints of pain, SOB, or CP. Will continue to monitor.
[2017-02-17] VITALS (9 sets, daily range): BP systolic 127–137; BP diastolic 60–71; PULSE 58–63; RESP 16–22; O2SAT 94–97
[2017-02-17] MEDS: HYDROcodone-APAP 5-325 mg Tablet PO PRN ×6 (00:56→21:43)
--- NOTE | 2017-02-17 01:42 | NUR ---
Pain Pain controlled with po analgesia yet needs reminder to take it! VSS.Dressing reinforced at start of shift and CDI at this time.I&O qs.Sleeping soundly at this time and resting comfortably.Will cont. to monotor.
[2017-02-17] MEDS: Ceftaroline Inj 600 MG in Dextrose 5% 250 ML IV SCH ×3 (04:23→20:18)
[2017-02-17] MEDS: Insulin LISPRO 300 Unit/3 mL Inj SUBQ SCH ×4 (08:00→21:40)
[2017-02-17 08:58] LABS: BASOPHILS % (AUTO) 0.1 % (0-3); EOSINOPHILS % (AUTO) 0.5 % (0-5); Mean Corpuscular Hemoglobin 27.9 pg (27.0-35.0); Mean Corpuscular Volume 83.9 fL (81-100); NEUTROPHILS % (AUTO) 83.4 % (40-74); Platelet Count 433 bil/L (150-400)
[2017-02-17] MEDS: Ascorbic Acid 500 mg Tablet PO SCH (09:12)
[2017-02-17] MEDS: Dabigatran 150 mg Capsule PO SCH ×2 (09:13→20:31)
[2017-02-17] MEDS: FEBUXOSTAT 40 MG PO SCH (09:14)
[2017-02-17] MEDS: DAPTOmycin Inj 750 MG in 0.9% Sodium Chloride 50 ML IV SCH (09:15)
[2017-02-17] MEDS: Dextrose 5% 500 ML IV SCH (10:10)
--- NOTE | 2017-02-17 11:49 | PROG NOTE ---
[address] [address] PROGRESS NOTE PATIENT: JACKIE BRAVO : 1940 MR#: [id number] ADMIT: 02/07/2017 JOB ID: [id number] DATE: 02/17/2017 REASON FOR FOLLOWUP: Persistent MRSA bacteremia, septic right ankle, now status post BKA. INTERVAL HISTORY: Overnight, the patient reports he has felt a bit better. No fevers, no chills, and perhaps less weakness. He was able to sit up on the side of the bed. He has only mild to moderate pain at the site of his amputation. Otherwise no new symptoms. No specific shortness of breath, cough, chest pain, nausea, vomiting. He had diarrhea but was probably iatrogenic. OBJECTIVE: Temperature 36.4, he has been afebrile throughout his hospital stay. Pulse about 60, respiratory rate 16, blood pressure 127/66. He is saturating well on room air. No acute distress. He looks overall better than before and looks less ill and more alert. Oral cavity negative. Lungs clear. Cardiac tones without murmur. Abdomen is soft, nontender. His right BKA site is still in its original surgical dressing and we did not remove it. LABORATORY DATA: Include a white count which has fallen to 13.9, and he has known persistent leukocytosis. Creatinine 1.11. LFTs basically normal except alk phos 204 and bilirubin slightly elevated at 1.3. CRP is 18. Procalcitonin 0.8. Urinalysis without pyuria. Micro studies include many positive blood cultures for MRSA between February 07 and February 15. The four bottles from February 16 are negative at 30 hours and two more sets were just drawn this morning but of course these are still too young to make any evaluation. Recall that the aspirate from the right ankle did grow MRSA. IMPRESSION: This is an unfortunate 76-year-old gentleman with Charcot right foot and ankle who clearly had septic MRSA joint and probably associated osteomyelitis in his right Charcot foot. Because of persistent MRSA bacteremia, the decision was made to amputate his functionless right leg below the knee, and following this, the patient seems to have improved in terms of increased vigor, dropping white count, and hopefully resolution in positive blood cultures. If his blood cultures were to stay positive as we get several days beyond his amputation, we would have to consider pacer infection. A member of our team discussed this case with Dr. Solis of Cardiology today and he is in the mode that we should wait and watch before rushing to the assumption that the pacer is infected, as its removal would be a complex maneuver requiring temporary pacer, prolonged hospital stay, etc. RECOMMENDATIONS: 1. Will continue with synergistic daptomycin and ceftaroline. 2. Daily blood cultures at least for another day or two. 3. If blood cultures are consistently negative, we will think about discharge early next week with a 6-week total course of therapy, assuming at that point, that his MRSA bacteremia came from his right foot and ankle. 4. If his blood cultures fail to turn negative for several days after the right BKA, then we must concern ourselves with the pacer and the probable need for pacer removal, temporary pacer, etc. 5. Will add nasal mupirocin to his nose.
[2017-02-17] MEDS: Mupirocin 2% 22 Gm Ointment TOPICAL SCH ×2 (12:03→21:44)
--- NOTE | 2017-02-17 12:49 | PCM.PNMED ---
Subjective Date of Service February 17, 2017 Subjective blood culture negative now. [email or web address] responded appropriately Exam Vital Signs Vital Sign - Last Date Time Temp Pulse Resp B/P Pulse Ox O2 Delivery O2 Flow Rate FiO2 02/17/17 09:46 36.4 58 16 127/66 95 Room Air 02/15/17 10:40 4 Intake and Output 02/16/17 02/16/17 02/17/17 Cumulative From/Thru 15:00 23:00 07:00 02/07/17 10:52 - 02/17/17 06:33 Intake Total 1638 ml 331 ml 73324 ml Output Total 400 ml 350 ml 90221 ml Balance 1238 ml -19 ml 8723 ml Intake Oral 800 ml 50 ml 45672 ml IV Total 156 ml 281 ml 8050 ml Packed Cells 682 ml 682 ml Output Urine Total 400 ml 350 ml 96151 ml Stool Total 3 ml Estimated Blood Loss 100 ml # Voids 5 # Bowel Movements 0 6 Exam General: Patient is lying supine in no apparent distress. HEENT: Head is atraumatic and normocephalic. Eyes: Pupils are equally round and reactive to light and accommodation. Extraocular muscles are intact. Sclera are white, anicteric. Subconjunctival mucosa is pink. Ears and nose are unremarkable. Oropharynx: There is no mucosal lesions, there is no thrush, there is no pharyngitis. Neck: Is supple, there are no nodes, or masses or tenderness. Chest: Is clear to auscultation and percussion. Heart: Rate, rhythm is regular. There is a grade 2/6 systolic ejection murmur heard best at the left sternal border. There is no rub or gallop. Abdomen: Good bowel sounds are present. Abdomen is soft, nontender, no organomegaly or masses were appreciated. Extremities: Cleanly dressed right BKA stump,left leg + 2 edema Neurologic: There are no focal neurological deficits. Patient is alert and oriented. Cranial nerves II through XII are intact. There are no sensory or motor deficits. Psychiatric: Patients mood is calm IVs and Medications Medications Reviewed: Medications were reviewed in detail Lab and Diagnostics Result Diagram: 02/17/17 0845 02/17/17 0845 Microbiology 5 sets of blood cultures are positive for MRSA Nasal screen for MRSA is negative Ankle culture for MRSA is positive X-Rays, CTs and MRIs PROCEDURE: X-RAY RIGHT ANKLE, MINIMUM THREE VIEWS ([id number]) INDICATIONS: CHARCOT FOOT TECHNIQUE: 4 views of the ankle were acquired. COMPARISON: [facility], CR, XR ANKLE MIN 3VW WT BEARING RT, 2016, 9:32. FINDINGS: Bones: Severe degenerative changes of the mid foot and hindfoot joints result in difficulty evaluating for subtle fractures. No displaced fractures are evident. There appears to be a talonavicular joint dislocation. Offset of the tibiotalar joint is also noted. Prominent plantar and Achilles spurs are present. Soft tissues: Extensive edema about the ankle is noted. No unexpected radiopaque foreign bodies are evident. Scattered soft tissue calcifications are present. IMPRESSION: 1. Prominent mid foot and hindfoot Charcot arthropathy results in difficulty evaluating for subtle fractures. 2. Apparent dislocation of the talonavicular joint. The need for better evaluation utilizing CT may be determined clinically. Dictated by: Cm Parks M.D. on 02/07/2017 at 11:00 Approved by: Cm Parks M.D. on 02/07/2017 at 11:05 PROCEDURE: CT ANKLE RIGHT W/O CONTRAST ([id number]) INDICATIONS: charcot foot right foot/ankle TECHNIQUE: Noncontrast 1-1.5 mm axial sections acquired from above the tibiotalar joint to the bottom of the calcaneus, with coronal and sagittal reformats. COMPARISON: [facility], CR, XR ANKLE 3VW RT, 02/07/2017, 11:52. FINDINGS: Image quality: Diagnostic. Bones: The bone mineralization is diffusely decreased. Severe degenerative changes and numerous scattered small ossific/calcific densities about the osseous structures of the imaged right hindfoot and midfoot results in difficulty evaluating for subtle fractures. No definite large acute fracture is evident. There is complete dislocation of the talonavicular joint with medial positioning of the talar head with respect to the navicular. The navicular remains appropriately aligned with respect to the remainder of the foot. No definite additional dislocations are appreciated. Extensive osseous erosions are noted throughout all of the midfoot and hindfoot bones. The ankle mortise is relatively well maintained. Soft tissues: Extensive subcutaneous edema about the midfoot and hindfoot is identified with prominent ankle, subtalar, and talonavicular fusions. Multiple joint bodies are present within the joint effusions. Please note that evaluation of the ligamentous and tendinous structures of the midfoot and hindfoot is limited on CT. However, there is thickening and diffuse edema noted involving the medial and lateral flexor tendons as well as the Achilles tendon. Partial-thickness tearing probably is present. No soft tissue air or soft tissue foreign bodies are evident. IMPRESSION: 1. Advanced degenerative changes of the right midfoot and hindfoot are compatible with Charcot arthropathy. 2. Medial dislocation of the talus with respect to the navicular is of uncertain chronicity. 3. Evaluation for subtle acute fractures is limited. No large displaced fracture. 4. Numerous bony erosions of the midfoot and forefoot are probably related to Charcot arthropathy. However, the possibility of superimposed osteomyelitis or inflammatory arthropathy cannot be excluded and clinical correlation is recommended. 5. Extensive soft tissue edema without a definite loculated fluid collection. 6. Moderate tendinopathy of the peroneus brevis, peroneus longus, and Achilles tendons is present. Additional areas of flexor tendinopathy along the medial aspect of the ankle probably are present. Dictated by: Cm Parks M.D. on 02/08/2017 at 15:49 Approved by: Cm Parks M.D. on 02/08/2017 at 16:14 PROCEDURE: US RENAL SONOGRAM INDICATIONS: CLAIRE TECHNIQUE: Real-time scanning was performed of the kidneys and bladder, with image documentation. COMPARISON: [facility], CT, CT CHEST ABD PELVIS W CON, 07/21/2015, 12:13. FINDINGS: Kidneys: Kidneys are normal in size. Right kidney measures 11.0 cm long; left kidney measures 11.7 cm long. Right renal cortical thickness is 0.9 cm; left renal cortical thickness is 1.3 cm. Renal cortical echotexture is normal. No hydronephrosis or nephrolithiasis. No suspicious solid mass lesions. Bladder: Pre-void bladder volume is 300 mL. Post-void residual is 200 mL. Pre -void images demonstrate no intraluminal masses or stones. On pre-void images, either ureteral jets are noted with color Doppler interrogation. (Of note, ureteral jets may not be detectable in up to 25% of cases due to insufficient differences in specific gravity between ureteral and bladder urine). Miscellaneous: No free pelvic fluid. IMPRESSION: 1. Mild right renal cortical thinning, otherwise normal kidneys. 2. Approximately 200 cc of postvoid residual. Dictated by: Dajuan BOWERS Interpreted: Ricky Verdin MD on 02/07/2017 at 16:05 Transcribed by: ZULMA on 02/07/2017 at 16:06 Approved by: Ricky Verdin M.D. on 02/07/2017 at 16:33 PROCEDURE: X-RAY RIGHT KNEE, ONE OR TWO VIEWS ([id number]) INDICATIONS: knee pain TECHNIQUE: 2 views of the knee were acquired. COMPARISON: None. FINDINGS: Bones: No fractures or dislocations. No suspicious bony lesions. Severe narrowing of the lateral femoral tibial joint and to lesser degree the patellofemoral knee joint. Tricompartmental osteophyte formation. Soft tissues: Moderate joint effusion. No suspicious soft tissue calcifications. Vascular calcifications indicate atherosclerosis. IMPRESSION: Knee joint degeneration and moderate joint effusion. Dictated by: Dajuan BOWERS Interpreted: Libertad Nieves MD on 02/10/2017 at 10: 12 Transcribed by: BHAVANA on 02/10/2017 at 10:13 Cardiac Echo Impressions Echocardiogram Report Name: JACKIE BRAVO TStudy Crispin e: 02/09/2017 Height: 70 in Hospital Exam Location: [facility] Weight: 219 lb Gender: Male BSA: 2.2 m2 : 1940 Age: 76 yrs BP: 120/65 mmHg Reason For Study: Endocarditis Ordering Physician: Performed By: Sandrine Tobar [facility] Interpretation Summary The left ventricle is normal in size, wall thickness, and systolic function without any focal wall motion abnormalities. The ejection fraction is estimated to be 60-65%. LVEF has not changed significantly since prior study. The right ventricle is normal in size, thickness and function. The right ventricular systolic pressure is estimated at 54 mmHg assuming a right atrial pressure of 8 mm Hg. The left atrium is severely dilated. Right atrial size is normal. The aortic valve is moderately calcified. The calculated aortic valve area is 1.2 cm2. The peak aortic velocity is 2.6 m/sec. The peak aortic velocity on the previous exam was 3.0 m/sec. There is no other significant valvular heart disease. No overt evidence for endocarditis but cannot exclude MV endocarditis due to significant mitral annular calcification. The aortic root is normal size. Additional Diagnostics DATE OF SURGERY: 02/15/2017 PREOPERATIVE DIAGNOSIS(ES): Diabetic ulcer of Charcot foot, right side. POSTOPERATIVE DIAGNOSIS(ES): Diabetic ulcer of Charcot foot, right side. PROCEDURE: Right below-knee amputation. SURGEON: George Hart MD CONSULTANT: Bhaskar Raygoza PA-C. Assessment & Plan Patient is a 76-year-old male presents to the emergency room with cellulitis and Charcot foot on the right # MRSA bacteremia -Blood cultures has been persistently positive for MRSA. Blood culture negative 2 on 02/16 -Right ankle cultures are positive for MRSA. The right ankle appears to be the source of infection. Underwent a below the knee amputation 02/15 given patient' s persistently positive blood cultures and persistently elevated white blood cell count despite appropriate antibiotic therapy. -Antibiotics being managed by infectious disease. Continue Daptomycin and ceftaroline added 02/15 #Blood loss anemia -Postop hemoglobin 7.5, preop 9.3 -Transfused 2 PRBCs 02/16 -Hemoglobin responded appropriately #Diabetes -Hemoglobin A1c 6.6 (controlled) -Insulin sliding scale -Accu-Cheks before meals and at bedtime #Hypertension -We will continue Hydralazine 25 mg by mouth twice a day -We will continue Amlodipine 10 mg daily -Hold Spironolactone 50 mg by mouth twice a day -Continue to monitor #Acute kidney injury. Presently the time of admission,resolved -Nephrology following peripherally (Dr. Chávez). #Chronic leg edema -mention of CHF on admission. Echocardiogram did not show any systolic or diastolic dysfunction. No clinical evidence of CHF. Patient states he has been on Lasix for 6 years for lower extremity edema. He denies any history of CHF. Has +2 pedal edema on the left. Home diuretics Lasix 80 mg by mouth twice a day and spironolactone 50 mg by mouth twice a day. Diuretics has been on hold since admission. Will restart at lower dose Lasix 20 mg by mouth daily and spironolactone 25 mg per day. -EF 65-70% from an echo done on 04/03/2016 #Hyperlipidemia -Continue Lipitor 20 mg by mouth daily at bedtime #Gout (currently stable) -Continue colchicine 0.6 mg twice a day #Diabetic neuropathy -Continue gabapentin 300 mg by mouth 3 times a day Code Status: Full code Disposition: Pending hospital course Patient will then need [facility] in a [facility]. Possible discharge early next week per ID. Tuesday or Tuesday VTE Prophylaxis: Other (The patient is on Pradaxa.) VTE Mechanical Devices: Intermittant Pneumatic CD Resuscitation Status: CPR: Attempt Resuscitation John Mcgregor MD February 17, 2017 12:48
--- NOTE | 2017-02-17 13:05 | PROG NOTE ---
[address] [address] PROGRESS NOTE PATIENT: JACKIE BRAVO : 1940 MR#: [id number] ADMIT: 02/07/2017 JOB ID: [id number] DATE: 02/17/2017 PROGRESS NOTE: Postoperative day two below-knee amputation. The patient was sleeping when I came by. Vital signs are recorded as within normal limits, no fever. Nursing report is that pain is adequately controlled with oral pain medications. LABORATORIES: Show white count of 13.9, down from 21.1 preoperative, and a hematocrit of 28.6. He was transfused yesterday for anemia. Notably, intraoperative blood loss was not substantial. IMPRESSION/PLAN: Stable, doing well. I will stop by later today when he is awake and take down his dressing.
--- NOTE | 2017-02-17 14:19 | NUR ---
PAIN/ACTIVITY RLE stump and knee pain controlled well with PO pain medications, offered to patient every 4 hrs as he does not ask for it. Worked with PT and was able to sit on edge of bed for first time. Using bedpan and urinal with assistance. Dressing was changed to R stump by Dr. Hart. Stump elevated on pillows. SCD in place to L leg. Continue to monitor patient.
[2017-02-18] VITALS (7 sets, daily range): BP systolic 123–143; BP diastolic 62–78; PULSE 57–61; RESP 15–18; O2SAT 91–98
--- NOTE | 2017-02-18 02:34 | NUR ---
Pain Rating pain to right stump about an 8/10. States this is where he seems to hang out pain berkowitz. Patient not asking for pain meds this shift, but does accept them when offered to him. Receiving two norco PO with somewhat effective results.
[2017-02-18] MEDS: Ceftaroline Inj 600 MG in Dextrose 5% 250 ML IV SCH ×3 (03:43→20:52)
[2017-02-18] MEDS: HYDROcodone-APAP 5-325 mg Tablet PO PRN ×3 (03:48→14:17)
[2017-02-18 06:19] LABS: BASOPHILS % (AUTO) 0.2 % (0-3); EOSINOPHILS % (AUTO) 0.4 % (0-5); MONOCYTES % (AUTO) 8.7 % (4-12); Mean Corpuscular Hemoglobin 28.1 pg (27.0-35.0); Mean Corpuscular Volume 84.7 fL (81-100); NEUTROPHILS % (AUTO) 82.6 % (40-74); Platelet Count 454 bil/L (150-400)
[2017-02-18 07:13] LABS: Magnesium 1.9 mg/dL (1.6-2.6)
[2017-02-18] MEDS: Insulin LISPRO 300 Unit/3 mL Inj SUBQ SCH ×4 (08:00→22:00)
[2017-02-18] MEDS ORDERED: 0.9% Sodium Chloride 250 ML ONE (09:05)
[2017-02-18] MEDS: DAPTOmycin Inj 750 MG in 0.9% Sodium Chloride 50 ML IV SCH (09:13)
[2017-02-18] MEDS: Dabigatran 150 mg Capsule PO SCH ×2 (09:13→20:52)
[2017-02-18] MEDS: FEBUXOSTAT 40 MG PO SCH (09:14)
[2017-02-18] MEDS: Mupirocin 2% 22 Gm Ointment TOPICAL SCH ×2 (09:15→20:52)
[2017-02-18] MEDS: Ascorbic Acid 500 mg Tablet PO SCH (09:16)
[2017-02-18] MEDS: Dextrose 5% 500 ML IV SCH (10:10)
--- NOTE | 2017-02-18 10:28 | PATH ---
SURGICAL PATHOLOGY Attending Physician:George Hart MD CASE STATUS: Signed Out PATIENT NAME: JACKIE BRAVO PID: [id number] : 1940 DATE COLLECTED:02/15/2017 17:35 SPECIMEN: Extremity Amputation, Non-Traumatic CLINICAL HISTORY: INFECTION RIGHT FOOT 1. RIGHT BELOW KNEE AMPUTATION FINAL DIAGNOSIS: 1.RIGHT BELOW THE KNEE AMPUTATION SPECIMEN: SEVERE NECROTIC ULCER INVOLVING SKIN OF ANKLE WITH SEVERE INFLAMMATORY CHANGES AND NECROTIC CHANGES EXTENDING INTO THE DEEP SOFT TISSUES INCLUDING SKELETAL MUSCLE. SECTIONS OF ANTERIOR AND POSTERIOR ARTERIES REVEAL AREAS OF MEDIAL CALCIFICATION WITH PATENT LUMENS. SECTION DESIGNATED "BONE MARROW" CONSISTS OF DEGENERATING PARTIALLY NECROTIC FATTY MARROW AND FRAGMENTS OF NECROTIC BONE. STATUS POST AMPUTATION, TOE NUMBER 4, REMOTE. SECTIONS OF SOFT TISSUE AT PROXIMAL MARGIN NEGATIVE FOR SIGNIFICANT INFLAMMATION AND NECROSIS. ICD10 S91.301A GROSS DESCRIPTION: the specimen is received fresh, labeled with the patient's name, and consists of a resected lower right leg (length-31.5 cm, the circumference-11.0 cm) with attached foot (24.5 cm AP, 5.2 cm SI, 7.8 cm ML). Toe #4 is absent. The remaining 4 toes have toenails. The skin is albarran-white. A crusted over all center (3.8 x 2.8 cm) overlying the medial ankle. The ulcer is 32 cm from the bone, 26.5 cm from the anterior and 17.2 cm from the posterior skin and soft tissue resection margins. No nodules, masses or other lesions are identified. The vessels are patent with a scant amount of calcifications identified in the posterior vessels. The muscle is hemorrhagic. The bones are hard and cannot be sliced at the skeletal. Ink code: purple-anterior; yellow-posterior. Section code: (A) anterior resection margin, longitudinally sectioned, customer assistance representative; (B) posterior resection margin, longitudinally sectioned, customer assistance representative; (C) ulcer, customer assistance representative; (D, E) anterior vessels, serially sectioned, customer assistance representative; (F, G) posterior vessels, serially sectioned, customer assistance representative; (H) muscle, serially sectioned, customer assistance representative; (I) bone marrow, customer assistance representative. 02/16/17 JM MICRO DESCRIPTION: See diagnosis. ICD-9 CODES: CPT CODES: 1: 49234 Electronically Signed Out Bruce Sofia MD [facility] [address], [place] [address] Technical component performed at [facility], [address], [place], [address]
--- NOTE | 2017-02-18 10:53 | PROG NOTE ---
[address] [address] PROGRESS NOTE PATIENT: JACKIE BRAVO : 1940 MR#: [id number] ADMIT: 02/07/2017 JOB ID: [id number] DATE: 02/18/2017 OBJECTIVE: Afebrile. Stable vital signs. The stump incision is healing well without signs of infection or dehiscence. He does have some stump edema but no cellulitis. White count is down to 13.1. IMPRESSION AND PLAN: Doing well.
--- NOTE | 2017-02-18 11:01 | NUR ---
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 PT continues to work with pt - and Infectious Disease is following. Plan: To SNF for rehab - Referral sent to Terri Maya. KENDY [place]
--- NOTE | 2017-02-18 11:13 | PCM.PNMED ---
Subjective Date of Service February 18, 2017 Subjective Remains afebrile. Blood cultures are negative. Complaints of pain at stump site. Exam Vital Signs Vital Sign - Last Date Time Temp Pulse Resp B/P Pulse Ox O2 Delivery O2 Flow Rate FiO2 02/18/17 10:40 36.7 60 15 126/62 93 Room Air 02/15/17 10:40 4 Intake and Output 02/17/17 02/17/17 02/18/17 Cumulative From/Thru 15:00 23:00 07:00 02/07/17 10:52 - 02/18/17 05:21 Intake Total 374 ml 1222 ml 266 ml 54961 ml Output Total 550 ml 37393 ml Balance 374 ml 672 ml 266 ml 61958 ml Intake Oral 960 ml 53898 ml IV Total 374 ml 262 ml 266 ml 8952 ml Packed Cells 682 ml Output Urine Total 550 ml 12885 ml Stool Total 3 ml Estimated Blood Loss 100 ml # Voids 5 # Bowel Movements 1 7 Exam General: Patient is lying supine in no apparent distress. HEENT: Head is atraumatic and normocephalic. Eyes: Pupils are equally round and reactive to light and accommodation. Extraocular muscles are intact. Sclera are white, anicteric. Subconjunctival mucosa is pink. Ears and nose are unremarkable. Chest: Is clear to auscultation and percussion. Heart: Rate, rhythm is regular. There is a grade 2/6 systolic ejection murmur heard best at the left sternal border. There is no rub or gallop. Abdomen: Good bowel sounds are present. Abdomen is soft, nontender, no organomegaly or masses were appreciated. Extremities: Cleanly dressed right BKA stump,left leg + 2 edema Neurologic: There are no focal neurological deficits. Patient is alert and oriented. Cranial nerves II through XII are intact. There are no sensory or motor deficits. Psychiatric: Patients mood is calm IVs and Medications Medications Reviewed: Medications were reviewed in detail Lab and Diagnostics Result Diagram: 02/18/17 0600 02/18/17 0600 Microbiology 5 sets of blood cultures are positive for MRSA Nasal screen for MRSA is negative Ankle culture for MRSA is positive X-Rays, CTs and MRIs PROCEDURE: X-RAY RIGHT ANKLE, MINIMUM THREE VIEWS ([id number]) INDICATIONS: CHARCOT FOOT TECHNIQUE: 4 views of the ankle were acquired. COMPARISON: [facility], CR, XR ANKLE MIN 3VW WT BEARING RT, 2016, 9:32. FINDINGS: Bones: Severe degenerative changes of the mid foot and hindfoot joints result in difficulty evaluating for subtle fractures. No displaced fractures are evident. There appears to be a talonavicular joint dislocation. Offset of the tibiotalar joint is also noted. Prominent plantar and Achilles spurs are present. Soft tissues: Extensive edema about the ankle is noted. No unexpected radiopaque foreign bodies are evident. Scattered soft tissue calcifications are present. IMPRESSION: 1. Prominent mid foot and hindfoot Charcot arthropathy results in difficulty evaluating for subtle fractures. 2. Apparent dislocation of the talonavicular joint. The need for better evaluation utilizing CT may be determined clinically. Dictated by: Cm Parks M.D. on 02/07/2017 at 11:00 Approved by: Cm Parks M.D. on 02/07/2017 at 11:05 PROCEDURE: CT ANKLE RIGHT W/O CONTRAST ([id number]) INDICATIONS: charcot foot right foot/ankle TECHNIQUE: Noncontrast 1-1.5 mm axial sections acquired from above the tibiotalar joint to the bottom of the calcaneus, with coronal and sagittal reformats. COMPARISON: [facility], CR, XR ANKLE 3VW RT, 02/07/2017, 11:52. FINDINGS: Image quality: Diagnostic. Bones: The bone mineralization is diffusely decreased. Severe degenerative changes and numerous scattered small ossific/calcific densities about the osseous structures of the imaged right hindfoot and midfoot results in difficulty evaluating for subtle fractures. No definite large acute fracture is evident. There is complete dislocation of the talonavicular joint with medial positioning of the talar head with respect to the navicular. The navicular remains appropriately aligned with respect to the remainder of the foot. No definite additional dislocations are appreciated. Extensive osseous erosions are noted throughout all of the midfoot and hindfoot bones. The ankle mortise is relatively well maintained. Soft tissues: Extensive subcutaneous edema about the midfoot and hindfoot is identified with prominent ankle, subtalar, and talonavicular fusions. Multiple joint bodies are present within the joint effusions. Please note that evaluation of the ligamentous and tendinous structures of the midfoot and hindfoot is limited on CT. However, there is thickening and diffuse edema noted involving the medial and lateral flexor tendons as well as the Achilles tendon. Partial-thickness tearing probably is present. No soft tissue air or soft tissue foreign bodies are evident. IMPRESSION: 1. Advanced degenerative changes of the right midfoot and hindfoot are compatible with Charcot arthropathy. 2. Medial dislocation of the talus with respect to the navicular is of uncertain chronicity. 3. Evaluation for subtle acute fractures is limited. No large displaced fracture. 4. Numerous bony erosions of the midfoot and forefoot are probably related to Charcot arthropathy. However, the possibility of superimposed osteomyelitis or inflammatory arthropathy cannot be excluded and clinical correlation is recommended. 5. Extensive soft tissue edema without a definite loculated fluid collection. 6. Moderate tendinopathy of the peroneus brevis, peroneus longus, and Achilles tendons is present. Additional areas of flexor tendinopathy along the medial aspect of the ankle probably are present. Dictated by: Cm Parks M.D. on 02/08/2017 at 15:49 Approved by: Cm Parks M.D. on 02/08/2017 at 16:14 PROCEDURE: US RENAL SONOGRAM INDICATIONS: CLAIRE TECHNIQUE: Real-time scanning was performed of the kidneys and bladder, with image documentation. COMPARISON: [facility], CT, CT CHEST ABD PELVIS W RUTHANN, 07/21/2015, 12:13. FINDINGS: Kidneys: Kidneys are normal in size. Right kidney measures 11.0 cm long; left kidney measures 11.7 cm long. Right renal cortical thickness is 0.9 cm; left renal cortical thickness is 1.3 cm. Renal cortical echotexture is normal. No hydronephrosis or nephrolithiasis. No suspicious solid mass lesions. Bladder: Pre-void bladder volume is 300 mL. Post-void residual is 200 mL. Pre -void images demonstrate no intraluminal masses or stones. On pre-void images, either ureteral jets are noted with color Doppler interrogation. (Of note, ureteral jets may not be detectable in up to 25% of cases due to insufficient differences in specific gravity between ureteral and bladder urine). Miscellaneous: No free pelvic fluid. IMPRESSION: 1. Mild right renal cortical thinning, otherwise normal kidneys. 2. Approximately 200 cc of postvoid residual. Dictated by: Dajuan BOWERS Interpreted: Ricky Verdin MD on 02/07/2017 at 16:05 Transcribed by: ZULMA on 02/07/2017 at 16:06 Approved by: Ricky Verdin M.D. on 02/07/2017 at 16:33 PROCEDURE: X-RAY RIGHT KNEE, ONE OR TWO VIEWS ([id number]) INDICATIONS: knee pain TECHNIQUE: 2 views of the knee were acquired. COMPARISON: None. FINDINGS: Bones: No fractures or dislocations. No suspicious bony lesions. Severe narrowing of the lateral femoral tibial joint and to lesser degree the patellofemoral knee joint. Tricompartmental osteophyte formation. Soft tissues: Moderate joint effusion. No suspicious soft tissue calcifications. Vascular calcifications indicate atherosclerosis. IMPRESSION: Knee joint degeneration and moderate joint effusion. Dictated by: Dajuan BOWERS Interpreted: Libertad Nieves MD on 02/10/2017 at 10: 12 Transcribed by: BHAVANA on 02/10/2017 at 10:13 Cardiac Echo Impressions Echocardiogram Report Name: JACKIE BRAVO TStudy Crispin e: 02/09/2017 Height: 70 in Hospital Exam Location: [facility] Weight: 219 lb Gender: Male BSA: 2.2 m2 : 1940 Age: 76 yrs BP: 120/65 mmHg Reason For Study: Endocarditis Ordering Physician: Performed By: Sandrine [facility] Interpretation Summary The left ventricle is normal in size, wall thickness, and systolic function without any focal wall motion abnormalities. The ejection fraction is estimated to be 60-65%. LVEF has not changed significantly since prior study. The right ventricle is normal in size, thickness and function. The right ventricular systolic pressure is estimated at 54 mmHg assuming a right atrial pressure of 8 mm Hg. The left atrium is severely dilated. Right atrial size is normal. The aortic valve is moderately calcified. The calculated aortic valve area is 1.2 cm2. The peak aortic velocity is 2.6 m/sec. The peak aortic velocity on the previous exam was 3.0 m/sec. There is no other significant valvular heart disease. No overt evidence for endocarditis but cannot exclude MV endocarditis due to significant mitral annular calcification. The aortic root is normal size. Additional Diagnostics DATE OF SURGERY: 02/15/2017 PREOPERATIVE DIAGNOSIS(ES): Diabetic ulcer of Charcot foot, right side. POSTOPERATIVE DIAGNOSIS(ES): Diabetic ulcer of Charcot foot, right side. PROCEDURE: Right below-knee amputation. SURGEON: George Hart MD TELEPHONE OPERATOR CHIEF: Bhaskar Raygoza PA-C. Assessment & Plan Patient is a 76-year-old male presents to the emergency room with cellulitis and Charcot foot on the right # MRSA bacteremia -Blood cultures has been persistently positive for MRSA. Blood culture negative 2 on 02/16 -Right ankle cultures are positive for MRSA. The right ankle appears to be the source of infection. Underwent a below the knee amputation 02/15 given patient' s persistently positive blood cultures and persistently elevated white blood cell count despite appropriate antibiotic therapy. -Antibiotics being managed by infectious disease. Continue Daptomycin and ceftaroline added 02/15 #Blood loss anemia -Postop hemoglobin 7.5, preop 9.3 -Transfused 2 PRBCs 02/16 -Hemoglobin responded appropriately #Diabetes -Hemoglobin A1c 6.6 (controlled) -Insulin sliding scale -Accu-Cheks before meals and at bedtime #Hypertension -We will continue Hydralazine 25 mg by mouth twice a day -We will continue Amlodipine 10 mg daily -Hold Spironolactone 50 mg by mouth twice a day -Continue to monitor #Acute kidney injury. Presently the time of admission,resolved -Nephrology following peripherally (Dr. Chávez). #Chronic leg edema -mention of CHF on admission. Last Echocardiogram did not show any systolic or diastolic dysfunction. No clinical evidence of CHF. Patient states he has been on Lasix and spironolactone for 6 years for lower extremity edema. He denies any history of CHF. Has +2 pedal edema on the left. Home diuretics Lasix 80 mg by mouth twice a day and spironolactone 50 mg by mouth twice a day. Diuretics has been on hold initially and restarted Lasix at 40 mg by mouth daily , spironolactone remains on hold -EF 65-70% from an echo done on 04/03/2016 #Hyperlipidemia -Continue Lipitor 20 mg by mouth daily at bedtime #Gout (currently stable) -Continue colchicine 0.6 mg twice a day #Diabetic neuropathy -Continue gabapentin 300 mg by mouth 3 times a day. Patient also has some phantom Pain and gabapentin will help Code Status: Full code Disposition: Pending hospital course Patient will then need placement in a snf facility for rehabilitation. Possible discharge early next week per ID. Tuesday or Tuesday VTE Prophylaxis: Other (The patient is on Pradaxa.) VTE Mechanical Devices: Intermittant Pneumatic CD Resuscitation Status: CPR: Attempt Resuscitation John Mcgregor MD February 18, 2017 11:13
--- NOTE | 2017-02-18 14:58 | NUR ---
PAIN Patient states pain feels better controlled today, rates pain 5-6/10 to start prior to pain medications. Medicated with 2 tabs norco just about every 4 hours. Appears comfortable in bed. Worked with PT, sitting on edge of bed. Unable to stand with walker and assistance. Dressing to R stump is in good condition, small amount of serous-sanguineous drainage noted. R stump elevated on pillow. continue to monitor.
[2017-02-19 01:11] VITALS: PULSE 60
[2017-02-19] MEDS: Ceftaroline Inj 600 MG in Dextrose 5% 250 ML IV SCH ×3 (04:03→20:10)
[2017-02-19 05:32] LABS: BASOPHILS % (AUTO) 0.1 % (0-3); EOSINOPHILS % (AUTO) 0 % (0-5); MONOCYTES % (AUTO) 8.7 % (4-12); Mean Corpuscular Hemoglobin 28.5 pg (27.0-35.0); Mean Corpuscular Volume 88.5 fL (81-100); NEUTROPHILS % (AUTO) 85.9 % (40-74); Platelet Count 450 bil/L (150-400)
[2017-02-19 05:37] VITALS: BP 134/65; PULSE 60; RESP 18; O2SAT 93
--- NOTE | 2017-02-19 07:39 | NUR ---
INCONTINENT: Pt. was incontinent of very large loose stools x2 tonight. Able to void per urinal dark shital urine. A & O making needs known.
[2017-02-19] MEDS: Insulin LISPRO 300 Unit/3 mL Inj SUBQ SCH ×4 (08:00→22:00)
[2017-02-19] MEDS: DAPTOmycin Inj 750 MG in 0.9% Sodium Chloride 50 ML IV SCH (09:52)
[2017-02-19] MEDS: Ascorbic Acid 500 mg Tablet PO SCH (09:55)
[2017-02-19] MEDS ORDERED: Sodium Chloride LOK Flush 10 mL Syringe IVFLUSH PRN ×2 (09:55)
[2017-02-19] MEDS: FEBUXOSTAT 40 MG PO SCH (09:56)
[2017-02-19] MEDS: Dabigatran 150 mg Capsule PO SCH ×2 (09:57→20:13)
[2017-02-19] MEDS: Mupirocin 2% 22 Gm Ointment TOPICAL SCH ×2 (09:59→20:13)
--- NOTE | 2017-02-19 10:09 | PCM.PNMED ---
Subjective Date of Service February 19, 2017 Subjective Pain controlled. Remains afebrile. Blood culture continues to be negative. Had loose stool overnight.CLAIRE noted Exam Vital Signs Vital Sign - Last Date Time Temp Pulse Resp B/P Pulse Ox O2 Delivery O2 Flow Rate FiO2 02/19/17 05:37 36.5 60 18 134/65 93 CPAP 02/15/17 10:40 4 Intake and Output 02/18/17 02/18/17 02/19/17 Cumulative From/Thru 15:00 23:00 07:00 02/07/17 10:52 - 02/19/17 06:55 Intake Total 602 ml 1151 ml 762 ml 44049 ml Output Total 525 ml 655 ml 600 ml 12880 ml Balance 77 ml 496 ml 162 ml 90442 ml Intake Oral 520 ml 886 ml 150 ml 22102 ml IV Total 82 ml 265 ml 612 ml 9911 ml Packed Cells 682 ml Output Urine Total 525 ml 655 ml 600 ml 07958 ml Stool Total 3 ml Estimated Blood Loss 100 ml # Voids 2 7 # Bowel Movements 0 3 2 12 Exam General: Patient is lying supine in no apparent distress. HEENT: Head is atraumatic and normocephalic. Eyes: Pupils are equally round and reactive to light and accommodation. Extraocular muscles are intact. Sclera are white, anicteric. Subconjunctival mucosa is pink. Ears and nose are unremarkable. Chest: Is clear to auscultation and percussion. Heart: Rate, rhythm is regular. There is a grade 2/6 systolic ejection murmur heard best at the left sternal border. There is no rub or gallop. Abdomen: Good bowel sounds are present. Abdomen is soft, nontender, no organomegaly or masses were appreciated. Extremities: Cleanly dressed right BKA stump,left leg + 2 edema Neurologic: There are no focal neurological deficits. Patient is alert and oriented. Cranial nerves II through XII are intact. There are no sensory or motor deficits. Psychiatric: Patients mood is calm IVs and Medications Medications Reviewed: Medications were reviewed in detail Lab and Diagnostics Result Diagram: 02/19/1751902/19/17519 Microbiology 5 sets of blood cultures are positive for MRSA Nasal screen for MRSA is negative Ankle culture for MRSA is positive X-Rays, CTs and MRIs PROCEDURE: X-RAY RIGHT ANKLE, MINIMUM THREE VIEWS ([id number]) INDICATIONS: CHARCOT FOOT TECHNIQUE: 4 views of the ankle were acquired. COMPARISON: [facility], CR, XR ANKLE MIN 3VW WT BEARING RT, 2016, 9:32. FINDINGS: Bones: Severe degenerative changes of the mid foot and hindfoot joints result in difficulty evaluating for subtle fractures. No displaced fractures are evident. There appears to be a talonavicular joint dislocation. Offset of the tibiotalar joint is also noted. Prominent plantar and Achilles spurs are present. Soft tissues: Extensive edema about the ankle is noted. No unexpected radiopaque foreign bodies are evident. Scattered soft tissue calcifications are present. IMPRESSION: 1. Prominent mid foot and hindfoot Charcot arthropathy results in difficulty evaluating for subtle fractures. 2. Apparent dislocation of the talonavicular joint. The need for better evaluation utilizing CT may be determined clinically. Dictated by: Cm Parks M.D. on 02/07/2017 at 11:00 Approved by: Cm Parks M.D. on 02/07/2017 at 11:05 PROCEDURE: CT ANKLE RIGHT W/O CONTRAST ([id number]) INDICATIONS: charcot foot right foot/ankle TECHNIQUE: Noncontrast 1-1.5 mm axial sections acquired from above the tibiotalar joint to the bottom of the calcaneus, with coronal and sagittal reformats. COMPARISON: [facility], CR, XR ANKLE 3VW RT, 02/07/2017, 11:52. FINDINGS: Image quality: Diagnostic. Bones: The bone mineralization is diffusely decreased. Severe degenerative changes and numerous scattered small ossific/calcific densities about the osseous structures of the imaged right hindfoot and midfoot results in difficulty evaluating for subtle fractures. No definite large acute fracture is evident. There is complete dislocation of the talonavicular joint with medial positioning of the talar head with respect to the navicular. The navicular remains appropriately aligned with respect to the remainder of the foot. No definite additional dislocations are appreciated. Extensive osseous erosions are noted throughout all of the midfoot and hindfoot bones. The ankle mortise is relatively well maintained. Soft tissues: Extensive subcutaneous edema about the midfoot and hindfoot is identified with prominent ankle, subtalar, and talonavicular fusions. Multiple joint bodies are present within the joint effusions. Please note that evaluation of the ligamentous and tendinous structures of the midfoot and hindfoot is limited on CT. However, there is thickening and diffuse edema noted involving the medial and lateral flexor tendons as well as the Achilles tendon. Partial-thickness tearing probably is present. No soft tissue air or soft tissue foreign bodies are evident. IMPRESSION: 1. Advanced degenerative changes of the right midfoot and hindfoot are compatible with Charcot arthropathy. 2. Medial dislocation of the talus with respect to the navicular is of uncertain chronicity. 3. Evaluation for subtle acute fractures is limited. No large displaced fracture. 4. Numerous bony erosions of the midfoot and forefoot are probably related to Charcot arthropathy. However, the possibility of superimposed osteomyelitis or inflammatory arthropathy cannot be excluded and clinical correlation is recommended. 5. Extensive soft tissue edema without a definite loculated fluid collection. 6. Moderate tendinopathy of the peroneus brevis, peroneus longus, and Achilles tendons is present. Additional areas of flexor tendinopathy along the medial aspect of the ankle probably are present. Dictated by: Cm Parks M.D. on 02/08/2017 at 15:49 Approved by: Cm Parks M.D. on 02/08/2017 at 16:14 PROCEDURE: US RENAL SONOGRAM INDICATIONS: CLAIRE TECHNIQUE: Real-time scanning was performed of the kidneys and bladder, with image documentation. COMPARISON: [facility], CT, CT CHEST ABD PELVIS W CON, 07/21/2015, 12:13. FINDINGS: Kidneys: Kidneys are normal in size. Right kidney measures 11.0 cm long; left kidney measures 11.7 cm long. Right renal cortical thickness is 0.9 cm; left renal cortical thickness is 1.3 cm. Renal cortical echotexture is normal. No hydronephrosis or nephrolithiasis. No suspicious solid mass lesions. Bladder: Pre-void bladder volume is 300 mL. Post-void residual is 200 mL. Pre -void images demonstrate no intraluminal masses or stones. On pre-void images, either ureteral jets are noted with color Doppler interrogation. (Of note, ureteral jets may not be detectable in up to 25% of cases due to insufficient differences in specific gravity between ureteral and bladder urine). Miscellaneous: No free pelvic fluid. IMPRESSION: 1. Mild right renal cortical thinning, otherwise normal kidneys. 2. Approximately 200 cc of postvoid residual. Dictated by: Dajuan BOWERS Interpreted: Ricky Verdin MD on 02/07/2017 at 16:05 Transcribed by: ZULMA on 02/07/2017 at 16:06 Approved by: Ricky Verdin M.D. on 02/07/2017 at 16:33 PROCEDURE: X-RAY RIGHT KNEE, ONE OR TWO VIEWS ([id number]) INDICATIONS: knee pain TECHNIQUE: 2 views of the knee were acquired. COMPARISON: None. FINDINGS: Bones: No fractures or dislocations. No suspicious bony lesions. Severe narrowing of the lateral femoral tibial joint and to lesser degree the patellofemoral knee joint. Tricompartmental osteophyte formation. Soft tissues: Moderate joint effusion. No suspicious soft tissue calcifications. Vascular calcifications indicate atherosclerosis. IMPRESSION: Knee joint degeneration and moderate joint effusion. Dictated by: Dajuan BOWERS Interpreted: Libertad Nieves MD on 02/10/2017 at 10: 12 Transcribed by: BHAVANA on 02/10/2017 at 10:13 Cardiac Echo Impressions Echocardiogram Report Name: JACKIE BRAVO TStudy Crispin e: 02/09/2017 Height: 70 in Hospital Exam Location: [facility] Weight: 219 lb Gender: Male BSA: 2.2 m2 : 1940 Age: 76 yrs BP: 120/65 mmHg Reason For Study: Endocarditis Ordering Physician: Performed By: Sandrine [facility] Interpretation Summary The left ventricle is normal in size, wall thickness, and systolic function without any focal wall motion abnormalities. The ejection fraction is estimated to be 60-65%. LVEF has not changed significantly since prior study. The right ventricle is normal in size, thickness and function. The right ventricular systolic pressure is estimated at 54 mmHg assuming a right atrial pressure of 8 mm Hg. The left atrium is severely dilated. Right atrial size is normal. The aortic valve is moderately calcified. The calculated aortic valve area is 1.2 cm2. The peak aortic velocity is 2.6 m/sec. The peak aortic velocity on the previous exam was 3.0 m/sec. There is no other significant valvular heart disease. No overt evidence for endocarditis but cannot exclude MV endocarditis due to significant mitral annular calcification. The aortic root is normal size. Additional Diagnostics DATE OF SURGERY: 02/15/2017 PREOPERATIVE DIAGNOSIS(ES): Diabetic ulcer of Charcot foot, right side. POSTOPERATIVE DIAGNOSIS(ES): Diabetic ulcer of Charcot foot, right side. PROCEDURE: Right below-knee amputation. SURGEON: George Hart MD MANAGER MECHANICAL: Bhaskar Raygoza PA-C. Assessment & Plan Patient is a 76-year-old male presents to the emergency room with cellulitis and Charcot foot on the right # MRSA bacteremia -Blood cultures has been persistently positive for MRSA. Blood culture negative 2 starting 02/16 -Right ankle cultures are positive for MRSA. The right ankle appears to be the source of infection. Underwent a below the knee amputation 02/15 given patient' s persistently positive blood cultures and persistently elevated white blood cell count despite appropriate antibiotic therapy. -Antibiotics being managed by infectious disease. Continue Daptomycin and ceftaroline added 02/15 -will order PICC given negative blood culture for days now. #Blood loss anemia -Postop hemoglobin 7.5, preop 9.3 -Transfused 2 PRBCs 02/16 -Hemoglobin responded appropriately #Diabetes -Hemoglobin A1c 6.6 (controlled) -Insulin sliding scale -Accu-Cheks before meals and at bedtime #Hypertension -We will continue Hydralazine 25 mg by mouth twice a day -We will continue Amlodipine 10 mg daily -Hold Spironolactone 50 mg by mouth twice a day -Continue to monitor #Acute kidney injury. Presently the time of admission,resolved -Patient has new CLAIRE, creatinine 1.39 from baseline of 1.1. Multifactorial: Inadequate oral intake, diuretic/Lasix use, antibiotics, new onset diarrhea. Patient's leg edema has improved. We will discontinue Lasix. Encouraged to drink more water. Follow BMP tomorrow #Hyponatremia -Due to above, management as above #Acute diarrhea -Stool C. difficile requested #Chronic leg edema -mention of CHF on admission. Last Echocardiogram did not show any systolic or diastolic dysfunction. No clinical evidence of CHF. Patient states he has been on Lasix and spironolactone for 6 years for lower extremity edema. He denies any history of CHF. Has +2 pedal edema on the left. Home diuretics Lasix 80 mg by mouth twice a day and spironolactone 50 mg by mouth twice a day. Diuretics has been on hold initially and restarted Lasix at 40 mg by mouth daily , spironolactone remains on hold -EF 65-70% from an echo done on 04/03/2016 #Hyperlipidemia -Continue Lipitor 20 mg by mouth daily at bedtime #Gout (currently stable) -Continue colchicine 0.6 mg twice a day #Diabetic neuropathy -Continue gabapentin 300 mg by mouth 3 times a day. Patient also has some phantom Pain and gabapentin will help Code Status: Full code Disposition: Pending hospital course Patient will then need [place] in a [place] [facility] for [facility]. Possible discharge early next week per ID. Tuesday or Tuesday VTE Prophylaxis: Other (The patient is on Pradaxa.) VTE Mechanical Devices: Intermittant Pneumatic CD Resuscitation Status: CPR: Attempt Resuscitation John Mcgregor MD February 19, 2017 10:09
[2017-02-19] MEDS: Dextrose 5% 500 ML IV SCH (10:10)
--- NOTE | 2017-02-19 15:25 | DRSVH ---
PROCEDURE: X-RAY PICC LINE PLACEMENT BY NURSE ([id number]) INDICATIONS: prolonged iv antibiotic COMPARISON: None. FINDINGS: PICC was placed by the intravenous therapy team from the right side. Fluoroscopic spot fi lm demonstrates tip of PICC in the lower SVC. IMPRESSION: Tip of PICC lies within the lower SVC. Dictated by: Lawrence Stone M.D. on 02/19/2017 at 15:23 Approved by: Lawrence Stone M.D. on 02/19/2017 at 15:23
[2017-02-19 17:34] VITALS: BP 138/68; PULSE 60; RESP 18; O2SAT 92
--- NOTE | 2017-02-19 19:37 | NUR ---
Incontinence Patient continues to have some incontinence this shift, stool sample sent. Barrier wipes and cream applied. Care is ongoing.
[2017-02-19 20:14] VITALS: BP 148/69; PULSE 60; RESP 16; O2SAT 91
--- NOTE | 2017-02-20 02:20 | NUR ---
ACTIVITY/APPETITE: Pt. has been resting in bed through the night with no c/o pain or discomfort. Pt. refused to eat dinner tonight, offered snacks and juices, states does not have any appetite and nothing sounds good to eat. SH=770. No coverage given. Sleeping with home Cpap on and cont. pulse oximetry in place. On going care. Addendum: 02/20/17 at 0629 by TITA DC RN (NELLY) ADDENDUM: Incontinent of large incontinent stool and urine mix.
[2017-02-20] MEDS: Ceftaroline Inj 600 MG in Dextrose 5% 250 ML IV SCH (04:03)
[2017-02-20 06:17] VITALS: BP 134/70; PULSE 60; RESP 16; O2SAT 96
[2017-02-20] MEDS: Insulin LISPRO 300 Unit/3 mL Inj SUBQ SCH ×4 (09:31→22:00)
--- NOTE | 2017-02-20 09:37 | PROG NOTE ---
[address] [address] PROGRESS NOTE PATIENT: JACKIE BRAVO : 1940 MR#: [id number] ADMIT: 02/07/2017 JOB ID: [id number] DATE: 02/20/2017 SUBJECTIVE: The patient is seen in followup for his recent right fgkoj-gbx-xwke amputation. He has remained afebrile and hemodynamically normal over the last 24 hours. This morning he is alert and oriented and comfortable. He denies any significant pain in that right stump. Dressing was taken down. The stump appears healthy with intact incision and soft tissue. The dressing was replaced. ASSESSMENT AND PLAN: This is a 76-year-old man status post a right cndax-dtj-bish amputation doing well. The patient continues to do well. From a surgical standpoint, he can go to rehab whenever cleared by Medicine.
[2017-02-20] MEDS: Dextrose 5% 500 ML IV SCH (10:10)
[2017-02-20 10:22] VITALS: BP 140/65; PULSE 60; RESP 18; O2SAT 92
[2017-02-20] MEDS: HYDROcodone-APAP 5-325 mg Tablet PO PRN (10:36)
[2017-02-20] MEDS: Ascorbic Acid 500 mg Tablet PO SCH (10:37)
[2017-02-20] MEDS: Dabigatran 150 mg Capsule PO SCH ×2 (10:40→20:56)
[2017-02-20] MEDS: FEBUXOSTAT 40 MG PO SCH (10:40)
[2017-02-20 11:22] LABS: BASOPHILS % (AUTO) 0.1 % (0-3); EOSINOPHILS % (AUTO) 0 % (0-5); MONOCYTES % (AUTO) 9.1 % (4-12); Mean Corpuscular Volume 85.4 fL (81-100); NEUTROPHILS % (AUTO) 86.4 % (40-74); Platelet Count 434 bil/L (150-400)
[2017-02-20] MEDS: Mupirocin 2% 22 Gm Ointment TOPICAL SCH ×2 (11:22→20:58)
[2017-02-20] MEDS: DAPTOmycin Inj 750 MG in 0.9% Sodium Chloride 50 ML IV SCH (11:22)
--- NOTE | 2017-02-20 12:28 | PCM.PNMED ---
Subjective Date of Service February 20, 2017 Subjective kidney function continues to worsen. afebrile. Exam Vital Signs Vital Sign - Last Date Time Temp Pulse Resp B/P Pulse Ox O2 Delivery O2 Flow Rate FiO2 02/20/17 10:22 36.6 60 18 140/65 92 Room Air 02/19/17 20:14 2.00 Intake and Output 02/19/17 02/19/17 02/20/17 Cumulative From/Thru 15:00 23:00 07:00 02/07/17 10:52 - 02/20/17 06:51 Intake Total 400 ml 1343 ml 54270 ml Output Total 504 ml 15656 ml Balance -104 ml 1343 ml 54207 ml Intake Oral 400 ml 300 ml 17489 ml IV Total 1043 ml 12723 ml Packed Cells 682 ml Output Urine Total 500 ml 66901 ml Stool Total 3 ml Urine/Stool Mix 4 ml 4 ml Estimated Blood Loss 100 ml # Voids 1 8 # Bowel Movements 3 15 Exam General: Patient is lying supine in no apparent distress. HEENT: Head is atraumatic and normocephalic. Eyes: Pupils are equally round and reactive to light and accommodation. Extraocular muscles are intact. Sclera are white, anicteric. Subconjunctival mucosa is pink. Ears and nose are unremarkable. Chest: Is clear to auscultation and percussion. Heart: Rate, rhythm is regular. There is a grade 2/6 systolic ejection murmur heard best at the left sternal border. There is no rub or gallop. Abdomen: Good bowel sounds are present. Abdomen is soft, nontender, no organomegaly or masses were appreciated. Extremities: Cleanly dressed right BKA stump,left leg + 2 edema Neurologic: There are no focal neurological deficits. Patient is alert and oriented. Cranial nerves II through XII are intact. There are no sensory or motor deficits. Psychiatric: Patients mood is calm IVs and Medications Medications Reviewed: Medications were reviewed in detail Lab and Diagnostics Result Diagram: 02/20/17 1105 02/20/17 1105 Microbiology 5 sets of blood cultures are positive for MRSA Nasal screen for MRSA is negative Ankle culture for MRSA is positive X-Rays, CTs and MRIs PROCEDURE: X-RAY RIGHT ANKLE, MINIMUM THREE VIEWS ([id number]) INDICATIONS: CHARCOT FOOT TECHNIQUE: 4 views of the ankle were acquired. COMPARISON: [facility], CR, XR ANKLE MIN 3VW WT BEARING RT, 2016, 9:32. FINDINGS: Bones: Severe degenerative changes of the mid foot and hindfoot joints result in difficulty evaluating for subtle fractures. No displaced fractures are evident. There appears to be a talonavicular joint dislocation. Offset of the tibiotalar joint is also noted. Prominent plantar and Achilles spurs are present. Soft tissues: Extensive edema about the ankle is noted. No unexpected radiopaque foreign bodies are evident. Scattered soft tissue calcifications are present. IMPRESSION: 1. Prominent mid foot and hindfoot Charcot arthropathy results in difficulty evaluating for subtle fractures. 2. Apparent dislocation of the talonavicular joint. The need for better evaluation utilizing CT may be determined clinically. Dictated by: Cm Parks M.D. on 02/07/2017 at 11:00 Approved by: Cm Parks M.D. on 02/07/2017 at 11:05 PROCEDURE: CT ANKLE RIGHT W/O CONTRAST ([id number]) INDICATIONS: charcot foot right foot/ankle TECHNIQUE: Noncontrast 1-1.5 mm axial sections acquired from above the tibiotalar joint to the bottom of the calcaneus, with coronal and sagittal reformats. COMPARISON: [facility], CR, XR ANKLE 3VW RT, 02/07/2017, 11:52. FINDINGS: Image quality: Diagnostic. Bones: The bone mineralization is diffusely decreased. Severe degenerative changes and numerous scattered small ossific/calcific densities about the osseous structures of the imaged right hindfoot and midfoot results in difficulty evaluating for subtle fractures. No definite large acute fracture is evident. There is complete dislocation of the talonavicular joint with medial positioning of the talar head with respect to the navicular. The navicular remains appropriately aligned with respect to the remainder of the foot. No definite additional dislocations are appreciated. Extensive osseous erosions are noted throughout all of the midfoot and hindfoot bones. The ankle mortise is relatively well maintained. Soft tissues: Extensive subcutaneous edema about the midfoot and hindfoot is identified with prominent ankle, subtalar, and talonavicular fusions. Multiple joint bodies are present within the joint effusions. Please note that evaluation of the ligamentous and tendinous structures of the midfoot and hindfoot is limited on CT. However, there is thickening and diffuse edema noted involving the medial and lateral flexor tendons as well as the Achilles tendon. Partial-thickness tearing probably is present. No soft tissue air or soft tissue foreign bodies are evident. IMPRESSION: 1. Advanced degenerative changes of the right midfoot and hindfoot are compatible with Charcot arthropathy. 2. Medial dislocation of the talus with respect to the navicular is of uncertain chronicity. 3. Evaluation for subtle acute fractures is limited. No large displaced fracture. 4. Numerous bony erosions of the midfoot and forefoot are probably related to Charcot arthropathy. However, the possibility of superimposed osteomyelitis or inflammatory arthropathy cannot be excluded and clinical correlation is recommended. 5. Extensive soft tissue edema without a definite loculated fluid collection. 6. Moderate tendinopathy of the peroneus brevis, peroneus longus, and Achilles tendons is present. Additional areas of flexor tendinopathy along the medial aspect of the ankle probably are present. Dictated by: Cm Parks M.D. on 02/08/2017 at 15:49 Approved by: Cm Parks M.D. on 02/08/2017 at 16:14 PROCEDURE: US RENAL SONOGRAM INDICATIONS: CLAIRE TECHNIQUE: Real-time scanning was performed of the kidneys and bladder, with image documentation. COMPARISON: [facility], CT, CT CHEST ABD PELVIS W RUTHANN, 07/21/2015, 12:13. FINDINGS: Kidneys: Kidneys are normal in size. Right kidney measures 11.0 cm long; left kidney measures 11.7 cm long. Right renal cortical thickness is 0.9 cm; left renal cortical thickness is 1.3 cm. Renal cortical echotexture is normal. No hydronephrosis or nephrolithiasis. No suspicious solid mass lesions. Bladder: Pre-void bladder volume is 300 mL. Post-void residual is 200 mL. Pre -void images demonstrate no intraluminal masses or stones. On pre-void images, either ureteral jets are noted with color Doppler interrogation. (Of note, ureteral jets may not be detectable in up to 25% of cases due to insufficient differences in specific gravity between ureteral and bladder urine). Miscellaneous: No free pelvic fluid. IMPRESSION: 1. Mild right renal cortical thinning, otherwise normal kidneys. 2. Approximately 200 cc of postvoid residual. Dictated by: Dajuan BOWERS Interpreted: Ricky Verdin MD on 02/07/2017 at 16:05 Transcribed by: ZULMA on 02/07/2017 at 16:06 Approved by: Ricky Verdin M.D. on 02/07/2017 at 16:33 PROCEDURE: X-RAY RIGHT KNEE, ONE OR TWO VIEWS ([id number]) INDICATIONS: knee pain TECHNIQUE: 2 views of the knee were acquired. COMPARISON: None. FINDINGS: Bones: No fractures or dislocations. No suspicious bony lesions. Severe narrowing of the lateral femoral tibial joint and to lesser degree the patellofemoral knee joint. Tricompartmental osteophyte formation. Soft tissues: Moderate joint effusion. No suspicious soft tissue calcifications. Vascular calcifications indicate atherosclerosis. IMPRESSION: Knee joint degeneration and moderate joint effusion. Dictated by: Dajuan BOWERS Interpreted: Libertad Nieves MD on 02/10/2017 at 10: 12 Transcribed by: BHAVANA on 02/10/2017 at 10:13 Cardiac Echo Impressions Echocardiogram Report Name: JACKIE BRAVO TStudy Crispin e: 02/09/2017 Height: 70 in Hospital Exam Location: [facility] Weight: 219 lb Gender: Male BSA: 2.2 m2 : 1940 Age: 76 yrs BP: 120/65 mmHg Reason For Study: Endocarditis Ordering Physician: Performed By: [facility] Interpretation Summary The left ventricle is normal in size, wall thickness, and systolic function without any focal wall motion abnormalities. The ejection fraction is estimated to be 60-65%. LVEF has not changed significantly since prior study. The right ventricle is normal in size, thickness and function. The right ventricular systolic pressure is estimated at 54 mmHg assuming a right atrial pressure of 8 mm Hg. The left atrium is severely dilated. Right atrial size is normal. The aortic valve is moderately calcified. The calculated aortic valve area is 1.2 cm2. The peak aortic velocity is 2.6 m/sec. The peak aortic velocity on the previous exam was 3.0 m/sec. There is no other significant valvular heart disease. No overt evidence for endocarditis but cannot exclude MV endocarditis due to significant mitral annular calcification. The aortic root is normal size. Additional Diagnostics DATE OF SURGERY: 02/15/2017 PREOPERATIVE DIAGNOSIS(ES): Diabetic ulcer of Charcot foot, right side. POSTOPERATIVE DIAGNOSIS(ES): Diabetic ulcer of Charcot foot, right side. PROCEDURE: Right below-knee amputation. SURGEON: George Hart MD VE TEACHER: Bhaskar Raygoza PA-C. Assessment & Plan Patient is a 76-year-old male presents to the emergency room with cellulitis and Charcot foot on the right #Acute kidney injury. poa resolved and now new episode of CLAIRE -Patient has new CLAIRE, creatinine 1.59 from baseline of 1.1. Multifactorial: Inadequate oral intake, diuretic/Lasix use, antibiotics, new onset diarrhea. Patient's leg edema has improved. I discontinued Lasix 40 daily on 02/19 , Follow BMP tomorrow -Kidney function continues to worsen, patient has poor oral intake,will start NS at 100ml/h -Spoke with pharmacy,will lower ceftaroline dose to current GFR , keep same dose of daptomycin -Started Imodium for diarrhea, C. difficile is negative. #Hyponatremia -Due to above, management as above # MRSA bacteremia -Blood cultures had been persistently positive for MRSA. Blood culture negative 2 starting 02/16 -Right ankle cultures are positive for MRSA. The right ankle appears to be the source of infection. Underwent a below the knee amputation 02/15 given patient' s persistently positive blood cultures and persistently elevated white blood cell count despite appropriate antibiotic therapy. -Antibiotics being managed by infectious disease. Continue Daptomycin and ceftaroline added 02/15 - PICC placed 02/19 #Blood loss anemia -Postop hemoglobin 7.5, preop 9.3 -Transfused 2 PRBCs 02/16 -Hemoglobin responded appropriately #Diabetes -Hemoglobin A1c 6.6 (controlled) -Insulin sliding scale -Accu-Cheks before meals and at bedtime #Hypertension -We will continue Hydralazine 25 mg by mouth twice a day -We will continue Amlodipine 10 mg daily -Hold Spironolactone 50 mg by mouth twice a day.has been on hold since the initial CLAIRE -Continue to monitor #Acute diarrhea -Stool C. difficile negative -imodium prn #Chronic leg edema -mention of CHF on admission. Last Echocardiogram did not show any systolic or diastolic dysfunction. No clinical evidence of CHF. Patient states he has been on Lasix and spironolactone for 6 years for lower extremity edema. He denies any history of CHF. Has +2 pedal edema on the left. Home diuretics Lasix 80 mg by mouth twice a day and spironolactone 50 mg by mouth twice a day. Diuretics has been on hold initially and restarted Lasix at 40 mg by mouth daily ,now on hold again for Claire, spironolactone remains on hold -i don't think srinivas needs any diuretics up on discharge .no clear indication -EF 65-70% #Hyperlipidemia -Continue Lipitor 20 mg by mouth daily at bedtime #Gout (currently stable) -Continue colchicine 0.6 mg twice a day #Diabetic neuropathy -On gabapentin 300 mg by mouth 3 times a day. Patient also has some phantom Pain and gabapentin continued. now Will hold due to CLAIRE Code Status: Full code Disposition: Pending hospital course Patient will then need placement in a assisted facility for rehabilitation. Possible discharge early next week per ID. Tuesday or Tuesday VTE Prophylaxis: Other (The patient is on Pradaxa.) VTE Mechanical Devices: Intermittant Pneumatic CD Resuscitation Status: CPR: Attempt Resuscitation John Mcgregor MD February 20, 2017 12:28
[2017-02-20] MEDS: 0.9% Sodium Chloride 1,000 ML IV SCH (14:33)
[2017-02-20 16:16] VITALS: BP 120/71; PULSE 63; RESP 18; O2SAT 95
[2017-02-20] MEDS: D5W IV SCH ×2 (17:10)
[2017-02-20] MEDS: CEFTAROLINE IV SCH ×2 (17:10)
--- NOTE | 2017-02-20 18:18 | NUR ---
Appetite/Stool/Skin Pt has had a minimal appetite today. MD aware. States he doesn't really like the food here. Asked if he had any friends or family that could bring him in food that he may like. Pt states "maybe." Pt was incont of dark green mucus like stool x5 today. MD ordered Imodium. Guiac sent to lab which came back positive. H/H slowly trending down. MD aware. Medicated with vicodin 2 tabs x1 this shift for phantom pains. Pt still requires 2L NC during the day to keep sats >92%. Skin around scrotum still remains excoriated. Barrier wipes and alternating with jl. Care conts
[2017-02-20 20:06] VITALS: BP 130/64; PULSE 60; RESP 20; O2SAT 93
[2017-02-21] MEDS: 0.9% Sodium Chloride 1,000 ML IV SCH ×3 (01:20→17:40)
[2017-02-21] MEDS: HYDROcodone-APAP 5-325 mg Tablet PO PRN (03:49)
[2017-02-21 03:52] VITALS: BP 131/72; PULSE 68; RESP 20; O2SAT 95
[2017-02-21] MEDS: D5W IV SCH ×4 (03:58→16:33)
[2017-02-21] MEDS: CEFTAROLINE IV SCH ×4 (03:58→16:33)
[2017-02-21 04:06] LABS: BASOPHILS % (AUTO) 0.1 % (0-3); EOSINOPHILS % (AUTO) 0 % (0-5); MONOCYTES % (AUTO) 11.3 % (4-12); Mean Corpuscular Hemoglobin 27.8 pg (27.0-35.0); Mean Corpuscular Volume 87.8 fL (81-100); NEUTROPHILS % (AUTO) 84.2 % (40-74); Platelet Count 435 bil/L (150-400)
[2017-02-21] MEDS: Insulin LISPRO 300 Unit/3 mL Inj SUBQ SCH ×4 (08:00→22:00)
[2017-02-21] MEDS: DAPTOmycin Inj 750 MG in 0.9% Sodium Chloride 50 ML IV SCH (10:02)
[2017-02-21] MEDS: FEBUXOSTAT 40 MG PO SCH (10:04)
[2017-02-21] MEDS: Ascorbic Acid 500 mg Tablet PO SCH (10:05)
[2017-02-21] MEDS: Mupirocin 2% 22 Gm Ointment TOPICAL SCH ×2 (10:06→21:21)
[2017-02-21] MEDS: Dextrose 5% 500 ML IV SCH (10:10)
--- NOTE | 2017-02-21 10:38 | NUR ---
Social Work: Continued Discharge Planning D: EMR reviewed. Pt is on day 14 of hospitalization. Pt had BKA on 02/15. Per MD in rounds, pt is awaiting ID to determine what IVABX pt will be given at discharge. [facility] is waiting to accept pt until pt's IVABX are determined. PT continues to work with pt. ID is scheduled to see pt 02/22. A: Pt for whom a SNF has been deemed medically necessary. Plan: Pt likely to go to [facility] for rehab. SW to follow for IVABX at discharge and update [facility] for approval. BRENDA [place]more
--- NOTE | 2017-02-21 10:53 | PCM.PNMED ---
Subjective Date of Service February 21, 2017 Subjective pt still having diarrhea, >2times denied abd pain, n, v but has poor appetite noted black mucus stools, FOBT+ pt thinks it's from iron, he had similar stools all the times noted cr worse, LFT trending up h/h also slowly dropping Exam Vital Signs Vital Sign - Last Date Time Temp Pulse Resp B/P Pulse Ox O2 Delivery O2 Flow Rate FiO2 02/21/17 05:02 Supplement Oxygen 02/21/17 03:52 36.6 68 20 131/72 95 02/20/17 20:06 2.00 Intake and Output 02/20/17 02/20/17 02/21/17 Cumulative From/Thru 15: 23:00 07:00 02/07/17 10:52 - 02/21/17 06:41 Intake Total 976 ml 1911 ml 58828 ml Output Total 700 ml 920 ml 82016 ml Balance 276 ml 991 ml 92354 ml Intake Oral 736 ml 100 ml 83698 ml IV Total 240 ml 1811 ml 57599 ml Packed Cells 682 ml Output Urine Total 700 ml 10511 ml Stool Total 460 ml 463 ml Urine/Stool Mix 4 ml Emesis 460 ml 460 ml Estimated Blood Loss 100 ml # Voids 8 # Bowel Movements 3 1 19 Exam NAD, comfortably laying down on the bed no JVD, MMM, no LAD RRR, nl s1, s2 no mrg CTAB, no w,c S,ND,NT,normoactive BS+ warm, no edema, pulses 2/2 IVs and Medications Medications Reviewed: Medications were reviewed in detail Lab and Diagnostics Result Diagram: 02/21/17 0350 02/21/17 0350 Microbiology 5 sets of blood cultures are positive for MRSA Nasal screen for MRSA is negative Ankle culture for MRSA is positive X-Rays, CTs and MRIs PROCEDURE: X-RAY RIGHT ANKLE, MINIMUM THREE VIEWS ([id number]) INDICATIONS: CHARCOT FOOT TECHNIQUE: 4 views of the ankle were acquired. COMPARISON: [facility], CR, XR ANKLE MIN 3VW WT BEARING RT, 2016, 9:32. FINDINGS: Bones: Severe degenerative changes of the mid foot and hindfoot joints result in difficulty evaluating for subtle fractures. No displaced fractures are evident. There appears to be a talonavicular joint dislocation. Offset of the tibiotalar joint is also noted. Prominent plantar and Achilles spurs are present. Soft tissues: Extensive edema about the ankle is noted. No unexpected radiopaque foreign bodies are evident. Scattered soft tissue calcifications are present. IMPRESSION: 1. Prominent mid foot and hindfoot Charcot arthropathy results in difficulty evaluating for subtle fractures. 2. Apparent dislocation of the talonavicular joint. The need for better evaluation utilizing CT may be determined clinically. Dictated by: Cm Parks M.D. on 02/07/2017 at 11:00 Approved by: Cm Parks M.D. on 02/07/2017 at 11:05 PROCEDURE: CT ANKLE RIGHT W/O CONTRAST ([id number]) INDICATIONS: charcot foot right foot/ankle TECHNIQUE: Noncontrast 1-1.5 mm axial sections acquired from above the tibiotalar joint to the bottom of the calcaneus, with coronal and sagittal reformats. COMPARISON: [facility], CR, XR ANKLE 3VW RT, 02/07/2017, 11:52. FINDINGS: Image quality: Diagnostic. Bones: The bone mineralization is diffusely decreased. Severe degenerative changes and numerous scattered small ossific/calcific densities about the osseous structures of the imaged right hindfoot and midfoot results in difficulty evaluating for subtle fractures. No definite large acute fracture is evident. There is complete dislocation of the talonavicular joint with medial positioning of the talar head with respect to the navicular. The navicular remains appropriately aligned with respect to the remainder of the foot. No definite additional dislocations are appreciated. Extensive osseous erosions are noted throughout all of the midfoot and hindfoot bones. The ankle mortise is relatively well maintained. Soft tissues: Extensive subcutaneous edema about the midfoot and hindfoot is identified with prominent ankle, subtalar, and talonavicular fusions. Multiple joint bodies are present within the joint effusions. Please note that evaluation of the ligamentous and tendinous structures of the midfoot and hindfoot is limited on CT. However, there is thickening and diffuse edema noted involving the medial and lateral flexor tendons as well as the Achilles tendon. Partial-thickness tearing probably is present. No soft tissue air or soft tissue foreign bodies are evident. IMPRESSION: 1. Advanced degenerative changes of the right midfoot and hindfoot are compatible with Charcot arthropathy. 2. Medial dislocation of the talus with respect to the navicular is of uncertain chronicity. 3. Evaluation for subtle acute fractures is limited. No large displaced fracture. 4. Numerous bony erosions of the midfoot and forefoot are probably related to Charcot arthropathy. However, the possibility of superimposed osteomyelitis or inflammatory arthropathy cannot be excluded and clinical correlation is recommended. 5. Extensive soft tissue edema without a definite loculated fluid collection. 6. Moderate tendinopathy of the peroneus brevis, peroneus longus, and Achilles tendons is present. Additional areas of flexor tendinopathy along the medial aspect of the ankle probably are present. Dictated by: Cm Parks M.D. on 02/08/2017 at 15:49 Approved by: Cm Parks M.D. on 02/08/2017 at 16:14 PROCEDURE: US RENAL SONOGRAM INDICATIONS: CLAIRE TECHNIQUE: Real-time scanning was performed of the kidneys and bladder, with image documentation. COMPARISON: [facility], CT, CT CHEST ABD PELVIS W CON, 07/21/2015, 12:13. FINDINGS: Kidneys: Kidneys are normal in size. Right kidney measures 11.0 cm long; left kidney measures 11.7 cm long. Right renal cortical thickness is 0.9 cm; left renal cortical thickness is 1.3 cm. Renal cortical echotexture is normal. No hydronephrosis or nephrolithiasis. No suspicious solid mass lesions. Bladder: Pre-void bladder volume is 300 mL. Post-void residual is 200 mL. Pre -void images demonstrate no intraluminal masses or stones. On pre-void images, either ureteral jets are noted with color Doppler interrogation. (Of note, ureteral jets may not be detectable in up to 25% of cases due to insufficient differences in specific gravity between ureteral and bladder urine). Miscellaneous: No free pelvic fluid. IMPRESSION: 1. Mild right renal cortical thinning, otherwise normal kidneys. 2. Approximately 200 cc of postvoid residual. Dictated by: Dajuan Broussard [facility] Interpreted: Ricky Verdin MD on 02/07/2017 at 16:05 Transcribed by: ZULMA on 02/07/2017 at 16:06 Approved by: Ricky Verdin M.D. on 02/07/2017 at 16:33 PROCEDURE: X-RAY RIGHT KNEE, ONE OR TWO VIEWS ([id number]) INDICATIONS: knee pain TECHNIQUE: 2 views of the knee were acquired. COMPARISON: None. FINDINGS: Bones: No fractures or dislocations. No suspicious bony lesions. Severe narrowing of the lateral femoral tibial joint and to lesser degree the patellofemoral knee joint. Tricompartmental osteophyte formation. Soft tissues: Moderate joint effusion. No suspicious soft tissue calcifications. Vascular calcifications indicate atherosclerosis. IMPRESSION: Knee joint degeneration and moderate joint effusion. Dictated by: Dajuan BOWERS Interpreted: Libertad Nieves MD on 02/10/2017 at 10: 12 Transcribed by: BHAVANA on 02/10/2017 at 10:13 Cardiac Echo Impressions Echocardiogram Report Name: JACKIE BRAVO TStudy Crispin e: 02/09/2017 Height: 70 in Hospital Exam Location: [facility] Weight: 219 lb Gender: Male BSA: 2.2 m2 : 1940 Age: 76 yrs BP: 120/65 mmHg Reason For Study: Endocarditis Ordering Physician: Performed By: [facility]St[facility] Interpretation Summary The left ventricle is normal in size, wall thickness, and systolic function without any focal wall motion abnormalities. The ejection fraction is estimated to be 60-65%. LVEF has not changed significantly since prior study. The right ventricle is normal in size, thickness and function. The right ventricular systolic pressure is estimated at 54 mmHg assuming a right atrial pressure of 8 mm Hg. The left atrium is severely dilated. Right atrial size is normal. The aortic valve is moderately calcified. The calculated aortic valve area is 1.2 cm2. The peak aortic velocity is 2.6 m/sec. The peak aortic velocity on the previous exam was 3.0 m/sec. There is no other significant valvular heart disease. No overt evidence for endocarditis but cannot exclude MV endocarditis due to significant mitral annular calcification. The aortic root is normal size. Additional Diagnostics DATE OF SURGERY: 02/15/2017 PREOPERATIVE DIAGNOSIS(ES): Diabetic ulcer of Charcot foot, right side. POSTOPERATIVE DIAGNOSIS(ES): Diabetic ulcer of Charcot foot, right side. PROCEDURE: Right below-knee amputation. SURGEON: George Hart MD RUBBER TESTER: Bhaskar Raygoza PA-C. Assessment & Plan Patient is a 76-year-old male presents to the emergency room with cellulitis and Charcot foot on the right acute, active #Acute kidney injury. poa resolved and now new episode of CLAIRE Cr baseline of 1.1. Multifactorial: prerenal vs ATN, Inadequate oral intake, diuretic/Lasix use, antibiotics, new onset diarrhea. Patient's leg edema has improved. -Creatinine worsening today -discontinued Lasix 40 daily on 02/19 -continue NS at 100ml/h -Spoke with pharmacy,will lower ceftaroline dose to current GFR , keep same dose of daptomycin -Started Imodium for diarrhea, C. difficile is negative. -will repeat Urine lytes, urine EO #Hyponatremia, improving with IVF, continue for now # MRSA bacteremia -Blood cultures had been persistently positive for MRSA. Blood culture negative 2 starting 02/16 -Right ankle cultures are positive for MRSA. The right ankle appears to be the source of infection. Underwent a below the knee amputation 02/15 given patient' s persistently positive blood cultures and persistently elevated white blood cell count despite appropriate antibiotic therapy. -Antibiotics being managed by infectious disease. Continue Daptomycin and ceftaroline added 02/15 - PICC placed 02/19 #Acute blood loss anemia, Postop hemoglobin 7.5, preop 9.3 Transfused 2 PRBCs . FOBT+ could be false due to iron. Probable melena vs iron stained stools -since h/h slowly trending down, will stop Pradaxa, iron today and observe for active GIB -given high-risks VTE post-op, continue asa, resume Pradaxa once active bleeding cleared. #Acute diarrhea, Stool C. difficile negative, -continue imodium prn #mild transaminitis, developed post-op 02/16-,ddx: med induced, no clear culprit meds. no s/s suggestive of DRESS, Eosinophils zero/no rash/afebrile. -trending up LFTs, mildly elevated bilirubin, -will consider abd US if keeps trending up -trends hepatic panel daily chronic, stable, resolved #Diabetes -Hemoglobin A1c 6.6 (controlled) -Insulin sliding scale -Accu-Cheks before meals and at bedtime #Hypertension -We will continue Hydralazine 25 mg by mouth twice a day -We will continue Amlodipine 10 mg daily -Hold Spironolactone 50 mg by mouth twice a day.has been on hold since the initial CLAIRE -Continue to monitor #Chronic leg edema -mention of CHF on admission. Last Echocardiogram did not show any systolic or diastolic dysfunction. No clinical evidence of CHF. Patient states he has been on Lasix and spironolactone for 6 years for lower extremity edema. He denies any history of CHF. Has +2 pedal edema on the left. Home diuretics Lasix 80 mg by mouth twice a day and spironolactone 50 mg by mouth twice a day. Diuretics has been on hold initially and restarted Lasix at 40 mg by mouth daily ,now on hold again for Claire, spironolactone remains on hold -i don't think srinivas needs any diuretics up on discharge .no clear indication -EF 65-70% #Hyperlipidemia -Continue Lipitor 20 mg by mouth daily at bedtime #Gout (currently stable) -Continue colchicine 0.6 mg twice a day #Diabetic neuropathy -On gabapentin 300 mg by mouth 3 times a day. Patient also has some phantom Pain and gabapentin continued. now Will hold due to CLAIRE Code Status: Full code Disposition: Pending hospital course Patient will then need placement in a long-term facility for rehabilitation. d/c in 1-2days VTE Prophylaxis: Other (The patient is on Pradaxa.) VTE Mechanical Devices: Intermittant Pneumatic CD Resuscitation Status: CPR: Attempt Resuscitation Time spent 35 minutes Tom Mendes MD February 21, 2017 09:23
[2017-02-21 11:49] VITALS: BP 140/68; PULSE 62; RESP 20; O2SAT 94
[2017-02-21 15:28] VITALS: BP 140/62; PULSE 60; RESP 18; O2SAT 91
--- NOTE | 2017-02-21 18:19 | NUR ---
Pain, Appetite Patient denies pain, pain medications this shift. Patient states that he does not have much of an appetite, offered chocolate pudding which he tolerated well. Care is ongoing.
[2017-02-21 20:28] VITALS: BP 137/64; PULSE 60; RESP 18; O2SAT 91
[2017-02-22] MEDS: 0.9% Sodium Chloride 1,000 ML IV SCH (03:57)
[2017-02-22] MEDS: D5W IV SCH ×2 (04:21)
[2017-02-22] MEDS: CEFTAROLINE IV SCH ×2 (04:21)
[2017-02-22 05:10] VITALS: BP 146/71; PULSE 60; RESP 19; O2SAT 92
[2017-02-22 06:10] LABS: BASOPHILS % (AUTO) 0.1 % (0-3); EOSINOPHILS % (AUTO) 0.1 % (0-5); MONOCYTES % (AUTO) 7.9 % (4-12); Mean Corpuscular Hemoglobin 27.7 pg (27.0-35.0); Mean Corpuscular Volume 87.9 fL (81-100); Platelet Count 432 bil/L (150-400)
[2017-02-22] MEDS: Insulin LISPRO 300 Unit/3 mL Inj SUBQ SCH ×4 (08:00→22:00)
[2017-02-22] MEDS: FEBUXOSTAT 40 MG PO SCH (08:13)
[2017-02-22] MEDS: Mupirocin 2% 22 Gm Ointment TOPICAL SCH ×2 (08:18→20:42)
[2017-02-22] MEDS: Ascorbic Acid 500 mg Tablet PO SCH (08:18)
[2017-02-22] MEDS ORDERED: Furosemide 10 mg/mL 4 mL Inj IVPUSH ONE (08:45)
--- NOTE | 2017-02-22 09:38 | DRSVH ---
PROCEDURE: US RENAL SONOGRAM INDICATIONS: CLAIRE TECHNIQUE: Real-time scanning was performed of the kidneys and bladder, with image documentation. COMPARISON: [facility], US, US RENAL, 02/07/2017, 14:47. FINDINGS: Kidneys: Kidneys are normal in size. Right kidney measures 9.8 cm long; left kidney measures 10.8 c m long. Right renal cortical thickness is 0.9 cm; left renal cortical thickness is 1.1 cm. Renal co rtical echotexture is normal. No hydronephrosis or nephrolithiasis. No suspicious solid mass lesion s. Bladder: Pre-void bladder volume is 369 mL. Post-void residual cannot be assessed as the patient kenny d just voided prior to exam. Pre-void images demonstrate no intraluminal masses or stones. On pre-v oid images, neither ureteral jets are noted with color Doppler interrogation. (Of note, ureteral jet s may not be detectable in up to 25% of cases due to insufficient differences in specific gravity bet ween ureteral and bladder urine). Miscellaneous: No free pelvic fluid. IMPRESSION: 1. Mild right renal cortical thinning similar to prior examination otherwise no hydronephrosis is see n. 2. Grossly normal appearance of the bladder with volume estimated at 369 cc after the patient had voi ded prior to the exam. Correlate clinically. Dictated by: Dajuan BOWERS Interpreted: Wan Mcmahon MD on 02/22/2017 at 9:35 Transcribed by: FEDERICA on 02/22/2017 at 9:38 Approved by: Wan Mcmahon M.D. on 02/22/2017 at 10:29
--- NOTE | 2017-02-22 09:53 | DRSVH ---
PROCEDURE: X-RAY CHEST ONE VIEW, PORTABLE ([id number]) INDICATIONS: hypoxia TECHNIQUE: One view of the chest was acquired. COMPARISON: [facility], CR, XR CHEST 2VW, 07/23/2016, 6:37. [facility], CR, XR CHEST 1VW (PORTABLE), 07/22/2016, 15:20. FINDINGS: Surgical changes and devices: Pacemaking device with single chamber lead. Sternotomy wires, presumed prior CABG. PICC line from right sided approach. The tip of the PICC line extends into the distal SVC. Lungs and pleura: No pleural effusions or pneumothorax. Lungs are abnormal with alveolar infiltrati on similar to that previously present, and no focal pneumonia is found. Mediastinum: Mediastinal contours appear normal. Heart size is normal. Bones and chest wall: No suspicious bony lesions. Overlying soft tissues appear unremarkable. IMPRESSION: PICC line place with tip in the distal SVC, from right sided approach. Mild pulmonary ed maritza pattern, without interval worsening considering slightly reduced inspiratory volume. CABG. Pace maker appears normal. Dictated by: Wan Mcmahon M.D. on 02/22/2017 at 9:50 Approved by: Wan Mcmahon M.D. on 02/22/2017 at 9:52
[2017-02-22] MEDS: Dextrose 5% 500 ML IV SCH (10:10)
[2017-02-22] MEDS: HYDROcodone-APAP 5-325 mg Tablet PO PRN (10:16)
[2017-02-22] MEDS: DAPTOmycin Inj 750 MG in 0.9% Sodium Chloride 50 ML IV SCH (10:43)
--- NOTE | 2017-02-22 11:37 | PCM.PNMED ---
Subjective Date of Service February 22, 2017 Subjective pt is breathing heavily using accessory muscle this AM noted to be hypoxic low90s on [id number] CXR showed mild pulm edema, [id number] iv given, ns 100cc/hr stopped denied abdominal pain, had BM this AM, unclear still has black stools or not, h/h mildly trending down Cr improved Exam Vital Signs Vital Sign - Last Date Time Temp Pulse Resp B/P Pulse Ox O2 Delivery O2 Flow Rate FiO2 02/22/17 05:10 36.7 60 19 146/71 92 Nasal Cannula 2.00 Intake and Output 02/21/17 02/21/17 02/22/17 Cumulative From/Thru 15:00 23:00 07:00 02/07/17 10:52 - 02/22/17 05:55 Intake Total 1566 ml 200 ml 97670 ml Output Total 300 ml 550 ml 67657 ml Balance 1266 ml -350 ml 80926 ml Intake Oral 200 ml 200 ml 01817 ml IV Total 1366 ml 01047 ml Packed Cells 682 ml Output Urine Total 300 ml 550 ml 30638 ml Stool Total 463 ml Urine/Stool Mix 4 ml Emesis 460 ml Estimated Blood Loss 100 ml # Voids 8 # Bowel Movements 2 1 22 Exam NAD, mildly distressed with SOB, using abdominal M, speaks in full sentences no JVD, MMM, no LAD RRR, nl s1, s2 no mrg coarse BS, mild crackles, S,ND,NT,normoactive BS+ warm, no edema, pulses 2/2 IVs and Medications Medications Reviewed: Medications were reviewed in detail Lab and Diagnostics Result Diagram: 02/22/17 0545 02/22/17 0830 Microbiology 5 sets of blood cultures are positive for MRSA Nasal screen for MRSA is negative Ankle culture for MRSA is positive X-Rays, CTs and MRIs PROCEDURE: X-RAY RIGHT ANKLE, MINIMUM THREE VIEWS ([id number]) INDICATIONS: CHARCOT FOOT TECHNIQUE: 4 views of the ankle were acquired. COMPARISON: [facility], CR, XR ANKLE MIN 3VW WT BEARING RT, 2016, 9:32. FINDINGS: Bones: Severe degenerative changes of the mid foot and hindfoot joints result in difficulty evaluating for subtle fractures. No displaced fractures are evident. There appears to be a talonavicular joint dislocation. Offset of the tibiotalar joint is also noted. Prominent plantar and Achilles spurs are present. Soft tissues: Extensive edema about the ankle is noted. No unexpected radiopaque foreign bodies are evident. Scattered soft tissue calcifications are present. IMPRESSION: 1. Prominent mid foot and hindfoot Charcot arthropathy results in difficulty evaluating for subtle fractures. 2. Apparent dislocation of the talonavicular joint. The need for better evaluation utilizing CT may be determined clinically. Dictated by: Cm Parks M.D. on 02/07/2017 at 11:00 Approved by: Cm Parks M.D. on 02/07/2017 at 11:05 PROCEDURE: CT ANKLE RIGHT W/O CONTRAST ([id number]) INDICATIONS: charcot foot right foot/ankle TECHNIQUE: Noncontrast 1-1.5 mm axial sections acquired from above the tibiotalar joint to the bottom of the calcaneus, with coronal and sagittal reformats. COMPARISON: [facility], CR, XR ANKLE 3VW RT, 02/07/2017, 11:52. FINDINGS: Image quality: Diagnostic. Bones: The bone mineralization is diffusely decreased. Severe degenerative changes and numerous scattered small ossific/calcific densities about the osseous structures of the imaged right hindfoot and midfoot results in difficulty evaluating for subtle fractures. No definite large acute fracture is evident. There is complete dislocation of the talonavicular joint with medial positioning of the talar head with respect to the navicular. The navicular remains appropriately aligned with respect to the remainder of the foot. No definite additional dislocations are appreciated. Extensive osseous erosions are noted throughout all of the midfoot and hindfoot bones. The ankle mortise is relatively well maintained. Soft tissues: Extensive subcutaneous edema about the midfoot and hindfoot is identified with prominent ankle, subtalar, and talonavicular fusions. Multiple joint bodies are present within the joint effusions. Please note that evaluation of the ligamentous and tendinous structures of the midfoot and hindfoot is limited on CT. However, there is thickening and diffuse edema noted involving the medial and lateral flexor tendons as well as the Achilles tendon. Partial-thickness tearing probably is present. No soft tissue air or soft tissue foreign bodies are evident. IMPRESSION: 1. Advanced degenerative changes of the right midfoot and hindfoot are compatible with Charcot arthropathy. 2. Medial dislocation of the talus with respect to the navicular is of uncertain chronicity. 3. Evaluation for subtle acute fractures is limited. No large displaced fracture. 4. Numerous bony erosions of the midfoot and forefoot are probably related to Charcot arthropathy. However, the possibility of superimposed osteomyelitis or inflammatory arthropathy cannot be excluded and clinical correlation is recommended. 5. Extensive soft tissue edema without a definite loculated fluid collection. 6. Moderate tendinopathy of the peroneus brevis, peroneus longus, and Achilles tendons is present. Additional areas of flexor tendinopathy along the medial aspect of the ankle probably are present. Dictated by: Cm Parks M.D. on 02/08/2017 at 15:49 Approved by: Cm Parks M.D. on 02/08/2017 at 16:14 PROCEDURE: US RENAL SONOGRAM INDICATIONS: CLAIRE TECHNIQUE: Real-time scanning was performed of the kidneys and bladder, with image documentation. COMPARISON: [facility], CT, CT CHEST ABD PELVIS W CON, 07/21/2015, 12:13. FINDINGS: Kidneys: Kidneys are normal in size. Right kidney measures 11.0 cm long; left kidney measures 11.7 cm long. Right renal cortical thickness is 0.9 cm; left renal cortical thickness is 1.3 cm. Renal cortical echotexture is normal. No hydronephrosis or nephrolithiasis. No suspicious solid mass lesions. Bladder: Pre-void bladder volume is 300 mL. Post-void residual is 200 mL. Pre -void images demonstrate no intraluminal masses or stones. On pre-void images, either ureteral jets are noted with color Doppler interrogation. (Of note, ureteral jets may not be detectable in up to 25% of cases due to insufficient differences in specific gravity between ureteral and bladder urine). Miscellaneous: No free pelvic fluid. IMPRESSION: 1. Mild right renal cortical thinning, otherwise normal kidneys. 2. Approximately 200 cc of postvoid residual. Dictated by: Dajuan Broussard [facility] Interpreted: Ricky Verdin MD on 02/07/2017 at 16:05 Transcribed by: ZULMA on 02/07/2017 at 16:06 Approved by: Ricky Verdin M.D. on 02/07/2017 at 16:33 PROCEDURE: X-RAY RIGHT KNEE, ONE OR TWO VIEWS ([id number]) INDICATIONS: knee pain TECHNIQUE: 2 views of the knee were acquired. COMPARISON: None. FINDINGS: Bones: No fractures or dislocations. No suspicious bony lesions. Severe narrowing of the lateral femoral tibial joint and to lesser degree the patellofemoral knee joint. Tricompartmental osteophyte formation. Soft tissues: Moderate joint effusion. No suspicious soft tissue calcifications. Vascular calcifications indicate atherosclerosis. IMPRESSION: Knee joint degeneration and moderate joint effusion. Dictated by: Dajuan Broussard [facility] Interpreted: Libertad Nieves MD on 02/10/2017 at 10: 12 Transcribed by: BHAVANA on 02/10/2017 at 10:13 Cardiac Echo Impressions Echocardiogram Report Name: JACKIE BRAVO TStudy Crispin e: 02/09/2017 Height: 70 in Hospital Exam Location: [facility] Weight: 219 lb Gender: Male BSA: 2.2 m2 : 1940 Age: 76 yrs BP: 120/65 mmHg Reason For Study: Endocarditis Ordering Physician: Performed By: Sandrine [facility]enGr[facility] Hospital[facility] Interpretation Summary The left ventricle is normal in size, wall thickness, and systolic function without any focal wall motion abnormalities. The ejection fraction is estimated to be 60-65%. LVEF has not changed significantly since prior study. The right ventricle is normal in size, thickness and function. The right ventricular systolic pressure is estimated at 54 mmHg assuming a right atrial pressure of 8 mm Hg. The left atrium is severely dilated. Right atrial size is normal. The aortic valve is moderately calcified. The calculated aortic valve area is 1.2 cm2. The peak aortic velocity is 2.6 m/sec. The peak aortic velocity on the previous exam was 3.0 m/sec. There is no other significant valvular heart disease. No overt evidence for endocarditis but cannot exclude MV endocarditis due to significant mitral annular calcification. The aortic root is normal size. Additional Diagnostics DATE OF SURGERY: 02/15/2017 PREOPERATIVE DIAGNOSIS(ES): Diabetic ulcer of Charcot foot, right side. POSTOPERATIVE DIAGNOSIS(ES): Diabetic ulcer of Charcot foot, right side. PROCEDURE: Right below-knee amputation. SURGEON: George Hart MD [facility]ER[facility] PROCESS COORDINATOR: Bhaskar Raygoza PA-C. Assessment & Plan Patient is a 76-year-old male presents to the emergency room with cellulitis and Charcot foot on the right acute, active #mild hypoxia, due to acute pulmonary edema, 02/21-, likely due to iatrogenic IVF, acute on chronic diastolic CHF, mild . -s/p lasix 40mg iv today, will consider another dosing based on renal function, repeat CMP later today #Acute kidney injury. poa resolved and now new episode of CLAIRE Cr baseline of 1.1. Multifactorial: prerenal vs ATN, Inadequate oral intake, diuretic/Lasix use, antibiotics, new onset diarrhea. Patient's leg edema has improved. -Creatinine is improving with IVF/hold diuretics -discontinued Lasix 40 daily on 02/19 -stopped IVF due to pulmonary edema, -continue ceftaroline dose to current GFR , keep same dose of daptomycin -Started Imodium for diarrhea, C. difficile is negative. -will repeat Urine lytes, urine EO #Hyponatremia, stable, monitor for now # MRSA bacteremia, Blood cultures had been persistently positive for MRSA. Blood culture negative 2 starting 02/16, Right ankle cultures are positive for MRSA. The right ankle appears to be the source of infection. Underwent a below the knee amputation 02/15 given patient's persistently positive blood cultures and persistently elevated white blood cell count despite appropriate antibiotic therapy. -Antibiotics being managed by infectious disease. Continue Daptomycin and ceftaroline added 02/15 - PICC placed 02/19 #Acute blood loss anemia, Postop hemoglobin 7.5, preop 9.3 Transfused 2 PRBCs . FOBT+ could be false due to iron. Probable melena vs iron stained stools -since h/h slowly trending down,Pradaxa, iron were held 02/21, observe for active GIB -given high-risks VTE post-op, continue asa, resume Pradaxa once active bleeding cleared. -will trend cbc later today, if still trending down, KEEP NPO and consult GI for endoscopic eval later. #Acute diarrhea, Stool C. difficile negative, -continue imodium prn #mild transaminitis, developed post-op 02/16-,ddx: med induced, no clear culprit meds. no s/s suggestive of DRESS, Eosinophils zero/no rash/afebrile. -trending down LFTs, mildly elevated bilirubin, but stable -will consider abd US if keeps trending up -trends hepatic panel daily chronic, stable, resolved #Diabetes -Hemoglobin A1c 6.6 (controlled) -Insulin sliding scale -Accu-Cheks before meals and at bedtime #Hypertension -We will continue Hydralazine 25 mg by mouth twice a day -We will continue Amlodipine 10 mg daily -Hold Spironolactone 50 mg by mouth twice a day.has been on hold since the initial CLAIRE -Continue to monitor #Chronic leg edema, this is most likely due to HFpEF as above, Patient states he has been on Lasix and spironolactone for 6 years for lower extremity edema. noted +2 pedal edema on the left. Home diuretics Lasix 80 mg by mouth twice a day and spironolactone 50 mg by mouth twice a day. Diuretics has been on hold initially and restarted Lasix at 40 mg by mouth daily ,held again for Claire, spironolactone remains on hold. -resumed diuretics as above #Hyperlipidemia -Continue Lipitor 20 mg by mouth daily at bedtime #Gout (currently stable) -Continue colchicine 0.6 mg twice a day #Diabetic neuropathy -On gabapentin 300 mg by mouth 3 times a day. Patient also has some phantom Pain and gabapentin continued. now Will hold due to CLAIRE Code Status: Full code Disposition: Pending hospital course Patient will then need placement in a alf facility for rehabilitation. d/c in 1-2days VTE Prophylaxis: Other (The patient is on Pradaxa.) VTE Mechanical Devices: Intermittant Pneumatic CD Resuscitation Status: CPR: Attempt Resuscitation Time spent 35min Tom Mendes MD February 22, 2017 11:37
--- NOTE | 2017-02-22 12:19 | NUR ---
Respiratory Patient complained of SOB this AM upon morning assessment. Lung sounds were wet more on left side than right, O2 Sat 90%, patient on 2L via NC. Encouraged patient to cough and deep breathe while awake. Lasix ordered and administered, IV fluids DC'd, chest XRay ordered. Q4 Hour bladder scanning initiated. Patient unable to tolerate lying flat while being turned and changed. O2 increased to 3L NC and Sats 93%. Hourly rounding continued with encouraging coughing and deep breathing for pulmonary toileting. Will continue to monitor oxygen requirements. Addendum: 02/22/17 at 1545 by VALENTINA CATHERINE RN Patient shows decreased work of breathing this afternoon, O2 sats in mid 90s. Lung sounds are more clear bilaterally. Continuing to monitor intake and output.
--- NOTE | 2017-02-22 13:08 | PROG NOTE ---
[address] [address] PROGRESS NOTE PATIENT: JACKIE BRAVO : 1940 MR#: [id number] ADMIT: 02/07/2017 JOB ID: [id number] DATE: 02/22/2017 REASON FOR FOLLOWUP: High-grade and persistent MRSA bacteremia secondary to osteomyelitis and septic joint involving right lower extremity which has now been amputated below the knee. INTERVAL HISTORY: Over the weekend, the patient has felt improved in many respects. He no longer has fevers, chills, or sweats. He is mildly short of breath especially when completely supine but no significant cough or GI symptoms. PHYSICAL EXAMINATION: Reveals an afebrile gentleman, temperature 36.7, blood pressure 146/71, saturating well on 2 L. He is awake and alert. Oral cavity negative. Lungs reasonably clear. Cardiac tones with 2/6 murmur as previously heard. His pacer pocket in left upper chest nontender. Abdomen benign. No suprapubic fullness. The right BKA stump seems to be healing well as there is no inflammation along the suture line. LABORATORIES: Include a white count of 16,000, which is stable and presumably normal for him. Creatinine is 1.31 which is relatively stable. Liver function tests moderately elevated. AST 77, ALT 65, alkaline phos 214. Micro studies include the positive blood cultures on February 15, but followup blood cultures on February 16 and February 17 are negative. A stool for C. diff was done over the weekend, and that proved to be negative as well. Eosinophil study in the urine was ordered for unclear reasons and that is negative. IMAGING: Includes a recent retroperitoneal ultrasound. It shows mild right cortical thinning but no change. No hydronephrosis. There does appear to urinary retention. Chest x-ray shows PICC line with mild pulmonary edema. Also probably about at baseline. IMPRESSION: This patient seems finally to have cleared his methicillin-resistant Staphylococcus aureus bacteremia which occurred about the same time as she had a right below-knee amputation for his chronically infected Charcot foot and ankle. At this point, we have no evidence for pacer infection or endocarditis, though these of course do remain possible in this patient who had a very long methicillin-resistant Staphylococcus aureus bacteremia. Other problems include ongoing problems with pulmonary edema, as well as fluctuating renal status which is now improving a bit. Patient has mildly elevated LFTs of unknown etiology which could conceivably be due to antibiotics, but it would not be typical of either that he is currently receiving, which are daptomycin and ceftaroline. 1. I would continue with the ceftaroline 600 q.12, as well as daptomycin 750 q.24 for a bit longer. 2. Assuming we continue to have negative blood cultures and the patient looks stable from an ID point of view, will plan on a six-week total course of IV antibiotics which could be completed at a [place] [facility] facility, presumably. 3. ID will continue to follow this complex patient with you. Thank you very much.
[2017-02-22 14:38] VITALS: BP 135/65; PULSE 60; O2SAT 94
--- NOTE | 2017-02-22 14:51 | NUR ---
NUTRITION FOLLOW-UP: ASSESS:76 yo M admitted for rt foot cellulitis and CLAIRE. Nephrology is following for CLAIRE. Pt POD #6 for R BKA due to advanced degenerative changes of R mid and hind foot due to MRSA septic arthritis and probable osteomyelitis in a Charcot joint. Currently blood cultures negative X2 for MRSA; pt with new CLAIRE, diarrhea, depressed appetite. PMHX: HTN, DM type 2, HLD, CKD stg 3, Gout, DVT, R BKA. LABS: Reviewed. Na 131, BUN 44, Cr 1.3, Glu 102, Alb 2.2 MEDS: Reviewed. GI: BM x 1 (02/22) SKIN: R BKA on 02/15. CURRENT WTS: 104.3 kg. admit wt 99.3 kg (prior to BKA), IBW 75.4kg DIET: Heart healthy, Diabetic. PO 75-100% of most meals. EST. NEEDS: BMI, CLAIRE, R BKA (-6%) Kcals: 6288-9754 kcal/day (20-22 kcal/kg BW) Pro: 70-85 g/day (1.0-1.2 g/kg IBW) NUTRITION DIAGNOSIS: 1.) Altered nutrition related labs values related to CLAIRE as evidence by elevated BUN and cruise staff member--PERSISTS. 2.) Inadequate oral intake related to decreased appetite, reports of dislike of hospital food as evidenced by bites-75% x 3-4 days. NUTRITION INTERVENTION: 1.) RN has encouraged increased po intake via snack and possibly family bringing in outside food. Pt amenable. 2.) Glucerna supplement added to meal tray to promote adequate kcal/protein intake. MONITOR / EVAL: PO intake, labs, nutrition status. Will continue to monitor per moderate nutrition related guidelines
[2017-02-22] MEDS: Ceftaroline Inj 600 MG in Dextrose 5% 250 ML IV SCH (16:06)
--- NOTE | 2017-02-22 16:12 | NUR ---
Social Work: Continued Discharge Planning D: EMR reviewed. Pt is on day 15 of hospitalization. Pt had BKA on 02/15. Per ID, pt to continue on ceftaroline and daptomycin while hospitalized. ID confirmed with COUTURIERE by phone that pt will discharge on extended course of daptomycin but ceftaroline will be discontinued at discharge. T/C to Thi, admissions at [facility], who unfortunately is not able to accept pt at this time secondary to pt's IV abx costs. SW met with pt at bedside regarding this, SNF CHOICE LIST PROVIDED again. Pt requested referrals be made to [facility] and [facility]. SEAT JOINER asked to make referral to both facilities. Pt to discharge to SNF to continue PT and his course of IV abx. Referrals have been made to [facility] and [facility]. Pt updated and agreeable to plan. SW will continue to follow A: Pt for whom a SNF has been deemed medically necessary. Plan: [facility] is unable to accept pt at this time. Pt to discharge to SNF to continue PT and his course of IV abx. Referrals have been made to [facility] and [facility]. SW will continue to follow. BRENDA Kellogg
--- NOTE | 2017-02-22 16:15 | NUR ---
Gave access and faxed facesheet to [facility] and [facility] per SENIOR STRATEGY MANAGER
[2017-02-22 17:28] LABS: Mean Corpuscular Hemoglobin 27.7 pg (27.0-35.0); Mean Corpuscular Volume 88.5 fL (81-100); Platelet Count 423 bil/L (150-400)
[2017-02-22 18:38] LABS: BASOPHILS % (AUTO) 0 % (0-3); EOSINOPHILS % (AUTO) 0 % (0-5); MONOCYTES % (AUTO) 8 % (4-12); NEUTROPHILS % (AUTO) 85 % (40-74)
[2017-02-22 20:02] VITALS: BP 154/60; PULSE 60; RESP 20; O2SAT 92
[2017-02-23] MEDS: HYDROcodone-APAP 5-325 mg Tablet PO PRN (04:10)
[2017-02-23] MEDS: Ceftaroline Inj 600 MG in Dextrose 5% 250 ML IV SCH ×2 (04:10→17:28)
[2017-02-23 06:13] LABS: BASOPHILS % (AUTO) 0.1 % (0-3); EOSINOPHILS % (AUTO) 0.2 % (0-5); MONOCYTES % (AUTO) 9.4 % (4-12); Mean Corpuscular Volume 89.3 fL (81-100); Platelet Count 389 bil/L (150-400)
[2017-02-23 06:24] VITALS: BP 138/66; PULSE 68; RESP 18; O2SAT 96
[2017-02-23 06:30] LABS: Magnesium 1.9 mg/dL (1.6-2.6); Phosphorus 3.7 mg/dL (2.5-4.9)
--- NOTE | 2017-02-23 06:43 | NUR ---
ACTIVITY/INCONTINENT: Resting in bed through the night, did not c/o pain but medicated with 2 Norcos prn doses. Has orders for bladder scan but we had difficulty getting any reading using the scanner from the [facility]. Incontinent XXL stool mixed with urine x2 tonight. Excoriated scrotum and kell area. Applied heavy Calmoseptine cream with each incontinent care. Able to take one can of Glucerna tonight with his po meds, refused all other food, including snacks. Pt. states "nothing sounds good", Cpap. On going care.
[2017-02-23] MEDS: Insulin LISPRO 300 Unit/3 mL Inj SUBQ SCH ×4 (07:20→22:00)
[2017-02-23 08:20] VITALS: BP 143/66; PULSE 60; O2SAT 90
[2017-02-23] MEDS ORDERED: Furosemide 10 mg/mL 4 mL Inj IVPUSH ONE ×2 (08:20→08:25)
--- NOTE | 2017-02-23 09:06 | NUR ---
T/C from Rosetta at [facility] who is unable to accept pt at this time secondary to IV abx cost. Tayla Mike, POULTRY HUSBANDRY WORKER
[2017-02-23] MEDS: DAPTOmycin Inj 750 MG in 0.9% Sodium Chloride 50 ML IV SCH (09:36)
[2017-02-23] MEDS: FEBUXOSTAT 40 MG PO SCH (09:37)
[2017-02-23] MEDS: Ascorbic Acid 500 mg Tablet PO SCH (09:38)
[2017-02-23] MEDS: Mupirocin 2% 22 Gm Ointment TOPICAL SCH ×2 (09:39→21:15)
[2017-02-23] MEDS: Dextrose 5% 500 ML IV SCH (10:10)
--- NOTE | 2017-02-23 10:47 | NUR ---
T/C from [facility] who is unable to accept pt at this time. Tayla Mike MSW
--- NOTE | 2017-02-23 11:31 | PCM.PNMED ---
Subjective Date of Service February 23, 2017 Subjective pt was on CPAP, then dropped Spo2 on RA to mid80s, mildly drowsy this AM h/h slowly trending down, no black stool reported. lasix 40mg iv dosed this AM denied cough, SOB while laying down, Exam Vital Signs Vital Sign - Last Date Time Temp Pulse Resp B/P Pulse Ox O2 Delivery O2 Flow Rate FiO2 02/23/17 08:20 36.8 60 143/66 90 CPAP 2.00 02/23/17 06:24 18 Intake and Output 02/22/17 02/22/17 02/23/17 Cumulative From/Thru 15:00 23:00 07:00 02/07/17 10:52 - 02/23/17 06:24 Intake Total 1402 ml 627 ml 280 ml 56199 ml Output Total 300 ml 52704 ml Balance 1402 ml 327 ml 280 ml 96663 ml Intake Oral 400 ml 86458 ml IV Total 1402 ml 227 ml 280 ml 57756 ml Packed Cells 682 ml Output Urine Total 300 ml 14101 ml Stool Total 463 ml Urine/Stool Mix 4 ml Emesis 460 ml Estimated Blood Loss 100 ml # Voids 2 10 # Bowel Movements 22 Exam NAD, drowsy, no using accessory M, speaks in full sentences, no JVD, MMM, no LAD RRR, nl s1, s2 no mrg coarse BS, mild crackles, S,ND,NT,normoactive BS+ warm, no edema, pulses 2/2 IVs and Medications Medications Reviewed: Medications were reviewed in detail Lab and Diagnostics Result Diagram: 02/23/1745 02/23/17 0545 Microbiology 5 sets of blood cultures are positive for MRSA Nasal screen for MRSA is negative Ankle culture for MRSA is positive X-Rays, CTs and MRIs PROCEDURE: X-RAY RIGHT ANKLE, MINIMUM THREE VIEWS ([id number]) INDICATIONS: CHARCOT FOOT TECHNIQUE: 4 views of the ankle were acquired. COMPARISON: [facility], CR, XR ANKLE MIN 3VW WT BEARING RT, 2016, 9:32. FINDINGS: Bones: Severe degenerative changes of the mid foot and hindfoot joints result in difficulty evaluating for subtle fractures. No displaced fractures are evident. There appears to be a talonavicular joint dislocation. Offset of the tibiotalar joint is also noted. Prominent plantar and Achilles spurs are present. Soft tissues: Extensive edema about the ankle is noted. No unexpected radiopaque foreign bodies are evident. Scattered soft tissue calcifications are present. IMPRESSION: 1. Prominent mid foot and hindfoot Charcot arthropathy results in difficulty evaluating for subtle fractures. 2. Apparent dislocation of the talonavicular joint. The need for better evaluation utilizing CT may be determined clinically. Dictated by: Cm Parks M.D. on 02/07/2017 at 11:00 Approved by: Cm Parks M.D. on 02/07/2017 at 11:05 PROCEDURE: CT ANKLE RIGHT W/O CONTRAST ([id number]) INDICATIONS: charcot foot right foot/ankle TECHNIQUE: Noncontrast 1-1.5 mm axial sections acquired from above the tibiotalar joint to the bottom of the calcaneus, with coronal and sagittal reformats. COMPARISON: [facility], CR, XR ANKLE 3VW RT, 02/07/2017, 11:52. FINDINGS: Image quality: Diagnostic. Bones: The bone mineralization is diffusely decreased. Severe degenerative changes and numerous scattered small ossific/calcific densities about the osseous structures of the imaged right hindfoot and midfoot results in difficulty evaluating for subtle fractures. No definite large acute fracture is evident. There is complete dislocation of the talonavicular joint with medial positioning of the talar head with respect to the navicular. The navicular remains appropriately aligned with respect to the remainder of the foot. No definite additional dislocations are appreciated. Extensive osseous erosions are noted throughout all of the midfoot and hindfoot bones. The ankle mortise is relatively well maintained. Soft tissues: Extensive subcutaneous edema about the midfoot and hindfoot is identified with prominent ankle, subtalar, and talonavicular fusions. Multiple joint bodies are present within the joint effusions. Please note that evaluation of the ligamentous and tendinous structures of the midfoot and hindfoot is limited on CT. However, there is thickening and diffuse edema noted involving the medial and lateral flexor tendons as well as the Achilles tendon. Partial-thickness tearing probably is present. No soft tissue air or soft tissue foreign bodies are evident. IMPRESSION: 1. Advanced degenerative changes of the right midfoot and hindfoot are compatible with Charcot arthropathy. 2. Medial dislocation of the talus with respect to the navicular is of uncertain chronicity. 3. Evaluation for subtle acute fractures is limited. No large displaced fracture. 4. Numerous bony erosions of the midfoot and forefoot are probably related to Charcot arthropathy. However, the possibility of superimposed osteomyelitis or inflammatory arthropathy cannot be excluded and clinical correlation is recommended. 5. Extensive soft tissue edema without a definite loculated fluid collection. 6. Moderate tendinopathy of the peroneus brevis, peroneus longus, and Achilles tendons is present. Additional areas of flexor tendinopathy along the medial aspect of the ankle probably are present. Dictated by: Cm Parks M.D. on 02/08/2017 at 15:49 Approved by: Cm Parks M.D. on 02/08/2017 at 16:14 PROCEDURE: US RENAL SONOGRAM INDICATIONS: CLAIRE TECHNIQUE: Real-time scanning was performed of the kidneys and bladder, with image documentation. COMPARISON: [facility], CT, CT CHEST ABD PELVIS W CON, 07/21/2015, 12:13. FINDINGS: Kidneys: Kidneys are normal in size. Right kidney measures 11.0 cm long; left kidney measures 11.7 cm long. Right renal cortical thickness is 0.9 cm; left renal cortical thickness is 1.3 cm. Renal cortical echotexture is normal. No hydronephrosis or nephrolithiasis. No suspicious solid mass lesions. Bladder: Pre-void bladder volume is 300 mL. Post-void residual is 200 mL. Pre -void images demonstrate no intraluminal masses or stones. On pre-void images, either ureteral jets are noted with color Doppler interrogation. (Of note, ureteral jets may not be detectable in up to 25% of cases due to insufficient differences in specific gravity between ureteral and bladder urine). Miscellaneous: No free pelvic fluid. IMPRESSION: 1. Mild right renal cortical thinning, otherwise normal kidneys. 2. Approximately 200 cc of postvoid residual. Dictated by: Dajuan Broussard [facility] Interpreted: Ricky Verdin MD on 02/07/2017 at 16:05 Transcribed by: ZULMA on 02/07/2017 at 16:06 Approved by: Ricky Verdin M.D. on 02/07/2017 at 16:33 PROCEDURE: X-RAY RIGHT KNEE, ONE OR TWO VIEWS ([id number]) INDICATIONS: knee pain TECHNIQUE: 2 views of the knee were acquired. COMPARISON: None. FINDINGS: Bones: No fractures or dislocations. No suspicious bony lesions. Severe narrowing of the lateral femoral tibial joint and to lesser degree the patellofemoral knee joint. Tricompartmental osteophyte formation. Soft tissues: Moderate joint effusion. No suspicious soft tissue calcifications. Vascular calcifications indicate atherosclerosis. IMPRESSION: Knee joint degeneration and moderate joint effusion. Dictated by: Dajuan Broussard R[facility] Interpreted: Libertad Nieves MD on 02/10/2017 at 10: 12 Transcribed by: BHAVANA on 02/10/2017 at 10:13 Cardiac Echo Impressions Echocardiogram Report Name: JACKIE BRAVO TStudy Crispin e: 02/09/2017 Height: 70 in Hospital Exam Location: [facility] Weight: 219 lb Gender: Male BSA: 2.2 m2 : 1940 Age: 76 yrs BP: 120/65 mmHg Reason For Study: Endocarditis Ordering Physician: Performed By: Sandrine [facility] Interpretation Summary The left ventricle is normal in size, wall thickness, and systolic function without any focal wall motion abnormalities. The ejection fraction is estimated to be 60-65%. LVEF has not changed significantly since prior study. The right ventricle is normal in size, thickness and function. The right ventricular systolic pressure is estimated at 54 mmHg assuming a right atrial pressure of 8 mm Hg. The left atrium is severely dilated. Right atrial size is normal. The aortic valve is moderately calcified. The calculated aortic valve area is 1.2 cm2. The peak aortic velocity is 2.6 m/sec. The peak aortic velocity on the previous exam was 3.0 m/sec. There is no other significant valvular heart disease. No overt evidence for endocarditis but cannot exclude MV endocarditis due to significant mitral annular calcification. The aortic root is normal size. Additional Diagnostics DATE OF SURGERY: 02/15/2017 PREOPERATIVE DIAGNOSIS(ES): Diabetic ulcer of Charcot foot, right side. POSTOPERATIVE DIAGNOSIS(ES): Diabetic ulcer of Charcot foot, right side. PROCEDURE: Right below-knee amputation. SURGEON: George Hart MD FLIGHT NURSE: Bhaskar Raygoza PA-C. Assessment & Plan Patient is a 76-year-old male presents to the emergency room with cellulitis and Charcot foot on the right acute, active #mild hypoxia, due to acute pulmonary edema, 02/21-, likely due to iatrogenic IVF, acute on chronic diastolic CHF, mild . -s/p lasix 40mg iv since 02/22-, renal functions remained stable, #Acute blood loss anemia, Postop hemoglobin 7.5, preop 9.3 Transfused 2 PRBCs . FOBT+ could be false due to iron. Probable melena vs iron stained stools -since h/h slowly trending down,Pradaxa, iron were held 02/21, observe for active GIB -given high-risks VTE post-op, resume Pradaxa once active bleeding cleared. increased asa to 325mg daily 02/23 -will get FOBT again today, if remains positive, call GI for endoscopic eval -trends h/h q12h #Acute kidney injury. poa resolved and now new episode of CLAIRE Cr baseline of 1.1. Multifactorial: prerenal vs ATN, Inadequate oral intake, diuretic/Lasix use, antibiotics, new onset diarrhea. Patient's leg edema has improved. lasix was discontinued Lasix 40 daily on 02/19 but restarted 02/22-. urine EO neg. -Creatinine is stable with resumed diuretics, -stopped IVF due to pulmonary edema 02/22 -continue ceftaroline dose to current GFR , keep same dose of daptomycin -Started Imodium for diarrhea, C. difficile is negative. -stopped sodium bicarb today given no clear ix # MRSA bacteremia, Blood cultures had been persistently positive for MRSA. Blood culture negative 2 starting 02/16, Right ankle cultures are positive for MRSA. The right ankle appears to be the source of infection. Underwent a below the knee amputation 02/15 given patient's persistently positive blood cultures and persistently elevated white blood cell count despite marko ropriate antibiotic therapy. -Antibiotics being managed by infectious disease. Continue Daptomycin and ceftaroline added 02/15 - PICC placed 02/19 -total 6wks course upon d/c per ID. #Acute diarrhea, Stool C. difficile negative, -continue imodium prn #mild transaminitis, developed post-op 02/16-,ddx: med induced, no clear culprit meds. no s/s suggestive of DRESS, Eosinophils zero/no rash/afebrile. -trending down LFTs, mildly elevated bilirubin, but stable -will consider abd US if keeps trending up -trends hepatic panel daily chronic, stable, resolved #Hyponatremia, stable, resolved #Diabetes -Hemoglobin A1c 6.6 (controlled) -Insulin sliding scale -Accu-Cheks before meals and at bedtime #Hypertension -We will continue Hydralazine 25 mg by mouth twice a day -We will continue Amlodipine 10 mg daily -Hold Spironolactone 50 mg by mouth twice a day.has been on hold since the initial CLAIRE -Continue to monitor #Chronic leg edema, this is most likely due to HFpEF as above, Patient states he has been on Lasix and spironolactone for 6 years for lower extremity edema. noted +2 pedal edema on the left. Home diuretics Lasix 80 mg by mouth twice a day and spironolactone 50 mg by mouth twice a day. Diuretics has been on hold initially and restarted Lasix at 40 mg by mouth daily ,held again for Claire, spironolactone remains on hold. -resumed diuretics as above #Hyperlipidemia -Continue Lipitor 20 mg by mouth daily at bedtime #Gout (currently stable) -Continue colchicine 0.6 mg twice a day #Diabetic neuropathy -On gabapentin 300 mg by mouth 3 times a day. Patient also has some phantom Pain and gabapentin continued. now Will hold due to CLAIRE Code Status: Full code Disposition: Pending hospital course Patient will then need placement in a custodial facility for rehabilitation. d/c in 1-2days VTE Prophylaxis: Other (The patient is on Pradaxa.) VTE Mechanical Devices: Intermittant Pneumatic CD Resuscitation Status: CPR: Attempt Resuscitation Time spent 35min Tom Mendes MD February 23, 2017 11:31
[2017-02-23 13:14] VITALS: BP 146/73; PULSE 90; O2SAT 90
--- NOTE | 2017-02-23 14:21 | NUR ---
Social Work- Continued D/C Planning D: EMR reviewed. Pt is on day 16 of hospitalization. Pt had BKA on 02/15. Pt is not medically stable at this time. Pt's h & h continues to trend down. Pt declined PT 02/23. Pt is showing a pattern of declining PT. Pt had PICC line placed 02/19. ID is following pt. Per ID, pt to continue on ceftaroline and daptomycin while hospitalized. ID anticipates pt will discharge on 6 week course of IV daptomycin. Pt's necessary IV abx is a barrier to placement at a SNF at this time. [facility] and [facility] facilities are unable to accept pt secondary to the abx cost. SW spoke with pt at bedside earlier in the day regarding this barrier, pt stated understanding. Pt requested that SW continue to pursue placement. Pt's physical rehab and IV abx needs may be suited for [facility] or a [facility]. SW attempted to follow up with pt at bedside regarding this, pt was too somnolent to maintain conversation at this time. T/C to pt's MADI Fernando [phone] regarding discharge plan and current placement barriers, left message requesting return call. SW requested PRODUCT DEVELOPMENT SPECIALIST make referral to [facility] and [facility]. SW to follow up with pt regarding this when pt is more conversant. WIRE CUTTER will continue to follow. A: Pt for whom a SNF has been deemed medically necessary. Plan: Pt's IV abx are a barrier to placement at this time. Referral has been made to [facility] and [facility]. SW to follow up with pt regarding placement when pt is more conversant. SW will continue to follow. BRENDA Kellogg Addendum: 02/23/17 at 1552 by MANSI MOSQUEDA T/C from Mohit Fernando [phone], pt's son, returning the call for Wan Fernando regarding pt's discharge plan and update. Mohit agreeable to referrals and securing placement for pt. Mohit reports that he will update the rest of the family regarding pt's plan. Tayla Mosqueda, WIRE CUTTER
--- NOTE | 2017-02-23 15:01 | NUR ---
[facility] [phone]
[2017-02-23 16:06] LABS: BASOPHILS % (AUTO) 0.1 % (0-3); EOSINOPHILS % (AUTO) 0.3 % (0-5); MONOCYTES % (AUTO) 8.7 % (4-12); Mean Corpuscular Hemoglobin 27.8 pg (27.0-35.0); Mean Corpuscular Volume 89.1 fL (81-100); NEUTROPHILS % (AUTO) 87.3 % (40-74); Platelet Count 378 bil/L (150-400)
[2017-02-23 19:39] VITALS: BP 124/63; PULSE 60; O2SAT 94
[2017-02-24] MEDS: Ceftaroline Inj 600 MG in Dextrose 5% 250 ML IV SCH ×2 (04:52→16:50)
[2017-02-24 05:17] LABS: BASOPHILS % (AUTO) 0.1 % (0-3); EOSINOPHILS % (AUTO) 0.3 % (0-5); MONOCYTES % (AUTO) 6.6 % (4-12); Mean Corpuscular Hemoglobin 27.4 pg (27.0-35.0); Mean Corpuscular Volume 89.1 fL (81-100); NEUTROPHILS % (AUTO) 89.2 % (40-74); Platelet Count 389 bil/L (150-400)
[2017-02-24 05:54] VITALS: BP 147/70; PULSE 61; O2SAT 94
--- NOTE | 2017-02-24 06:25 | NUR ---
PAIN/ACTIVITY PT REPORTS PAIN 3/10 AND STATES THAT IS TOLERABLE, REFUSED OFFER OF PAIN MEDS. PT REFUSED TO CHANGE POSITION TO SIDE. HE WAS SUPINE AT 30-45DEGREES ALL NIGHT, HE DID AGREE TO HAVE PILLOWS TO SHIFT HIPS AND BRIDGE. USING CPAP WITH 02 AND CRM ARCHITECT. SATS MID 90'S. CARE CONTINUES
[2017-02-24] MEDS: Insulin LISPRO 300 Unit/3 mL Inj SUBQ SCH ×4 (08:00→22:00)
[2017-02-24] MEDS: Ascorbic Acid 500 mg Tablet PO SCH (08:08)
[2017-02-24] MEDS: Mupirocin 2% 22 Gm Ointment TOPICAL SCH ×2 (08:09→20:17)
[2017-02-24] MEDS: FEBUXOSTAT 40 MG PO SCH (08:10)
[2017-02-24 08:30] VITALS: BP 135/71; PULSE 66; RESP 16; O2SAT 92
[2017-02-24] MEDS ORDERED: Furosemide 10 mg/mL 4 mL Inj IVPUSH ONE (08:45)
[2017-02-24] MEDS: HYDROcodone-APAP 5-325 mg Tablet PO PRN ×2 (10:17→21:06)
--- NOTE | 2017-02-24 10:28 | NUR ---
RECEIVED VM FROM BEN AT [facility], THEY ARE ABLE TO ACCEPT PT AT OR. ADVISED BRENDA
--- NOTE | 2017-02-24 11:15 | PCM.PNMED ---
Subjective Date of Service Feb 24, 2017 Subjective pt has stool and urinary incontinence, still remained very weak, poor appetite, gained wt daily with [id number] iv increased dosing lasix 80mg iv one dose this AM pt denied SOB but remained hypoxic, low 90%, was on CPAP overnight, apparently [id number] were running but no active order found h/h stable no overt melena/hematochezia observed Exam Vital Signs Vital Sign - Last Date Time Temp Pulse Resp B/P Pulse Ox O2 Delivery O2 Flow Rate FiO2 02/24/17 08:15 Supplement Oxygen CPAP/BIPAP 02/24/17 08:06 3.00 02/24/17 05:54 36.8 61 147/70 94 02/23/17 06:24 18 Intake and Output 02/23/17 02/23/17 02/24/17 Cumulative From/Thru 15:00 23:00 07:00 02/07/17 10:52 - 02/24/17 06:49 Intake Total 600 ml 786 ml 30528 ml Output Total 850 ml 360 ml 81798 ml Balance -250 ml 426 ml 81090 ml Intake Oral 600 ml 100 ml 03965 ml IV Total 686 ml 18595 ml Packed Cells 682 ml Output Urine Total 850 ml 360 ml 42500 ml Stool Total 463 ml Urine/Stool Mix 4 ml Emesis 460 ml Estimated Blood Loss 100 ml # Voids 2 12 # Bowel Movements 2 24 Exam NAD, drowsy, no using accessory M, speaks in full sentences, no JVD, MMM, no LAD RRR, nl s1, s2 no mrg coarse BS, mild crackles, S,ND,NT,normoactive BS+ warm, no edema, pulses 2/2 IVs and Medications Medications Reviewed: Medications were reviewed in detail Lab and Diagnostics Result Diagram: 02/24/17 0455 02/24/17 0455 Microbiology 5 sets of blood cultures are positive for MRSA Nasal screen for MRSA is negative Ankle culture for MRSA is positive X-Rays, CTs and MRIs PROCEDURE: X-RAY RIGHT ANKLE, MINIMUM THREE VIEWS ([id number]) INDICATIONS: CHARCOT FOOT TECHNIQUE: 4 views of the ankle were acquired. COMPARISON: [facility], CR, XR ANKLE MIN 3VW WT BEARING RT, 2016, 9:32. FINDINGS: Bones: Severe degenerative changes of the mid foot and hindfoot joints result in difficulty evaluating for subtle fractures. No displaced fractures are evident. There appears to be a talonavicular joint dislocation. Offset of the tibiotalar joint is also noted. Prominent plantar and Achilles spurs are present. Soft tissues: Extensive edema about the ankle is noted. No unexpected radiopaque foreign bodies are evident. Scattered soft tissue calcifications are present. IMPRESSION: 1. Prominent mid foot and hindfoot Charcot arthropathy results in difficulty evaluating for subtle fractures. 2. Apparent dislocation of the talonavicular joint. The need for better evaluation utilizing CT may be determined clinically. Dictated by: Cm Parks M.D. on 02/07/2017 at 11:00 Approved by: Cm Parks M.D. on 02/07/2017 at 11:05 PROCEDURE: CT ANKLE RIGHT W/O CONTRAST ([id number]) INDICATIONS: charcot foot right foot/ankle TECHNIQUE: Noncontrast 1-1.5 mm axial sections acquired from above the tibiotalar joint to the bottom of the calcaneus, with coronal and sagittal reformats. COMPARISON: [facility], CR, XR ANKLE 3VW RT, 02/07/2017, 11:52. FINDINGS: Image quality: Diagnostic. Bones: The bone mineralization is diffusely decreased. Severe degenerative changes and numerous scattered small ossific/calcific densities about the osseous structures of the imaged right hindfoot and midfoot results in difficulty evaluating for subtle fractures. No definite large acute fracture is evident. There is complete dislocation of the talonavicular joint with medial positioning of the talar head with respect to the navicular. The navicular remains appropriately aligned with respect to the remainder of the foot. No definite additional dislocations are appreciated. Extensive osseous erosions are noted throughout all of the midfoot and hindfoot bones. The ankle mortise is relatively well maintained. Soft tissues: Extensive subcutaneous edema about the midfoot and hindfoot is identified with prominent ankle, subtalar, and talonavicular fusions. Multiple joint bodies are present within the joint effusions. Please note that evaluation of the ligamentous and tendinous structures of the midfoot and hindfoot is limited on CT. However, there is thickening and diffuse edema noted involving the medial and lateral flexor tendons as well as the Achilles tendon. Partial-thickness tearing probably is present. No soft tissue air or soft tissue foreign bodies are evident. IMPRESSION: 1. Advanced degenerative changes of the right midfoot and hindfoot are compatible with Charcot arthropathy. 2. Medial dislocation of the talus with respect to the navicular is of uncertain chronicity. 3. Evaluation for subtle acute fractures is limited. No large displaced fracture. 4. Numerous bony erosions of the midfoot and forefoot are probably related to Charcot arthropathy. However, the possibility of superimposed osteomyelitis or inflammatory arthropathy cannot be excluded and clinical correlation is recommended. 5. Extensive soft tissue edema without a definite loculated fluid collection. 6. Moderate tendinopathy of the peroneus brevis, peroneus longus, and Achilles tendons is present. Additional areas of flexor tendinopathy along the medial aspect of the ankle probably are present. Dictated by: Cm Parks M.D. on 02/08/2017 at 15:49 Approved by: Cm Parks M.D. on 02/08/2017 at 16:14 PROCEDURE: US RENAL SONOGRAM INDICATIONS: CLAIRE TECHNIQUE: Real-time scanning was performed of the kidneys and bladder, with image documentation. COMPARISON: [facility], CT, CT CHEST ABD PELVIS W CON, 07/21/2015, 12:13. FINDINGS: Kidneys: Kidneys are normal in size. Right kidney measures 11.0 cm long; left kidney measures 11.7 cm long. Right renal cortical thickness is 0.9 cm; left renal cortical thickness is 1.3 cm. Renal cortical echotexture is normal. No hydronephrosis or nephrolithiasis. No suspicious solid mass lesions. Bladder: Pre-void bladder volume is 300 mL. Post-void residual is 200 mL. Pre -void images demonstrate no intraluminal masses or stones. On pre-void images, either ureteral jets are noted with color Doppler interrogation. (Of note, ureteral jets may not be detectable in up to 25% of cases due to insufficient differences in specific gravity between ureteral and bladder urine). Miscellaneous: No free pelvic fluid. IMPRESSION: 1. Mild right renal cortical thinning, otherwise normal kidneys. 2. Approximately 200 cc of postvoid residual. Dictated by: Dajuan BOWERS Interpreted: Ricky Verdin MD on 02/07/2017 at 16:05 Transcribed by: ZULMA on 02/07/2017 at 16:06 Approved by: Ricky Verdin M.D. on 02/07/2017 at 16:33 PROCEDURE: X-RAY RIGHT KNEE, ONE OR TWO VIEWS ([id number]) INDICATIONS: knee pain TECHNIQUE: 2 views of the knee were acquired. COMPARISON: None. FINDINGS: Bones: No fractures or dislocations. No suspicious bony lesions. Severe narrowing of the lateral femoral tibial joint and to lesser degree the patellofemoral knee joint. Tricompartmental osteophyte formation. Soft tissues: Moderate joint effusion. No suspicious soft tissue calcifications. Vascular calcifications indicate atherosclerosis. IMPRESSION: Knee joint degeneration and moderate joint effusion. Dictated by: Dajuan Broussard RRA Interpreted: Libertad Nieves MD on 02/10/2017 at 10: 12 Transcribed by: BHAVANA on 02/10/2017 at 10:13 Cardiac Echo Impressions Echocardiogram Report Name: JACKIE BRAVO TStudy Crispin e: 02/09/2017 Height: 70 in Hospital Exam Location: [facility] Weight: 219 lb Gender: Male BSA: 2.2 m2 : 1940 Age: 76 yrs BP: 120/65 mmHg Reason For Study: Endocarditis Ordering Physician: Performed By: Sandrine [facility] Interpretation Summary The left ventricle is normal in size, wall thickness, and systolic function without any focal wall motion abnormalities. The ejection fraction is estimated to be 60-65%. LVEF has not changed significantly since prior study. The right ventricle is normal in size, thickness and function. The right ventricular systolic pressure is estimated at 54 mmHg assuming a right atrial pressure of 8 mm Hg. The left atrium is severely dilated. Right atrial size is normal. The aortic valve is moderately calcified. The calculated aortic valve area is 1.2 cm2. The peak aortic velocity is 2.6 m/sec. The peak aortic velocity on the previous exam was 3.0 m/sec. There is no other significant valvular heart disease. No overt evidence for endocarditis but cannot exclude MV endocarditis due to significant mitral annular calcification. The aortic root is normal size. Additional Diagnostics DATE OF SURGERY: 02/15/2017 PREOPERATIVE DIAGNOSIS(ES): Diabetic ulcer of Charcot foot, right side. POSTOPERATIVE DIAGNOSIS(ES): Diabetic ulcer of Charcot foot, right side. PROCEDURE: Right below-knee amputation. SURGEON: George Hart MD MANAGER LSW: Bhaskar Raygoza PA-C. Assessment & Plan Patient is a 76-year-old male presents to the emergency room with cellulitis and Charcot foot on the right acute, active #mild hypoxia, due to acute pulmonary edema, 02/21-, likely due to iatrogenic IVF, acute on chronic diastolic CHF, mild . -s/p lasix 40mg iv since 02/22-, renal functions remained stable, -daily wt, i/o, given poor response, will dose 80mg iv today #Acute blood loss anemia, Postop hemoglobin 7.5, preop 9.3 Transfused 2 PRBCs . FOBT+ could be false due to iron. Probable microscopic bleeding, FOBT 02/23 again positive while off on iron/Pradaxa -h/h slowly trended down, now plateaued, Pradaxa, iron were held 02/21, observe for active GIB -given high-risks VTE post-op, resume Pradaxa once active bleeding cleared. increased asa to 325mg daily 02/23 -will consider GI for endoscopic eval if h/h further drops, any active GIB -trends h/h q12h #Acute kidney injury. poa resolved and now new episode of CLAIRE Cr baseline of 1.1. Multifactorial: prerenal vs ATN, Inadequate oral intake, diuretic/Lasix use, antibiotics, new onset diarrhea. Patient's leg edema has improved. lasix was discontinued Lasix 40 daily on 02/19 but restarted 02/22-. urine EO neg. -Creatinine is stable with resumed diuretics, but not improving -stopped IVF due to pulmonary edema 02/22 -continue ceftaroline dose to current GFR , keep same dose of daptomycin -Started Imodium for diarrhea, C. difficile is negative. -stopped sodium bicarb today given no clear ix -appreciate nephrology recommendation # MRSA bacteremia, Blood cultures had been persistently positive for MRSA. Blood culture negative 2 starting 02/16, Right ankle cultures are positive for MRSA. The right ankle appears to be the source of infection. Underwent a below the knee amputation 02/15 given patient's persistently positive blood cultures and persistently elevated white blood cell count despite marko ropriate antibiotic therapy. -Antibiotics being managed by infectious disease. Continue Daptomycin and ceftaroline added 02/15 - PICC placed 02/19 -total 6wks course upon d/c per ID. #Acute diarrhea, Stool C. difficile negative, -continue imodium prn #mild transaminitis, developed post-op 02/16-,ddx: med induced, no clear culprit meds. no s/s suggestive of DRESS, Eosinophils zero/no rash/afebrile. -trending down LFTs, mildly elevated bilirubin, but stable -will consider abd US if keeps trending up -trends hepatic panel daily chronic, stable, resolved #Hyponatremia, stable, resolved #Diabetes -Hemoglobin A1c 6.6 (controlled) -Insulin sliding scale -Accu-Cheks before meals and at bedtime #Hypertension -We will continue Hydralazine 25 mg by mouth twice a day -We will continue Amlodipine 10 mg daily -Hold Spironolactone 50 mg by mouth twice a day.has been on hold since the initial CLAIRE -Continue to monitor #Chronic leg edema, this is most likely due to HFpEF as above, Patient states he has been on Lasix and spironolactone for 6 years for lower extremity edema. noted +2 pedal edema on the left. Home diuretics Lasix 80 mg by mouth twice a day and spironolactone 50 mg by mouth twice a day. Diuretics has been on hold initially and restarted Lasix at 40 mg by mouth daily ,held again for Claire, spironolactone remains on hold. -resumed diuretics as above #Hyperlipidemia -Continue Lipitor 20 mg by mouth daily at bedtime #Gout (currently stable) -Continue colchicine 0.6 mg twice a day #Diabetic neuropathy -On gabapentin 300 mg by mouth 3 times a day. Patient also has some phantom Pain and gabapentin continued. now Will hold due to CLAIRE Code Status: Full code Disposition: Pending hospital course, overall pt still has multiple issues, refusing PT, SNF d/c in 1-3days VTE Prophylaxis: Other (The patient is on Pradaxa.) VTE Mechanical Devices: Intermittant Pneumatic CD Resuscitation Status: CPR: Attempt Resuscitation Time spent 35min Tom Mendes MD Feb 24, 2017 11:15
[2017-02-24] MEDS: DAPTOmycin Inj 750 MG in 0.9% Sodium Chloride 50 ML IV SCH (11:48)
--- NOTE | 2017-02-24 13:38 | PROG NOTE ---
[address] [address] PROGRESS NOTE PATIENT: JACKIE BRAVO : 1940 MR#: [id number] ADMIT: 02/07/2017 JOB ID: [id number] DATE: 02/24/2017 INFECTIOUS DISEASE FOLLOW UP NOTE: REASON FOR FOLLOWUP: High-grade and persistent MRSA bacteremia due to septic right ankle. INTERVAL HISTORY: Today the patient is sleeping with a CPAP mask on. I have obviously lost my voice and was not able to call his name very loudly but he did not respond to whispered voice nor to physical examination. According to the chart, he has been doing quite well. PHYSICAL EXAMINATION: Reveals a sleeping gentleman in no acute distress. He has been afebrile for many days. Temperature now 36.8, pulse 66, respiratory rate 16, blood pressure 135/71, saturating well on 4 L and now on the CPAP. Lungs are relatively clear. Cardiac tones distant but without new or changing murmur. The patient's abdomen is benign. in place and lungs uninfected. LABORATORIES: Include a white count still 18,000. His white count is always elevated. His creatinine 1.35. LFTs modestly elevated. AST 72, ALT 59, alk phos 202. No new cultures are available. Our last blood cultures were the . They are final and negative. IMPRESSION: It would appear that this patient's persistently positive blood cultures during the first week or so of this hospitalization were due to the presence of the right septic ankle and/or arthritis. Following his BKA, the patient's blood cultures turned negative and have stayed that way. There is no indication that he has a pacer or cardiac infection but that is difficult to exclude, but given the fact we have negative transesophageal echo, there is very little else we can do to exclude the possibility of a valvular or pacer infection. At this point, I think it is reasonable to discontinue his ceftaroline and to plan to continue the daptomycin through March 20 as the final day of therapy. The patient is probably approaching the point when he could be reasonably transferred to senior care facility to continue this therapy. RECOMMENDATIONS: 1. Discontinue ceftaroline. 2. Continue with daptomycin through March 20. 3. The patient will require weekly CBC, CMP and CPK while he is receiving the daptomycin. 4. I can be involved in monitoring him at the residential or the senior care facility physician can take care of the labs. 5. Several days after the conclusion of his daptomycin therapy, it would be reasonable to obtain a couple more blood cultures to ensure that he is completely cleared of his bacteremia. If his blood cultures were to suddenly turn positive again following cessation of his antibiotics, it would strongly argue that he has a pacer or valvular infection.
--- NOTE | 2017-02-24 14:32 | NUR ---
Social Work- Continued D/C Planning Data: EMR reviewed. Pt is on day 17 of hospitalization for right foot cellulitis, renal failure per H&P. Pt is not medically stable for discharge at this time. Pt continues to have poor PO intake. Pt is requiring 6L by CPAP. Per ID, pt to continue IV daptomycin until March 20. DELIVERY REPRESENTATIVE notified of pt's acceptance at [facility] in [place], [place]. DELIVERY REPRESENTATIVE met with pt at bedside regarding placement. Pt agreeable to [facility] as his brother lives in [place] and his niece works at [employer]. DELIVERY REPRESENTATIVE updated plan on whiteboard. T/C to SANJEEVKadi Wan Abdullahi and pt's sister Laurie [phone] regarding TCU acceptance. Both Wan and Laurie are agreeable to plan. T/C to Mohit Abdullahi, pt's brother, regarding pt's acceptance. Mohit is agreeable and believes this is a good fit for pt's discharge plan. All updated and agreeable to plan. Assessment: Pt for whom SNF is medically necessary secondary to IV abx and skilled PT requirements Plan: Pt to discharge to [facility] when medically ready for discharge. Pt and family updated and all are agreeable to plan. Paperwork and PASRR in chart. SW will continue to follow for discharge needs. Tyala Mike MSW
[2017-02-24 15:09] VITALS: BP 144/69; PULSE 60; O2SAT 92
[2017-02-24] MEDS ORDERED: 0.9% Sodium Chloride 250 ML ONE (16:39)
[2017-02-24 17:56] VITALS: BP 146/73; PULSE 66; O2SAT 92
[2017-02-24 19:45] VITALS: BP 152/70; PULSE 60; RESP 18; O2SAT 94
--- NOTE | 2017-02-24 19:47 | NUR ---
Decreased energy Pt continues to be fatigued and GUZMAN. Pt willing to participate in care, but requires breaks. PT was able to do some exercises with him today. Full turns were not tolerated but pt allowed for shifting from side to side and regular skin care. Glucerna added to his trays and long discussion was had regarding healing and nutritional needs; pt only had bites to eat throughout the day with minimal oral intake. H/H continues to trend low, MD aware. IVF stopped today to prevent fluid overload, however pt feels his SOB is a bit worse today, lungs are clear.
[2017-02-25 05:52] VITALS: BP 151/72; PULSE 60; RESP 20; O2SAT 96
--- NOTE | 2017-02-25 06:06 | NUR ---
Lethargy Pt appears lethargic, easily rousable but responds minimally. Drinks minimal amount of boost shake this shift, refuses other input. O2 via NC or CPAP. Refuses repositioning, allows kell care. PICC infusing NS tko, peripheral IV unused. Care continues
[2017-02-25] MEDS: Insulin LISPRO 300 Unit/3 mL Inj SUBQ SCH ×4 (08:00→22:00)
[2017-02-25 08:28] VITALS: BP 136/61; PULSE 62; RESP 18; O2SAT 96
[2017-02-25] MEDS: Mupirocin 2% 22 Gm Ointment TOPICAL SCH ×2 (08:29→22:30)
[2017-02-25] MEDS: FEBUXOSTAT 40 MG PO SCH (08:29)
[2017-02-25] MEDS: Ascorbic Acid 500 mg Tablet PO SCH (08:30)
[2017-02-25] MEDS: DAPTOmycin Inj 750 MG in 0.9% Sodium Chloride 50 ML IV SCH (08:36)
[2017-02-25 08:53] LABS: BASOPHILS % (AUTO) 0.2 % (0-3); EOSINOPHILS % (AUTO) 0 % (0-5); MONOCYTES % (AUTO) 6.7 % (4-12); Mean Corpuscular Hemoglobin 28.1 pg (27.0-35.0); Mean Corpuscular Volume 89.4 fL (81-100); NEUTROPHILS % (AUTO) 88.7 % (40-74); Platelet Count 370 bil/L (150-400)
[2017-02-25 09:33] LABS: Phosphorus 3.6 mg/dL (2.5-4.9)
[2017-02-25] MEDS ORDERED: Furosemide 10 mg/mL 10 mL Inj IVPUSH ONE (11:45)
[2017-02-25] MEDS ORDERED: Furosemide 10 mg/mL 4 mL Inj IVPUSH ONE (12:15)
--- NOTE | 2017-02-25 12:54 | PCM.PNMED ---
Subjective Date of Service Feb 25, 2017 Subjective pt was on CPAP until late morning, denied SOB, refusing care, looked weak, not much conversation, 1-2BM, no report on melena h/h, Cr improving Wt is down from yesterday with [id number] iv Exam Vital Signs Vital Sign - Last Date Time Temp Pulse Resp B/P Pulse Ox O2 Delivery O2 Flow Rate FiO2 02/25/17 08:28 36.6 62 18 136/61 96 CPAP 6.00 Intake and Output 02/24/17 02/24/17 02/25/17 Cumulative From/Thru 15:00 23:00 07:00 02/07/17 10:52 - 02/25/17 06:35 Intake Total 640 ml 547 ml 76425 ml Output Total 78248 ml Balance 640 ml 547 ml 02565 ml Intake Oral 100 ml 31097 ml IV Total 640 ml 447 ml 31287 ml Packed Cells 682 ml Output Urine Total 18516 ml Stool Total 463 ml Urine/Stool Mix 4 ml Emesis 460 ml Estimated Blood Loss 100 ml # Voids 12 # Bowel Movements 1 25 Exam NAD, drowsy, no using accessory M, speaks in full sentences, no JVD, MMM, no LAD RRR, nl s1, s2 no mrg coarse BS, mild crackles, S,ND,NT,normoactive BS+ warm, no edema, pulses 2/2 IVs and Medications Medications Reviewed: Medications were reviewed in detail Lab and Diagnostics Result Diagram: 02/25/1781202/25/17812 Microbiology 5 sets of blood cultures are positive for MRSA Nasal screen for MRSA is negative Ankle culture for MRSA is positive X-Rays, CTs and MRIs PROCEDURE: X-RAY RIGHT ANKLE, MINIMUM THREE VIEWS ([id number]) INDICATIONS: CHARCOT FOOT TECHNIQUE: 4 views of the ankle were acquired. COMPARISON: [facility], CR, XR ANKLE MIN 3VW WT BEARING RT, 2016, 9:32. FINDINGS: Bones: Severe degenerative changes of the mid foot and hindfoot joints result in difficulty evaluating for subtle fractures. No displaced fractures are evident. There appears to be a talonavicular joint dislocation. Offset of the tibiotalar joint is also noted. Prominent plantar and Achilles spurs are present. Soft tissues: Extensive edema about the ankle is noted. No unexpected radiopaque foreign bodies are evident. Scattered soft tissue calcifications are present. IMPRESSION: 1. Prominent mid foot and hindfoot Charcot arthropathy results in difficulty evaluating for subtle fractures. 2. Apparent dislocation of the talonavicular joint. The need for better evaluation utilizing CT may be determined clinically. Dictated by: Cm Parks M.D. on 02/07/2017 at 11:00 Approved by: Cm Parks M.D. on 02/07/2017 at 11:05 PROCEDURE: CT ANKLE RIGHT W/O CONTRAST ([id number]) INDICATIONS: charcot foot right foot/ankle TECHNIQUE: Noncontrast 1-1.5 mm axial sections acquired from above the tibiotalar joint to the bottom of the calcaneus, with coronal and sagittal reformats. COMPARISON: [facility], CR, XR ANKLE 3VW RT, 02/07/2017, 11:52. FINDINGS: Image quality: Diagnostic. Bones: The bone mineralization is diffusely decreased. Severe degenerative changes and numerous scattered small ossific/calcific densities about the osseous structures of the imaged right hindfoot and midfoot results in difficulty evaluating for subtle fractures. No definite large acute fracture is evident. There is complete dislocation of the talonavicular joint with medial positioning of the talar head with respect to the navicular. The navicular remains appropriately aligned with respect to the remainder of the foot. No definite additional dislocations are appreciated. Extensive osseous erosions are noted throughout all of the midfoot and hindfoot bones. The ankle mortise is relatively well maintained. Soft tissues: Extensive subcutaneous edema about the midfoot and hindfoot is identified with prominent ankle, subtalar, and talonavicular fusions. Multiple joint bodies are present within the joint effusions. Please note that evaluation of the ligamentous and tendinous structures of the midfoot and hindfoot is limited on CT. However, there is thickening and diffuse edema noted involving the medial and lateral flexor tendons as well as the Achilles tendon. Partial-thickness tearing probably is present. No soft tissue air or soft tissue foreign bodies are evident. IMPRESSION: 1. Advanced degenerative changes of the right midfoot and hindfoot are compatible with Charcot arthropathy. 2. Medial dislocation of the talus with respect to the navicular is of uncertain chronicity. 3. Evaluation for subtle acute fractures is limited. No large displaced fracture. 4. Numerous bony erosions of the midfoot and forefoot are probably related to Charcot arthropathy. However, the possibility of superimposed osteomyelitis or inflammatory arthropathy cannot be excluded and clinical correlation is recommended. 5. Extensive soft tissue edema without a definite loculated fluid collection. 6. Moderate tendinopathy of the peroneus brevis, peroneus longus, and Achilles tendons is present. Additional areas of flexor tendinopathy along the medial aspect of the ankle probably are present. Dictated by: Cm Parks M.D. on 02/08/2017 at 15:49 Approved by: Cm Parks M.D. on 02/08/2017 at 16:14 PROCEDURE: US RENAL SONOGRAM INDICATIONS: CLAIRE TECHNIQUE: Real-time scanning was performed of the kidneys and bladder, with image documentation. COMPARISON: [facility], CT, CT CHEST ABD PELVIS W CON, 07/21/2015, 12:13. FINDINGS: Kidneys: Kidneys are normal in size. Right kidney measures 11.0 cm long; left kidney measures 11.7 cm long. Right renal cortical thickness is 0.9 cm; left renal cortical thickness is 1.3 cm. Renal cortical echotexture is normal. No hydronephrosis or nephrolithiasis. No suspicious solid mass lesions. Bladder: Pre-void bladder volume is 300 mL. Post-void residual is 200 mL. Pre -void images demonstrate no intraluminal masses or stones. On pre-void images, either ureteral jets are noted with color Doppler interrogation. (Of note, ureteral jets may not be detectable in up to 25% of cases due to insufficient differences in specific gravity between ureteral and bladder urine). Miscellaneous: No free pelvic fluid. IMPRESSION: 1. Mild right renal cortical thinning, otherwise normal kidneys. 2. Approximately 200 cc of postvoid residual. Dictated by: Dajuan Broussard Raoul Interpreted: Ricky Verdin MD on 02/07/2017 at 16:05 Transcribed by: ZULMA on 02/07/2017 at 16:06 Approved by: Ricky Verdin M.D. on 02/07/2017 at 16:33 PROCEDURE: X-RAY RIGHT KNEE, ONE OR TWO VIEWS ([id number]) INDICATIONS: knee pain TECHNIQUE: 2 views of the knee were acquired. COMPARISON: None. FINDINGS: Bones: No fractures or dislocations. No suspicious bony lesions. Severe narrowing of the lateral femoral tibial joint and to lesser degree the patellofemoral knee joint. Tricompartmental osteophyte formation. Soft tissues: Moderate joint effusion. No suspicious soft tissue calcifications. Vascular calcifications indicate atherosclerosis. IMPRESSION: Knee joint degeneration and moderate joint effusion. Dictated by: Dajuan Broussard RRA Interpreted: Libertad Nieves MD on 02/10/2017 at 10: 12 Transcribed by: BHAVANA on 02/10/2017 at 10:13 Cardiac Echo Impressions Echocardiogram Report Name: JACKIE BRAVO TStudy Crispin e: 02/09/2017 Height: 70 in Hospital Exam Location: [facility] Weight: 219 lb Gender: Male BSA: 2.2 m2 : 1940 Age: 76 yrs BP: 120/65 mmHg Reason For Study: Endocarditis Ordering Physician: Performed By: Sandrine LarsenNorthwest [facility]IST [facility] Interpretation Summary The left ventricle is normal in size, wall thickness, and systolic function without any focal wall motion abnormalities. The ejection fraction is estimated to be 60-65%. LVEF has not changed significantly since prior study. The right ventricle is normal in size, thickness and function. The right ventricular systolic pressure is estimated at 54 mmHg assuming a right atrial pressure of 8 mm Hg. The left atrium is severely dilated. Right atrial size is normal. The aortic valve is moderately calcified. The calculated aortic valve area is 1.2 cm2. The peak aortic velocity is 2.6 m/sec. The peak aortic velocity on the previous exam was 3.0 m/sec. There is no other significant valvular heart disease. No overt evidence for endocarditis but cannot exclude MV endocarditis due to significant mitral annular calcification. The aortic root is normal size. Additional Diagnostics DATE OF SURGERY: 02/15/2017 PREOPERATIVE DIAGNOSIS(ES): Diabetic ulcer of Charcot foot, right side. POSTOPERATIVE DIAGNOSIS(ES): Diabetic ulcer of Charcot foot, right side. PROCEDURE: Right below-knee amputation. SURGEON: George Hart MD WET MILLING WHEEL OPERATOR: Bhaskar Raygoza PA-C. Assessment & Plan Patient is a 76-year-old male presents to the emergency room with cellulitis and Charcot foot on the right acute, active #mild hypoxia, due to acute pulmonary edema, 02/21-, likely due to iatrogenic IVF, acute on chronic diastolic CHF, mild . -s/p lasix 40mg iv since 02/22-, increased to 80mg iv 02/24, responded well, renal functions remained stable, -daily wt, i/o, -will continue 80mg iv daily for now #Acute blood loss anemia, Postop hemoglobin 7.5, preop 9.3 Transfused 2 PRBCs . FOBT+ could be false due to iron. Probable microscopic bleeding, FOBT 02/23 again positive while off on iron/Pradaxa -h/h improving, no active GIB -given high-risks VTE post-op, resume Pradaxa once active bleeding cleared. increased asa to 325mg daily 02/23 -will consider GI for endoscopic eval if h/h further drops, any active GIB -trends h/h daily #Acute kidney injury. poa resolved and now new episode of CLAIRE Cr baseline of 1.1. Multifactorial: prerenal vs ATN, Inadequate oral intake, diuretic/Lasix use, antibiotics, new onset diarrhea. Patient's leg edema has improved. lasix was discontinued Lasix 40 daily on 02/19 but restarted 02/22-. urine EO neg. -improving with diuretics. -stopped IVF due to pulmonary edema 02/22 -continue ceftaroline dose to current GFR , keep same dose of daptomycin -Started Imodium for diarrhea, C. difficile is negative. -stopped sodium bicarb today given no clear ix # MRSA bacteremia, Blood cultures had been persistently positive for MRSA. Blood culture negative 2 starting 02/16, Right ankle cultures are positive for MRSA. The right ankle appears to be the source of infection. Underwent a below the knee amputation 02/15 given patient's persistently positive blood cultures and persistently elevated white blood cell count despite marko ropriate antibiotic therapy. -Antibiotics being managed by infectious disease. Continue Daptomycin and ceftaroline 02/15-02/24 - PICC placed 02/19 -total 6wks course upon d/c per ID. #Acute diarrhea, Stool C. difficile negative, -continue imodium prn #mild transaminitis, developed post-op 02/16-,ddx: med induced, no clear culprit meds. no s/s suggestive of DRESS, Eosinophils zero/no rash/afebrile. -trending down LFTs, mildly elevated bilirubin, but stable -will consider abd US if keeps trending up -trends hepatic panel daily chronic, stable, resolved #Hyponatremia, stable, resolved #Diabetes -Hemoglobin A1c 6.6 (controlled) -Insulin sliding scale -Accu-Cheks before meals and at bedtime #Hypertension -We will continue Hydralazine 25 mg by mouth twice a day -We will continue Amlodipine 10 mg daily -Hold Spironolactone 50 mg by mouth twice a day.has been on hold since the initial CLAIRE -Continue to monitor #Chronic leg edema, this is most likely due to HFpEF as above, Patient states he has been on Lasix and spironolactone for 6 years for lower extremity edema. noted +2 pedal edema on the left. Home diuretics Lasix 80 mg by mouth twice a day and spironolactone 50 mg by mouth twice a day. Diuretics has been on hold initially and restarted Lasix at 40 mg by mouth daily ,held again for Claire, spironolactone remains on hold. -resumed diuretics as above #Hyperlipidemia -Continue Lipitor 20 mg by mouth daily at bedtime #Gout (currently stable) -Continue colchicine 0.6 mg twice a day #Diabetic neuropathy -On gabapentin 300 mg by mouth 3 times a day. Patient also has some phantom Pain and gabapentin continued. now Will hold due to CLAIRE Code Status: Full code Disposition: Pending hospital course, overall pt still has multiple issues, refusing PT, SNF d/c in 1-3days VTE Prophylaxis: Other (The patient is on Pradaxa.) VTE Mechanical Devices: Intermittant Pneumatic CD Resuscitation Status: CPR: Attempt Resuscitation Time spent 35min Tom eMndes MD Feb 25, 2017 12:54
[2017-02-25 13:05] VITALS: BP 142/64; PULSE 60; RESP 16; O2SAT 96
--- NOTE | 2017-02-25 14:56 | NUR ---
Skin Pt has had redness and breakdown at the perineal and sacrum areas. Calmoseptine and barrier wipes used. Mepilex placed on sacrum. Q2 turns continue with hourly rounding. Addendum: 02/25/17 at 1753 by PETRA VIGIL RN Placed pt on P500 bed to prevent any further skin breakdown. Gave pt Imodium for loose stool. Calmoseptine and barrier wipes used and Mepilex remains intact. Q2 turns with hourly rounding. Teaching done with pt about moving and participating in care.
[2017-02-25] MEDS ORDERED: 0.9% Sodium Chloride 100 ML ONE (15:41)
[2017-02-25 19:55] VITALS: BP 131/78; PULSE 60; RESP 19; O2SAT 97
--- NOTE | 2017-02-26 04:19 | PROG NOTE ---
[address] [address] PROGRESS NOTE PATIENT: JACKIE BRAVO : 1940 MR#: [id number] ADMIT: 02/07/2017 JOB ID: [id number] DATE: 02/25/2017 INFECTIOUS DISEASE FOLLOWUP: REASON FOR FOLLOWUP: High grade MRSA bacteremia due to infected right ankle with Charcot joint, now resected. INTERVAL HISTORY: The patient reports today he has very little appetite, just felt tired. No fevers, chills, shortness of breath or other new symptoms, minimal pain and no problems with his right BKA stump. PHYSICAL EXAMINATION: Reveals an afebrile gentleman with temperature 35.8, pulse 60, respiratory rate 16, blood pressure 142/64. He is saturating well on room air, saturating well on nasal cannula. He does not look any worse than yesterday, is quite alert. Lungs fairly clear. Cardiac: Tones without any murmur. Abdomen: Soft, nontender. Right stump is healing well without infection. Right BKA stump . LABORATORIES: Include white count stable at 17,000. Creatinine 1.19. AST 64, ALT 57, alk phos 188. Procalcitonin is coming down steadily; it is now 0.35, which is over a 90% drop. No new micro is available. IMPRESSION: This patient is doing quite well from an overall perspective. At this point I think he is about ready for transfer and I note there are plans are for him to go to a transitional care center in [place] soon. RECOMMENDATIONS: 1. The patient should be treated with daptomycin through March 20 at this current dose. 2. He will need weekly CBC, CMP and CPK. 3. The patient can follow up with me if desired, but I think his therapy can be finished at the transitional care center as well. 4. Infectious disease will go ahead and sign off at this time. Please do not hesitate to call me if there are any questions.
[2017-02-26 04:45] VITALS: BP 151/72; PULSE 60; RESP 19; O2SAT 99
[2017-02-26 04:59] LABS: BASOPHILS % (AUTO) 0.1 % (0-3); EOSINOPHILS % (AUTO) 0.1 % (0-5); MONOCYTES % (AUTO) 7.3 % (4-12); Mean Corpuscular Hemoglobin 27.6 pg (27.0-35.0); Mean Corpuscular Volume 90.5 fL (81-100); NEUTROPHILS % (AUTO) 85.8 % (40-74); Platelet Count 366 bil/L (150-400)
--- NOTE | 2017-02-26 06:17 | NUR ---
Lethargy Pt allows repositioning while cleaning kell area, mepelex intact and barrier cream applied. No incontinence this shift, pt uses call light and voids in urinal with assist. CPAP at noc with 6L, while awake and talking CPOX did not go below 88% SAO2. Picc infusing NS tko. Encouraged PO intake of water and glucerna. Blood glucose monitored Q6 due to low intake- between 86 and 95 during this shift. Care continues
[2017-02-26] MEDS: Insulin LISPRO 300 Unit/3 mL Inj SUBQ SCH ×4 (08:00→22:00)
[2017-02-26] MEDS: FEBUXOSTAT 40 MG PO SCH (09:27)
[2017-02-26] MEDS: Ascorbic Acid 500 mg Tablet PO SCH (09:28)
[2017-02-26] MEDS: Mupirocin 2% 22 Gm Ointment TOPICAL SCH ×2 (09:29→23:47)
[2017-02-26] MEDS: Heparin 5,000 Unit/mL Inj SUBQ SCH ×3 (09:35→23:53)
[2017-02-26] MEDS: DAPTOmycin Inj 750 MG in 0.9% Sodium Chloride 50 ML IV SCH (09:36)
--- NOTE | 2017-02-26 10:43 | NUR ---
Social Work: Continued Discharge Planning D: EMR reviewed. Pt is on day 19 of hospitalization. Per MD in AM multi-discplinary rounds, pt is not medically stable is will likely remain in hospital through 02/28. Nephrology is pending. Pt continues to decline PT and food due to fatigue. MD will see pt today to assess pt's status. Per SW note on 02/24, SW placed T/C to Mohit Fernando, pt's brother, regarding pt's acceptance at [facility]. Mohit and pt are agreeable and believe this is a good fit for pt's discharge plan. All updated and agreeable to plan. SW will continue to follow. A: Pt for whom a SNF has been deemed medically necessary secondary to IVABX and skilled PT requirements P: Pt to discharge to [facility] when medically stable for discharge. Pt and family updated and all are agreeable to plan. Paperwork and PASRR in chart. Pt to received IV Dapto through 03/20 at [facility]. SW will continue to follow for discharge needs. BRENDA Elmore
[2017-02-26] MEDS ORDERED: Furosemide 10 mg/mL 10 mL Inj IVPUSH ONE (13:05)
[2017-02-26 13:10] VITALS: BP 141/67; PULSE 61; RESP 18; O2SAT 90
--- NOTE | 2017-02-26 13:10 | PCM.PNMED ---
Subjective Date of Service Feb 26, 2017 Subjective pt still clinically not improving much, still lethargic denied any complaints, VS remained stable, had 4BM yesterday labs trend also better, 80mg iv lasix responded, wt is decreasing Exam Vital Signs Vital Sign - Last Date Time Temp Pulse Resp B/P Pulse Ox O2 Delivery O2 Flow Rate FiO2 02/26/17 04:45 36.8 60 19 151/72 99 CPAP 02/25/17 20:25 3.00 Intake and Output 02/25/17 02/25/17 02/26/17 Cumulative From/Thru 15:00 23:00 07:00 02/07/17 10:52 - 02/26/17 06:26 Intake Total 608 ml 290 ml 54928 ml Output Total 2150 ml 825 ml 58456 ml Balance -1542 ml -535 ml 44347 ml Intake Oral 440 ml 200 ml 95087 ml IV Total 168 ml 90 ml 94868 ml Packed Cells 682 ml Output Urine Total 2150 ml 825 ml 30029 ml Stool Total 463 ml Urine/Stool Mix 4 ml Emesis 460 ml Estimated Blood Loss 100 ml # Voids 12 # Bowel Movements 3 0 28 Exam NAD, drowsy, no using accessory M, speaks in full sentences, no JVD, MMM, no LAD RRR, nl s1, s2 no mrg coarse BS, mild crackles, S,ND,NT,normoactive BS+ warm, no edema, pulses 2/2 IVs and Medications Medications Reviewed: Medications were reviewed in detail Lab and Diagnostics Result Diagram: 02/26/17 0440 02/26/17 0440 Microbiology 5 sets of blood cultures are positive for MRSA Nasal screen for MRSA is negative Ankle culture for MRSA is positive X-Rays, CTs and MRIs PROCEDURE: X-RAY RIGHT ANKLE, MINIMUM THREE VIEWS ([id number]) INDICATIONS: CHARCOT FOOT TECHNIQUE: 4 views of the ankle were acquired. COMPARISON: [facility], CR, XR ANKLE MIN 3VW WT BEARING RT, 2016, 9:32. FINDINGS: Bones: Severe degenerative changes of the mid foot and hindfoot joints result in difficulty evaluating for subtle fractures. No displaced fractures are evident. There appears to be a talonavicular joint dislocation. Offset of the tibiotalar joint is also noted. Prominent plantar and Achilles spurs are present. Soft tissues: Extensive edema about the ankle is noted. No unexpected radiopaque foreign bodies are evident. Scattered soft tissue calcifications are present. IMPRESSION: 1. Prominent mid foot and hindfoot Charcot arthropathy results in difficulty evaluating for subtle fractures. 2. Apparent dislocation of the talonavicular joint. The need for better evaluation utilizing CT may be determined clinically. Dictated by: Cm Parks M.D. on 02/07/2017 at 11:00 Approved by: Cm Parks M.D. on 02/07/2017 at 11:05 PROCEDURE: CT ANKLE RIGHT W/O CONTRAST ([id number]) INDICATIONS: charcot foot right foot/ankle TECHNIQUE: Noncontrast 1-1.5 mm axial sections acquired from above the tibiotalar joint to the bottom of the calcaneus, with coronal and sagittal reformats. COMPARISON: [facility], CR, XR ANKLE 3VW RT, 02/07/2017, 11:52. FINDINGS: Image quality: Diagnostic. Bones: The bone mineralization is diffusely decreased. Severe degenerative changes and numerous scattered small ossific/calcific densities about the osseous structures of the imaged right hindfoot and midfoot results in difficulty evaluating for subtle fractures. No definite large acute fracture is evident. There is complete dislocation of the talonavicular joint with medial positioning of the talar head with respect to the navicular. The navicular remains appropriately aligned with respect to the remainder of the foot. No definite additional dislocations are appreciated. Extensive osseous erosions are noted throughout all of the midfoot and hindfoot bones. The ankle mortise is relatively well maintained. Soft tissues: Extensive subcutaneous edema about the midfoot and hindfoot is identified with prominent ankle, subtalar, and talonavicular fusions. Multiple joint bodies are present within the joint effusions. Please note that evaluation of the ligamentous and tendinous structures of the midfoot and hindfoot is limited on CT. However, there is thickening and diffuse edema noted involving the medial and lateral flexor tendons as well as the Achilles tendon. Partial-thickness tearing probably is present. No soft tissue air or soft tissue foreign bodies are evident. IMPRESSION: 1. Advanced degenerative changes of the right midfoot and hindfoot are compatible with Charcot arthropathy. 2. Medial dislocation of the talus with respect to the navicular is of uncertain chronicity. 3. Evaluation for subtle acute fractures is limited. No large displaced fracture. 4. Numerous bony erosions of the midfoot and forefoot are probably related to Charcot arthropathy. However, the possibility of superimposed osteomyelitis or inflammatory arthropathy cannot be excluded and clinical correlation is recommended. 5. Extensive soft tissue edema without a definite loculated fluid collection. 6. Moderate tendinopathy of the peroneus brevis, peroneus longus, and Achilles tendons is present. Additional areas of flexor tendinopathy along the medial aspect of the ankle probably are present. Dictated by: Cm Parks M.D. on 02/08/2017 at 15:49 Approved by: Cm Parks M.D. on 02/08/2017 at 16:14 PROCEDURE: US RENAL SONOGRAM INDICATIONS: CLAIRE TECHNIQUE: Real-time scanning was performed of the kidneys and bladder, with image documentation. COMPARISON: [facility], CT, CT CHEST ABD PELVIS W CON, 07/21/2015, 12:13. FINDINGS: Kidneys: Kidneys are normal in size. Right kidney measures 11.0 cm long; left kidney measures 11.7 cm long. Right renal cortical thickness is 0.9 cm; left renal cortical thickness is 1.3 cm. Renal cortical echotexture is normal. No hydronephrosis or nephrolithiasis. No suspicious solid mass lesions. Bladder: Pre-void bladder volume is 300 mL. Post-void residual is 200 mL. Pre -void images demonstrate no intraluminal masses or stones. On pre-void images, either ureteral jets are noted with color Doppler interrogation. (Of note, ureteral jets may not be detectable in up to 25% of cases due to insufficient differences in specific gravity between ureteral and bladder urine). Miscellaneous: No free pelvic fluid. IMPRESSION: 1. Mild right renal cortical thinning, otherwise normal kidneys. 2. Approximately 200 cc of postvoid residual. Dictated by: Dajuan Broussard [facility] Interpreted: Ricky Verdin MD on 02/07/2017 at 16:05 Transcribed by: ZULMA on 02/07/2017 at 16:06 Approved by: Ricky Verdin M.D. on 02/07/2017 at 16:33 PROCEDURE: X-RAY RIGHT KNEE, ONE OR TWO VIEWS ([id number]) INDICATIONS: knee pain TECHNIQUE: 2 views of the knee were acquired. COMPARISON: None. FINDINGS: Bones: No fractures or dislocations. No suspicious bony lesions. Severe narrowing of the lateral femoral tibial joint and to lesser degree the patellofemoral knee joint. Tricompartmental osteophyte formation. Soft tissues: Moderate joint effusion. No suspicious soft tissue calcifications. Vascular calcifications indicate atherosclerosis. IMPRESSION: Knee joint degeneration and moderate joint effusion. Dictated by: Dajuan Broussard RRA Interpreted: Libertad Nieves MD on 02/10/2017 at 10: 12 Transcribed by: BHAVANA on 02/10/2017 at 10:13 Cardiac Echo Impressions Echocardiogram Report Name: JACKIE BRAVO TStudy Crispin e: 02/09/2017 Height: 70 in Hospital Exam Location: [facility] Weight: 219 lb Gender: Male BSA: 2.2 m2 : 1940 Age: 76 yrs BP: 120/65 mmHg Reason For Study: Endocarditis Ordering Physician: Performed By: [facility] Interpretation Summary The left ventricle is normal in size, wall thickness, and systolic function without any focal wall motion abnormalities. The ejection fraction is estimated to be 60-65%. LVEF has not changed significantly since prior study. The right ventricle is normal in size, thickness and function. The right ventricular systolic pressure is estimated at 54 mmHg assuming a right atrial pressure of 8 mm Hg. The left atrium is severely dilated. Right atrial size is normal. The aortic valve is moderately calcified. The calculated aortic valve area is 1.2 cm2. The peak aortic velocity is 2.6 m/sec. The peak aortic velocity on the previous exam was 3.0 m/sec. There is no other significant valvular heart disease. No overt evidence for endocarditis but cannot exclude MV endocarditis due to significant mitral annular calcification. The aortic root is normal size. Additional Diagnostics DATE OF SURGERY: 02/15/2017 PREOPERATIVE DIAGNOSIS(ES): Diabetic ulcer of Charcot foot, right side. POSTOPERATIVE DIAGNOSIS(ES): Diabetic ulcer of Charcot foot, right side. PROCEDURE: Right below-knee amputation. SURGEON: George Hart MD LABOR DELIVERY RN: Bhaskar Raygoza PA-C. Assessment & Plan Patient is a 76-year-old male presents to the emergency room with cellulitis and Charcot foot on the right acute, active #acute encephalopathy, it's unclear this is acute findings or not, reportedly pt was more interactive and cooperative prior to surgery. likely metabolic with hypoxia, persistent infection. -will boost po intake, encourage feeding, added snacking -please encourage OOB to chair, enough sun exposure during the day. -avoid #mild hypoxia, due to acute pulmonary edema, 02/21-, likely due to iatrogenic IVF, acute on chronic diastolic CHF, mild . -s/p lasix 40mg iv since 02/22-, increased to 80mg iv 02/24,02/25, responded well, renal functions remained stable, -daily wt, i/o, -continue 80mg iv lasix, determine on daily basis #Acute blood loss anemia, Postop hemoglobin 7.5, preop 9.3 Transfused 2 PRBCs . FOBT+ could be false due to iron. Probable microscopic bleeding, FOBT 02/23 again positive while off on iron/Pradaxa -h/h stable, no active GIB -given high-risks VTE post-op, resume Pradaxa once active bleeding cleared. increased asa to 325mg daily 02/23 -will consider GI for endoscopic eval if h/h further drops, any active GIB -trends h/h daily -added HSQ 02/25 for dvt ppx #Acute kidney injury. poa resolved and now new episode of CLAIRE Cr baseline of 1.1. Multifactorial: prerenal vs ATN, Inadequate oral intake, diuretic/Lasix use, antibiotics, new onset diarrhea. Patient's leg edema has improved. lasix was discontinued Lasix 40 daily on 02/19 but restarted 02/22-. urine EO neg. -improving with diuretics. -stopped IVF due to pulmonary edema 02/22 -stopped sodium bicarb today given no clear ix # MRSA bacteremia, Blood cultures had been persistently positive for MRSA. Blood culture negative 2 starting 02/16, Right ankle cultures are positive for MRSA. The right ankle appears to be the source of infection. Underwent a below the knee amputation 02/15 given patient's persistently positive blood cultures and persistently elevated white blood cell count despite marok ropriate antibiotic therapy. -Antibiotics being managed by infectious disease. - PICC placed 02/19 -Continue Daptomycin total 6wks course upon d/c per ID. pt was given ceftaroline 02/15-02/24 #Acute diarrhea, Stool C. difficile negative, continue imodium prn #mild transaminitis, developed post-op 02/16-,ddx: med induced, no clear culprit meds. no s/s suggestive of DRESS, Eosinophils zero/no rash/afebrile. -trending down LFTs, mildly elevated bilirubin, but stable -will consider abd US if keeps trending up -trends hepatic panel daily chronic, stable, resolved #Hyponatremia, stable, resolved #Diabetes -Hemoglobin A1c 6.6 (controlled) -Insulin sliding scale -Accu-Cheks before meals and at bedtime #Hypertension -We will continue Hydralazine 25 mg by mouth twice a day -We will continue Amlodipine 10 mg daily -Hold Spironolactone 50 mg by mouth twice a day.has been on hold since the initial CLAIRE -Continue to monitor #Chronic leg edema, this is most likely due to HFpEF as above, Patient states he has been on Lasix and spironolactone for 6 years for lower extremity edema. noted +2 pedal edema on the left. Home diuretics Lasix 80 mg by mouth twice a day and spironolactone 50 mg by mouth twice a day. Diuretics has been on hold initially and restarted Lasix at 40 mg by mouth daily ,held again for Claire, spironolactone remains on hold. -resumed diuretics as above #Hyperlipidemia -Continue Lipitor 20 mg by mouth daily at bedtime #Gout (currently stable) -Continue colchicine 0.6 mg twice a day #Diabetic neuropathy -On gabapentin 300 mg by mouth 3 times a day. Patient also has some phantom Pain and gabapentin continued. now Will hold due to CLAIRE Code Status: Full code Disposition: Pending hospital course, overall pt still has multiple issues, refusing PT, SNF d/c in 1-3days VTE Prophylaxis: Other (The patient is on Pradaxa.) VTE Mechanical Devices: Intermittant Pneumatic CD Resuscitation Status: CPR: Attempt Resuscitation Time spent 35min Tom Mendes MD Feb 26, 2017 13:10
--- NOTE | 2017-02-26 14:41 | NUR ---
NUTRITION FOLLOW-UP: ASSESS:76 yo M admitted with R. foot cellulitis and CLAIRE. Pt POD #10 following R BKA due to advanced degenerative changes of R mid and hind foot due to MRSA septic arthritis and probable osteomyelitis in a Charcot joint. Pt. with acute encephalopathy; unclear whether this is acute findings or not, reportedly pt was more interactive and cooperative prior to surgery. Encephalopathy likely metabolic with hypoxia, persistent infection. PO appetite has not increased to any significant extent. Nursing, providers and dietitians encouraging intake of meals and supplements. PMHX: HTN, DM type 2, HLD, CKD stg 3, Gout, DVT, R BKA. LABS: Reviewed. BUN 35, Ca 8.4, AST 60, ALT 51, Alk Phos 172, Alb 2.4. MEDS: Reviewed. Lasix, immodium, vitamins C, D3 & 12. GI: BM x 4 (02/25). SKIN: R BKA on 02/15. WT: 106.9 kg, BMI 33.0 kg/m2. Admit wt 99.3 kg (prior to BKA), IBW 75.4kg DIET: Heart healthy consistent carbohydrate. PO intake minimal, refusal to 25% trays. EST. 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 2) Inadequate oral intake related to decreased appetite, reports of dislike of hospital food as evidenced by refusal to 25% of trays - PERSISTS. NUTRITION INTERVENTION: 1) Continue to encourage increased PO intake via snack and possibly family bringing in outside food. Pt amenable. 2) Continue Glucerna supplement to meal tray to promote adequate kcal/protein intake. MONITOR / EVAL: PO intake, labs, nutrition status. Will continue to monitor per high nutrition related guidelines.
--- NOTE | 2017-02-26 18:19 | NUR ---
appetite continues to have little interest in food, but did drink Glucerna, milk and apple baljinder. He had no interest in solid food, but denied nausea. Sat up at edge of bed after working with PT, seemed to brighten his aspect some
[2017-02-26 20:00] VITALS: BP 147/66; PULSE 62; RESP 19; O2SAT 96
[2017-02-27 05:32] VITALS: BP 145/70; PULSE 60; RESP 19; O2SAT 95
[2017-02-27 05:58] LABS: BASOPHILS % (AUTO) 0.1 % (0-3); EOSINOPHILS % (AUTO) 0.2 % (0-5); MONOCYTES % (AUTO) 8.4 % (4-12); Mean Corpuscular Volume 88.7 fL (81-100); NEUTROPHILS % (AUTO) 85.7 % (40-74); Platelet Count 353 bil/L (150-400)
[2017-02-27 06:30] LABS: Magnesium 1.9 mg/dL (1.6-2.6); Phosphorus 3.2 mg/dL (2.5-4.9)
--- NOTE | 2017-02-27 07:47 | NUR ---
Lethargy Pt refuses apple juice, he feels it is causing diarrhea. Drank minimal water this shift, no other intake. CPAP with 6L O2 at [facility]. Mepelex on sacrum intact. Pt reports no pain in stump or otherwise. No edema, CSM intact and pt assists with turning during bed change. Care continues
[2017-02-27] MEDS ORDERED: Furosemide 10 mg/mL 4 mL Inj IVPUSH ONE (07:50)
[2017-02-27] MEDS: Insulin LISPRO 300 Unit/3 mL Inj SUBQ SCH ×4 (08:00→21:15)
[2017-02-27] MEDS: Heparin 5,000 Unit/mL Inj SUBQ SCH ×2 (08:48→16:19)
[2017-02-27] MEDS: FEBUXOSTAT 40 MG PO SCH (08:49)
[2017-02-27] MEDS: Ascorbic Acid 500 mg Tablet PO SCH (08:50)
[2017-02-27] MEDS: DAPTOmycin Inj 750 MG in 0.9% Sodium Chloride 50 ML IV SCH (09:28)
--- NOTE | 2017-02-27 11:02 | NUR ---
FINA signed by pt
--- NOTE | 2017-02-27 11:40 | PCM.PNMED ---
Subjective Date of Service Feb 27, 2017 Subjective pt is little more lucid, participate in conversation today denied abdominal pain, diarrhea reported yesterday, c.diff neg patient is reluctant to try diet, strongly encouraged, breathing comfortably, responded to [id number] iv yesterday, wt trending down worked with PT yesterday, Exam Vital Signs Vital Sign - Last Date Time Temp Pulse Resp B/P Pulse Ox O2 Delivery O2 Flow Rate FiO2 02/27/17 05:32 36.4 60 19 145/70 95 Room Air 02/25/17 20:25 3.00 Intake and Output 02/26/17 02/26/17 02/27/17 Cumulative From/Thru 15:00 23:00 07:00 02/07/17 10:52 - 02/27/17 05:49 Intake Total 800 ml 250 ml 43604 ml Output Total 800 ml 550 ml 52037 ml Balance 0 ml -300 ml 10801 ml Intake Oral 800 ml 250 ml 84211 ml IV Total 73783 ml Packed Cells 682 ml Output Urine Total 800 ml 550 ml 83841 ml Stool Total 463 ml Urine/Stool Mix 4 ml Emesis 460 ml Estimated Blood Loss 100 ml # Voids 12 # Bowel Movements 3 1 32 Exam NAD, no JVD, MMM, no LAD RRR, nl s1, s2 no mrg CTAB, no w,c S,ND,NT,normoactive BS+ warm, no edema, pulses 2/2 s/p R BKA IVs and Medications Medications Reviewed: Medications were reviewed in detail Lab and Diagnostics Result Diagram: 02/27/17 0530 02/27/17 0530 Microbiology 5 sets of blood cultures are positive for MRSA Nasal screen for MRSA is negative Ankle culture for MRSA is positive X-Rays, CTs and MRIs PROCEDURE: X-RAY RIGHT ANKLE, MINIMUM THREE VIEWS ([id number]) INDICATIONS: CHARCOT FOOT TECHNIQUE: 4 views of the ankle were acquired. COMPARISON: [facility], CR, XR ANKLE MIN 3VW WT BEARING RT, 2016, 9:32. FINDINGS: Bones: Severe degenerative changes of the mid foot and hindfoot joints result in difficulty evaluating for subtle fractures. No displaced fractures are evident. There appears to be a talonavicular joint dislocation. Offset of the tibiotalar joint is also noted. Prominent plantar and Achilles spurs are present. Soft tissues: Extensive edema about the ankle is noted. No unexpected radiopaque foreign bodies are evident. Scattered soft tissue calcifications are present. IMPRESSION: 1. Prominent mid foot and hindfoot Charcot arthropathy results in difficulty evaluating for subtle fractures. 2. Apparent dislocation of the talonavicular joint. The need for better evaluation utilizing CT may be determined clinically. Dictated by: Cm Parks M.D. on 02/07/2017 at 11:00 Approved by: Cm Parks M.D. on 02/07/2017 at 11:05 PROCEDURE: CT ANKLE RIGHT W/O CONTRAST ([id number]) INDICATIONS: charcot foot right foot/ankle TECHNIQUE: Noncontrast 1-1.5 mm axial sections acquired from above the tibiotalar joint to the bottom of the calcaneus, with coronal and sagittal reformats. COMPARISON: [facility], CR, XR ANKLE 3VW RT, 02/07/2017, 11:52. FINDINGS: Image quality: Diagnostic. Bones: The bone mineralization is diffusely decreased. Severe degenerative changes and numerous scattered small ossific/calcific densities about the osseous structures of the imaged right hindfoot and midfoot results in difficulty evaluating for subtle fractures. No definite large acute fracture is evident. There is complete dislocation of the talonavicular joint with medial positioning of the talar head with respect to the navicular. The navicular remains appropriately aligned with respect to the remainder of the foot. No definite additional dislocations are appreciated. Extensive osseous erosions are noted throughout all of the midfoot and hindfoot bones. The ankle mortise is relatively well maintained. Soft tissues: Extensive subcutaneous edema about the midfoot and hindfoot is identified with prominent ankle, subtalar, and talonavicular fusions. Multiple joint bodies are present within the joint effusions. Please note that evaluation of the ligamentous and tendinous structures of the midfoot and hindfoot is limited on CT. However, there is thickening and diffuse edema noted involving the medial and lateral flexor tendons as well as the Achilles tendon. Partial-thickness tearing probably is present. No soft tissue air or soft tissue foreign bodies are evident. IMPRESSION: 1. Advanced degenerative changes of the right midfoot and hindfoot are compatible with Charcot arthropathy. 2. Medial dislocation of the talus with respect to the navicular is of uncertain chronicity. 3. Evaluation for subtle acute fractures is limited. No large displaced fracture. 4. Numerous bony erosions of the midfoot and forefoot are probably related to Charcot arthropathy. However, the possibility of superimposed osteomyelitis or inflammatory arthropathy cannot be excluded and clinical correlation is recommended. 5. Extensive soft tissue edema without a definite loculated fluid collection. 6. Moderate tendinopathy of the peroneus brevis, peroneus longus, and Achilles tendons is present. Additional areas of flexor tendinopathy along the medial aspect of the ankle probably are present. Dictated by: Cm Parks M.D. on 02/08/2017 at 15:49 Approved by: Cm Parks M.D. on 02/08/2017 at 16:14 PROCEDURE: US RENAL SONOGRAM INDICATIONS: CLAIRE TECHNIQUE: Real-time scanning was performed of the kidneys and bladder, with image documentation. COMPARISON: [facility], CT, CT CHEST ABD PELVIS W CON, 07/21/2015, 12:13. FINDINGS: Kidneys: Kidneys are normal in size. Right kidney measures 11.0 cm long; left kidney measures 11.7 cm long. Right renal cortical thickness is 0.9 cm; left renal cortical thickness is 1.3 cm. Renal cortical echotexture is normal. No hydronephrosis or nephrolithiasis. No suspicious solid mass lesions. Bladder: Pre-void bladder volume is 300 mL. Post-void residual is 200 mL. Pre -void images demonstrate no intraluminal masses or stones. On pre-void images, either ureteral jets are noted with color Doppler interrogation. (Of note, ureteral jets may not be detectable in up to 25% of cases due to insufficient differences in specific gravity between ureteral and bladder urine). Miscellaneous: No free pelvic fluid. IMPRESSION: 1. Mild right renal cortical thinning, otherwise normal kidneys. 2. Approximately 200 cc of postvoid residual. Dictated by: Dajuan Broussard [facility] Interpreted: Ricky Verdin MD on 02/07/2017 at 16:05 Transcribed by: ZULMA on 02/07/2017 at 16:06 Approved by: Ricky Verdin M.D. on 02/07/2017 at 16:33 PROCEDURE: X-RAY RIGHT KNEE, ONE OR TWO VIEWS ([id number]) INDICATIONS: knee pain TECHNIQUE: 2 views of the knee were acquired. COMPARISON: None. FINDINGS: Bones: No fractures or dislocations. No suspicious bony lesions. Severe narrowing of the lateral femoral tibial joint and to lesser degree the patellofemoral knee joint. Tricompartmental osteophyte formation. Soft tissues: Moderate joint effusion. No suspicious soft tissue calcifications. Vascular calcifications indicate atherosclerosis. IMPRESSION: Knee joint degeneration and moderate joint effusion. Dictated by: Dajuan Broussard [facility] Interpreted: Libertad Nieves MD on 02/10/2017 at 10: 12 Transcribed by: BHAVANA on 02/10/2017 at 10:13 Cardiac Echo Impressions Echocardiogram Report Name: JACKIE BRAVO TStudy Crispin e: 02/09/2017 Height: 70 in Hospital Exam Location: [facility] Weight: 219 lb Gender: Male BSA: 2.2 m2 : 1940 Age: 76 yrs BP: 120/65 mmHg Reason For Study: Endocarditis Ordering Physician: Performed By: Sandrine LarsenH[facility] HospitalIST [facility] Interpretation Summary The left ventricle is normal in size, wall thickness, and systolic function without any focal wall motion abnormalities. The ejection fraction is estimated to be 60-65%. LVEF has not changed significantly since prior study. The right ventricle is normal in size, thickness and function. The right ventricular systolic pressure is estimated at 54 mmHg assuming a right atrial pressure of 8 mm Hg. The left atrium is severely dilated. Right atrial size is normal. The aortic valve is moderately calcified. The calculated aortic valve area is 1.2 cm2. The peak aortic velocity is 2.6 m/sec. The peak aortic velocity on the previous exam was 3.0 m/sec. There is no other significant valvular heart disease. No overt evidence for endocarditis but cannot exclude MV endocarditis due to significant mitral annular calcification. The aortic root is normal size. Additional Diagnostics DATE OF SURGERY: 02/15/2017 PREOPERATIVE DIAGNOSIS(ES): Diabetic ulcer of Charcot foot, right side. POSTOPERATIVE DIAGNOSIS(ES): Diabetic ulcer of Charcot foot, right side. PROCEDURE: Right below-knee amputation. SURGEON: George Hart MD STORE ASSOCIATE: Bhaskar Raygoza PA-C. Assessment & Plan Patient is a 76-year-old male presents to the emergency room with cellulitis and Charcot foot on the right acute, active #acute encephalopathy, it's unclear this is acute findings or not, reportedly pt was more interactive and cooperative prior to surgery. could be metabolic with malnutrition vs hypoxia -pt seems more alert and attentive today -continue encourage po intake, encourage feeding, added snacking -please encourage OOB to chair, enough sun exposure during the day. -avoid sedatives #mild hypoxia, due to acute pulmonary edema, 02/21-, likely due to iatrogenic IVF, acute on chronic diastolic CHF, mild . -s/p lasix 40mg iv since 02/22-, increased to 80mg iv 02/24,02/25, 02/26 responded well , renal functions remained stable, -daily wt, i/o, -gave [id number] iv today, consider another dosing tomorrow or switch to po #Acute blood loss anemia, Postop hemoglobin 7.5, preop 9.3 Transfused 2 PRBCs . FOBT+ could be false due to iron. Probable microscopic bleeding, FOBT 02/23 again positive while off on iron/Pradaxa -h/h stable, no active GIB -given high-risks VTE post-op, resume Pradaxa once active bleeding cleared. increased asa to 325mg daily 02/23 -will consider GI for endoscopic eval if h/h further drops, any active GIB -trends h/h daily -added HSQ 02/25 for dvt ppx #Acute kidney injury. poa resolved and now new episode of CLAIRE Cr baseline of 1.1. Multifactorial: prerenal vs ATN, Inadequate oral intake, diuretic/Lasix use, antibiotics, new onset diarrhea. Patient's leg edema has improved. lasix was discontinued Lasix 40 daily on 02/19 but restarted 02/22-. urine EO neg. -improving with diuretics. -stopped IVF due to pulmonary edema 02/22 -stopped sodium bicarb today given no clear ix # MRSA bacteremia, Blood cultures had been persistently positive for MRSA. Blood culture negative 2 starting 02/16, Right ankle cultures are positive for MRSA. The right ankle appears to be the source of infection. Underwent a below the knee amputation 02/15 given patient's persistently positive blood cultures and persistently elevated white blood cell count despite marko ropriate antibiotic therapy. -Antibiotics being managed by infectious disease. - PICC placed 02/19 -Continue Daptomycin total 6wks course upon d/c per ID. pt was given ceftaroline 5/23-02/24 #Acute diarrhea, Stool C. difficile negative x2, continue imodium prn #mild transaminitis, developed post-op 02/16-,ddx: med induced, no clear culprit meds. no s/s suggestive of DRESS, Eosinophils zero/no rash/afebrile. -trending down LFTs, mildly elevated bilirubin, but stable -will consider abd US if keeps trending up -trends hepatic panel daily chronic, stable, resolved #Hyponatremia, stable, resolved #Diabetes -Hemoglobin A1c 6.6 (controlled) -Insulin sliding scale -Accu-Cheks before meals and at bedtime #Hypertension -We will continue Hydralazine 25 mg by mouth twice a day -We will continue Amlodipine 10 mg daily -Hold Spironolactone 50 mg by mouth twice a day.has been on hold since the initial CLAIRE -Continue to monitor #Chronic leg edema, this is most likely due to HFpEF as above, Patient states he has been on Lasix and spironolactone for 6 years for lower extremity edema. noted +2 pedal edema on the left. Home diuretics Lasix 80 mg by mouth twice a day and spironolactone 50 mg by mouth twice a day. Diuretics has been on hold initially and restarted Lasix at 40 mg by mouth daily ,held again for Claire, spironolactone remains on hold. -resumed diuretics as above #Hyperlipidemia -Continue Lipitor 20 mg by mouth daily at bedtime #Gout (currently stable) -Continue colchicine 0.6 mg twice a day #Diabetic neuropathy -On gabapentin 300 mg by mouth 3 times a day. Patient also has some phantom Pain and gabapentin continued. now Will hold due to CLAIRE Code Status: Full code Disposition:pt seems to be improving slowely, d/c when po intake more increased to [facility] in 1-2ays, needs to follow up ortho outpt VTE Prophylaxis: Other (The patient is on Pradaxa.) VTE Mechanical Devices: Intermittant Pneumatic CD Resuscitation Status: CPR: Attempt Resuscitation Time spent 35min Tom Mendes MD Feb 27, 2017 11:39
[2017-02-27 13:21] VITALS: BP 130/60; PULSE 60; RESP 20; O2SAT 92
--- NOTE | 2017-02-27 18:29 | NUR ---
diarrhea/skin excoriation pts had another episode of diarrhea today, Immodium given, Mepilex dressing removed because skin looked like was getting more excoriated when feces was getting under dressing, using skin barrier wipe and camoseptine for now. turn q2hrs
[2017-02-27 21:45] VITALS: BP 153/70; PULSE 60; RESP 16; O2SAT 98
[2017-02-28] MEDS: Heparin 5,000 Unit/mL Inj SUBQ SCH ×3 (00:29→17:43)
--- NOTE | 2017-02-28 04:37 | NUR ---
Skin / fluid balance Continuing to use barrier wipes and cream for skin care, bottom very excoriated with some open areas due to frequent stool. Q2 hour repositioning by staff, pt unable to offload easily on own. Fluid balance may appear out of balance related to last time IV fluids were recorded in EMR; pump cleared and pt saline locked currently. Hourly rounding ongoing.
[2017-02-28 04:49] LABS: BASOPHILS % (AUTO) 0.1 % (0-3); EOSINOPHILS % (AUTO) 0.7 % (0-5); MONOCYTES % (AUTO) 9.5 % (4-12); Mean Corpuscular Hemoglobin 27.9 pg (27.0-35.0); Mean Corpuscular Volume 90.2 fL (81-100); NEUTROPHILS % (AUTO) 82.2 % (40-74); Platelet Count 349 bil/L (150-400)
[2017-02-28 05:21] LABS: Phosphorus 3.1 mg/dL (2.5-4.9)
[2017-02-28 06:20] VITALS: BP 152/71; PULSE 60; RESP 16; O2SAT 100
[2017-02-28] MEDS: Insulin LISPRO 300 Unit/3 mL Inj SUBQ SCH ×4 (08:00→21:03)
[2017-02-28] MEDS: DAPTOmycin Inj 750 MG in 0.9% Sodium Chloride 50 ML IV SCH (08:09)
[2017-02-28] MEDS: FEBUXOSTAT 40 MG PO SCH (09:36)
[2017-02-28] MEDS: Ascorbic Acid 500 mg Tablet PO SCH (09:37)
--- NOTE | 2017-02-28 10:30 | PCM.DIMED ---
Discharge Instructions Date of Service Feb 28, 2017 Dates of Hospitalization February 07, 2017 at 13:56 Discharge Diagnosis Discharge Diagnosis 1. Infected right ankle 2. right below knee amputation 3. acute blood loss anemia 4. Acute kidney injury 5. MRSA bacteremia 6. hypertension 7. Type 2 diabetes, with neuropathy Diet Discharge Diet: Heart Healthy, Diabetic Activity Discharge Activity: Limited until seen by PCP Patient Instructions Follow-up plan Patient discharged to custodial facility to continue with IV antibiotics Continue Daptomycin until March 20, 2017, monitor patient with CBC, CMP, CPK to be drawn every week Karlene Raman MD Feb 28, 2017 10:30
--- NOTE | 2017-02-28 10:34 | NUR ---
Called and left message for Natalia at [facility] [phone] let her know patient is ready today and I would like to coordinate discharge, RN to RN and fax orders. Asked for call back as soon as possible. 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 Updated [employer] Addendum: 02/28/17 at 1127 by CASIMIRO DELUNA CM Called and left message with Shayla Salgado CM at [facility], let her know updated PT eval is in and patient is ready for transfer today to [facility] pending approval. Updated [employer] Addendum: 02/28/17 at 1141 by CASIMIRO DELUNA CM ABOVE NOTE REGARDING [place] ON WRONG PATIENT>>>>>
[2017-02-28] MEDS ORDERED: HYDR-4003 PO (10:54)
[2017-02-28] MEDS ORDERED: DAPT500V2 IV (10:54)
--- NOTE | 2017-02-28 11:01 | PCM.DC.MED ---
Discharge Summary Date of Service Feb 28, 2017 Dates of Hospitalization Date of Hospital Admission February 07, 2017 at 13:56 Date of Discharge: Feb 28, 2017 Providers: Admitting Physician: Mecca Lua DO Primary Care Physician: Maribel Gallego DO Attending Physician: Mecca Lua DO Diagnosis at Time of Discharge Diagnosis at Time of Discharge 1. Infected right ankle 2. right below knee amputation 3. acute blood loss anemia 4. Acute kidney injury 5. MRSA bacteremia 6. hypertension 7. Type 2 diabetes, with neuropathy Procedures XRay, CTs & MRIs PROCEDURE: X-RAY RIGHT ANKLE, MINIMUM THREE VIEWS ([id number]) INDICATIONS: CHARCOT FOOT TECHNIQUE: 4 views of the ankle were acquired. COMPARISON: [facility], CR, XR ANKLE MIN 3VW WT BEARING RT, 2016, 9:32. FINDINGS: Bones: Severe degenerative changes of the mid foot and hindfoot joints result in difficulty evaluating for subtle fractures. No displaced fractures are evident. There appears to be a talonavicular joint dislocation. Offset of the tibiotalar joint is also noted. Prominent plantar and Achilles spurs are present. Soft tissues: Extensive edema about the ankle is noted. No unexpected radiopaque foreign bodies are evident. Scattered soft tissue calcifications are present. IMPRESSION: 1. Prominent mid foot and hindfoot Charcot arthropathy results in difficulty evaluating for subtle fractures. 2. Apparent dislocation of the talonavicular joint. The need for better evaluation utilizing CT may be determined clinically. Dictated by: Cm Parks M.D. on 02/07/2017 at 11:00 Approved by: Cm Parks M.D. on 02/07/2017 at 11:05 PROCEDURE: CT ANKLE RIGHT W/O CONTRAST ([id number]) INDICATIONS: charcot foot right foot/ankle TECHNIQUE: Noncontrast 1-1.5 mm axial sections acquired from above the tibiotalar joint to the bottom of the calcaneus, with coronal and sagittal reformats. COMPARISON: [facility], CR, XR ANKLE 3VW RT, 02/07/2017, 11:52. FINDINGS: Image quality: Diagnostic. Bones: The bone mineralization is diffusely decreased. Severe degenerative changes and numerous scattered small ossific/calcific densities about the osseous structures of the imaged right hindfoot and midfoot results in difficulty evaluating for subtle fractures. No definite large acute fracture is evident. There is complete dislocation of the talonavicular joint with medial positioning of the talar head with respect to the navicular. The navicular remains appropriately aligned with respect to the remainder of the foot. No definite additional dislocations are appreciated. Extensive osseous erosions are noted throughout all of the midfoot and hindfoot bones. The ankle mortise is relatively well maintained. Soft tissues: Extensive subcutaneous edema about the midfoot and hindfoot is identified with prominent ankle, subtalar, and talonavicular fusions. Multiple joint bodies are present within the joint effusions. Please note that evaluation of the ligamentous and tendinous structures of the midfoot and hindfoot is limited on CT. However, there is thickening and diffuse edema noted involving the medial and lateral flexor tendons as well as the Achilles tendon. Partial-thickness tearing probably is present. No soft tissue air or soft tissue foreign bodies are evident. IMPRESSION: 1. Advanced degenerative changes of the right midfoot and hindfoot are compatible with Charcot arthropathy. 2. Medial dislocation of the talus with respect to the navicular is of uncertain chronicity. 3. Evaluation for subtle acute fractures is limited. No large displaced fracture. 4. Numerous bony erosions of the midfoot and forefoot are probably related to Charcot arthropathy. However, the possibility of superimposed osteomyelitis or inflammatory arthropathy cannot be excluded and clinical correlation is recommended. 5. Extensive soft tissue edema without a definite loculated fluid collection. 6. Moderate tendinopathy of the peroneus brevis, peroneus longus, and Achilles tendons is present. Additional areas of flexor tendinopathy along the medial aspect of the ankle probably are present. Dictated by: Cm Parks M.D. on 02/08/2017 at 15:49 Approved by: Cm Parks M.D. on 02/08/2017 at 16:14 PROCEDURE: US RENAL SONOGRAM INDICATIONS: CLAIRE TECHNIQUE: Real-time scanning was performed of the kidneys and bladder, with image documentation. COMPARISON: [facility], CT, CT CHEST ABD PELVIS W CON, 07/21/2015, 12:13. FINDINGS: Kidneys: Kidneys are normal in size. Right kidney measures 11.0 cm long; left kidney measures 11.7 cm long. Right renal cortical thickness is 0.9 cm; left renal cortical thickness is 1.3 cm. Renal cortical echotexture is normal. No hydronephrosis or nephrolithiasis. No suspicious solid mass lesions. Bladder: Pre-void bladder volume is 300 mL. Post-void residual is 200 mL. Pre -void images demonstrate no intraluminal masses or stones. On pre-void images, either ureteral jets are noted with color Doppler interrogation. (Of note, ureteral jets may not be detectable in up to 25% of cases due to insufficient differences in specific gravity between ureteral and bladder urine). Miscellaneous: No free pelvic fluid. IMPRESSION: 1. Mild right renal cortical thinning, otherwise normal kidneys. 2. Approximately 200 cc of postvoid residual. Dictated by: Dajuan BOWERS Interpreted: Ricky Verdin MD on 02/07/2017 at 16:05 Transcribed by: ZULMA on 02/07/2017 at 16:06 Approved by: Ricky Verdin M.D. on 02/07/2017 at 16:33 PROCEDURE: X-RAY RIGHT KNEE, ONE OR TWO VIEWS ([id number]) INDICATIONS: knee pain TECHNIQUE: 2 views of the knee were acquired. COMPARISON: None. FINDINGS: Bones: No fractures or dislocations. No suspicious bony lesions. Severe narrowing of the lateral femoral tibial joint and to lesser degree the patellofemoral knee joint. Tricompartmental osteophyte formation. Soft tissues: Moderate joint effusion. No suspicious soft tissue calcifications. Vascular calcifications indicate atherosclerosis. IMPRESSION: Knee joint degeneration and moderate joint effusion. Dictated by: Dajuan BOWERS Interpreted: Libertad Nieves MD on 02/10/2017 at 10: 12 Transcribed by: BHAVANA on 02/10/2017 at 10:13 Cardiac Echo Impression Echocardiogram Report Name: JACKIE BRAVO TStudy Crispin e: 02/09/2017 Height: 70 in Hospital Exam Location: [facility] Weight: 219 lb Gender: Male BSA: 2.2 m2 : 1940 Age: 76 yrs BP: 120/65 mmHg Reason For Study: Endocarditis Ordering Physician: Performed By: Sandrine [facility] Interpretation Summary The left ventricle is normal in size, wall thickness, and systolic function without any focal wall motion abnormalities. The ejection fraction is estimated to be 60-65%. LVEF has not changed significantly since prior study. The right ventricle is normal in size, thickness and function. The right ventricular systolic pressure is estimated at 54 mmHg assuming a right atrial pressure of 8 mm Hg. The left atrium is severely dilated. Right atrial size is normal. The aortic valve is moderately calcified. The calculated aortic valve area is 1.2 cm2. The peak aortic velocity is 2.6 m/sec. The peak aortic velocity on the previous exam was 3.0 m/sec. There is no other significant valvular heart disease. No overt evidence for endocarditis but cannot exclude MV endocarditis due to significant mitral annular calcification. The aortic root is normal size. Other Diagnostics DATE OF SURGERY: 02/15/2017 PREOPERATIVE DIAGNOSIS(ES): Diabetic ulcer of Charcot foot, right side. POSTOPERATIVE DIAGNOSIS(ES): Diabetic ulcer of Charcot foot, right side. PROCEDURE: Right below-knee amputation. SURGEON: George Hart MD TELEMARKETER SUPERVISOR: Bhaskar Raygoza PA-C. Brief History History of Present Illness 76 year old male evaluated at bedside in [facility]. Patient has a history of right foot charcot and has been managed by Dr. George Nowak. Patient states that he was recently fitted for a right foot [place] walker which subsequently began to rub on the inside of his foot. Patient states that he began to notice a wound over the medial aspect of his foot last week. No recent history of ulceration of his right foot. Xrays taken today reveal complete dislocation of the talonavicular joint with lateral translation of the fooot. possible fracture of the lateral aspect of the navicular. severe degenerative arthritis of the midfoot no obvious signs of osteomyelitis. Hospital Course Patient is a 76-year-old male presents to the emergency room with cellulitis and Charcot foot on the right #acute encephalopathy, poa, resolved, # infected right ankle, poa, active -s/p BKA 02-15-17 -continue daptomycin IV #Acute blood loss anemia, poa, stable -Postop hemoglobin 7.5, preop 9.3 Transfused 2 PRBCs 02/16. FOBT+ could be false due to iron. Probable microscopic bleeding, FOBT 02/23 again positive while off on iron/Pradaxa -h/h stable, no active GIB -given high-risks VTE post-op, resume Pradaxa once active bleeding cleared. increased asa to 325mg daily 02/23 #Acute kidney injury. poa resolved -Multifactorial: prerenal vs ATN, Inadequate oral intake, diuretic/Lasix use, antibiotics, new onset diarrhea. Patient's leg edema has improved. lasix was discontinued Lasix 40 daily on 02/19 but restarted 02/22-. urine EO neg. # MRSA bacteremia, poa, improving -Blood cultures had been persistently positive for MRSA., last positive 02/15/17 -PICC placed 02/19 -Continue Daptomycin total 6wks course upon d/c per ID. pt was given ceftaroline 02/15-02/24 -Must monitor CBC, CPK and CMP every week #Acute diarrhea, Stool C. difficile negative x2, continue imodium prn #mild transaminitis, developed post-op 02/16-,ddx: med induced, no clear culprit meds. no s/s suggestive of DRESS, Eosinophils zero/no rash/afebrile. -trending down LFTs, mildly elevated bilirubin, but stable -will consider abd US if keeps trending up -trends hepatic panel daily chronic, stable, resolved #Hyponatremia, stable, resolved #Diabetes -Hemoglobin A1c 6.6 (controlled) -Insulin sliding scale -Accu-Cheks before meals and at bedtime #Hypertension -We will continue Hydralazine 25 mg by mouth twice a day -We will continue Amlodipine 10 mg daily -Hold Spironolactone 50 mg by mouth twice a day.has been on hold since the initial CLAIRE -Continue to monitor #Chronic leg edema, this is most likely due to HFpEF as above, Patient states he has been on Lasix and spironolactone for 6 years for lower extremity edema. noted +2 pedal edema on the left. Home diuretics Lasix 80 mg by mouth twice a day and spironolactone 50 mg by mouth twice a day. Diuretics has been on hold initially and restarted Lasix at 40 mg by mouth daily ,held again for Claire, spironolactone remains on hold. -resumed diuretics as above #Hyperlipidemia -Continue Lipitor 20 mg by mouth daily at bedtime #Gout (currently stable) -Continue colchicine 0.6 mg twice a day #Diabetic neuropathy -On gabapentin 300 mg by mouth 3 times a day. Patient also has some phantom Pain and gabapentin continued. now Will hold due to CLAIRE Code Status: Full code Disposition:pt seems to be improving slowely, d/c when po intake more increased to [facility] in 1-2ays, needs to follow up ortho outpt Exam Vital Signs (Last) Date Time Temp Pulse Resp B/P Pulse Ox O2 Delivery O2 Flow Rate FiO2 02/28/17 06:20 36.3 60 16 152/71 100 Room Air 02/27/17 13:21 2.00 Test 02/07/17 12:05 02/07/17 12:10 02/07/17 12:48 02/08/17 06:07 Hold Griffith Top Tube Received (Received) Lactic Acid Level 2.0mmol/L (0.4-2.0) Urine Color Straw (YELLOW) Urine Appearance Clear (CLEAR,HAZY) Urine pH 5.5 (5.0-8.0) Urine Specific [place] 1.010 (1.003-1.035) Urine Protein Tracemg/dL (NEG,TRACE) Urine Glucose (UA) Negativemg/dL (NEGATIVE) Urine Ketones Tracemg/dL (NEGATIVE) Urine Occult Blood Trace (NEGATIVE) Urine Nitrite Negative (NEGATIVE) Urine Bilirubin Negative (NEGATIVE) Urine Urobilinogen Normalmg/dL (NORMAL) Urine Leukocyte Esterase Negative (NEGATIVE) Urine RBC 0-2/hpf (0-2) Urine WBC 0-5/hpf (0-5) Urine Epithelial Cells Occasional/hpf (NONE-MOD) Urine Crystals None seen (NONE SEEN) Urine Bacteria None/hpf (NONE-FEW) Urine Hyaline Casts None/lpf (NONE) Urine Granular Casts None seen (NONE SEEN) Urine Waxy Casts None seen (NONE SEEN) Urine Red Blood Cell Casts None seen (NONE SEEN) Urine White Blood Cell Casts None seen (NONE SEEN) Urine Mucus None seen (None Seen) Urine Trichomonas None seen (NONE SEEN) Urine Yeast None (NONE SEEN) Urinalysis Comment None Urine Culture Reflexed Not indicated Urine Random Total Protein 24mg/dL (0-15) Hemoglobin A1c 6.6% (4.8-5.6) Triglycerides Level 118mg/dL (0-149) Cholesterol Level 93mg/dL (100-199) LDL Cholesterol, Calculated 47.400mg/dL (0-99) VLDL Cholesterol 23.600mg/dL HDL Cholesterol 22mg/dL (>39) Cholesterol/HDL Ratio 4.23 (0.0-4.4) Test 02/08/17 12:50 02/09/17 06:27 02/12/17 05:40 02/14/17 06:20 Vancomycin Level Trough 14.1mcg/mL Uric Acid 2.9mg/dL (2.6-7.2) Osmolality 317 (275-300) Erythrocyte Sedimentation Rate > 140mm/hr (0-30) Test 02/17/17 08:45 02/21/17 15:26 02/22/17 16:35 02/22/17 17:00 C-Reactive Protein 18.3mg/dL (0.0-0.5) Urine Random Creatinine 85mg/dL (22-328) Urine Random Sodium 12mEq/L Urine Urea Nitrogen 587mg/dL (Not Estab.) Hold Urine Received (Received) Band Neutrophils % 5% (1-5) Total Creatine Kinase 73U/L (21-232) Hold Blue Top Tube Received (Received) Hold [place] Top Tube Received (Received) Test 02/28/17 04:30 White Blood Count 13.9th/mm3 (3.8-10.1) Red Blood Count 2.87mil/mm3 (4.40-5.80) Hemoglobin 8.0g/dL (13.8-17.2) Hematocrit 25.9% (41.0-50.0) Mean Corpuscular Volume 90.2fL (81-100) Mean Corpuscular Hemoglobin 27.9pg (27.0-35.0) Mean Corpuscular Hemoglobin Concent 30.9% (32.0-37.0) Red Cell Distribution Width 17.6% (12.3-15.4) Platelet Count 349bil/L (150-400) Neutrophils (%) (Auto) 82.2% (40-74) Lymphocytes (%) (Auto) 6.3% (14-46) Monocytes (%) (Auto) 9.5% (4-12) Eosinophils (%) (Auto) 0.7% (0-5) Basophils (%) (Auto) 0.1% (0-3) Sodium Level 144mEq/L (134-144) Potassium Level 3.5mEq/L (3.5-5.2) Chloride Level 110mEq/L (97-108) Carbon Dioxide Level 21mmol/L (18-29) Blood Urea Nitrogen 22mg/dL (8-27) Creatinine 0.82mg/dL (0.76-1.27) Estimat Glomerular Filtration Rate 97mL/min (>59) Glucose Level 94mg/dL (60-99) Calcium Level 8.4mg/dL (8.5-10.1) Phosphorus Level 3.1mg/dL (2.5-4.9) Magnesium Level 2.0mg/dL (1.6-2.6) Total Bilirubin 0.8mg/dL (0.0-1.2) Aspartate Amino Transf (AST/SGOT) 68U/L (0-50) Alanine Aminotransferase (ALT/SGPT) 55U/L (0-44) Alkaline Phosphatase 158U/L (25-160) Total Protein 5.3g/dL (6.4-8.4) Albumin 2.4g/dL (3.4-5.0) Procalcitonin 0.20ng/mL (0.00-0.08) Microbiology Results 5 sets of blood cultures are positive for MRSA Nasal screen for MRSA is negative Ankle culture for MRSA is positive Discharge Medications Discharge Medications Amlodipine (Amlodipine) 10 Mg Tablet 10 MG PO DAILY (Reported) Ascorbate Calcium (Vitamin C) 500 Mg Tablet 500 MG PO DAILY (Reported) Aspirin (Aspirin) 81 Mg Tablet 81 MG PO DAILY (Reported) Atorvastatin (Lipitor) 20 Mg Tablet 20 MG PO HS (Reported) Cholecalciferol (Vitamin D3) (Vitamin D3) 3,000 Unit Tablet 3,000 UNIT PO DAILY (Reported) Colchicine (Colchicine) 0.6 Mg Tablet 0.6 MG PO BID (Reported) Cyanocobalamin (Vitamin B-12) (Vitamin B-12) 1,000 Mcg Tablet 1,000 MCG PO DAILY (Reported) Dabigatran Etexilate Mesylate (Pradaxa) 150 Mg Capsule 150 MG PO BID (Reported) Daptomycin (Daptomycin) 500 Mg Vial 750 MG IV DAILY Prescribed by: Karlene CAZARES MD Febuxostat (Uloric) 40 Mg Tablet 120 MG PO DAILY (Reported) Ferrous Sulfate (Iron) 325 Mg Capsule.er 325 MG PO BID (Reported) Furosemide (Furosemide) 80 Mg Tab 80 MG PO BID (Reported) Gabapentin (Gabapentin) 300 Mg Capsule 300 MG PO TID (Reported) Hydralazine (Hydralazine) 25 Mg Tablet 25 MG PO BIDWM (Reported) Sodium Bicarbonate (Sodium Bicarbonate) 650 Mg Tablet 650 MG PO BID (Reported) Spironolactone (Spironolactone) 50 Mg Tablet 50 MG PO BID (Reported) As needed Docusate Sodium (Colace) 100 Mg Capsule 100 MG PO DAILY PRN PRN For Constipation (Reported) Hydrocodone-Acetaminophen 5-325 mg (Hydrocodone-Acetaminophen 5-325 mg) 1 Each Tablet 1 TABLET PO Q4H PRN PRN For Pain Prescribed by: Karlene CAZARES MD Followup Plan Follow-up plan Patient discharged to shelter facility to continue with IV antibiotics Continue Daptomycin until March 20, 2017, monitor patient with CBC, CMP, CPK to be drawn every week Discharge Diet: Heart Healthy, Diabetic Discharge Activity: Limited until seen by PCP Time spent 35 minutes spent discharging patient so far today. copies to: Maribel Gallego D Geoffrey MD Feb 28, 2017 11:01
--- NOTE | 2017-02-28 13:17 | NUR ---
UPDATE: [facility] has no available bed today and does not anticipate one until Tuesday, faxed updated to Brandie who is covering for Natalia. Faxed new referral to [facility] to see if patient is appropriate and could be accepted. PER PEDORTHIST SHAFT TENDER Updated PEDORTHIST
[2017-02-28 13:53] VITALS: BP 144/73; PULSE 60; RESP 18; O2SAT 96
--- NOTE | 2017-02-28 15:51 | NUR ---
Social Work: Continued Discharge Planning D: EMR reviewed. Pt is on day 21 of hospitalization. [facility]DA called to update [facility] on pt's discharge and [facility] stated they no longer have a bed available and won't have another bed available until Tuesday. SW re-confirmed that pt was accepted and SW was told by Natalia at [facility] that pt would have a bed available at discharge. [facility] stated they don't hold beds. SW informed pt of change in discharge plan. SW faxed referral to [facility]. SW will continue to follow for placement. Pt is agreeable to changing plan at this time. A: Pt for whom a SNF has been deemed medically necessary. P: SW to continue to find placement and follow-up with [facility] 02/28. Per , pt is ready to discharge once placement can be determined. BRENDA Elmore
--- NOTE | 2017-02-28 18:44 | NUR ---
Somnolence / Depression / Appetite Pt slept much of the day shift. Occasionally could mumble only in response to questions. Pt cooperative with care but spoke very little today; appears depressed. Becomes SOB just from being repositioned in bed. Has refused to eat this shift except for drinking one Glucerna at lunchtime. States he has no appetite.
[2017-02-28 19:48] VITALS: BP 155/73; PULSE 60; RESP 18; O2SAT 92
[2017-03-01] MEDS: Heparin 5,000 Unit/mL Inj SUBQ SCH ×2 (00:54→08:18)
--- NOTE | 2017-03-01 03:54 | NUR ---
Skin care No episodes of diarrhea tonight. Continuing to use barrier wipes and cream for skin care related to excoriated skin due to frequent stool. Q2 hour repositioning by staff, pt unable to offload easily on own; cooperative with all care and efforts to reposition. Hourly rounding ongoing.
[2017-03-01 05:05] VITALS: BP 166/76; PULSE 60; RESP 18; O2SAT 95
[2017-03-01 07:50] VITALS: BP 154/78; PULSE 83; RESP 14; O2SAT 95
[2017-03-01] MEDS: Insulin LISPRO 300 Unit/3 mL Inj SUBQ SCH ×2 (07:57→11:44)
[2017-03-01] MEDS: FEBUXOSTAT 40 MG PO SCH (08:16)
[2017-03-01] MEDS: Ascorbic Acid 500 mg Tablet PO SCH (08:17)
--- NOTE | 2017-03-01 08:22 | NUR ---
[facility] called overnight and did receive initial referral and it is in review. Called Zahra [phone] and let her know patient has discharge orders and can go today per MD. Asked for phone call back with update as soon as possible. Updated KELP OR SEAGRASS GATHERER Addendum: 03/01/17 at 1043 by CASIMIRO DELUNA CM Spoke with Zahra [phone] and along with other SNFs she is unable to accommodate the high cost of the IV Daptomycin. She is forwarding this to [facility] for review. Spoke with Bárbara Jimenes [phone] and she is aware of referral and will review right away for acceptance or denial. She is aware of the Daptomycin and this is not a barrier for LTAC. She also knows patient is ready for discharge. Updated KELP OR SEAGRASS GATHERER
[2017-03-01] MEDS: DAPTOmycin Inj 750 MG in 0.9% Sodium Chloride 50 ML IV SCH (09:18)
--- NOTE | 2017-03-01 10:24 | NUR ---
Skin Buttocks, sacrum, groin and scrotum red and excoriated. Incontinent of diarrhea. Barrier wipes or Calmoseptine applied with each brief change. Q 2hour turns, either R, L or bridged. Immodium given. On P500 ERI bed.
--- NOTE | 2017-03-01 12:08 | PROG NOTE ---
[address] [address] PROGRESS NOTE PATIENT: JACKIE BRAVO : 1940 MR#: [id number] ADMIT: 02/07/2017 JOB ID: [id number] DATE: 03/01/2017 SUBJECTIVE: He is now almost two weeks out from his right below-knee amputation. Wound is healing well, stump edema has resolved. It is time to get his stitches out. He will need followup with the suture winder hand. My understanding is that he is to be discharged to a intermediate facility today. I discussed plans for followup and suture removal with Dr. Raman.
[2017-03-01 13:12] VITALS: BP 157/73; PULSE 60; RESP 16; O2SAT 97
--- NOTE | 2017-03-01 14:48 | NUR ---
Spoke with Bárbara at [facility] and they will accept the patient this afternoon is accepting doctor [phone] RN to RN phone call [phone] Glendy Fax is [phone]. Faxed orders to this number Spoke with warehouse consultant and let her know patient will need to go this afternoon. [facility] is printing off transfer paperwork. Updated SWITCHBOARD OPERATOR SUPERVISOR
--- NOTE | 2017-03-01 14:53 | NUR ---
Social Work: Readiness for Discharge D: EMR reviewed. Pt is on day 22 of hospitalization for right foot cellulitis, renal failure per H&P. Pt is medically stable for discharge, discharge orders are active. REMELT OPERATOR made referral to [facility] and received acceptance today for discharge to [facility] with MD [facility] to follow. ILDA confirmed with pt and family that all are agreeable to discharge. ILDA provided Doctor with Doc to Doc report number [phone] and RN with RN to RN number [phone]. UR Specialist has created packet for transport. SW awaiting final time for transportation. All updated and agreeable to plan. A: Pt for whom a SNF has been deemed medically necessary. P: Pt to discharge to [facility] with [facility] to follow. UR Specialist has created packet for transport. SW awaiting final time for transportation. All updated and agreeable to plan. BRENDA Kellogg
--- NOTE | 2017-03-01 15:05 | PCM.PNMED ---
Subjective Date of Service Mar 01, 2017 Subjective Uneventful night. Patient ultimately was not discharged yesterday as the bed at the arranged SNF did not have his bed any more. Today we have patient accepted at [facility] in [facility] and patient OK with going there, I spoke with accepting doctor, Dr. Talbot, accepts patient in transfer. Exam Vital Signs Vital Sign - Last Date Time Temp Pulse Resp B/P Pulse Ox O2 Delivery O2 Flow Rate FiO2 03/01/17 14:30 Supplement Oxygen 03/01/17 13:12 36.5 60 16 157/73 97 3.00 Intake and Output 02/28/17 02/28/17 03/01/17 Cumulative From/Thru 15:00 23:00 07:00 02/07/17 10:52 - 03/01/17 06:12 Intake Total 359 ml 500 ml 400 ml 99419 ml Output Total 300 ml 600 ml 48904 ml Balance 59 ml 500 ml -200 ml 06962 ml Intake Oral 300 ml 500 ml 400 ml 80460 ml IV Total 59 ml 08596 ml Packed Cells 682 ml Output Urine Total 300 ml 600 ml 55018 ml Stool Total 463 ml Urine/Stool Mix 4 ml Emesis 460 ml Estimated Blood Loss 100 ml # Voids 2 14 # Bowel Movements 1 2 36 Exam Alert no distress Skin; no active rashes CV regular, Resp; clear GI, soft and non acute BKA, clean healing well, stiches need to come out today, nurse will arrange with surgery Lab and Diagnostics Result Diagram: 02/28/17 0430 02/28/17 0430 Microbiology 5 sets of blood cultures are positive for MRSA Nasal screen for MRSA is negative Ankle culture for MRSA is positive X-Rays, CTs and MRIs PROCEDURE: X-RAY RIGHT ANKLE, MINIMUM THREE VIEWS ([id number]) INDICATIONS: CHARCOT FOOT TECHNIQUE: 4 views of the ankle were acquired. COMPARISON: [facility], CR, XR ANKLE MIN 3VW WT BEARING RT, 2016, 9:32. FINDINGS: Bones: Severe degenerative changes of the mid foot and hindfoot joints result in difficulty evaluating for subtle fractures. No displaced fractures are evident. There appears to be a talonavicular joint dislocation. Offset of the tibiotalar joint is also noted. Prominent plantar and Achilles spurs are present. Soft tissues: Extensive edema about the ankle is noted. No unexpected radiopaque foreign bodies are evident. Scattered soft tissue calcifications are present. IMPRESSION: 1. Prominent mid foot and hindfoot Charcot arthropathy results in difficulty evaluating for subtle fractures. 2. Apparent dislocation of the talonavicular joint. The need for better evaluation utilizing CT may be determined clinically. Dictated by: Cm Parks M.D. on 02/07/2017 at 11:00 Approved by: Cm Parks M.D. on 02/07/2017 at 11:05 PROCEDURE: CT ANKLE RIGHT W/O CONTRAST ([id number]) INDICATIONS: charcot foot right foot/ankle TECHNIQUE: Noncontrast 1-1.5 mm axial sections acquired from above the tibiotalar joint to the bottom of the calcaneus, with coronal and sagittal reformats. COMPARISON: Located Within [facility], CR, XR ANKLE 3VW RT, 02/07/2017, 11:52. FINDINGS: Image quality: Diagnostic. Bones: The bone mineralization is diffusely decreased. Severe degenerative changes and numerous scattered small ossific/calcific densities about the osseous structures of the imaged right hindfoot and midfoot results in difficulty evaluating for subtle fractures. No definite large acute fracture is evident. There is complete dislocation of the talonavicular joint with medial positioning of the talar head with respect to the navicular. The navicular remains appropriately aligned with respect to the remainder of the foot. No definite additional dislocations are appreciated. Extensive osseous erosions are noted throughout all of the midfoot and hindfoot bones. The ankle mortise is relatively well maintained. Soft tissues: Extensive subcutaneous edema about the midfoot and hindfoot is identified with prominent ankle, subtalar, and talonavicular fusions. Multiple joint bodies are present within the joint effusions. Please note that evaluation of the ligamentous and tendinous structures of the midfoot and hindfoot is limited on CT. However, there is thickening and diffuse edema noted involving the medial and lateral flexor tendons as well as the Achilles tendon. Partial-thickness tearing probably is present. No soft tissue air or soft tissue foreign bodies are evident. IMPRESSION: 1. Advanced degenerative changes of the right midfoot and hindfoot are compatible with Charcot arthropathy. 2. Medial dislocation of the talus with respect to the navicular is of uncertain chronicity. 3. Evaluation for subtle acute fractures is limited. No large displaced fracture. 4. Numerous bony erosions of the midfoot and forefoot are probably related to Charcot arthropathy. However, the possibility of superimposed osteomyelitis or inflammatory arthropathy cannot be excluded and clinical correlation is recommended. 5. Extensive soft tissue edema without a definite loculated fluid collection. 6. Moderate tendinopathy of the peroneus brevis, peroneus longus, and Achilles tendons is present. Additional areas of flexor tendinopathy along the medial aspect of the ankle probably are present. Dictated by: Cm Parks M.D. on 02/08/2017 at 15:49 Approved by: Cm Parks M.D. on 02/08/2017 at 16:14 PROCEDURE: US RENAL SONOGRAM INDICATIONS: CLAIRE TECHNIQUE: Real-time scanning was performed of the kidneys and bladder, with image documentation. COMPARISON: Located Within [facility], CT, CT CHEST ABD PELVIS W CON, 07/21/2015, 12:13. FINDINGS: Kidneys: Kidneys are normal in size. Right kidney measures 11.0 cm long; left kidney measures 11.7 cm long. Right renal cortical thickness is 0.9 cm; left renal cortical thickness is 1.3 cm. Renal cortical echotexture is normal. No hydronephrosis or nephrolithiasis. No suspicious solid mass lesions. Bladder: Pre-void bladder volume is 300 mL. Post-void residual is 200 mL. Pre -void images demonstrate no intraluminal masses or stones. On pre-void images, either ureteral jets are noted with color Doppler interrogation. (Of note, ureteral jets may not be detectable in up to 25% of cases due to insufficient differences in specific gravity between ureteral and bladder urine). Miscellaneous: No free pelvic fluid. IMPRESSION: 1. Mild right renal cortical thinning, otherwise normal kidneys. 2. Approximately 200 cc of postvoid residual. Dictated by: Dajuan Broussard [facility] Interpreted: Ricky Verdin MD on 02/07/2017 at 16:05 Transcribed by: ZULMA on 02/07/2017 at 16:06 Approved by: Ricky Verdin M.D. on 02/07/2017 at 16:33 PROCEDURE: X-RAY RIGHT KNEE, ONE OR TWO VIEWS ([id number]) INDICATIONS: knee pain TECHNIQUE: 2 views of the knee were acquired. COMPARISON: None. FINDINGS: Bones: No fractures or dislocations. No suspicious bony lesions. Severe narrowing of the lateral femoral tibial joint and to lesser degree the patellofemoral knee joint. Tricompartmental osteophyte formation. Soft tissues: Moderate joint effusion. No suspicious soft tissue calcifications. Vascular calcifications indicate atherosclerosis. IMPRESSION: Knee joint degeneration and moderate joint effusion. Dictated by: Dajuan Broussard A Interpreted: Libertad Nieves MD on 02/10/2017 at 10: 12 Transcribed by: BHAVANA on 02/10/2017 at 10:13 Cardiac Echo Impressions Echocardiogram Report Name: JACKIE BRAVO TStudy Crispin e: 02/09/2017 Height: 70 in Hospital Exam Location: [facility] Weight: 219 lb Gender: Male BSA: 2.2 m2 : 1940 Age: 76 yrs BP: 120/65 mmHg Reason For Study: Endocarditis Ordering Physician: Performed By: [facility] Interpretation Summary The left ventricle is normal in size, wall thickness, and systolic function without any focal wall motion abnormalities. The ejection fraction is estimated to be 60-65%. LVEF has not changed significantly since prior study. The right ventricle is normal in size, thickness and function. The right ventricular systolic pressure is estimated at 54 mmHg assuming a right atrial pressure of 8 mm Hg. The left atrium is severely dilated. Right atrial size is normal. The aortic valve is moderately calcified. The calculated aortic valve area is 1.2 cm2. The peak aortic velocity is 2.6 m/sec. The peak aortic velocity on the previous exam was 3.0 m/sec. There is no other significant valvular heart disease. No overt evidence for endocarditis but cannot exclude MV endocarditis due to significant mitral annular calcification. The aortic root is normal size. Additional Diagnostics DATE OF SURGERY: 02/15/2017 PREOPERATIVE DIAGNOSIS(ES): Diabetic ulcer of Charcot foot, right side. POSTOPERATIVE DIAGNOSIS(ES): Diabetic ulcer of Charcot foot, right side. PROCEDURE: Right below-knee amputation. SURGEON: George Hart MD INSIGHT DIRECTOR: Bhaskar Raygoza PA-C. Assessment & Plan Patient is a 76-year-old male presents to the emergency room with cellulitis and Charcot foot on the right 1. acute encephalopathy, poa, resolved, 2. infected right ankle, poa, resolved -s/p BKA 5-23-17 -continue daptomycin IV 3. Acute blood loss anemia, poa, stable -Postop hemoglobin 7.5, preop 9.3 Transfused 2 PRBCs 02/16. FOBT+ could be false due to iron. Probable microscopic bleeding, FOBT 02/23 again positive while off on iron/Pradaxa -h/h stable, no active GIB -given high-risks VTE post-op, resume Pradaxa once active bleeding cleared. increased asa to 325mg daily 02/23 4. Acute kidney injury. poa resolved -Multifactorial: prerenal vs ATN, Inadequate oral intake, diuretic/Lasix use, antibiotics, new onset diarrhea. Patient's leg edema has improved. lasix was discontinued Lasix 40 daily on 02/19 but restarted 02/22-. urine EO neg. 5. MRSA bacteremia, poa, improving -Blood cultures had been persistently positive for MRSA., last positive 02/15/17 -PICC placed 02/19 -Continue Daptomycin total 6wks course upon d/c per ID. 02/11 thru 03/20/2017 -pt was given ceftaroline 02/15-02/24 -Must monitor CBC, CPK and CMP every week 6. Acute diarrhea, Stool C. difficile negative x2, continue imodium prn 7. mild transaminitis, developed post-op 02/16-,ddx: med induced, no clear culprit meds. no s/s suggestive of DRESS, Eosinophils zero/no rash/afebrile. -trending down LFTs, mildly elevated bilirubin, but stable -will consider abd US if keeps trending up -trends hepatic panel daily 8. Hyponatremia,stable, resolved 9. Diabetes -Hemoglobin A1c 6.6 (controlled) -Insulin sliding scale -Accu-Cheks before meals and at bedtime 10. Hypertension -We will continue Hydralazine 25 mg by mouth twice a day -We will continue Amlodipine 10 mg daily -Hold Spironolactone 50 mg by mouth twice a day.has been on hold since the initial CLAIRE -Continue to monitor 11. Gout (currently stable) -Continue colchicine 0.6 mg twice a day 12. Diabetic neuropathy -On gabapentin 300 mg by mouth 3 times a day. Patient also has some phantom Pain and gabapentin continued. now Will hold due to CLAIRE Code Status: Full code 03-01-17 Patient will be discharged today to [facility], please see complete discharge summary I dictated yesterday. VTE Prophylaxis: Other (The patient is on Pradaxa.) VTE Mechanical Devices: Intermittant Pneumatic CD Resuscitation Status: CPR: Attempt Resuscitation Time spent 35 minutes spent discharging patient so far today. Karlene Raman MD Mar 01, 2017 15:04
[2017-03-01] MEDS ORDERED: Bacitracin Ointment Packet TOPICAL ONE (15:28)
[2017-03-01 15:59] VITALS: BP 151/73; PULSE 60; RESP 19; O2SAT 94
--- NOTE | 2017-03-01 16:07 | NUR ---
Social Work: Discharge D: EMR reviewed. Pt is on day 22 of hospitalization for right foot cellulitis, renal failure per H&P. Pt is medically stable for discharge, discharge orders are active. EQUIPMENT COORDINATOR created packet and faxed orders. 4 H YOU[employer] DEVELOPMENT SPECIALIST complete transfer paperwork and images. Transportation to [place] has been coordinated by the Regional Operations Manager Ninfa for 1630. ILDA spoke with pt's brother Wan Fernando regarding pt's discharge, provided address for [place] [address] [place] [address]. Wan is agreeable, stated he will update Mohit and the rest of the family. completed PCS form, ILDA spoke with pt regarding transportation and pt signed consents. Pt to discharge to [place] with MD Talbot to follow, transportation at 1630. RN, UC, pt/family, and [place] all updated and agreeable to plan. A: Pt for whom a SNF has been deemed medically necessary. P: Pt to discharge to [place] with MD Talbot to follow, transportation at 1630. RN, UC, pt/family, and [place] all updated and agreeable to plan. Tayla Mike MSW
--- NOTE | 2017-03-01 16:42 | NUR ---
shortness of breath problem: shortness of breath with any exertion, even with oxygen on, 3 liters per nasal canula. I was when elevating arms up and down, or when elevating lower limb up and down while patient in bed. Patient reported shortness of breath. intervention: patient advised to take several deep breaths, inhale slowly and exhale slowly, and rest in between, and cease other activity. Evaluation: patient reported shortness of breath resolved with deep breathing and resting, oxygen per 3 liters continued. Safety: Patient advised to notify staff if shortness of breath returns. Bed in low position, call light within reach, rails up x 3.
--- NOTE | 2017-03-01 17:04 | NUR ---
Discharge To [place] via BLS at 16:25. PICC line left in place for continued IV antibiotics. All belongings sent with pt. Report phoned to Paulie.
== END 2017-03-01 16:25 | DRG 853 ==
LOC: SED 10:46 → MPC 13:56 → OSC 02-14 13:25
PROVIDERS: ADMIT Neuromusculoskeletal Medicine & OMM; ATTEND Neuromusculoskeletal Medicine & OMM
PROC: B24BZZ4 Ultrasonography of Heart with Aorta, Transesophageal (ICD-10-PCS; 2017-02-11)
PROC: 0Y6H0Z1 Detachment at Right Lower Leg, High, Open Approach (ICD-10-PCS; principal; 2017-02-15 07:30)
PROC: 30233N1 Transfusion of Nonautologous Red Blood Cells into Peripheral Vein, Percutaneous Approach (ICD-10-PCS; 2017-02-16)
DX: A41.02 Sepsis due to Methicillin resistant Staphylococcus aureus (principal); N17.0 Acute kidney failure with tubular necrosis; I50.33 Acute on chronic diastolic (congestive) heart failure; G93.41 Metabolic encephalopathy; M86.171 Other acute osteomyelitis, right ankle and foot; L03.115 Cellulitis of right lower limb; D62 Acute posthemorrhagic anemia; E87.1 Hypo-osmolality and hyponatremia; E11.621 Type 2 diabetes mellitus with foot ulcer; E11.610 Type 2 diabetes mellitus with diabetic neuropathic arthropathy; E11.65 Type 2 diabetes mellitus with hyperglycemia; E11.21 Type 2 diabetes mellitus with diabetic nephropathy; E11.628 Type 2 diabetes mellitus with other skin complications; L97.519 Non-pressure chronic ulcer of other part of right foot with unspecified severity; Z79.4 Long term (current) use of insulin; R65.20 Severe sepsis without septic shock; M10.9 Gout, unspecified; I25.10 Atherosclerotic heart disease of native coronary artery without angina pectoris; E78.5 Hyperlipidemia, unspecified; I12.9 Hypertensive chronic kidney disease with stage 1 through stage 4 chronic kidney disease, or unspecified chronic kidney disease; N18.3 Chronic kidney disease, stage 3 (moderate); Z87.891 Personal history of nicotine dependence; I48.2 Chronic atrial fibrillation; B95.62 Methicillin resistant Staphylococcus aureus infection as the cause of diseases classified elsewhere; Z95.0 Presence of cardiac pacemaker